=== PATIENT | female | born 1950 | race Caucasian/White ===

== ENCOUNTER 2020-06-12 14:39 | Outpatient (CLI) | payer MEDICARE, OTHER, SELFPAY ==
--- NOTE | ~2020-06-12 | MM_ITS ---
EXAMINATION: MM screening [facility] BI w vel HISTORY: Screening mammogram TECHNIQUE: Craniocaudal and mediolateral oblique 3-D tomosynthesis images were obtained and synthetic 2-D images were generated. CAD analysis was submitted and interpreted. COMPARISON: 04/20/2019, 04/15/2018, 04/08/2017 BREAST PARENCHYMAL COMPOSITION: There are scattered areas of fibroglandular density. FINDINGS: There is no evidence of suspicious mass, calcification, or architectural distortion to sugg est malignancy in either breast. There has been no suspicious interval change. IMPRESSION: 1. No mammographic evidence of malignancy. 2. Recommend routine screening mammography in one year. BI-RADS Category 1: Negative Reviewed, dictated and finalized at location A.
== END 2020-06-12 14:40 | disposition home or self-care (01) ==
LOC: ANHIMG 14:41
PROVIDERS: PCP Internal Medicine; Visit Provider Internal Medicine
DX: Z12.31 Encounter for screening mammogram for malignant neoplasm of breast (principal)
CPT/HCPCS: 77063; 77067

== ENCOUNTER 2020-08-20 16:44 | Outpatient (CLI) | payer MEDICARE, OTHER, SELFPAY ==
--- NOTE | ~2020-08-20 | XR_ITS ---
EXAMINATION: XR_RIBSBI_CR INDICATION: Chest pain after fall TECHNIQUE: 3 views of the bilateral ribs were obtained. COMPARISON: None. FINDINGS: No displaced rib fracture is identified. The lungs are free of acute opacities. There is no pleural effusion or pneumothorax. The cardiomediastinal silhouette is normal. Surgical clips in the right upper quadrant are likely from prior cholecystectomy. IMPRESSION: 1. No acute cardiopulmonary abnormality or evidence of displaced rib fracture. Reviewed, dictated and finalized at location A.
--- NOTE | ~2020-08-20 | XR_ITS ---
EXAMINATION:XR cervical spine 4-5V DATE: 08/20/2020 17:52 INDICATION: Neck pain TECHNIQUE: AP, lateral, lateral swimmers and odontoid views of the cervical spine are provided. COMPARISON: CT, 03/17/2017 FINDINGS: There are 2 mm of anterolisthesis of C4 on C5. Changes of anterior fusion procedure are pre sent at C5-6. There is moderate loss of intervertebral disc space height at C4-5 and C6-7. The odonto id is intact. No fracture is identified. The vertebral body heights are normal. Prevertebral soft tis sues are normal. There is moderate multilevel facet and uncovertebral joint osteoarthritis. IMPRESSION: 1. Moderate cervical spondylosis without acute findings or significant interval change. Reviewed, dictated and finalized at location A.
--- NOTE | ~2020-08-20 | XR_ITS ---
EXAMINATION: XR thoracic spine 2V DATE: 08/20/2020 17:52 INDICATION: Back pain, initial encounter TECHNIQUE: AP and lateral views of the thoracic spine are obtained. COMPARISON: None. FINDINGS: Bone alignment is normal. There is mild irregularity of the inferior endplates of the T12 a nd L1 vertebral bodies. Mild loss of vertebral disc space height is seen at several levels in the tho racic spine. IMPRESSION: 1. Age indeterminate fractures of T12 and L1. Reviewed, dictated and finalized at location A.
--- NOTE | ~2020-08-20 | XR_ITS ---
EXAMINATION: XR lumbar spine 2-3V DATE: 08/20/2020 17:52 INDICATION: Low back pain, initial encounter TECHNIQUE: Anteroposterior and lateral views of the lumbar spine, and cone-down lateral view of the l umbosacral junction were obtained. COMPARISON: None. FINDINGS: There is irregularity in the anterior/inferior endplate of the T12 and L1 vertebral bodies. Vertebral body alignment is normal. There is mild loss of intervertebral disc space height at L2-3 a nd L3-4. Small degenerative osteophytes project from the anterior endplates of multiple vertebral bod ies. Surgical clips in the right upper quadrant are likely from prior cholecystectomy. IMPRESSION: 1. Mild irregularity of the inferior endplates of T12 and L1, consistent with age indeterminate fract ures. Reviewed, dictated and finalized at location A. IMPRESSION: 1. Mild irregularity of the inferior endplates of T12 and L1, consistent with a ge indeterminate fractures.
== END 2020-08-20 16:45 | disposition home or self-care (01) ==
PROVIDERS: PCP Internal Medicine; Visit Provider Internal Medicine
DX: R07.9 Chest pain, unspecified (principal); M47.892 Other spondylosis, cervical region
CPT/HCPCS: 71110; 72050; 72070; 72100

== ENCOUNTER 2020-08-26 16:35 | Outpatient (CLI) | payer MEDICARE, OTHER, SELFPAY ==
--- NOTE | ~2020-08-26 | CT_ITS ---
EXAMINATION: CT brain wo con DATE: 08/26/2020 17:50 INDICATION: Fall with head injury TECHNIQUE: Computed tomography (CT) of the head was performed without intravenous contrast. Sagittal and coronal reconstructions were performed. The mA was adjusted according to patient size. Iterative reconstruction technique was employed. The dose-length product was 605.33 mGy-cm. COMPARISON: head CT dated 03/17/17 FINDINGS: No fracture. No acute intracranial hemorrhage, acute infarction or abnormal extra axial fluid collect ion. There is mild scattered white matter hypoattenuation consistent with chronic small vessel ischem ic disease. Ventricles are normal and symmetric. No mass/mass effect. Mucosal thickening in the paran mony sinuses with postoperative change of prior uncinectomies and ethmoidectomies. Chronic bilateral mastoid effusions with change of prior right mastoidectomy. The orbits are normal. Intracranial calc ified cerebral atherosclerosis is noted. IMPRESSION: 1. No fracture or acute intracranial process. 2. Mild scattered white matter hypoattenuation consistent with chronic small vessel ischemic disease. Reviewed, dictated and finalized at location A. IMPRESSION: 1. No fracture or acute intracranial process. 2. Mild scattered white matter hypoattenuation consistent with chronic small ve ssel ischemic disease.
== END 2020-08-26 16:36 | disposition home or self-care (01) ==
PROVIDERS: PCP Internal Medicine; Visit Provider Internal Medicine
DX: R51 Headache (principal); R93.0 Abnormal findings on diagnostic imaging of skull and head, not elsewhere classified
CPT/HCPCS: 70450

== ENCOUNTER 2021-03-20 13:40 | Outpatient (CLI) | payer MEDICARE, OTHER, SELFPAY ==
--- NOTE | ~2021-03-20 | MR_ITS ---
EXAMINATION: MR lumbar spine wo con DATE: 03/20/2021 14:45 INDICATION: Low back pain. TECHNIQUE: Magnetic resonance imaging (MRI) of the lumbar spine was performed without intravenous con trast. Sequences included sagittal T2-weighted FSE, sagittal T2-weighted FS FSE, sagittal T1-weighted FSE, and axial T2-weighted FSE. COMPARISON: Lumbar spine radiographs 08/20/2020 FINDINGS: There is 4 degrees dextrocurvature of lumbar spine. There are chronic compression fractures of the inferior endplates of T12 and L1 with 1/5 loss of height. There is a low signal fracture line in the T12 inferior endplate with bone marrow edema-like signal intensity in T12 vertebral body. The re is mildly decreased disc height from T12-L1 through L3-L4. The distal spinal cord signal intensity is normal. The conus medullaris is at L1-L2. The following disc levels are specifically discussed: T12-L1: The disc is bulging. There is no facet joint osteoarthritis. There is no neural foraminal denisse nosis. There is mild central canal stenosis. L1-L2: The disc is bulging. There is mild bilateral facet joint osteoarthritis. There is moderate rig ht and mild left neural foraminal stenosis. There is mild central canal stenosis. L2-L3: The disc is bulging and has an annular fissure. There is moderate bilateral facet joint osteoa rthritis. There is mild bilateral neural foraminal stenosis. There is mild central canal stenosis. L3-L4: The disc is bulging. There is moderate bilateral facet joint osteoarthritis. There is mild buffy ateral neural foraminal stenosis. There is mild central canal stenosis. L4-L5: The disc is bulging and has an annular fissure. There is moderate bilateral facet joint osteoa rthritis. There is mild bilateral neural foraminal stenosis. There is no central canal stenosis. L5-S1: The disc is bulging and has an annular fissure. There is severe bilateral facet joint osteoart hritis. There is mild bilateral neural foraminal stenosis. There is mild central canal stenosis. IMPRESSION: 1. Subacute T12 compression fracture. 2. Mild lumbar spondylosis. Reviewed, dictated and finalized at location B.
== END 2021-03-20 13:41 | disposition home or self-care (01) ==
LOC: ANHIMG 13:52
PROVIDERS: PCP Internal Medicine; Visit Provider Internal Medicine
DX: M47.896 Other spondylosis, lumbar region (principal)
CPT/HCPCS: 72148

== ENCOUNTER 2021-08-07 14:37 | Outpatient (CLI) | payer MEDICARE, OTHER, SELFPAY ==
--- NOTE | ~2021-08-07 | MM_ITS ---
EXAMINATION: MM screening [facility] BI w vel HISTORY: Screening mammogram TECHNIQUE: Craniocaudal and mediolateral oblique 3-D tomosynthesis images were obtained and synthetic 2-D images were generated. CAD analysis was submitted and interpreted. COMPARISON: 06/12/2020, 04/20/2019, 04/15/2018 bilateral digital screening mammogram examinations BREAST PARENCHYMAL COMPOSITION: There are scattered areas of fibroglandular density. FINDINGS: There is no evidence of suspicious mass, calcification, or architectural distortion to sugg est malignancy in either breast. There has been no suspicious interval change. IMPRESSION: 1. No mammographic evidence of malignancy. 2. Recommend routine screening mammography in one year. BI-RADS Category 1: Negative Reviewed, dictated and finalized at location A.
== END 2021-08-07 14:38 | disposition home or self-care (01) ==
LOC: ANHIMG 14:41
PROVIDERS: PCP Internal Medicine; Visit Provider Obstetrics & Gynecology
DX: Z12.31 Encounter for screening mammogram for malignant neoplasm of breast (principal)
CPT/HCPCS: 77063; 77067

== ENCOUNTER 2022-08-19 12:24 | Outpatient (CLI) | payer MEDICARE, OTHER, SELFPAY ==
--- NOTE | ~2022-08-19 | MM_ITS ---
EXAMINATION: MM screening [facility] BI w vel HISTORY: Screening mammogram TECHNIQUE: Craniocaudal and mediolateral oblique 3-D tomosynthesis images were obtained and synthetic 2-D images were generated. CAD analysis was submitted and interpreted. COMPARISON: 07/07/2021, 06/12/2020, 04/20/2019 BREAST PARENCHYMAL COMPOSITION: There are scattered areas of fibroglandular density. FINDINGS: There is no suspicious mass, calcification, or architectural distortion to suggest malignan cy in either breast. There has been no suspicious interval change. IMPRESSION: 1. No mammographic evidence of malignancy. 2. Recommend routine screening mammography in one year. BI-RADS Category 1: Negative Reviewed, dictated and finalized at location A.
== END 2022-08-19 12:25 | disposition home or self-care (01) ==
PROVIDERS: PCP Internal Medicine; Visit Provider Internal Medicine
DX: Z12.31 Encounter for screening mammogram for malignant neoplasm of breast (principal)
CPT/HCPCS: 77063; 77067

== ENCOUNTER 2023-07-09 13:39 | Emergency (ER) | payer MEDICARE, OTHER, SELFPAY ==
--- NOTE | 2023-07-09 13:45 | ED.URI ---
HPI - URI/Sore Throat General Chief Complaint: Upper Respiratory Infection Stated Complaint: Cough,Congestion,Runny Nose Time Seen by Provider: 07/09/23 13:46 Source: patient, RN notes reviewed and old records reviewed Mode of arrival: ambulatory Limitations: no limitations History of Present Illness HPI Narrative: 73-year-old female presents to [facility] with complaints of cough, chest congestion and a runny nose. Reports has been tested positive this morning for COVID-19. Her symptoms started on Wednesday, 4 days ago Patient currently on Coreg, Plavix, rosuvastatin Has a history of congestive heart failure, arthritis high blood pressure Onset (ago): day(s) (4) Related Data Home Medications Medication Instructions Recorded Confirmed allopurinol 100 mg tablet 100 mg PO DAILY 12/07/19 07/09/23 amitriptyline 50 mg tablet 50 mg PO HS 12/07/19 07/09/23 aspirin 81 mg tablet,delayed 81 mg PO DAILY 12/07/19 07/09/23 release (Enteric Coated Aspirin) carboxymethylcellulose sodium 1 % 1 drp ophthalmic (eye) HS 12/07/19 07/09/23 eye gel in a dropperette (Refresh Celluvisc) carvedilol 6.25 mg tablet 6.25 mg PO BID 12/07/19 07/09/23 cetirizine 10 mg capsule 10 mg PO DAILY 12/07/19 07/09/23 clopidogrel 75 mg tablet (Plavix) 75 mg PO DAILY 12/07/19 07/09/23 duloxetine 60 mg capsule,delayed 60 mg PO DAILY 12/07/19 07/09/23 release (Cymbalta) fluticasone 250 mcg-salmeterol 50 1 inh inhalation Q12H 12/07/19 07/09/23 mcg/dose blistr powdr for inhalation (Advair Diskus) furosemide 20 mg tablet 20 mg PO DAILY 12/07/19 07/09/23 levothyroxine 50 mcg tablet 50 mcg PO DAILY 12/07/19 07/09/23 (Synthroid) lidocaine 5 % topical patch 1 patch topical DAILY 12/07/19 07/09/23 (Lidoderm) linaclotide 145 mcg capsule 145 mcg PO DAILY 12/07/19 07/09/23 omega-3 acid ethyl esters 1 gram 1 cap PO BID 12/07/19 07/09/23 capsule (Lovaza) pantoprazole 40 mg tablet,delayed 40 mg PO BID 12/07/19 07/09/23 release peg 400-propylene glycol 0.4 %-0.3 1 drp ophthalmic (eye) Q6H 12/07/19 07/09/23 % eye drops (Systane (propylene glycol)) pregabalin 100 mg capsule (Lyrica) 100 mg PO BID 12/07/19 07/09/23 rosuvastatin 10 mg tablet 10 mg PO DAILY 12/07/19 07/09/23 topiramate 100 mg tablet (Topamax) 100 mg PO DAILY 12/07/19 07/09/23 Allergies Allergy/AdvReac Type Severity Reaction Status Date / Time Sulfa (Sulfonamide AdvReac Mild Hives Verified 07/09/23 13:41 Antibiotics) Review of Systems Review of Systems: All systems reviewed & are unremarkable except as noted in HPI and below Constitutional: Constitutional: Reports as per HPI and Reports body ache(s) Eyes: Eyes: Reports no additional eye complaints ENT: Reports as per HPI and Reports nasal congestion Cardiovascular: Cardiovascular: Reports no additional cardiovascular complaints, Denies chest pain and Denies dyspnea Respiratory: Respiratory: Reports as per HPI, Denies chest congestion, Reports cough and Denies dyspnea Gastrointestinal: Gastrointestinal: Reports no additional gastrointestinal complaints, Denies abdominal pain, Denies nausea and Denies vomiting Musculoskeletal: Musculoskeletal: Reports no additional musculoskeletal complaints Integumentary/Breasts: Skin/Breast: Reports system reviewed and no additional complaints, except as docu Neurologic: Reports system reviewed and no additional complaints, except as documented Psychiatric: Psychiatric: Reports no additional psychiatric complaints Allergic/Immunologic: Allergic/Immunologic: Reports no additional allergic/immunologic complaints [facility] Past Medical History Medical History (Updated 07/09/23 @ 19:19 by Melonie Purvis APRN) High cholesterol History of high blood pressure History of stroke Surgical History Surgical History (Updated 07/09/23 @ 19:19 by Melonie Purvis APRN) History of heart artery stent Comments At the time of my signature, I reviewed and agree with the nursing past medica
[2023-07-09 13:56] VITALS: BP 113/54; PULSE 72; RESP 18; TEMP 36.2; O2SAT 100
== END 2023-07-09 13:58 | disposition home or self-care (01) ==
PROVIDERS: Emergency Provider Nurse Practitioner; PCP Internal Medicine
DX: U07.1 COVID-19 (principal); E78.00 Pure hypercholesterolemia, unspecified; I10 Essential (primary) hypertension; Z86.73 Personal history of transient ischemic attack (TIA), and cerebral infarction without residual deficits; I25.10 Atherosclerotic heart disease of native coronary artery without angina pectoris; Z95.5 Presence of coronary angioplasty implant and graft
CPT/HCPCS: 87426; 99213; C9803; G0463

== ENCOUNTER 2023-12-09 15:20 | Outpatient (CLI) | payer MEDICARE, OTHER, SELFPAY ==
--- NOTE | ~2023-12-09 | MM_ITS ---
EXAMINATION: MM screening [facility] BI w vel HISTORY: Screening mammogram TECHNIQUE: Craniocaudal and mediolateral oblique 3-D tomosynthesis images were obtained and synthetic 2-D images were generated. CAD analysis was submitted and interpreted. COMPARISON: 08/19/2022, 08/07/2021, 06/12/2020 BREAST PARENCHYMAL COMPOSITION: There are scattered areas of fibroglandular density. FINDINGS: No suspicious mass, calcification, or architectural distortion are identified in either daniel ast to suggest malignancy. There has been no suspicious interval change. IMPRESSION: 1. No mammographic evidence of malignancy. 2. Recommend routine screening mammography in one year. BI-RADS Category 1: Negative Reviewed, dictated and finalized at location A. [employer]
== END 2023-12-09 15:21 | disposition home or self-care (01) ==
PROVIDERS: PCP Internal Medicine; Visit Provider Internal Medicine
DX: Z12.31 Encounter for screening mammogram for malignant neoplasm of breast (principal)
CPT/HCPCS: 77063; 77067

== ENCOUNTER 2025-06-14 15:38 | Outpatient (CLI) | payer MEDICARE, OTHER, SELFPAY ==
--- NOTE | ~2025-06-14 | MM_ITS ---
EXAMINATION: MM screening gloria BI w vel HISTORY: Screening TECHNIQUE: Craniocaudal and mediolateral oblique 3-D tomosynthesis images were obtained and synthetic 2-D images were generated. CAD analysis was submitted and interpreted. COMPARISON: Comparison to multiple prior studies sequentially, with oldest reviewed study dated 04/15. BREAST PARENCHYMAL COMPOSITION: Not dense: There are scattered areas of fibroglandular density. FINDINGS: There is no evidence of suspicious mass, calcification, or architectural distortion to sugg est malignancy in either breast. There has been no suspicious interval change. IMPRESSION: 1. No mammographic evidence of malignancy. 2. Recommend routine screening mammography in one year. BI-RADS Category 1: Negative Reviewed, dictated and finalized at location B.
--- OUTSIDE RECORDS SUMMARY | 2025-06-14 15:41 | XMS_ITS | Referral Summary ---
Author Organization [facility] Address [address] [place] [address] Care Team Providers Care Patent Examiner Name Role Phone Neil Higgins MD Primary Care Provider Edilberto Nance MD Unavailable [phone] Rick Coates MD Unavailable Encounters Date Type Department Care Team Description 06/12/2025 1:40 PM CDT Procedure visit [facility] General Neurology [address] [place] [address] Francine Ruiz MD PhD Intractable chronic migraine without aura and without status migrainosus (Primary Dx) 05/30/2025 Telephone [facility] Otolaryngology [address] [place] [phone] Irma Chavez LPN Sinus symptoms and results of CT sinus 05/29/2025 Imaging Exam [facility] Otolaryngology [address] [place] [phone] Rick Coates MD Chronic pansinusitis (Primary Dx) 05/21/2025 1:30 PM CDT Office Visit [facility] Pulmonology [address] [place] [address] Shoshana Seo MD Chronic bronchitis, simple (HCC) (Primary Dx); Chronic rhinitis 04/03/2025 2:15 PM CDT Office Visit [facility] Otolaryngology [address] [place] [address] Rick Coates MD Chronic cough (Primary Dx); Chronic pansinusitis 03/27/[address] [facility] General Neurology [address] [place] [id number] [place] Intractable chronic migraine without aura and without status migrainosus (Primary Dx) 03/20/2025 1:40 PM CDT Procedure visit [facility] General Neurology [address] [place] [address] Francine Ruiz MD PhD Intractable chronic migraine without aura and without status migrainosus (Primary Dx) from Last 3 Months Allergies Active Allergy Reactions Criticality Noted Date Comments Sulfa (Sulfonamide Antibiotics) Hives,Unknown Medium 12/02/2004 HIVES Tramadol Mental status changes,Hallucinations Medium 04/11/2019 confusion Medications allopurinol (ZYLOPRIM) 100 mg tablet Take 1 tablet (100 mg total) by mouth daily Active aspirin 81 mg tablet Take 1 tablet (81 mg total) by mouth daily Active clopidogrel (PLAVIX) 75 mg tablet Take 1 tablet (75 mg total) by mouth nightly Held for procedure; last dose 10/[address] (CYMBALTA) 60 mg capsule Take 1 capsule (60 mg total) by mouth nightly Active pantoprazole DR (PROTONIX) 40 mg EC tablet Take 1 tablet (40 mg total) by mouth daily Active levothyroxine (SYNTHROID) 50 mcg tablet Take 1 tablet (50 mcg total) by mouth daily Active thiamine (VITAMIN B-1) 50 mg tablet Take 1 tablet (50 mg total) by mouth daily Active cetirizine (ZyrTEC) 10 mg tablet Take 1 tablet (10 mg total) by mouth nightly Active lidocaine (LIDODERM) 5 % Place 1 patch on the skin nightly Both feet at night Active cycloSPORINE (RESTASIS) 0.05 % ophthalmic emulsion Administer 1 drop into both eyes as needed Active onabotulinumtox in A (BOTOX) 100 unit recon soln Every 3- 4 months Active omega-3 fatty acids (LOVAZA) 1 gram capsule Take 1 capsule (1 g total) by mouth daily 06/16/20 20 Active Trulance 3 mg tablet Take 1 tablet (3 mg total) by mouth as needed 08/07/20 21 Active furosemide (LASIX) 20 mg tablet Take 1 tablet (20 mg total) by mouth as needed Active levalbuterol (XOPENEX HFA) 45 mcg/actuation inhalerIndicati ons:Chronic bronchitis, simple (HCC) Inhale 1-2 puffs every 4 (four) hours as needed for wheezing or shortness of breath (cough) 1 each 3 11/02/20 23 Active rosuvastatin (CRESTOR) 20 mg tablet Take 1 tablet (20 mg total) by mouth daily 01/06/20 24 Active carvediloL (COREG) 3.125 mg tablet Take 1 tablet (3.125 mg total) by mouth 2 (two) times a day with meals 180 tablet 3 06/23/20 24 025 Active carvediloL (COREG) 6.25 mg tablet Take 1 tablet (6.25 mg total) by mouth 2 (two) times a day with meals 180 tablet 3 06/23/20 24 025 Active topiramate (TOPAMAX) 50 mg tablet Take 2 tabs twice daily 360 tablet 3 08/04/20 24 Active ubrogepant (Ubrelvy) 100 mg tablet TAKE 1 TABLET BY MOUTH NEEDED FOR HEADACHE, MAY REPEAT DOSE IN 2 HOURS IF NO RELIEF, DO NOT EXCEED 2 DOSES IN 24 HOURS 10 tablet 11 10/12/20 24 Active guaiFENesin ER (MUCINEX) 600 mg 12 hr tablet Take 2 tablets (1,200 mg total) by mouth 2 (two) times a day 10/11/20 24 Active amitriptyline (ELAVIL) 25 mg tablet Take 2 tablets (50 mg total) by mouth nightly 180 tablet 3 02/16/20 25 Active fremanezumab-vf rm (Ajovy Autoinjector) 225 mg/1.5 mL auto-injector subcutaneous auto-injector Inject 1.5 mL (225 mg total) under the skin every 30 (thirty) days 1.5 mL 6 02/21/20 25 Active ipratropium (ATROVENT) 42 mcg (0.06 %) nasal sprayIndication s:Chronic bronchitis, simple (HCC) Administer 2 sprays into each nostril 4 (four) times a day 15 mL 1 05/21/20 25 Active azelastine (ASTELIN) 137 mcg (0.1 %) nasal sprayIndication s:Chronic rhinitis Administer 1 spray into each nostril 2 (two) times a day Use in each nostril as directed 30 mL 2 08/22/20 24 025 Discontinued(A lternate therapy) methylPREDNISol one (Medrol, Thomas,) 4 mg DosepackIndicat ions:Chronic bronchitis, simple (HCC) follow package directions 1 packet 05/21/20 25 025 Discontinued(R eorder) clindamycin (CLEOCIN) 300 mg capsuleIndicati ons:Chronic pansinusitis Take 1 capsule (300 mg total) by mouth 3 (three) times a day for 14 days 42 capsule 05/30/20 25 025 methylPREDNISol one (Medrol, Thomas,) 4 mg DosepackIndicat ions:Chronic pansinusitis follow package directions 1 packet 05/30/20 25 025 Discontinued Hospital, Clinic, or Other Facility Administered Medication Ordered Dose Route Frequency Start Date End Date Status onabotulinumtoxin A (BOTOX) 200 unit injection 200 UnitsIndications:Int ractable chronic migraine without aura and without status migrainosus 200 Units OTHER Once for Clinic-Administer ed Medication 01/18/2024 Active onabotulinumtoxin A (BOTOX) 200 unit injection 200 UnitsIndications:Int ractable chronic migraine without aura and without status migrainosus 200 Units OTHER Once for Clinic-Administer ed Medication 12/26/2024 Active onabotulinumtoxin A (BOTOX) 200 unit injection 200 UnitsIndications:Int ractable chronic migraine without aura and without status migrainosus 200 Units OTHER Once for Clinic-Administer ed Medication 09/04/2025 Active onabotulinumtoxin A (BOTOX) 200 unit injection 200 UnitsIndications:Int ractable chronic migraine without aura and without status migrainosus 200 Units OTHER Once for Clinic-Administer ed Medication 06/12/2025 06/12/2025 Ended Active Problems Problem Noted Date Diagnosed Date Acquired absence of genital organ 12/18/2024 Acute renal failure syndrome 12/18/2024 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 I recommended that she try using hydrocortisone cream twice a day to this area which may reduce the inflammation and resolve this. Follow up if things worsen. Chronic cough 08/15/2024 Assessment & Plan (04/09/2025 5:02 PM CDT): She indicates that she has had this cough for many years. Right now it is pretty tolerable. Does not really want to pursue any further intervention. Assessment & Plan (03/06/2025 6:03 PM CDT): There does not seem to be a pulmonary source for this and she has a significant sinusitis. Will treat the sinusitis and have her follow up in about 4 weeks. Assessment & Plan (08/15/2024 2:21 PM CDT): I think her cough is likely due to her reflux disease in light of the way she describes choking and throwing up on the phlegm. I do not find any evidence of infection. She already takes Protonix once a day. I recommended that she talk with her primary care physician about further management of this. Mucocele of ethmoid sinus 04/25/2024 Tension headache 04/14/2024 Assessment & Plan (05/19/2024 11:26 AM CDT): Continue current management. Assessment & Plan (04/14/2024 10:14 AM CDT): She is working with a neurologist with Botox injections. I recommended continuing. Otalgia of both ears 04/14/2024 Assessment & Plan (04/14/2024 10:14 AM CDT): I do not find any evidence of an ear infection or inflammation. I talked with the patient about possible reasons for ear pain that could be coming from another source. There is some potential for TMJ disorder to cause this. Also some potential for ear pain due to cervical strain or shoulder problems. I think this probably is part of her tension headache. Her ears both look pretty healthy. I am not recommending any intervention on my part. Chronic bronchitis, simple 11/10/2023 Dyspnea and respiratory abnormalities 11/10/2023 Paraosmia 11/10/2022 Assessment & Plan (11/10/2022 9:19 PM DYE BOX OPERATOR): This has improved and gotten back to normal. I suspect she probably did have an infection but right now everything seems to be under control. Recommended no intervention. Follow-up as needed. Chronic pansinusitis 08/11/2022 Assessment & Plan (04/09/2025 5:04 PM CDT): Seems improved after taking clindamycin for what appeared to be a methicillin sensitive staph aureus. I recommended no intervention. Follow up with me as needed. Endoscopically I do not find any evidence of infection either. Assessment & Plan (03/06/2025 6:03 PM CDT): She has a pretty significant sinus infection on both sides with exudate and discharge bilaterally. I cultured the left side. Going to prescribe a steroid pack and a 2 week course of Ceftin. I will call her if the culture grows something that warrants a change in her antibiotics. Otherwise I would like to see her in about 4 weeks. We will do imaging at that time. She is okay with this. I am going to check her lab work also. Consider possibility of immunoglobulin deficiency. Assessment & Plan (08/15/2024 2:18 PM CDT): Endoscopically the ethmoid and frontal sinuses on the left side have healed quite well. She has a very good opening into the frontal sinus. I do not find any problems. At this point I do not think there is any need for further intervention. She can follow up with me as needed. Assessment & Plan (05/19/2024 11:26 AM CDT): Seems to be doing well. This ear in the left side looks pretty good. I did remove some remaining packing and there appears to be a pretty good opening. I am recommending rinsing with saline as needed. Follow up with me in about 6-8 weeks. Assessment & Plan (04/14/2024 10:13 AM CDT): She has an ethmoid mucocele on the left side. It actually looks little bit larger endoscopically than it does on the CT scan. I am recommending removal of this as it may continue to enlarge and it is already nearly obstructing the frontal sinus. I discussed the risk of sinus surgery including the risk of recurrent or persistent disease that may require further revision surgery. There is a risk of orbital injury and DEAL ARCHITECT injury which could result in blindness or double vision or brain damage. These risks are quite low. Some risk of permanent anosmia. I explained that this may not be the reason for the headache and she understands that. She has no questions. Assessment & Plan (11/10/2022 9:19 PM DYE BOX OPERATOR): Seems improved. Endoscopically I do not find any evidence of problems. Will treat expectantly for now. Assessment & Plan (08/11/2022 10:48 AM CDT): She is doing pretty well and things appear to have healed up quite well. I recommend that she finish up the Cipro. I told her that there were several bacteria that cultured out. One of them is not being treated but I think it is probably insignificant. We will see how things go. The plan is for a follow-up in 3 months. Chronic maxillary sinusitis 05/20/2022 Overview (05/20/2022): Added automatically from request for surgery [id number] Chronic ethmoidal sinusitis 05/20/2022 Overview (05/20/2022): Added automatically from request for surgery [id number] Acute post-traumatic headache, not intractable 1 Chest pain 09/27/2019 Overview (09/27/2019): Added automatically from request for surgery [id number] Coronary artery disease of n ative artery of [place] heart with stable angina pectoris 09/27/2019 Overview (09/27/2019): Added automatically from request for surgery [id number] Parkinsonism 01/26/2018 Obesity with body mass index 30 or greater 04/09 Temporary cerebral vascular dysfunction 04/09/20 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 Renal osteodystrophy 04/14/2016 Benign hypertension 04/08/2016 Gastroesophageal reflux disease 04/08/2016 Hearing loss 04/08/2016 Hypothyroidism 04/08/2016 Kidney disease 04/08/2016 Peptic ulcer 04/08/2016 Periodic limb movement disorder 10/08/2015 Left ventricular dysfunction 07/25/2015 Asymptomatic stenosis of left carotid artery Carotid atherosclerosis 12/16/2014 Anemia 08/15/2014 Parasomnia, organic 04/24/2014 Cerebrovascular accident (CVA) 04/21/2014 Hyperlipidemia 04/21/2014 Carotid bruit 04/20/2014 Peripheral nerve disease 07/12/2013 Intractable chronic migraine without aura 2012 Immunizations Immunization Administration Dates Next Due Influenza, Trivalent, Preservative Free, Intramu scular 09/11/2012 Moderna SARS-CoV-2 Monovalent Vaccination (12+ Y RS) 01/27/2021,12/30/2020 Pfizer SARS-CoV-2 Monovalent Vaccination (12+ Yrs) PURPLE 12/19/2021 Social History Tobacco Use Types Packs/Day Years Used Date Smoking Tobacco: Never Passive Smoke Exposure: Past Smokeless Tobacco: Never Alcohol Use Standard Drinks/Week Comments Not Currently 0 (1 standard drink = 0.6 oz pur e alcohol) AUDIT-C Answer Date Recorded Q1: How often do you have a drink containing alcohol? Never 05/05/2024 Q2: How many drinks containi ng alcohol do you have on a typical day when you are drinking? Patient does not drink Q3: How often do you have si x or more drinks on one occasion? Never 05/05/2024 Personal Safety Answer Date Recorded Have you ever been in or are you currently in a harmful physical or emotional relationship or is someone making you feel afraid or unsafe? Denies 05/05/2024 Comments No Sex and Gender Information Value Date Recorded Sex Assigned at Not on file Legal Sex Female 7:36 AM DYE BOX OPERATOR Gender Identity Female 08/25/2021 8:49 PM CDT Sexual Orientation Straight 08/25/2021 8: 49 PM CDT Last Filed Vital Signs Vital Sign Reading Time Taken Comments Blood Pressure 115/67 06/12/2025 1:16 PM CDT Pulse 67 06/12/2025 1:16 PM CDT Temperature 36.5 C (97.7 F) 06/12/2025 1:16 PM CDT Respiratory Rate 18 05/21/2025 1:34 PM CDT Oxygen Saturation 97% 06/12/2025 1:16 PM CDT Inhaled Oxygen Concentration - - Weight 67.6 kg (149 lb) 06/12/2025 1:16 PM CDT Height 157.5 cm (5' 2) 06/12/2025 1:16 PM CDT Body Mass Index 27.25 06/12/2025 1:16 PM CDT Plan of Treatment Not on file Goals Goal Patient Goal Type Associated Problems Recent Progress Patient-Stated? Author CCM Chronic Pain Care Plan Chronic Care Management No change(09/04 1:48 PM CDT) No Dia Hunter RN Note: Problem: Chronic Pain Goals: 1. Minimize further functional decline 2. Maximize quality of life 3. Control pain Strategies: - Activity/exercise program recommendation - Conservative stepwise pain medicine strategy with multi-disciplinary approach - Recommend healthy lifestyle strategies and compensatory methods as needed Medical Devices Implanted Type Area Buckshot Swage Operator Device Identifier Shelf Expiration Date Model / Serial / Lot Total Joint Replacement Bilateral : Knee Insurance MEDICARE [facility] MEDICARE [facility] Con[employer] [facility] MEDICARE FOR LIFE MEDICARE FOR LIFE ZA NAP Advance Directives For more information, please contact: [phone] * Full Code (Latest Code Status on File) Date Activated Date Inactivated Comments 12/20/2020 7:11 AM 12/21/2020 4:39 AM Healthcare Agents on File Name Relationship Healthcare Agent [facility] Communication Marcus Marty Spouse Health Care Agent Care Teams Patent Examiner Relationship Specialty Start Date End Date Neil Higgins MD [address] [place] [address] PCP - General 01/18/18 Edilberto Nance MD [address] [place] [address] Consulting Physician Cardiology 05/20/22 Rick [place] [address] Consulting Physician Otolaryngology 07/31/22
--- OUTSIDE RECORDS SUMMARY | 2025-06-14 15:41 | XMS_ITS | Encounter Summary ---
Author Organization [facility] Healthcare Address [address] [place] [address] Care Team Providers Care Deck Worker Name Role Phone Neil Higgins MD Primary Care Provider [phone] Edilberto Nance MD Unavailable [phone] Rick Coates MD Unavailable [phone] Reason for Visit * Reason Onset Date Comments PAIN CONFERENCE 03/25/2021 Encounter Details Date Type Department Care Team (Late st Contact Info) Description 03/25/2021 Telephone [facility] [address] [place] [facility] [address] [place], [place] [id number] Teresa Orellana MD PhD [address] [place], [place] [id number] PAIN CONFERENCE Social History Tobacco Use Types Packs/Day Years Used Date Smoking Tobacco: Never Smokeless Tobacco: Never Alcohol Use Standard Drinks/Week Comments Not Currently 0 (1 standard drink = 0.6 oz pur e alcohol) Comments No Sex and Gender Information Value Date Recorded Sex Assigned at Not on file Legal Sex Female 7:36 AM 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 Author CCM Chronic Pain Care Plan Chronic Care Management No change(09/04 1:48 PM CDT) No Elsa , Dia F., RN Note: Problem: Chronic Pain Goals: 1. Minimize further functional decline 2. Maximize quality of life 3. Control pain Strategies: - Activity/exercise program recommendation - Conservative stepwise pain medicine strategy with multi-disciplinary approach - Recommend healthy lifestyle strategies and compensatory methods as needed documented as of this encounter Visit Diagnoses Not on filedocumented in this encounter Care Teams Deck Worker Relationship Specialty Start Date End Date Neil Higgins MD [address] [place] [address] PCP - General 01/18/18 Edilberto Nance MD [address] [place] [address] Consulting Physician Cardiology 05/20/22 Rick Coates MD [address] [place] [address] Consulting Physician Otolaryngology 07/31/22 documented as of this encounter
--- OUTSIDE RECORDS SUMMARY | 2025-06-14 15:41 | XMS_ITS | Clinical Summary ---
Author Organization [facility] Address [address] [place] [address] Care Team Providers Care Chief Customer Officer Name Role Phone Neil Higgins MD Primary Care Provider [phone] Allergies Active Allergy Reactions Criticality Noted Date Comments Sulfa Antibiotics Rash Medium 06/27/2020 Tramadol Hallucinations Medium 02/13/2021 Medications RESTASIS 0.05 % ophthalmic emulsion Place 1 drop into both eyes 2 (two) times daily. 0 Active carvedilol 6.25 MG tablet Take 1 tablet (6.25 mg total) by mouth 2 (two) times daily. 9 Active cetirizine 10 MG tablet Take 1 tablet (10 mg total) by mouth daily. Active clopidogrel 75 MG tablet Take 1 tablet (75 mg total) by mouth nightly at bedtime. Active allopurinol 100 MG tablet Take 2 tablets (200 mg total) by mouth daily. Active ASPIRIN EC 81 MG tablet Take 1 tablet (81 mg total) by mouth nightly. 9 Active LIDODERM 5 % Place 1 patch onto the skin nightly. Apply 1/2 patch to each foot every night at bedtime. Remove in the morning. 0 Active levothyroxine 50 MCG tablet Take 1 tablet (50 mcg total) by mouth every morning. Active furosemide 20 MG tablet Take 1 tablet (20 mg total) by mouth daily as needed (swelling). Active rosuvastatin 10 MG tablet Take 1 tablet (10 mg total) by mouth daily. Active vitamin B-1 50 MG tablet Take 1 tablet (50 mg total) by mouth daily. Active DULoxetine 60 MG capsule Take 1 capsule (60 mg total) by mouth nightly. 0 Active nitroglycerin 0.[address] 1 tablet (0.4 mg total) under the tongue every 5 (five) minutes as needed for Chest Pain. Active omega-3 acid 1 GM capsule Take 2 capsules (2 g total) by mouth 2 (two) times daily. 1 Active ferrous sulfate EC 324 (65 Fe) MG tablet Take 1 tablet (324 mg total) by mouth daily with breakfast. 30 tablet 2 Active Pyridoxine HCl (VITAMIN B-6) 25 MG Tab Take 50 mg by mouth daily. Active vitamin D3, cholecalciferol, 5000 UNITS capsule Take 1 capsule (125 mcg total) by mouth daily. Active OXYGEN 2 L/min by Nasal route daily as needed. Generator prn- hasnt needed to use in 3 years Active THIOCTIC ACID 100 MG Cap Take by mouth daily. Active amitriptyline (ELAVIL) 25 MG tablet Take 2 tablets (50 mg total) by mouth daily. 2 Active botulinum toxin type A (BOTOX) 200 units injection 200 Units by Other route. Every 3 months foe TRAN 2 Active polyethylene glycol (GLYCOLAX) 17 GM/SCOOP powder 17 g. Acti ve pregabalin (LYRICA) 100 MG capsule Take 1 capsule (100 mg total) by mouth daily. 2 Active topiramate (TOPAMAX) 50 MG Tab 2 tablets (100 mg total) 2 (two) times daily. 1 Active ubrogepant (UBRELVY) 100 MG tablet Ubrelvy 100 mg tablet TAKE 1 TABLET BY MOUTH NEEDED FOR HEADACHE. MAY REPEAT DOSE IN 2 HOURS IF NO RELIEF. DO NOT EXCEED 2 DOSES IN 24 HOURS. 2 Active guaiFENesin ER (MUCINEX) 600 MG 12 hr tablet Take 2 tablets (1,200 mg total) by mouth 2 (two) times daily. 28 tablet 4 Active Plecanatide (TRULANCE) 3 MG TabIndications:C hronic constipation Take 3 mg by mouth daily. 90 tablet 3 4 Active azithromycin (ZITHROMAX Z-CHENTE) 250 MG tablet 2 tabs x 1 day with 1 tab daily x 4 days 6 tablet 5 Active pantoprazole EC (PROTONIX) 40 MG tabletIndication s:Chronic GERD Take 1 tablet (40 mg total) by mouth daily. Must attend 11/13 appt for further refills 90 tablet 1 5 Active pantoprazole EC (PROTONIX) 40 MG tabletIndication s:Chronic GERD Take 1 tablet (40 mg total) by mouth daily. 30 tablet 2 5 025 Discontinu ed(Reorder ) amoxicillin (AMOXIL) 500 MG tablet Take 2 tablets (1,000 mg total) by mouth 3 (three) times daily for 5 days. 30 tablet 5 025 Active Problems Problem Noted Date Diagnosed Date Family hx of colon cancer 10/05/2023 Overview (10/05/2023): Added automatically from request for surgery [id number] Incomplete bladder emptying 11/02/2022 OAB (overactive bladder) 11/02/2022 UTI (urinary tract infection) 11/28/2021 Hyponatremia 11/28/2021 Coronary artery disease of n ative artery of [place] heart with stable angina pectoris 09/27/2019 Overview (06/27/2020): Overview: Added automatically from request for surgery [id number] Chest pain 09/27/2019 Overview (06/27/2020): Overview: Added automatically from request for surgery [id number] Parkinsonism ([facility]) 01/26/2018 Temporary cerebral vascular dysfunction 04/09/20 17 Obesity with body mass index 30 or greater 04/09 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 Renal osteodystrophy 04/14/2016 Benign hypertension 04/08/2016 Gastroesophageal reflux disease 04/08/2016 Hearing loss 04/08/2016 Hypothyroidism 04/08/2016 Kidney disorder 04/08/2016 Peptic ulcer 04/08/2016 Cardiomegaly 04/08/2016 Hyperlipidemia 04/08/2016 Nephrolithiasis 04/08/2016 Neuropathy 04/08/2016 Periodic limb movement disorder 10/08/2015 Left ventricular dysfunction 07/25/2015 Anemia 08/15/2014 Parasomnia, organic 04/24/2014 Hyperlipidemia 04/21/2014 Carotid bruit 04/20/2014 Intractable chronic migraine without aura 2012 Peripheral nerve disease 07/12/2013 Encounters Date Type Department Care Team Description 06/06/2025 Orders Only [facility] - [address], [address] [place] [address] Kamila Cooper RN 06/06/2025 Telephone [facility] - [address] [place] [address] Ghazal Lassiter, MINH Medication 05/14/2025 10:31 AM CDT - 05/14/2025 11:56 AM CDT Hospital Encounter [facility] [address] [place] [address] Eric Waters PA URI Discharge Disposition: Home or Self Care (Routine Discharge) 05/14/2025 Travel 03/21/2025 Orders Only [facility] - [address] [place] [address] April Hernandez MA 03/21/2025 Telephone [facility] - [address] [place] [address] Ghazal Lassiter, MINH Medication from Last 3 Months Immunizations Immunization Administration Dates Next Due Fluad influenza vaccine, Nikolay drivalent (aIIV4), Inactivated, adjuvanted, preservative free, 0.5 mL,IM use 10/06/2019 Influenza Adult (Generic) 11/07/2015 MODERNA COVID-19 (12+) MRNA, LNP-S, PF, 100 MCG/ 0.5 ML DOSE 01/27/2021,12/30/2020 PFIZER COVID-19 (ORIGINAL FO RMULATION, PURPLE CAP) mRNA, LNP-S, PF, 30 MCG/0.3 ML DOSE 12/19/2021 Pneumococcal (Prevnar 13) 11/07/2015 Family History Medical History Relation Comments Heart Disease Brother 1 Heart Disease Brother 2 OK Brother 2 Colon Cancer Brother 3 Heart Disease Brother 3 Heart Disease Father Heart Disease Mother Stroke Mother Heart Disease Sister 1 CVA Sister 2 Heart Disease Sister 2 ckd Sister 2 Heart Disease Sister 3 OK Sister 3 Acute myelogenous leukemia Sister 4 Heart Disease Sister 4 Diabetes Sister 5 Heart Disease Sister 5 Heart Disease Sister 6 Relation Status Comments Brother 1 Brother 2 Brother 3 Alive Father Mother Sister 1 Alive Sister 2 Alive Sister 3 Alive Sister 4 Sister 5 Sister 6 Social History Tobacco Use Types Packs/Day Years Used Date Smoking Tobacco: Never Smokeless Tobacco: Never Tobacco Cessation:Counseling Given: No Alcohol Use Standard Drinks/Week Comments Not Currently 0 (1 standard drink = 0.6 oz pur e alcohol) AUDIT-C Answer Date Recorded Q1: How often do you have a drink containing alc ohol? Never 07/04/2020 Average Number of Drinks Not on file 020 Frequency of Binge Drinking Not on file 04/2020 PHQ-2 Answer Date Recorded Patient Health Questionnaire-2 Score 0 11/20/2024 Comments No Sex and Gender Information Value Date Recorded Sex Assigned at Not on file Legal Sex Female 8:23 PM CDT Gender Identity Not on file Sexual Orientation Not on file Last Filed Vital Signs Vital Sign Reading Time Taken Comments Blood Pressure 106/68 05/14/2025 10:36 AM CDT Pulse 80 05/14/2025 10:36 AM CDT Temperature 36.9 C (98.4 F) 05/14/2025 10:36 AM CDT Respiratory Rate 22 05/14/2025 10:36 AM CDT Oxygen Saturation 97% 05/14/2025 10:36 AM CDT Inhaled Oxygen Concentration - - Weight 64.9 kg (143 lb) 11/20/2024 3:53 PM MEDICAL HEALTH RESEARCHER Height 154.9 cm (5' 1) 05/14/2025 10:36 AM CDT Body Mass Index 27.02 11/20/2024 3:53 PM MEDICAL HEALTH RESEARCHER Plan of Treatment Upcoming Encounters Date Type Department Care Team (Late st Contact Info) Description 11/13/2025 2:00 PM MEDICAL HEALTH RESEARCHER Office Visit [facility] - [facility] [address] [place] [id number] Ghazal Lassiter NP [address] [facility] [address] [place] [address] Health Maintenance Due Date Last Done Comments ASCVD LDL 1951 ASCVD Statin 1951 Hepatitis C 1969 Mammogram Screening 1991 RSV Immunization or 60+ Years (1 - Risk 60-74 years 1-dose series) 2011 Annual Medicare Wellness Visit 2016 Dexa Scan (General) 2016 COVID-19 Vaccine ( season) 2024 12/19/2021, 01/27/2021, 12/30/2020 PHQ-2 (Physician [place]) 11/29/2024 11/20/2024 DTaP, Tdap and Td Vaccines (4 - Td or Tdap) 09/23/2030 09/23/2020, 12/28/2014, 04/20/2013, Additional history exists Colorectal Cancer Screening Colonoscopy (10 Years) 11/04/2033 11/04/2023, 11/04/2023 Pneumococcal Vaccine: 50+ Years Completed 11/11/2018, 11/07/2015, 12/07/2014, Additional history exists Zoster Vaccines Completed 12/14/2024, 090 11/2020, 12/10/2009 Meningococcal B Vaccine Aged Out No l onger eligible based on patient's age to complete this topic Meningococcal Vaccine Aged Out No ronny elvin eligible based on patient's age to complete this topic RSV Immunizations Under 20 Months Aged Out No longer eligible based on patient's age to complete this topic Medical Devices Implanted Type [employer] Device Identifier Shelf Expiration Date Model / Serial / Lot Knee Components Knee Components Stent Ureteral Suffern Sci Contour 6fr X 28cm - [id number] Implanted:Qty : 1 on 01/13/2022 by Frantz Batista MD at [facility] Stent Left: Ureter [employer] REYNA [id number] 09/08/2024 [id number] / / [id number] Procedures Procedure Name Priority Date/Time Associated Diagnosis Comments XR CHEST PA+LAT STAT 05/14/2025 10:53 AM CDT STREP A RAPID STAT 05/14/2025 10:43 AM CDT COLONOSCOPY Routine 11/04/2023 9:58 AM MEDICAL HEALTH RESEARCHER from Last 3 Months or Most Recently Relevant to Health Maintenance Results * XR CHEST PA+LAT (05/14/2025 10:53 AM CDT) Anatomical Region Laterality Modality Chest Radiographic Almita ging 05/14/2025 10:5 7 AM CDT Impressions 05/14/2025 11:01 AM CDT IMPRESSION: No acute pulmonary infiltrate or consolidation. Ordered By: ERIC WATERS Interpreted By: Gianfranco Wright, 05/14/2025 10:57 AM Narrative 05/14/2025 11:01 AM CDT [address] [address] IMAGING STUDIES: XR CHEST PA+LAT DATE: 05/14/2025 10:46 AM HISTORY: cough/ SOB with exertion x4-5 days. 74-year-old female. Cough, congestion, sore throat, ear pain, and shortness of breath with exertion with onset 4-5 days ago. COMPARISON: Chest 2 view 10/11/2024 and 11/07/2016. DISCUSSION: Upright PA and lateral views. Heart size within normal limits. No acute pulmonary vascular congestion. No acute pulmonary infiltrate, pulmonary consolidation, pleural effusion, or pneumothorax. 4 mm left lower lobe calcified granuloma. Lower cervical spine fixation plate and screws. Spinal degenerative changes. Bilateral shoulder degenerative changes. Cholecystectomy clips. Procedure Note Gianfranco Wright MD - 05/14/[address] [facility] [place] [address] IMAGING STUDIES: XR CHEST PA+LATDATE: 05/14/2025 10:46 AM HISTORY: cough/ SOB with exertion x4-5 days. 74-year-old female.Cough, congestion, sore throat, ear pain, and shortness of breath withexertion with onset 4-5 days ago. COMPARISON: Chest 2 view 10/11/2024 and 11/07/2016. DISCUSSION: Upright PA and lateral views. Heart size within normal limits. No acute pulmonary vascular congestion. No acute pulmonary infiltrate, pulmonary consolidation, pleural effusion,or pneumothorax. 4 mm left lower lobe calcified granuloma. Lower cervical spine fixation plate and screws. Spinal degenerativechanges. Bilateral shoulder degenerative changes. Cholecystectomy clips. IMPRESSION: No acute pulmonary infiltrate or consolidation. Ordered By: ERIC WATERS Interpreted By: Gianfranco Wright, 05/14/2025 10:57 AM us Eric [facility]RIG[facility] GENERAL IMAGING Final Resu lt * STREP A RAPID (05/14/2025 10:43 AM CDT) SPECIMEN TYPE THROAT 05/14/2025 10:43 AM CDT [facility] RAPID STREP TEST NEGATIVE NEGATIVE 05/14/2025 10:57 AM CDT [facility] STRUCTURE OF ANTERIOR PORTION OF NECK / Unknown 05/14/2025 10:43 AM CDT us Eric RODRIGUEZ MICROBIOLOGY - GENERAL ORD ERABLES Final Result [facility] [address] [place] [id number], [place] from Last 3 Months Insurance MEDICARE [employer] AET[employer] Advance Directives * Full Code (Latest Code Status on File) Date Activated Date Inactivated Comments 01/13/2022 1:00 PM 01/13/2022 5:16 PM * Full Code Date Activated Date Inactivated Comments 11/29/2021 2:30 PM 11/30/2021 6:41 PM Care Teams Chief Customer Officer Relationship Specialty Start Date End Date Neil Higgins MD [address] [place] [address] PCP - General 11/07/16
--- OUTSIDE RECORDS SUMMARY | 2025-06-14 15:41 | XMS_ITS | Encounter Summary ---
Author Organization [facility] Address [address] [place] [address] Phone Care Team Providers Care Log Sorter Name Role Phone Neil Higgins MD Primary Care Provider [phone] Edilberto Nance MD Unavailable [phone] Rick Coates MD Unavailable [phone] Encounter Details Date Type Department Care Team (Latest Contact Info) Description 02/20/2022 Orders Only [facility] Scanning, Provider Social History Tobacco Use Types Packs/Day Years Used Date Smoking Tobacco: Never Smokeless Tobacco: Never Alcohol Use Standard Drinks/Week Comments Not Currently 0 (1 standard drink = 0.6 oz pur e alcohol) AUDIT-C Answer Date Recorded Q1: How often do you have a drink containing alc ohol? Never 10/31/2021 Average Number of Drinks Not on file 021 Frequency of Binge Drinking Not on file 01/2021 Comments No Sex and Gender Information Value Date Recorded Sex Assigned at Not on file Legal Sex Female 7:36 AM FUR TRAPPER Gender Identity Female 08/25/2021 8:49 PM CDT Sexual Orientation Straight 08/25/2021 8: 49 PM CDT documented as of this encounter Plan of Treatment Not on file documented as of this encounter Goals Goal Patient Goal Type Associated Problems Recent Progress Patient-Stated? Author CCM Chronic Pain Care Plan Chronic Care Management No change(09/04 1:48 PM CDT) No Dia Hunter, RN Note: Problem: Chronic Pain Goals: 1. Minimize further functional decline 2. Maximize quality of life 3. Control pain Strategies: - Activity/exercise program recommendation - Conservative stepwise pain medicine strategy with multi-disciplinary approach - Recommend healthy lifestyle strategies and compensatory methods as needed documented as of this encounter Procedures Procedure Name Priority Date/Time Associated Diagnosis Comments SCAN - LABS 02/20/2022 documented in this encounter Results * SCAN - LABS (02/20/2022) us Provider Scanning Final Result documented in this encounter Visit Diagnoses Not on filedocumented in this encounter Care Teams Log Sorter Relationship Specialty Start Date End Date Neil Higgins MD [address] [place] [address] PCP - General 01/18/18 Edilberto Nance MD [address] [place] [address] Consulting Physician Cardiology 05/20/22 Rick Coates MD [address] [place] [address] Consulting Physician Otolaryngology 07/31/22 documented as of this encounter
--- OUTSIDE RECORDS SUMMARY | 2025-06-14 15:41 | XMS_ITS | Clinical Summary ---
Author Organization [facility] Address [address] [place] [address] Care Team Providers Care Medicaid Specialist Name Role Phone Neil Higgins MD Primary Care Provider [phone] Edilberto Nance MD Unavailable [phone] Rick Coates MD Unavailable [phone] Allergies Active Allergy Reactions Criticality Noted Date [...] 11/10/2022 Assessment & Plan (11/10/2022 9:19 PM IUSS MASTER ANALYST): This has improved and gotten back to [...] is a risk of orbital injury and QUALITY CONTROL TESTER injury which could result in blindness or double vision or brain damage. These risks are quite low. Some risk of permanent anosmia. I explained that this may not be the reason for the headache and she understands that. She has no questions. Assessment & Plan (11/10/2022 9:19 PM IUSS MASTER ANALYST): Seems improved. 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 09/27/2019 Overview (09/27/2019): Added automatically from request for surgery [id number] Parkinsonism 01/26/2018 Obesity with body mass index 30 or greater 04/09 Temporary cerebral vascular dysfunction 04/09/20 17 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 Renal osteodystrophy 04/14/2016 Benign [...] 07/12/2013 Intractable chronic migraine without aura 2012 Encounters Date Type Department Care Team Description 06/12/2025 1:40 PM CDT Procedure visit [facility] General Neurology [address] 6[address] [place] [address] Francine Ruiz MD PhD Intractable chronic migraine without aura and without status migrainosus (Primary Dx) 05/30/2025 Telephone [facility] Otolaryngology [address] [place] [phone] Irma Chavez LPN Sinus symptoms and results of CT sinus 05/29/2025 Imaging Exam [facility] Otolaryngology [address] [place] [phone] Rick Coates MD Chronic pansinusitis (Primary Dx) 05/21/2025 1:30 PM CDT Office Visit [facility] Pulmonology [address] [place] [address] Shoshana Seo MD Chronic bronchitis, simple (HCC) (Primary Dx); Chronic rhinitis 04/03/2025 2:15 PM CDT Office Visit [facility] Otolaryngology [address] [place] [phone] Rick Coates MD Chronic cough (Primary Dx); Chronic pansinusitis 03/27/2025 Orders Only [facility] General Neurology [address] [place] [phone] Clara Montaño Intractable chronic migraine without aura and without status migrainosus (Primary Dx) 03/20/2025 1:40 PM CDT Procedure visit [facility] General Neurology [address] [place] [address] Francine Ruiz MD PhD Intractable chronic migraine without aura and without status migrainosus (Primary Dx) from Last 3 Months Immunizations Immunization Administration Dates Next Due Influenza, Trivalent, Preservative Free, Intramu scular 09/11/2012 Moderna SARS-CoV-2 Monovalent Vaccination (12+ Y RS) 01/27/2021,12/30/2020 Pfizer SARS-CoV-2 Monovalent Vaccination (12+ Yrs) PURPLE 12/19/2021 Surgical History Surgery Date Site/Laterality Comments SINUS SURGERY 11/29/2021 - 11/28/2022 Sinus Surgery - (Added by TW Conv)ENDOSCOPIC RIGHT MAXILLARY ANTROSTOMY WITH TISSUE REMOVAL AND LEFT ANTERIOR ETHMOIDECTOMY BLADDER SURGERY Bladder Surgery - (Added by TW Conv) SHOULDER SURGERY Shoulder Surgery - (Added by TW Conv) MASTOID SURGERY Mastoidectomy - (Added by TW Conv) [place] TRANSTYMPANIC EUSTACH TUBE CATH Eustachian Tube Catheterization, Transtympanic - (Added by TW Conv) [place] TOTAL ABDOMINAL HYSTERECT W/WO RMVL TUBE OVARY Hysterectomy - (Added by TW Conv) NECK SURGERY Neck Surgery - cervical fusion 2009 (Added by TW Conv) KNEE SURGERY 11/29/2018 - 11/28/2019 Left TKR TYMPANOPLASTY left ear CHOLECYSTECTOMY LASIK KIDNEY STONE SURGERY CATARACT EXTRACTION W/ INTRA OCULAR LENS IMPLANT 07/21/2022 Left REPLACEMENT TOTAL KNEE 12/30/2022 - 01/26/2023 Right CARDIAC CATHETERIZATION 2018 and 12/20/2020 see epic for results CYSTOSCOPY INSERTION / REMOV AL STENT / STONE 01/13/2022 Left CYSTOSCOPY LEFT RETROGRADE PYELOGRAM, LEFT URETEROSCOPY HOLMIUM ANA LILIA LASER LITHOTRIPSY, LEFT URETERAL STENT PLACEMENT ESOPHAGOGASTRODUODENOSCOPY 06/12/2022 with dilatation COLONOSCOPY 11/04/2023 SINUS SURGERY 05/05/2024 Left image guided left endoscopic total ethmoidectomy done 05/05/24 Medical History Medical History Date Comments Endometriosis Endometriosis - (Added by TW Conv) Coronary artery disease Hyperlipidemia Hypertension Stroke (HCC) 2000 Chronic kidney disease STAGE 3 Thyroid disease Headache Arthritis Chronic pain disorder Low back pain GERD (gastroesophageal reflux disease) A-fib (HCC) Allergic rhinitis Heart disease Sinusitis HL (hearing loss) Tinnitus Hyperthyroidism Neuropathy FEET Covid-19 05/2022 Delayed emergence from general anesthesia Cough Family History Medical History Relation Name Comments Heart disease Brother 1 Family history of cardiovascular disease - (Added by TW Conv) Heart disease Brother 2 Lung cancer Brother 2 Family history of lung cancer - (Added by TW Conv) Ulcers Father Coronary artery disease Mother Jacy nary Artery Disease - (Added by TW Conv) Heart attack Mother Family history of myocardial infarction - (Added by TW Conv) Hypertension Mother Family history of hypertension - (Added by TW Conv) Migraines Mother Migraine Headac he - (Added by TW Conv) Stroke Mother Stroke Syndrome - (Added by TW Conv)/Family history of cerebrovascular accident (CVA) - (Added by TW Conv) Heart disease Sister 1 CABG Liver disease Sister 1 Family history of liver disease - (Added by TW Conv) Heart disease Sister 2 Family history of cardiovascular disease - (Added by TW Conv) Autoimmune disease Sister 3 Family hi story of autoimmune disorder - (Added by TW Conv) Leukemia Sister 4 Family history of leukemia - (Added by TW Conv) Hypertension Sister 5 Family history of hypertension - (Added by TW Conv) Relation Name Status Comments Brother 1 Brother 2 Father Mother Sister 1 Sister 2 Sister 3 Sister 4 Sister 5 Social History Tobacco Use Types Packs/Day Years [...] on file Legal Sex Female 7:36 AM IUSS MASTER ANALYST Gender Identity Female 08/25/2021 8:49 PM CDT Sexual Orientation Straight 08/25/2021 8: 49 PM CDT Obstetrics History Last Filed Vital Signs Vital Sign Reading [...] 06/12/2025 1:16 PM CDT Plan of Treatment Health Maintenance Due Date Last Done Comments Breast Cancer Screening-Mammogram 1951 Colon Cancer Screening-Colonoscopy 1950 Depression Screening 1950 Hepatitis C Screening 1950 Well Visit 65+ 2016 Osteoporosis Screening-Bone Density Scan 08/27/2022 08/27/2020, 04/23/2020, 10/16/2019, Additional history exists Covid-19 Vaccine (2023- 5 season) 2024 12/19/2021, 01/27/2021, 12/30/2020 Fall Risk Assessment 05/05/2025 05/05/2024 Influenza Vaccine (#1) 2025 , 09/23/2020, 10/06/2019, Additional history exists DTaP/Tdap/Td Vaccine (6 - Td or Tdap) 12/06/2030 12/06/2020, 09/23/2020, 01/24/2020, Additional history exists Hepatitis B Screening Completed 11/01/2002 , 07/18/2001, 03/26/1994 Pneumococcal vaccine 65+ Completed 020, 10/16/2019, 07/11/2019, Additional history exists Zoster Vaccine Completed 12/14/2024, 04/2021, 07/30/2021, Additional history exists Goals Goal Patient Goal Type Associated Problems [...] as needed Medical Devices Implanted Type Area Mechanical Piping Designer Device Identifier Shelf Expiration Date Model / Serial / Lot Total Joint Replacement Bilateral : Knee Insurance MEDICARE [employer] [facility] MEDICARE FOR LIFE MEDICARE FOR LIFE [facility] Advance Directives For more information, please contact: [phone] * Full Code (Latest Code Status on File) Date Activated Date Inactivated Comments 12/20/2020 7:11 AM 12/21/2020 4:39 AM Healthcare Agents on File Name Relationship Healthcare Agent [facility] terence Communication Marcus Severiano Spouse Health Care Agent Care Teams Medicaid Specialist Relationship Specialty Start Date End Date Neil Higgins MD [address] [facility] [facility] [facility] [address] [place] [address] PCP - General 01/18/18 Edilberto Nance MD [address] [facility] [facility] [place] [address] Consulting Physician Cardiology 05/20/22 Rick Coates MD [address] [place] [address] Consulting Physician Otolaryngology 07/31/22
--- OUTSIDE RECORDS SUMMARY | 2025-06-14 15:41 | XMS_ITS | Encounter Summary ---
Author Organization [facility] Care Team Providers Care Header Boss Name Role Phone Neil Higgins MD Primary Care Provider [phone] Neil Higgins MD Primary Care Provider [phone] Edilberto Nance MD Unavailable [phone] Rick Coates MD Unavailable [phone] Encounter Details Date Type Department Care Team (Latest Contact Info) Description 06/24/2017 Orders Only [facility] ProviderSolo MD [address] [place] [id number] Social History Tobacco Use Types Packs/Day Years Used Date Smoking Tobacco: Never Assessed Comments Unknown Sex and Gender Information Value Date Recorded Sex Assigned at Not on file 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 Historical Provider Final Res ult documented in this encounter Visit Diagnoses Not on filedocumented in this encounter Care Teams Header Boss Relationship Specialty Start Date End Date Neil Higgins MD [address] [place] [phone] PCP - General 02/16/17 01/17/18 Neil Higgins MD [address] [facility] [address] [place] [address] PCP - General 01/18/18 Edilberto Nance MD [address] [facility] [place] [address] Consulting Physician Cardiology 05/20/22 Rick Coates MD [address] [place] [address] Consulting Physician Otolaryngology 07/31/22 documented as of this encounter
--- OUTSIDE RECORDS SUMMARY | 2025-06-14 15:41 | XMS_ITS | Encounter Summary ---
Author Organization [facility] Healthcare Address [address] [place] [address] Care Team Providers Care Magazine Feeder Name Role Phone Neil Higgins MD Primary Care Provider [phone] Edilberto Nance MD Unavailable [phone] Rick Coates MD Unavailable [phone] Encounter Details Date Type Department Care Team (Late st Contact Info) Description 04/03/2021 Telephone [facility] [address] 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
--- OUTSIDE RECORDS SUMMARY | 2025-06-14 15:41 | XMS_ITS | Encounter Summary ---
Author Organization [facility] Address [address] [place] [address] Phone Care Team Providers Care Produce Weigher Name Role Phone Neil Higgins MD Primary Care Provider [phone] Edilberto Nance MD Unavailable [phone] Rick Coates MD Unavailable [phone] Encounter Details Date Type Department Care Team (Late st Contact Info) Description 01/31/2018 Orders Only [facility] ProviderSolo MD [address] [id number] Social History Tobacco Use Types Packs/Day Years Used Date Smoking Tobacco: Never Assessed Comments Unknown Sex and Gender Information Value Date Recorded Sex Assigned at Not on file 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 Gender Identity Female 08/25/2021 8:49 PM CDT Sexual Orientation Straight 08/25/2021 8: 49 PM CDT documented as of this encounter Plan of Treatment Not on file documented as of this encounter Procedures Procedure Name Priority Date/Time Associated Diagnosis Comments VLWU CAROTID DUPLEX SCAN COMPLETE BILATERAL 01/31/2018 12:00 AM MILK HAULER documented in this encounter Results * VLWU CAROTID DUPLEX SCAN COMPLETE BILATERAL (01/31/2018 12:00 AM MILK HAULER) Anatomical Region Laterality Modality Vascular Bilateral Ultrasound Narrative 01/31/2018 12:00 AM MILK HAULER Ordered by an unspecified provider. Historical Provider CV VASCULAR PROCEDURES Fi nal Result documented in this encounter Visit Diagnoses Not on filedocumented in this encounter Care Teams Produce Weigher Relationship Specialty Start Date End Date Neil Higgins MD [address] [place] [address] PCP - General 01/18/18 Edilberto Nance MD [address] [place] [address] Consulting Physician Cardiology 05/20/22 Rick Coates MD [address] [place] [address] Consulting Physician Otolaryngology 07/31/22 documented as of this encounter
--- OUTSIDE RECORDS SUMMARY | 2025-06-14 15:42 | XMS_ITS | Data Portability ---
Author Organization 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 Studies ordered as below. Discussed plan with patient/caregiver , who expressed understanding. Follow up as noted below. Recommends healthy nutrition, including a diet rich in fruits and vegetables, minimizing simple carbohydrates, salt, and saturated fats. Encouraged regular cardiovascular exercise such as walking at least 30 minutes daily, 5 times per week. Patient presented to office today for their Medicare Annual Wellness Visit. Recommends healthy nutrition, including a diet rich in fruits and vegetables, minimizing simple carbohydrates, salt, and saturated fats. Encouraged regular cardiovascular exercise such as walking at least 30 minutes daily, 5 times per week. Emphasized preventive health measures and educated pt on fall prevention and community-based lifestyle interventions to help reduce health risks and promote healthy living. Not available 04/25/2024 17:11:31 10/24/2024 10/24/2024 Recommends healthy nutrition, including a diet rich in fruits and vegetables, minimizing simple carbohydrates, salt, and saturated fats. Encouraged regular cardiovascular exercise such as walking at least 30 minutes daily, 5 times per week. Not available 10/24/2024 15:37:03 04/24/2025 04/24/2025 Patient presente d to office today for their Medicare Annual Wellness Visit. Recommends healthy nutrition, including a diet rich in fruits and vegetables, minimizing simple carbohydrates, salt, and saturated fats. Encouraged regular cardiovascular exercise such as walking at least 30 minutes daily, 5 times per week. Emphasized preventive health measures and educated pt on fall prevention and community-based lifestyle interventions to help reduce health risks and promote healthy living. Not available 04/24/2025 13:38:04 Plan of Treatment Reminders Order Date Submit Date Provider Last Modified By Organization Details Last Modified Time Details Appointments ESTABLISH ED PATIENT 15 2024 01:30P Shirley Higgins MD Not available Not available Not available Lab iron panel, serum or plasma 2024 025 INTERFACE [facility], [address], [address], 06/14/2025 08:09:20 phosphoru s, serum or plasma 2024 025 [facility], [address] [facility] [address], [address], 06/14/2025 08:09:16 PTH (parathyr oid hormone), intact, serum or plasma 2024 025 [facility], [address] [facility] [place] [address], [address], 06/14/2025 08:09:20 uric acid, serum or plasma 2024 025 [facility], [address] [place] [address], [address], 06/14/2025 08:09:17 vitamin D, 25-hydrox y, total, serum 2024 025 [facility], [address] [address], [place], [address], 06/14/2025 08:09:20 CBC w/ auto diff 2024 025 [facility], [address] [address], [place], [address], 06/14/2025 08:09:19 lipid panel, serum 2024 025 [facility], [address], [address], 06/14/2025 08:09:14 CMP, serum or plasma 2024 025 [facility], [address], [address], 06/14/2025 08:09:18 microalbu min/creat inine, mass ratio, urine 2024 025 [facility], [address], [address], 06/14/2025 08:09:15 iron panel, serum or plasma 2023 024 INTERFACE [facility], [address], [address], 11/09/2024 06:53:13 phosphoru s, serum or plasma 2023 024 [facility], [address], [address], 11/09/2024 06:53:08 PTH (parathyr oid hormone), intact, serum or plasma 2023 024 [facility], [address], [address], 11/09/2024 06:53:12 uric acid, serum or plasma 2023 024 [facility], [address], [address], 11/09/2024 06:53:09 vitamin D, 25-hydrox y, total, serum 2023 [facility], [address] [address], [place], [address], 11/09/2024 06:53:13 CBC w/ auto diff 2023 [facility], [address] [address], [place], [address], 11/09/2024 06:53:12 microalbu min/creat inine, mass ratio, urine 2023 [facility], [address] [address], [place], [address], 11/09/2024 06:53:07 lipid panel, serum 2023 [facility], [address] [address], [place], [address], 11/09/2024 06:53:06 CMP, serum or plasma 2023 [facility], [address] [address], [place], [address], 11/09/2024 06:53:11 iron panel, serum or plasma 2023 024 [facility], [address] [address], [place], [address], 05/09/2024 11:07:59 phosphoru s, serum or plasma 2023 [facility], [address], [address], 05/09/2024 11:07:51 PTH (parathyr oid hormone), intact, serum or plasma 2023 024 [facility], [address], [place], [address], 05/09/2024 11:07:57 uric acid, serum or plasma 2023 024 [facility], [address], [place], [address], 05/09/2024 11:07:52 vitamin D, 25-hydrox y, total, serum 2023 024 [facility], [address], [place], [address], 05/09/2024 11:07:59 CBC w/ auto diff 2023 024 [facility], [address] [facility] [address], [place], [address], 05/09/2024 11:07:56 lipid panel, serum 2023 024 [facility], [address], [place], [address], 05/09/2024 11:07:48 CMP, serum or plasma 2023 024 [facility], [address] [facility] [address], [place], [address], 05/09/2024 11:07:55 microalbu min/creat inine, mass ratio, urine 2023 024 [facility], [address] [facility] [address], [place], [address], 05/09/2024 11:07:49 Referral gynecolog ist referral 2024 025 [facility], [address] [place], [address], 05/22/2025 08:03:44 physical therapist referral 2024 025 [facility]illermo [facility], [address], [place], [address], 05/22/2025 08:03:43 physical therapist referral 2023 024 [facility]ill[facility], [address], [place], [address], 11/21/2024 08:09:09 physical therapist referral 2023 024 wilton [facility], [address], [place], [address], 05/23/2024 17:09:52 otolaryng ologist referral 2023 024 guillermo Coates MD, [address], [place], [address], 04/25/2024 11:22:42 Procedures None recorded. Surgeries None recorded. Imaging MAMMO, screening , digital, bilateral [id number] [facility], [address] [place] [address], [address], 05/01/2025 08:09:26 CT, sinuses, w/o contrast 2023 024 guillermo [facility] Patient Access Centralized Scheduling, Centralized Scheduling, [address] [facility] [place], [address], 01/31/2024 08:37:24 Medication Orders Lidoderm 5 % topical patch 2024 025 [place], [address] [place] [address], [address], 04/24/2025 13:37:47 Lidoderm 5 % topical patch 2023 024 [facility], [address] [place] [address], [address], 10/31/2024 15:40:18 Lidoderm 5 % topical patch 2023 024 [email or web address] Not available 04/25/2024 17:12:24 Mucinex 1,200 mg tablet, extended release 2023 024 [facility], [address] [place] [address], [address], 01/17/2025 22:54:38 Medrol (Thomas) 4 mg tablets in a dose pack 2023 024 [facility], [address] [place] [address], [address], 05/15/2024 09:15:40 Patient TargetsNo targets recorded. Patient Instructions Encounter Date Encounter Id Patient Instructions Last Modified By Organization Details Last Modified Time 04/25/2024 [id number] medicare preventive services guide Not available 04/25/2024 17:11:27 advance care planning: care instructions Not available 04/25/2024 17:11:27 advised to lose weight Not available 04/25/2024 17:11:27 Discussed and explained advance directives such as standard forms to the . Face to face discussion lasted for a duration of ___ minutes. Not available 04/25/2024 17:00:01 10/24/2024 [id number] advised to lose weight Not available 10/24/2024 15:37:11 04/24/2025 [id number] medicare preventive services guide Not available 04/24/2025 13:37:42 advance care planning: care instructions Not available 04/24/2025 13:37:42 advised to lose weight Not available 04/24/2025 13:37:42 Reason for Referral Montessori Teacher Referral fo r Otalgia of right ear Referring Physician: Neil Higgins, Internal Medicine, Encounter Date: 01/24/2024 Physical Therapist Referral for Proximal muscle weakness Referring Physician: Neil Higgins, Internal Medicine, Encounter Date: 04/25/2024 Physical Therapist Referral for Proximal muscle weakness Referring Physician: Neil Higgins, Internal Medicine, Encounter Date: 10/24/2024 Physical Therapist Referral for Proximal muscle weakness Referring Physician: Neil Higgins, Internal Medicine, Encounter Date: 04/24/2025 Dairy Nutritionist Referral for Gy necologic examination Referring Physician: Neil Higgins, Internal Medicine, Encounter Date: 04/24/2025 Results Created Date Observation Date Name Description Value Unit Range Abnormal Flag Note LastModifiedBy Organization Detail LastModifiedTime 12/27/19 24 12/28/2023 LIPID PANEL , STAND SAMIA cholesterol, total 129 mg/dL <200 normal Not Available [address], [address], 12/28/2023 11:28:37 12/27/19 24 12/28/2023 LIPID PANEL , STAND SAMIA HDL cholesterol 34 mg/dL > or = 50 low Not Available [address], [address], 12/28/2023 11:28:37 12/27/19 24 12/28/2023 LIPID PANEL , STAND SAMIA triglyceride s 144 mg/dL <150 normal Not Available [address], [address], 12/28/2023 11:28:37 12/27/19 24 12/28/2023 LIPID PANEL , STAND SAMIA LDL-choleste rol 72 mg/dL _(kasia c) normal Refer ence range : <100 Morgan able range <100 mg/dL for prima ry preve ntion ; <70 mg/dL for patie nts with CHD or diabe tic patie nts with > or = 2 CHD risk facto rs. LDL-C is now calcu lated using the Myriam n-Hop kins calcu jerome n, which is a valid ated novel hildao d bibi baldwin r accur acy than the Fried lacie equat ion in the estim ation of LDL-C . Myriam bustos SS et al. CHARI. 2013; 310(1 9): 2061- 2068 (http ://ed ucati on.Jared rolandTextingly. com/f aq/FA Q164) Not Available [address], [address], 12/28/2023 11:28:37 12/27/19 24 12/28/2023 LIPID PANEL , STAND SAMIA chol/HDLC ratio 3.8 (calc ) <5.0 normal Not Available [address], [place], [address], 12/28/2023 11:28:37 12/27/19 24 12/28/2023 LIPID PANEL , STAND SAMIA non HDL cholesterol 95 mg/dL _(kasia c) <130 normal For patie nts with diabe arnel plus 1 major ASCVD risk facto r, treat ing to a non-H DL-C goal of <100 mg/dL (LDL- C of <70 mg/dL ) is consi dered a thera pecelena c optio n. Not Available [address] [address] [place], [address], 12/28/2023 11:28:37 12/27/19 24 12/28/2023 ALBUM IN, RANDO M URINE W/CRE ATINI NE creatinine, random urine 34 mg/dL 20-275 normal Not Available [address] [address] [place], [address], 12/28/2023 11:28:38 12/27/19 24 12/28/2023 ALBUM IN, RANDO M URINE W/CRE ATINI NE albumin, urine 0.2 mg/dL see note: normal Refer ence Range : Refer ence Range Not estab lishe d Not Available [address] [address] [place], [address], 12/28/2023 11:28:38 12/27/19 24 12/28/2023 ALBUM IN, RANDO M URINE W/CRE ATINI NE albumin/crea tinine ratio, random urine 6 mcg/m g_cre at <30 normal The ADA defin es abnor malit ies in album in excre tion as follo ws: Album inuri a Categ ory Resul t (mcg/ mg creat inine ) Jackie l to Mildl y incre ased <30 Moder ately incre ased 30-29 9 Sever mark incre ased > OR = 300 The ADA recom mends that at least two of three speci mens colle cted withi n a 3-6 month perio d be abnor mal befor e consi arias g a patie nt to be withi n a diagn ostic categ ory. Not Available [address], [address], 12/28/2023 11:28:38 12/27/19 24 12/28/2023 PHOSP HATE ( PHOSP HORUS ) phosphate ( phosphorus) 3.9 mg/dL 2.1-4. 3 normal Not Available [address], [address], 12/28/2023 11:28:40 12/27/19 24 12/28/2023 URIC ACID uric acid 3.6 mg/dL 2.5-7. 0 normal Thera peuti c targe t for gout patie nts: <6.0 mg/dL Not Available [address], [address], 12/28/2023 11:28:41 12/27/19 24 12/28/2023 IRON AND TOTAL IRON NINA NG CAPAC ITY iron, total 68 mcg/d L 45-160 normal Not Available [address], [address], 12/28/2023 11:28:42 12/27/19 24 12/28/2023 IRON AND TOTAL IRON NINA NG CAPAC ITY iron binding capacity 267 mcg/d L_(ca lc) 250-45 0 normal Not Available [address] [place], [address], 12/28/2023 11:28:42 12/27/19 24 12/28/2023 IRON AND TOTAL IRON NINA NG CAPAC ITY % saturation 25 %_(ca lc) 16-45 normal Not Available [address], [address], 12/28/2023 11:28:42 12/27/19 24 12/28/2023 COMPR EHENS CARLOS METAB OLIC PANEL glucose 113 mg/dL 65-99 high Fasti ng refer ence inter ninoska For someo ne witho ut known diabe arnel, a gluco se value betwe en 100 and 125 mg/dL is consi stent with predi abete s and shoul d be confi rmed with a follo w-up test. Not Available [address], [address], 12/28/2023 11:28:43 12/27/19 24 12/28/2023 COMPR EHENS CARLOS METAB OLIC PANEL urea nitrogen (BUN) 11 mg/dL 7-25 normal Not Available [address], [address], 12/28/2023 11:28:43 12/27/19 24 12/28/2023 COMPR EHENS CARLOS METAB OLIC PANEL creatinine 1.11 mg/dL 0.60-1 .00 high Not Available [address], [address], 12/28/2023 11:28:43 12/27/19 24 12/28/2023 COMPR EHENS CARLOS METAB OLIC PANEL eGFR 53 mL/mi n/1.7 3m2 > or = 60 low Not Available [address], [address], 12/28/2023 11:28:43 12/27/19 24 12/28/2023 COMPR EHENS CARLOS METAB OLIC PANEL BUN/creatini ne ratio 10 (calc ) 6-22 normal Not Available [address], [address], 12/28/2023 11:28:43 12/27/19 24 12/28/2023 COMPR EHENS CARLOS METAB OLIC PANEL sodium 131 mmol/ L 135-14 6 low Not Available [address], [address], 12/28/2023 11:28:43 12/27/19 24 12/28/2023 COMPR EHENS CARLOS METAB OLIC PANEL potassium 4.9 mmol/ L 3.5-5. 3 normal Not Available [address], [address], 12/28/2023 11:28:43 12/27/19 24 12/28/2023 COMPR EHENS CARLOS METAB OLIC PANEL chloride 98 mmol/ L 98-110 normal Not Available [address], [address], 12/28/2023 11:28:43 12/27/19 24 12/28/2023 COMPR EHENS CARLOS METAB OLIC PANEL carbon dioxide 29 mmol/ L 20-32 normal Not Available [address], [address], 12/28/2023 11:28:43 12/27/19 24 12/28/2023 COMPR EHENS CARLOS METAB OLIC PANEL calcium 9.7 mg/dL 8.6-10 .4 normal Not Available [address], [address], 12/28/2023 11:28:43 12/27/19 24 12/28/2023 COMPR EHENS CARLOS METAB OLIC PANEL protein, total 6.6 g/dL 6.1-8. 1 normal Not Available [address], [address], 12/28/2023 11:28:43 12/27/19 24 12/28/2023 COMPR EHENS CARLOS METAB OLIC PANEL albumin 4.5 g/dL 3.6-5. 1 normal Not Available [address], [address], 12/28/2023 11:28:43 12/27/19 24 12/28/2023 COMPR EHENS CARLOS METAB OLIC PANEL globulin 2.1 g/dL_ (calc ) 1.9-3. 7 normal Not Available [address], [address], 12/28/2023 11:28:43 12/27/19 24 12/28/2023 COMPR EHENS CARLOS METAB OLIC PANEL albumin/glob ulin ratio 2.1 (calc ) 1.0-2. 5 normal Not Available [address], [address], 12/28/2023 11:28:43 12/27/19 24 12/28/2023 COMPR EHENS CARLOS METAB OLIC PANEL bilirubin, total 0.4 mg/dL 0.2-1. 2 normal Not Available [address], [address], 12/28/2023 11:28:43 12/27/19 24 12/28/2023 COMPR EHENS CARLOS METAB OLIC PANEL alkaline phosphatase 99 U/L 37-153 normal Not Available [address], [address], 12/28/2023 11:28:43 12/27/19 24 12/28/2023 COMPR EHENS CARLOS METAB OLIC PANEL AST 11 U/L 10-35 normal Not Available [address], [address], 12/28/2023 11:28:43 12/27/19 24 12/28/2023 COMPR EHENS CARLOS METAB OLIC PANEL ALT 10 U/L 6-[address] [facility] [address] [place], [address], 12/28/2023 11:28:43 12/27/19 24 12/28/2023 PTH, INTAC T WITHO UT CALCI UM parathyroid hormone, intact 19 pg/mL 16-77 normal Inter preti ve Guide Intac t PTH Calci um ----- ----- ----- --- ----- ----- ----- -- Jackie l Parat hyroi d Jackie l Jackie l Hypop nuzhat yroid ism Low or Low Jackie l Low Hyper parat hyroi dism Prima ry Jackie l or High High Secon ping High Jackie l or Low Terti katy High High Non-P nuzhat yroid Hyper calce eugenia Low or Low Jackie l High Not Available [facility] [address] [place], [address], 12/28/2023 11:28:44 12/27/19 24 12/28/2023 VITAM IN D,25- OH,TO SHAY,I A vitamin D,25-oh,tota l,ia 54 NG/mL 30-100 normal Vitam in D Statu s 25-OH Vitam in D: Defic iency : <20 ng/mL Insuf ficie ncy: 20 - 29 ng/mL Optim al: > or = 30 ng/mL For 25-OH Vitam in D testi ng on patie nts on D2-crooks pplem entat ion and patie nts for whom quant itati on of D2 and D3 fract ions is requi red, the [facility] eD(TM ) 25-OH VIT D, (D2,D 3), LC/MS /MS is recom claudia d: order code 12391 (sohan ents >2yrs ). See Note 1 Note 1 For addit ional infor caty haney refer to http: //giles bustos.Leon Reddyia gnost ics.c om/fa q/FAQ 199 (This link is being provi ded for infor mindi de la cruz/ educa alyx l purpo ses only. ) Not Available [facility] [address] [address] [place], [address], 12/28/2023 11:28:46 05/08/20 24 05/09/2024 LIPID PANEL , STAND SAMIA cholesterol, total 117 mg/dL <200 normal Not Available [facility] [address] [address] [place], [address], 05/09/2024 11:07:48 05/08/20 24 05/09/2024 LIPID PANEL , STAND SAMIA HDL cholesterol 30 mg/dL > or = 50 low Not Available [facility] [address] [address] [place], [address], 05/09/2024 11:07:48 05/08/20 24 05/09/2024 LIPID PANEL , STAND SAMIA triglyceride s 192 mg/dL <150 high Not Available [facility] [address], [address], 05/09/2024 11:07:48 05/08/20 24 05/09/2024 LIPID PANEL , STAND SAMIA LDL-choleste rol 61 mg/dL _(kasia c) normal Refer ence range : <100 Morgan able range <100 mg/dL for prima ry preve ntion ; <70 mg/dL for patie nts with CHD or diabe tic patie nts with > or = 2 CHD risk facto rs. LDL-C is now calcu lated using the Myriam n-Hop kins eliu jerome n, which is a valid ated novel metho d melanyi tanja baldwin r accur acy than the Fried lacie equat ion in the estim ation of LDL-C . Myriam bustos SS et al. CHARI. 2013; 310(1 9): 2061- 2068 (http ://ed ucati on.Qu Thom krishnan tics. com/f aq/FA Q164) Not Available [facility] [address] [address] [place], [address], 05/09/2024 11:07:48 05/08/20 24 05/09/2024 LIPID PANEL , STAND SAMIA chol/HDLC ratio 3.9 (calc ) <5.0 normal Not Available [address], [address], 05/09/2024 11:07:48 05/08/20 24 05/09/2024 LIPID PANEL , STAND SAMIA non HDL cholesterol 87 mg/dL _(kasia c) <130 normal For patie nts with diabe arnel plus 1 major ASCVD risk facto r, treat ing to a non-H DL-C goal of <100 mg/dL (LDL- C of <70 mg/dL ) is consi dered a thera pecelena c optio n. Not Available [address], [address], 05/09/2024 11:07:48 05/08/20 24 05/09/2024 ALBUM IN, RANDO M URINE W/CRE ATINI NE creatinine, random urine 36 mg/dL 20-275 normal Not Available [address] [address] [place], [address], 05/09/2024 11:07:49 05/08/20 24 05/09/2024 ALBUM IN, RANDO M URINE W/CRE ATINI NE albumin, urine <0.2 mg/dL see note: normal Refer ence Range : Refer ence Range Not estab lishe d Not Available [address], [address], 05/09/2024 11:07:49 05/08/20 24 05/09/2024 ALBUM IN, RANDO M URINE W/CRE ATINI NE albumin/crea tinine ratio, random urine NOTE mg/g_ creat <30 normal NOTE: The urine album in value is less than 0.2 mg/dL there fore we are unabl e to calcu late excre tion and/o r creat inine ratio . The ADA defin es abnor malit ies in album in excre tion as follo ws: Album inuri a Categ ory Resul t (mg/g creat inine ) Jackie l to Mildl y incre ased <30 Moder ately incre ased 30-29 9 Sever mark incre ased > OR = 300 The ADA recom mends that at least two of three speci mens colle cted withi n a 3-6 month perio d be abnor mal befor e consi arias g a patie nt to be withi n a diagn ostic categ ory. Not Available [address], [address], 05/09/2024 11:07:49 05/08/20 24 05/09/2024 PHOSP HATE ( PHOSP HORUS ) phosphate ( phosphorus) 4.1 mg/dL 2.1-4. 3 normal Not Available [address], [address], 05/09/2024 11:07:51 05/08/20 24 05/09/2024 URIC ACID uric acid 3.3 mg/dL 2.5-7. 0 normal Thera peuti c targe t for gout patie nts: <6.0 mg/dL Not Available [address], [address], 05/09/2024 11:07:52 05/08/20 24 05/09/2024 IRON AND TOTAL IRON NINA NG CAPAC ITY iron, total 73 mcg/d L 45-160 normal Not Available [address], [address], 05/09/2024 11:07:53 05/08/20 24 05/09/2024 IRON AND TOTAL IRON NINA NG CAPAC ITY iron binding capacity 262 mcg/d L_(ca lc) 250-45 0 normal Not Available [address], [address], 05/09/2024 11:07:53 05/08/20 24 05/09/2024 IRON AND TOTAL IRON NINA NG CAPAC ITY % saturation 28 %_(ca lc) 16-45 normal Not Available [address], [address], 05/09/2024 11:07:53 05/08/20 24 05/09/2024 COMPR EHENS CARLOS METAB OLIC PANEL glucose 109 mg/dL 65-99 high Fasti ng refer ence inter ninsoka For someo ne witho ut known diabe arnel, a gluco se value betwe en 100 and 125 mg/dL is consi stent with predi abete s and shoul d be confi rmed with a follo w-up test. Not Available [address], [address], 05/09/2024 11:07:55 05/08/20 24 05/09/2024 COMPR EHENS CARLOS METAB OLIC PANEL urea nitrogen (BUN) 13 mg/dL 7-25 normal Not Available [address], [address], 05/09/2024 11:07:55 05/08/20 24 05/09/2024 COMPR EHENS CARLOS METAB OLIC PANEL creatinine 1.21 mg/dL 0.60-1 .00 high Not Available [address], [address], 05/09/2024 11:07:55 05/08/20 24 05/09/2024 COMPR EHENS CARLOS METAB OLIC PANEL eGFR 48 mL/mi n/1.7 3m2 > or = 60 low Not Available [address], [address], 05/09/2024 11:07:55 05/08/20 24 05/09/2024 COMPR EHENS CARLOS METAB OLIC PANEL BUN/creatini ne ratio 11 (calc ) 6-22 normal Not Available [address], [address], 05/09/2024 11:07:55 05/08/20 24 05/09/2024 COMPR EHENS CARLOS METAB OLIC PANEL sodium 131 mmol/ L 135-14 6 low Not Available [address], [address], 05/09/2024 11:07:55 05/08/20 24 05/09/2024 COMPR EHENS CARLOS METAB OLIC PANEL potassium 5.3 mmol/ L 3.5-5. 3 normal Not Available [address], [address], 05/09/2024 11:07:55 05/08/20 24 05/09/2024 COMPR EHENS CARLOS METAB OLIC PANEL chloride 96 mmol/ L 98-110 low Not Available [address], [address], 05/09/2024 11:07:55 05/08/20 24 05/09/2024 COMPR EHENS CARLOS METAB OLIC PANEL carbon dioxide 28 mmol/ L 20-32 normal Not Available [address], [address], 05/09/2024 11:07:55 05/08/20 24 05/09/2024 COMPR EHENS CARLOS METAB OLIC PANEL calcium 10.3 mg/dL 8.6-10 .4 normal Not Available [address], [address], 05/09/2024 11:07:55 05/08/20 24 05/09/2024 COMPR EHENS CARLOS METAB OLIC PANEL protein, total 6.7 g/dL 6.1-8. 1 normal Not Available [address], [address], 05/09/2024 11:07:55 05/08/20 24 05/09/2024 COMPR EHENS CARLOS METAB OLIC PANEL albumin 4.4 g/dL 3.6-5. 1 normal Not Available [address], [place], [address], 05/09/2024 11:07:55 05/08/20 24 05/09/2024 COMPR EHENS CARLOS METAB OLIC PANEL globulin 2.3 g/dL_ (calc ) 1.9-3. 7 normal Not Available [address], [address], 05/09/2024 11:07:55 05/08/20 24 05/09/2024 COMPR EHENS CARLOS METAB OLIC PANEL albumin/glob ulin ratio 1.9 (calc ) 1.0-2. 5 normal Not Available [address], [address], 05/09/2024 11:07:55 05/08/20 24 05/09/2024 COMPR EHENS CARLOS METAB OLIC PANEL bilirubin, total 0.5 mg/dL 0.2-1. 2 normal Not Available [address], [address], 05/09/2024 11:07:55 05/08/20 24 05/09/2024 COMPR EHENS CARLOS METAB OLIC PANEL alkaline phosphatase 119 U/L 37-153 normal Not Available [address] [address] [place], [address], 05/09/2024 11:07:55 05/08/20 24 05/09/2024 COMPR EHENS CARLOS METAB OLIC PANEL AST 72 U/L 10-35 high Not Available [address] [place], [address], 05/09/2024 11:07:55 05/08/20 24 05/09/2024 COMPR EHENS CARLOS METAB OLIC PANEL ALT 96 U/L 6-29 high Not Available [address] [address] [place], [address], 05/09/2024 11:07:55 05/08/20 24 05/09/2024 CBC (INCL UDES DIFF/ PLT) white blood cell count 8.2 thous and/u L 3.8-10 .8 normal Not Available [address], [address], 05/09/2024 11:07:56 05/08/20 24 05/09/2024 CBC (INCL UDES DIFF/ PLT) red blood cell count 3.96 safia on/uL 3.80-5 .10 normal Not Available [address], [address], 05/09/2024 11:07:56 05/08/20 24 05/09/2024 CBC (INCL UDES DIFF/ PLT) hemoglobin 12.7 g/dL 11.7-1 5.5 normal Not Available [address], [address], 05/09/2024 11:07:56 05/08/20 24 05/09/2024 CBC (INCL UDES DIFF/ PLT) hematocrit 37.7 % 35.0-4 5.0 normal Not Available [address], [address], 05/09/2024 11:07:56 05/08/20 24 05/09/2024 CBC (INCL UDES DIFF/ PLT) MCV 95.2 fL 80.0-1 00.0 normal Not Available [address], [address], 05/09/2024 11:07:56 05/08/20 24 05/09/2024 CBC (INCL UDES DIFF/ PLT) MCH 32.1 pg 27.0-3 3.0 normal Not Available [address], [address], 05/09/2024 11:07:56 05/08/20 24 05/09/2024 CBC (INCL UDES DIFF/ PLT) MCHC 33.7 g/dL 32.0-3 6.0 normal Not Available [address], [address], 05/09/2024 11:07:56 05/08/20 24 05/09/2024 CBC (INCL UDES DIFF/ PLT) RDW 12.3 % 11.0-1 5.0 normal Not Available [address], [address], 05/09/2024 11:07:56 05/08/20 24 05/09/2024 CBC (INCL UDES DIFF/ PLT) platelet count 379 thous and/u L 140-40 0 normal Not Available [address], [address], 05/09/2024 11:07:56 05/08/20 24 05/09/2024 CBC (INCL UDES DIFF/ PLT) MPV 9.3 fL 7.5-12 .5 normal Not Available [address], [address], 05/09/2024 11:07:56 05/08/20 24 05/09/2024 CBC (INCL UDES DIFF/ PLT) absolute neutrophils 3288 cells /uL 1500-7 800 normal Not Available [address], [address], 05/09/2024 11:07:56 05/08/20 24 05/09/2024 CBC (INCL UDES DIFF/ PLT) absolute lymphocytes 3797 cells /uL 850-39 00 normal Not Available [address], [address], 05/09/2024 11:07:56 05/08/20 24 05/09/2024 CBC (INCL UDES DIFF/ PLT) absolute monocytes 681 cells /uL 200-95 0 normal Not Available [address], [address], 05/09/2024 11:07:56 05/08/20 24 05/09/2024 CBC (INCL UDES DIFF/ PLT) absolute eosinophils 394 cells /uL 15-500 normal Not Available [facility] [address], [address], 05/09/2024 11:07:56 05/08/20 24 05/09/2024 CBC (INCL UDES DIFF/ PLT) absolute basophils 41 cells /uL 0-200 normal Not Available [facility] [address], [address], 05/09/2024 11:07:56 05/08/20 24 05/09/2024 CBC (INCL UDES DIFF/ PLT) neutrophils 40.1 % normal Not Available [facility] [address], [address], 05/09/2024 11:07:56 05/08/20 24 05/09/2024 CBC (INCL UDES DIFF/ PLT) lymphocytes 46.3 % normal Not Available [facility] [address], [address], 05/09/2024 11:07:56 05/08/20 24 05/09/2024 CBC (INCL UDES DIFF/ PLT) monocytes 8.3 % normal Not Available [facility] [address], [address], 05/09/2024 11:07:56 05/08/20 24 05/09/2024 CBC (INCL UDES DIFF/ PLT) eosinophils 4.8 % normal Not Available [facility] [address], [address], 05/09/2024 11:07:56 05/08/20 24 05/09/2024 CBC (INCL UDES DIFF/ PLT) basophils 0.5 % normal Not Available [facility] [address], [address], 05/09/2024 11:07:56 05/08/20 24 05/09/2024 PTH, INTAC T WITHO UT CALCI UM parathyroid hormone, intact 19 pg/mL 16-77 normal Inter preti ve Guide Intac t PTH Calci um ----- ----- ----- --- ----- ----- ----- -- Jackie l Parat hyroi d Jackie l Jackie l Hypop nuzhat yroid ism Low or Low Jackie l Low Hyper parat hyroi dism Prima ry Jackie l or High High Secon pign High Jackie l or Low Terti katy High High Non-P nuzhat yroid Hyper calce eugenia Low or Low Jackie l High Not Available [employer] [facility] [address] [place], [address], 05/09/2024 11:07:57 05/08/20 24 05/09/2024 VITAM IN D,25- OH,TO SHAY,I A vitamin D,25-oh,tota l,ia 69 NG/mL 30-100 normal Vitam in D Statu s 25-OH Vitam in D: Defic iency : <20 ng/mL Insuf ficie ncy: 20 - 29 ng/mL Optim al: > or = 30 ng/mL For 25-OH Vitam in D testi ng on patie nts on D2-crooks pplem entat ion and patie nts for whom quant itati on of D2 and D3 fract ions is requi red, the [facility] e[facility](TM ) 25-OH VIT D, (D2,D 3), LC/MS /MS is recom claudia d: order code 69069 (sohan ents >2yrs ). See Note 1 Note 1 For addit ional infor caty haney refer to http: //giles Banegas gnost ics.c om/fa q/FAQ 199 (This link is being provi ded for infor mindi de al cruz/ educmaribeth campos purpo ses only. ) Not Available [employer] [facility] [address] [place], [address], 05/09/2024 11:07:58 06/22/20 24 06/22/2024 Strep tococ cus pyoge rajinder Ag [Pres ence] in Vja t specimen source identified THROAT SPECI MEN TYPE THROA T 06/22 4:04 PM [facility] Not Available Not Available 04/09/2025 20:32:00 06/22/20 24 06/22/2024 Strep tococ cus pyoge rajinder Ag [Pres ence] in Vja t streptococcu s pyogenes Ag [presence] in throat NEGATI VE text: negati ve RAPID STREP TEST NEGAT CARLOS NEGAT CARLOS 06/22 4:09 PM CDT [facility] Not Available Not Available 04/09/2025 20:32:00 10/11/20 24 10/11/2024 Influ jerson virus A+B Ag [Pres ence] in Speci men specimen source identified NASOPH ARYNGE AL SWAB SPECI MEN TYPE NASOP HARYN GEAL SWAB 10/11 12:44 PM [employer]ATFORM SOFTWARE [employer]INE[employer] [facility] Not Available Not Available 04/09/2025 20:51:03 10/11/20 24 10/11/2024 Influ jerson virus A+B Ag [Pres ence] in Speci men influenza virus A Ag [presence] in specimen NEGATI VE text: negati ve INFLU JERSON A NEGAT CARLOS NEGAT CARLOS 10/11 12:52 PM [employer] Not Available Not Available 04/09/2025 20:51:03 10/11/20 24 10/11/2024 Influ jerson virus A+B Ag [Pres ence] in Speci men haemophilus influenzae B Ag [presence] in specimen NEGATI VE text: negati ve INFLU JERSON B NEGAT CARLOS NEGAT CARLOS 10/11 12:52 PM [employer] Not Available Not Available 04/09/2025 20:51:03 11/08/20 24 11/09/2024 LIPID PANEL , STAND SAMIA cholesterol, total 116 mg/dL <200 normal Not Available [address] [address] [place], [address], 11/09/2024 06:53:06 11/08/20 24 11/09/2024 LIPID PANEL , STAND SAMIA HDL cholesterol 30 mg/dL > or = 50 low Not Available [facility] [address] [place], [address], 11/09/2024 06:53:06 11/08/20 24 11/09/2024 LIPID PANEL , STAND SAMIA triglyceride s 113 mg/dL <150 normal Not Available [facility] [address] [address] [place], [address], 11/09/2024 06:53:06 11/08/20 24 11/09/2024 LIPID PANEL , STAND SAMIA LDL-choleste rol 66 mg/dL _(kasia c) normal Refer ence range : <100 Morgan able range <100 mg/dL for prima ry preve ntion ; <70 mg/dL for patie nts with CHD or diabe tic patie nts with > or = 2 CHD risk facto rs. LDL-C is now calcu lated using the Myriam n-Hop kins eliu jerome n, which is a valid ated novel metho d provi tanja cordonte r accur acy than the [employer] equat ion in the estim ation of LDL-C . Myriam bustos SS et al. CHARI. 2013; 310(1 9): 2061- 2068 (http ://ed ucati on.Qu Thom Eloquas. com/f aq/FA Q164) Not Available [facility] [address] [place], [address], 11/09/2024 06:53:06 11/08/20 24 11/09/2024 LIPID PANEL , STAND SAMIA chol/HDLC ratio 3.9 (calc ) <5.0 normal Not Available [facility] [address] [place], [address], 11/09/2024 06:53:06 11/08/20 24 11/09/2024 LIPID PANEL , STAND SAMIA non HDL cholesterol 86 mg/dL _(kasia c) <130 normal For patie nts with diabe arnel plus 1 major ASCVD risk facto r, treat ing to a non-H DL-C goal of <100 mg/dL (LDL- C of <70 mg/dL ) is consi cherrie a thera pecelena barnett optio n. Not Available [address] [address] [place], [address], 11/09/2024 06:53:06 11/08/20 24 11/09/2024 ALBUM IN, RANDO M URINE W/CRE ATINI NE creatinine, random urine 58 mg/dL 20-275 normal Not Available [address] [address] [place], [address], 11/09/2024 06:53:07 11/08/20 24 11/09/2024 ALBUM IN, RANDO M URINE W/CRE ATINI NE albumin, urine 0.2 mg/dL see note: normal Refer ence Range : Refer ence Range Not estab lishe d Not Available [address] [address] [facility] [place], [address], 11/09/2024 06:53:07 11/08/20 24 11/09/2024 ALBUM IN, RANDO M URINE W/CRE ATINI NE albumin/crea tinine ratio, random urine 3 mg/g_ creat <30 normal The ADA defin es abnor malit ies in album in excre tion as follo ws: Album inuri a Categ ory Resul t (mg/g creat inine ) Jackie l to Mildl y incre ased <30 Moder ately incre ased 30-29 9 Sever mark incre ased > OR = 300 The ADA recom mends that at least two of three speci mens colle cted withi n a 3-6 month perio d be abnor mal befor e consi arias g a patie nt to be withi n a diagn ostic categ ory. Not Available [address], [address], 11/09/2024 06:53:07 11/08/20 24 11/09/2024 PHOSP HATE ( PHOSP HORUS ) phosphate ( phosphorus) 3.3 mg/dL 2.1-4. 3 normal Not Available [address], [address], 11/09/2024 06:53:08 11/08/20 24 11/09/2024 URIC ACID uric acid 3.4 mg/dL 2.5-7. 0 normal Thera peuti c targe t for gout patie nts: <6.0 mg/dL Not Available [address], [address], 11/09/2024 06:53:09 11/08/20 24 11/09/2024 IRON AND TOTAL IRON NINA NG CAPAC ITY iron, total 61 mcg/d L 45-160 normal Not Available [address], [address], 11/09/2024 06:53:10 11/08/20 24 11/09/2024 IRON AND TOTAL IRON NINA NG CAPAC ITY iron binding capacity 286 mcg/d L_(ca lc) 250-45 0 normal Not Available [address], [address], 11/09/2024 06:53:10 11/08/20 24 11/09/2024 IRON AND TOTAL IRON NINA NG CAPAC ITY % saturation 21 %_(ca lc) 16-45 normal Not Available [address], [address], 11/09/2024 06:53:10 11/08/20 24 11/09/2024 COMPR EHENS CARLOS METAB OLIC PANEL glucose 95 mg/dL 65-99 normal Fasti ng refer ence inter ninoska Not Available [address] [place], [address], 11/09/2024 06:53:11 11/08/20 24 11/09/2024 COMPR EHENS CARLOS METAB OLIC PANEL urea nitrogen (BUN) 14 mg/dL 7-25 normal Not Available [address] [address] [place], [address], 11/09/2024 06:53:11 11/08/20 24 11/09/2024 COMPR EHENS CARLOS METAB OLIC PANEL creatinine 1.61 mg/dL 0.60-1 .00 high Not Available [address], [address], 11/09/2024 06:53:11 11/08/20 24 11/09/2024 COMPR EHENS CARLOS METAB OLIC PANEL eGFR 34 mL/mi n/1.7 3m2 > or = 60 low Not Available [address] [address] [place], [address], 11/09/2024 06:53:11 11/08/20 24 11/09/2024 COMPR EHENS CARLOS METAB OLIC PANEL BUN/creatini ne ratio 9 (calc ) 6-22 normal Not Available [address], [address], 11/09/2024 06:53:11 11/08/20 24 11/09/2024 COMPR EHENS CARLOS METAB OLIC PANEL sodium 137 mmol/ L 135-14 6 normal Not Available [address] [address] [place], [address], 11/09/2024 06:53:11 11/08/20 24 11/09/2024 COMPR EHENS CARLOS METAB OLIC PANEL potassium 4.4 mmol/ L 3.5-5. 3 normal Not Available [address] [address] [place], [address], 11/09/2024 06:53:11 11/08/20 24 11/09/2024 COMPR EHENS CARLOS METAB OLIC PANEL chloride 104 mmol/ L 98-110 normal Not Available [address], [address], 11/09/2024 06:53:11 11/08/20 24 11/09/2024 COMPR EHENS CARLOS METAB OLIC PANEL carbon dioxide 27 mmol/ L 20-32 normal Not Available [address], [address], 11/09/2024 06:53:11 11/08/20 24 11/09/2024 COMPR EHENS CARLOS METAB OLIC PANEL calcium 9.3 mg/dL 8.6-10 .4 normal Not Available [address], [address], 11/09/2024 06:53:11 11/08/20 24 11/09/2024 COMPR EHENS CARLOS METAB OLIC PANEL protein, total 6.6 g/dL 6.1-8. 1 normal Not Available [address], [address], 11/09/2024 06:53:11 11/08/20 24 11/09/2024 COMPR EHENS CARLOS METAB OLIC PANEL albumin 4.2 g/dL 3.6-5. 1 normal Not Available [address], [address], 11/09/2024 06:53:11 11/08/20 24 11/09/2024 COMPR EHENS CARLOS METAB OLIC PANEL globulin 2.4 g/dL_ (calc ) 1.9-3. 7 normal Not Available [address], [address], 11/09/2024 06:53:11 11/08/20 24 11/09/2024 COMPR EHENS CARLOS METAB OLIC PANEL albumin/glob ulin ratio 1.8 (calc ) 1.0-2. 5 normal Not Available [address], [address], 11/09/2024 06:53:11 11/08/20 24 11/09/2024 COMPR EHENS CARLOS METAB OLIC PANEL bilirubin, total 0.4 mg/dL 0.2-1. 2 normal Not Available [address], [address], 11/09/2024 06:53:11 11/08/20 24 11/09/2024 COMPR EHENS CARLOS METAB OLIC PANEL alkaline phosphatase 98 U/L 37-153 normal Not Available [facility] [address], [address], 11/09/2024 06:53:11 11/08/20 24 11/09/2024 COMPR EHENS CARLOS METAB OLIC PANEL AST 12 U/L 10-35 normal Not Available [address], [address], 11/09/2024 06:53:11 11/08/20 24 11/09/2024 COMPR EHENS CARLOS METAB OLIC PANEL ALT 24 U/L 6-29 normal Not Available [address], [address], 11/09/2024 06:53:11 11/08/20 24 11/09/2024 CBC (INCL UDES DIFF/ PLT) white blood cell count 6.4 thous and/u L 3.8-10 .8 normal Not Available [facility] [address], [address], 11/09/2024 06:53:11 11/08/20 24 11/09/2024 CBC (INCL UDES DIFF/ PLT) red blood cell count 3.55 safia on/uL 3.80-5 .10 low Not Available [facility] [address], [address], 11/09/2024 06:53:11 12/11/20 24 11/09/2024 CBC (INCL UDES DIFF/ PLT) hemoglobin 11.5 g/dL 11.7-1 5.5 low Not Available [address], [address], 11/09/2024 06:53:11 11/08/20 24 11/09/2024 CBC (INCL UDES DIFF/ PLT) hematocrit 34.3 % 35.0-4 5.0 low Not Available [address], [address], 11/09/2024 06:53:11 11/08/20 24 11/09/2024 CBC (INCL UDES DIFF/ PLT) MCV 96.6 fL 80.0-1 00.0 normal Not Available [address], [address], 11/09/2024 06:53:11 11/08/20 24 11/09/2024 CBC (INCL UDES DIFF/ PLT) MCH 32.4 pg 27.0-3 3.0 normal Not Available [address], [address], 11/09/2024 06:53:11 11/08/20 24 11/09/2024 CBC (INCL UDES DIFF/ PLT) MCHC 33.5 g/dL 32.0-3 6.0 normal For adult s, a sligh t decre ase in the calcu lated MCHC value (in the range of 30 to 32 g/dL) is most likel y not clini mindy signi fican t; beverly er, it shoul d be inter prete d with cauti on in corre latio n with other red cell doris eters and the patie nt's clini kasia condi tion. Not Available [facility] [address], [address], 11/09/2024 06:53:11 11/08/20 24 11/09/2024 CBC (INCL UDES DIFF/ PLT) RDW 12.5 % 11.0-1 5.0 normal Not Available [address], [address], 11/09/2024 06:53:11 11/08/20 24 11/09/2024 CBC (INCL UDES DIFF/ PLT) platelet count 335 thous and/u L 140-40 0 normal Not Available [address], [address], 11/09/2024 06:53:11 11/08/20 24 11/09/2024 CBC (INCL UDES DIFF/ PLT) MPV 9.3 fL 7.5-12 .5 normal Not Available [address], [address], 11/09/2024 06:53:11 11/08/20 24 11/09/2024 CBC (INCL UDES DIFF/ PLT) absolute neutrophils 2886 cells /uL 1500-7 800 normal Not Available [address], [address], 11/09/2024 06:53:11 11/08/20 24 11/09/2024 CBC (INCL UDES DIFF/ PLT) absolute lymphocytes 2701 cells /uL 850-39 00 normal Not Available [address], [address], 11/09/2024 06:53:11 11/08/20 24 11/09/2024 CBC (INCL UDES DIFF/ PLT) absolute monocytes 461 cells /uL 200-95 0 normal Not Available [address], [address], 11/09/2024 06:53:11 11/08/20 24 11/09/2024 CBC (INCL UDES DIFF/ PLT) absolute eosinophils 250 cells /uL 15-500 normal Not Available [address], [address], 11/09/2024 06:53:11 11/08/20 24 11/09/2024 CBC (INCL UDES DIFF/ PLT) absolute basophils 102 cells /uL 0-200 normal Not Available [address], [address], 11/09/2024 06:53:11 11/08/20 24 11/09/2024 CBC (INCL UDES DIFF/ PLT) neutrophils 45.1 % normal Not Available [facility] [address], [address], 11/09/2024 06:53:11 11/08/20 24 11/09/2024 CBC (INCL UDES DIFF/ PLT) lymphocytes 42.2 % normal Not Available [address], [address], 11/09/2024 06:53:11 11/08/20 24 11/09/2024 CBC (INCL UDES DIFF/ PLT) monocytes 7.2 % normal Not Available [facility] [address], [address], 11/09/2024 06:53:11 11/08/20 24 11/09/2024 CBC (INCL UDES DIFF/ PLT) eosinophils 3.9 % normal Not Available [address], [address], 11/09/2024 06:53:11 11/08/20 24 11/09/2024 CBC (INCL UDES DIFF/ PLT) basophils 1.6 % normal Not Available [address], [address], 11/09/2024 06:53:11 11/08/20 24 11/09/2024 PTH, INTAC T WITHO UT CALCI UM parathyroid hormone, intact 58 pg/mL 16-77 normal Inter preti ve Guide Intac t PTH Calci um ----- ----- ----- --- ----- ----- ----- -- Jackie l Parat hyroi d Jackie l Jackie l Hypop nuzhat yroid ism Low or Low Jackie l Low Hyper parat hyroi dism Prima ry Jackie l or High High Secon ping High Jackie l or Low Terti katy High High Non-P nuzhat yroid Hyper calce eugenia Low or Low Jackie l High Not Available [facility] [address] [place], [address], 11/09/2024 06:53:12 11/08/20 24 11/09/2024 VITAM IN D,25- OH,TO SHAY,I A vitamin D,25-oh,tota l,ia 70 NG/mL 30-100 normal Vitam in D Statu s 25-OH Vitam in D: Defic iency : <20 ng/mL Insuf ficie ncy: 20 - 29 ng/mL Optim al: > or = 30 ng/mL For 25-OH Vitam in D testi ng on patie nts on D2-crooks pplem entat ion and patie nts for whom quant itati on of D2 and D3 fract ions is requi red, the [facility](TM ) 25-OH VIT D, (D2,D 3), LC/MS /MS is recom claudia d: order code 49624 (sohan ents >2yrs ). See Note 1 Note 1 For addit ional infor caty haney e refer to http: //[facility] juliane bustos.Leon stDia gnost ics.c om/fa q/FAQ 199 (This link is being provi ded for infor mindi de la cruz/ educmaribeth campos purpo ses only. ) Not Available [employer] [employer] [facility] [address] [place], [address], 11/09/2024 06:53:13 12/06/19 25 12/07/2024 BASIC METAB OLIC PANEL glucose 116 mg/dL 65-99 high Fasti ng refer ence inter ninoska For someo ne witho ut known diabe arnel, a gluco se value betwe en 100 and 125 mg/dL is consi stent with predi abete s and shoul d be confi rmed with a follo w-up test. Not Available [address], [address], 12/07/2024 06:17:16 12/06/1912/07/2024 BASIC METAB OLIC PANEL urea nitrogen (BUN) 16 mg/dL 7-25 normal Not Available [address], [address], 12/07/2024 06:17:16 12/06/1912/07/2024 BASIC METAB OLIC PANEL creatinine 1.25 mg/dL 0.60-1 .00 high Not Available [address], [address], 12/07/2024 06:17:16 12/06/1912/07/2024 BASIC METAB OLIC PANEL eGFR 46 mL/mi n/1.7 3m2 > or = 60 low Not Available [address], [address], 12/07/2024 06:17:16 12/06/1912/07/2024 BASIC METAB OLIC PANEL BUN/creatini ne ratio 13 (calc ) 6-22 normal Not Available [address], [address], 12/07/2024 06:17:16 12/06/1912/07/2024 BASIC METAB OLIC PANEL sodium 136 mmol/ L 135-14 6 normal Not Available [address], [address], 12/07/2024 06:17:16 12/06/1912/07/2024 BASIC METAB OLIC PANEL potassium 4.5 mmol/ L 3.5-5. 3 normal Not Available [address], [address], 12/07/2024 06:17:16 12/06/1912/07/2024 BASIC METAB OLIC PANEL chloride 102 mmol/ L 98-110 normal Not Available [address], [address], 12/07/2024 06:17:16 12/06/1912/07/2024 BASIC METAB OLIC PANEL carbon dioxide 27 mmol/ L 20-32 normal Not Available [address], [address], 12/07/2024 06:17:16 12/06/1912/07/2024 BASIC METAB OLIC PANEL calcium 9.6 mg/dL 8.6-10 .4 normal Not Available [address], [address], 12/07/2024 06:17:16 12/06/1912/07/2024 TSH+F REE T4 TSH 1.59 mIU/L 0.40-4 .50 normal Not Available [address], [address], 12/07/2024 08:55:04 12/06/1912/07/2024 TSH+F REE T4 T4, free 1.1 NG/dL 0.8-1. 8 normal Not Available [address], [address], 12/07/2024 08:55:04 12/06/1912/07/2024 RETIC ULOCY TE COUNT reticulocyte count, automated 1.6 % normal Not Available [address], [address], 12/07/2024 08:55:06 12/06/1912/07/2024 RETIC ULOCY TE COUNT reticulocyte , absolute 71023 cells /uL [address]- [address] normal Not Available [address], [address], 12/07/2024 08:55:06 12/06/19 25 12/07/2024 VITAM IN B12/F OLATE , SERUM PANEL vitamin B12 1103 pg/mL 200-11 00 high Not Available [address], [address], 12/07/2024 08:55:07 12/06/19 25 12/07/2024 VITAM IN B12/F OLATE , SERUM PANEL folate, serum 10.9 NG/mL normal Refer ence Range Low: <3.4 Borde rline : 3.4-5 .4 Jackie l: >5.4 Not Available [address], [address], 12/07/2024 08:55:07 12/06/1912/07/2024 T3, FREE T3, free 3.0 pg/mL 2.3-4. 2 normal Not Available [address], [address], 12/07/2024 08:55:07 12/06/1912/08/2024 FECAL GLOBI N BY IMMUN OCHEM ISTRY fecal globin by immunochemis try SEE NOTE FECAL GLOBI N BY IMMUN OCHEM ISTRY Micro Numbe r: [id number] Test Statu s: Final Speci men Sourc e: Insur e (tm) fobt test card Speci men Quali ty: Adequ ate Fecal Globi n: Not Detec karly Not Available [address], [address], 12/08/2024 09:52:53 05/14/2005/14/2025 Strep tococ cus pyoge rajinder Ag [Pres ence] in Throa t specimen source identified THROAT Not Available Not Available 0 05/14/2025 12:57:13 05/14/20 25 05/14/2025 Strep tococ cus pyoge rajinder Ag [Pres ence] in Throa t streptococcu s pyogenes Ag [presence] in throat NEGATI VE text: negati ve Not Available Not Available 05/14/2025 12:57:13 12/14/19 24 12/09/2023 MAMMO , scree darrick, digit al, bilat eral No observ ation record ed. [facility] [address], [place], [address], 12/15/2023 15:12:58 02/07/20 24 02/07/2024 CT, sinus es, w/o contr ast No observ ation record ed. [facility] (Pet Scan_ [address] [place], [address], 02/16/2024 17:07:05 10/11/20 xr chest Pa+la t [facility] [address] [place] [address] Orderi ng Provid er: [facility] [address] [place] [address] IMAGIN G STUDIE S: XR CHEST PA+LAT DATE: 2023 12:33 PM HISTOR Y: cough 74-yea r-old female . Produc tive cough with green mucus, conges tion, runny nose, sore throat , and genera lized fatigu e that has been ongoin g for a few weeks but sympto ms have worsen ed over the last few days. COMPAR SURESH: Chest [address] abdome n pelvis withou t contra st 2020. DISCUS DURAN: Uprigh t PA and latera l views. Heart size within normal limits . No acute pulmon katy vascul ar conges tion. Granul omatou s calcif icatio ns includ ing calcif ied nodule in the left lower lobe. No acute pulmon katy infilt rate, pulmon katy consol idatio n, pleura l effusi on, or pneumo thorax . Degene rative change s spine and should ers. Lower cervic al spinal anteri or fixati on plate and screws . Verteb ral body endpla te Schmor l's nodes near the thorac olumba r juncti on as also demons trated on 2020 CT. Cholec ystect edinson clips. IMPRES DURAN: No acute pulmon katy infilt rate or consol idatio n. Ordere d By: AMANUEL GREEN TON Electr onical ly Signed By: Papito Wright on 2023 12:54 PM Interp reted By: Papito Wright , 2023 12:[address] [facility] [address] [facility], [place], [address], 10/13/2024 12:28:37 05/14/20 25 xr chest Pa+la t [facility] [place] [address] Orderi ng Provid er: ANI ALONSO ON [facility] [address] [place] [address] MATT LEYVA S: XR CHEST PA+LAT DATE: 10:46 AM HISTOR Y: cough/ SOB with exerti on x4-5 days. 74-yea r-old female . Cough, conges tion, sore throat , ear pain, and shortn ess of breath with exerti on with onset 4-5 days ago. COMPAR SURESH: Chest 2 view 2023 and 2015. DISCUS DURAN: Uprigh t PA and latera l views. Heart size within normal limits . No acute pulmon katy vascul ar conges tion. No acute pulmon katy infilt rate, pulmon katy consol idatio n, pleura l effusi on, or pneumo thorax . 4 mm left lower lobe calcif ied granul kimmy. Lower cervic al spine fixati on plate and screws . Spinal degene rative change s. Bilate ral should er degene rative change s. Cholec ystect edinson clips. IMPRES DURAN: No acute pulmon katy infilt rate or consol idatio n. Ordere d By: ANI ALONSO ON Electr onical ly Signed By: Papito Wright on 025 11:01 AM Interp reted By: Papito Wright , 025 10:[address] [facility] [address] [facility], [place], [address], 05/14/2025 12:25:58 Result Notes None recorded. Problems Name Problem SNOMED Code Status Onset Date Resolution Date Notes Provider Name and Address Organization Details Recorded Time Cardiomegal y 4193047 Active 2015 Kathleen Larsen null, [facility] 14:48:22 Kidney disease 47000206 Active 2015 [facility], [facility] 14:48:47 Benign hypertensio n 75400949 Active 2015 [facility], [facility] 14:48:56 Gastroesoph ageal reflux disease 944731560 Active 2015 Kathleen Walker null, [facility] 14:49:03 Hyperlipide eugenia 88568811 Active 2015 [facility], [facility] 14:49:13 Hypothyroid ism 03868182 Active 2015 [facility], [facility] 14:49:23 Hearing loss 74219832 Active 2015 [facility], [facility] 14:49:34 Peptic ulcer 87732005 Active 2015 [facility], [facility] 14:50:08 Neuropathy 703378876 Active 2015 [facility], [facility] 14:50:47 Essential hypertensio n 91031832 Active 2021 Neil Higgins MD [address], [place], [address], [facility] 2 14:26:24 Osteoarthri tis of knee 958894632 Active 2022 Neil Higgins MD [address], [place], [address], [facility] 3 15:26:29 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 544886287 Active 2022 Neil Higgins MD [address], [place], [address], [facility] 3 15:48:44 Muscle spasm of cervical muscle of neck 304729271286 Active 2022 Neil Higgins MD [address], [place], [address], [facility] 3 11:42:41 Idiopathic peripheral neuropathy 41909521 Active 2022 Neil Higgins MD [address], [place], [address], [facility] 3 21:00:47 Pain in both feet 8462427649165 9102 Active 2022 Neil Higgins MD [address], [place], [address], [facility] 3 14:51:14 Edema of lower extremity 903054137 Active 2022 Neil Higgins MD [address], [place], [address], [facility] 3 17:43:33 Upper respiratory infection 33844774 Active 2022 Neil Higgins MD [address], [place], [address], [facility] 3 17:13:54 Chronic kidney disease stage 3 216560409 Active 2022 Neil Higgins MD [address], [place], [address], [facility] 3 17:15:44 Fatigue 11519473 Active 2022 Neil Higgins MD [address], [place], [address], [facility] 3 17:24:52 Acute urinary tract infection 668042091 Active 2022 Neil Higgins MD [address], [place], [address], [facility] 3 20:14:29 Headache 38219141 Active 2022 Neil Higgins MD [address], [place], [address], [facility] 3 07:54:24 Proximal muscle weakness 394569907 Active 2022 Neil Higgins MD [address], [place], [address], [facility] 3 17:09:38 Problem Notes Documentation Provider Name and Address Organization Details Recorded Time Manager Risk Management Consult Note : Patient Name: RUBINA FERGUSON Date of : 1950 Med Rec #: [id number] Date of Service: 07/25/2024 Disch Date: GASTROENTEROLOGY CONSULT 07/25/2024 2:39 PM Reason for Visit: Follow Up History of Present Illness: Rubina Ferguson is a 74-year-old female who presents today for f/u of chronic constipation. Reports chronic constipation currently managed Trulance 3 mg daily which typically promotes regular formed BM daily. Will use Miralax as needed if she does not have a daily BM to prevent further constipation as she has gone almost a week without a BM in the past. Denies hematochezia, diarrhea, abdominal pain, or N/V. Underwent a colonoscopy in 10/2023 which showed internal hemorrhoids, otherwise was unremarkable. Recommended to repeat screening in five yrs due to FH of colon CA in her brother who was dx at age 83. Denies any recent rectal bleeding. Appetite appropriate. No unexplained weight loss Chronic GERD managed with with pantoprazole 40 mg daily. Reports a hoarse voice over the past several weeks. Has been dealing with frequent sinus drainage from seasonal allergies and is taking Zyrtec daily. Unsure if hoarse voice due to sinus drainage or reflux. Denies any breakthrough heartburn. Reports dysphagia with certain breads and meats which is not a new symptom. She had an EGD was in 05/2022 which was negative for esophagitis or esophageal stricturing. Was dilated empirically due to dysphagia complaints. Patient's daughter has recently been dx with celiac disease and she would like to be screened as well. No hx of hepatitis infection NSAID/Anticoagulant use: ASA 81 MG, Plavix 75 mg per CAD management with h/o CVA Follows cardiology Past Medical History: Diagnosis Date Arthritis CAD (coronary artery disease) Chronic idiopathic constipation CKD (chronic kidney disease) stage 3, GFR 30-59 ml/min ([facility]) CVA (cerebral vascular accident) ([facility]) GERD (gastroesophageal reflux disease) Gout, unspecified Hearing loss HLD (hyperlipidemia) HTN (hypertension) Hypothyroid Kidney stone Kidney stones Migraines Mild intermittent asthma, uncomplicated ([facility]) Neuropathy Obesity KRISSY (obstructive sleep apnea) Peptic ulcer PONV (postoperative nausea and vomiting) Stroke ([facility]) 2000 left side weaker TIA (transient ischemic attack) Past Surgical History: Procedure Laterality Date ABDOMINAL HYSTERECTOMY W/ PARTIAL VAGINACTOMY APPENDECTOMY CARDIAC CATHETERIZATION COLONOSCOPY N/A 11/04/2023 COLONOSCOPY performed by Alix Florez DO at [facility] GI COLONOSCOPY FLX DX W/COLLJ SPEC WHEN PFRMD COLONOSCOPY STOMA DX INCLUDING COLLJ SPEC SPX CYSTOSCOPY INSERTION / REMOVAL STENT / STONE EGD EYE SURGERY lens implant HYSTERECTOMY LAPAROSCOPIC CHOLECYSTECTOMY LITHOTRIPSY MASTOIDECTOMY Right TOTAL KNEE ARTHROPLASTY Left TYMPANOPLASTY Left Family History Problem Relation Name Age of Onset Heart Disease Mother Stroke Mother Heart Disease Father Heart Disease Sister Nalini Heart Disease Sister Billy Other (CVA) Sister Billy Other (ckd) Sister Billy Heart Disease Sister Guille-Shaka [place] Sister Guille-Shaka Heart Disease Sister Linda Acute myelogenous leukemia Sister Linda Heart Disease Sister Freedom-Margaux Diabetes Sister Laura-Margaux Heart Disease Sister Orly Heart Disease Brother Don Heart Disease Brother Wondrow [place] Brother Wondrow Heart Disease Brother Ruslan Colon Cancer Brother Ruslan 83 Social History Tobacco Use Smoking status: Never Smokeless tobacco: Never Vaping Use Vaping status: Never Used Substance Use Topics Alcohol use: Not Currently Drug use: Never Outpatient Medications Marked as Taking for the 07/25/24 encounter (Office Visit) with Ghazal Winter NP Medication Sig Dispense Refill allopurinol 100 MG tablet Take 2 tablets (200 mg total) by mouth daily. amitriptyline (ELAVIL) 25 MG tablet Take 2 tablets (50 mg total) by mouth daily. ASPIRIN EC 81 MG tablet Take 1 tablet (81 mg total) by mouth nightly. botulinum toxin type A (BOTOX) 200 units injection 200 Units by Other route. Every 3 months jaz TRAN carvedilol 6.25 MG tablet Take 1 tablet (6.25 mg total) by mouth 2 (two) times daily. cetirizine 10 MG tablet Take 1 tablet (10 mg total) by mouth daily. clopidogrel 75 MG tablet Take 1 tablet (75 mg total) by mouth nightly at bedtime. DULoxetine 60 MG capsule Take 1 capsule (60 mg total) by mouth nightly. ferrous sulfate EC 324 (65 Fe) MG tablet Take 1 tablet (324 mg total) by mouth daily with breakfast. 30 tablet 0 furosemide 20 MG tablet Take 1 tablet (20 mg total) by mouth daily as needed (swelling). levothyroxine 50 MCG tablet Take 1 tablet (50 mcg total) by mouth every morning. LIDODERM 5 % Place 1 patch onto the skin nightly. Apply 1/2 patch to each foot every night at bedtime. Remove in the morning. nitroglycerin 0.[address] 1 tablet (0.4 mg total) under the tongue every 5 (five) minutes as needed for Chest Pain. omega-3 acid 1 GM capsule Take 2 capsules (2 g total) by mouth 2 (two) times daily. OXYGEN 2 L/min by Nasal route daily as needed. Generator prn- hasnt needed to use in 3 years pantoprazole EC (PROTONIX) 40 MG tablet Take 1 tablet (40 mg total) by mouth 2 (two) times a day. 60 tablet 0 Plecanatide (TRULANCE) 3 MG Tab Take 3 mg by mouth daily. 90 tablet 3 polyethylene glycol (GLYCOLAX) 17 GM/SCOOP powder 17 g. pregabalin (LYRICA) 100 MG capsule Take 1 capsule (100 mg total) by mouth daily. Pyridoxine HCl (VITAMIN B-6) 25 MG Tab Take 50 mg by mouth daily. RESTASIS 0.05 % ophthalmic emulsion Place 1 drop into both eyes 2 (two) times daily. rosuvastatin 10 MG tablet Take 1 tablet (10 mg total) by mouth daily. THIOCTIC ACID 100 MG Cap Take by mouth daily. topiramate (TOPAMAX) 50 MG Tab 2 tablets (100 mg total) 2 (two) times daily. ubrogepant (UBRELVY) 100 MG tablet Ubrelvy 100 mg tablet TAKE 1 TABLET BY MOUTH NEEDED FOR HEADACHE. MAY REPEAT DOSE IN 2 HOURS IF NO RELIEF. DO NOT EXCEED 2 DOSES IN 24 HOURS. vitamin B-1 50 MG tablet Take 1 tablet (50 mg total) by mouth daily. vitamin D3, cholecalciferol, 5000 UNITS capsule Take 1 capsule (125 mcg total) by mouth daily. Review of patient's allergies indicates: Allergen Reactions Sulfa Antibiotics Rash Tramadol Hallucinations REVIEW OF SYSTEMS: Review of Systems Constitutional: Negative for fatigue and fever. Respiratory: Negative for shortness of breath. Cardiovascular: Negative for leg swelling. Gastrointestinal: Per HPI Musculoskeletal: Negative for joint swelling. Skin: Negative for rash. Neurological: Negative for dizziness and headaches. Psychiatric/Behavioral: The patient is not nervous/anxious. PHYSICAL EXAM: Filed Vitals: 07/25/24 1401 BP: 109/62 Pulse: 65 Resp: 16 Temp: 98.1 degreeF (36.7 degreeC) SpO2: 100% Weight: 65.3 kg (144 lb) Height: 1.549 m (5' 1) Wt Readings from Last 1 Encounters: 07/25/24 65.3 kg (144 lb) Physical Exam Vitals reviewed. Constitutional: Appearance: Normal appearance. Cardiovascular: Rate and Rhythm: Normal rate and regular rhythm. Pulmonary: Breath sounds: Normal breath sounds. No wheezing. Abdominal: General: Bowel sounds are normal. There is no distension. Palpations: Abdomen is soft. There is no mass. Tenderness: There is no abdominal tenderness. There is no guarding or rebound. Hernia: No hernia is present. Musculoskeletal: Right lower leg: No edema. Left lower leg: No edema. Skin: General: Skin is warm and dry. Findings: No rash. Neurological: Mental Status: She is alert and oriented to person, place, and time. Psychiatric: Mood and Affect: Mood normal. Behavior: Behavior normal. Labs: Lab Results Component Value Date WBC 8.4 01/05/2022 RBC 4.02 (L) 01/05/2022 HGB 12.6 01/05/2022 HCT 39.1 01/05/2022 RDW 13.4 01/05/2022 PLT 455 (H) 01/05/2022 NA 133 (L) 01/05/2022 K 5.0 01/05/2022 CL 102 01/05/2022 AGAP 2.9 (L) 01/05/2022 GLU 128 (H) 01/05/2022 BUN 9 01/05/2022 CR 1.22 (H) 01/05/2022 GFRNON 45 (L) 01/05/2022 GFR 52 (L) 01/05/2022 CA 9.8 01/05/2022 MAGNESIUM 2.2 11/29/2021 ALB 3.7 01/05/2022 ALT 25 01/05/2022 AST 15 01/05/2022 ALKP 103 01/05/2022 Imagin11/03/22 XR ABD KUB 1. Nonobstructed bowel gas pattern. 2. No calcification superimposing either renal silhouette or along the path of either ureter. 11/28/21 CT ABD+PEL WO CON 1. Developing very mild left hydronephrosis and mild asymmetric prominence of the proximal left ureter. Transition point adjacent to surgical clips in the left hemipelvis. No convincing obstructing calculus identified. 2. Minimal areas of bladder wall thickening may be secondary to incomplete distention. Clinical correlation for UTI recommended. If there is absence of infection, repeat evaluation with appropriate sequences and full bladder recommended to exclude neoplasm. 3. Interval endplate compression deformities at the inferior T12 and L1 vertebral bodies since 06/22/2020 exam. These are located centrally in the endplates and suggestive of Schmorl's nodes. Spinal canal patent at both levels. No significant height loss or malalignment appreciated. Endoscopies: 11/04/[address] Simons Internal hemorrhoids otherwise neg exam. Recheck colonoscopy 5 years 06/12/22 EGD with dilation by Dr. Florez Unremarkable EGD. Biopsies taken of antral stomach (chronic gastritis, neg for H. Pylori) and esophagus (chronic esophagitis, neg for EOE). Dilated empirically with a 54 Fr Schmidt Assessment 1. Oropharyngeal dysphagia 2. Chronic constipation - Plecanatide (TRULANCE) 3 MG Tab; Take 3 mg by mouth daily. Dispense: 90 tablet; Refill: 3 - CELIAC DISEASE COMP PANEL; Future 3. Chronic GERD - pantoprazole EC (PROTONIX) 40 MG tablet; Take 1 tablet (40 mg total) by mouth 2 (two) times a day. Dispense: 60 tablet; Refill: 0 Recommendations/Plan: Increase pantoprazole 40 mg to BID x 30 days for possible GERD exacerbation with goal to resume daily dose Consider EGD if dysphagia progresses or patient's hoarse voice does not resolve to r/u esophagitis Anti-reflux measures discussed R/O celiac disease. No signs of malabsorption seen during EGD in 05/2022 Continue Trulance 3 mg daily. Refill provided. May use Miralax 1-2 caps daily as needed for additional constipation. It is recommended to consume 20-35 grams of fiber per day and at least 64 ounces/2 liters of water per day. All questions answered Next screening colonoscopy recommended for 10/2028 Risks/Benefits/Options: Risks, benefits and alternatives of the procedure(s) were discussed which can include but are not limited to: discomfort, missing lesions, allergic or adverse reaction to the sedation, perforation of the bowel or upper GI tract which may require hospitalization and surgery, bleeding, infection, aspiration. All questions were answered, patient is in agreement to proceed as planned. Orders placed this encounter: Orders Placed This Encounter CELIAC DISEASE COMP PANEL pantoprazole EC (PROTONIX) 40 MG tablet Plecanatide (TRULANCE) 3 MG Tab Ghazal Winter NP Gastroenterology Signed by: GHAZAL WINTER 07/25/2024 2:40 PM Neil Higgins MD [address] [place] [address], [id number], [facility] 07/28/2024 22:54:18 Manager Risk Management Consult Note : Patient Name: RUBINA FERGUSON Date of : 1950 [facility] Rec #: [id number] Date of Service: 11/20/2024 Disch Date: GASTROENTEROLOGY CONSULT 11/20/2024 4:14 PM Reason for Visit: Follow Up (F/u diarrhea ) History of Present Illness: Rubina Ferguson is a 74-year-old female who presents today for f/u of chronic GERD and chronic constipation. Chronic constipation currently managed Trulance 3 mg daily which typically promotes regular formed BM daily. Will use Miralax as needed if she does not have a daily BM to prevent further constipation as she has gone almost a week without a BM in the past. Denies hematochezia, diarrhea, abdominal pain, or N/V. Underwent a colonoscopy in 10/2023 which showed internal hemorrhoids, otherwise was unremarkable. Recommended to repeat screening in five yrs due to FH of colon CA in her brother who was dx at age 83. Denies any recent rectal bleeding. Appetite appropriate. No unexplained weight loss Chronic GERD managed with with pantoprazole 40 mg daily. Dose was increased to BID x 30 days last Jun for suspected exacerbation. Is doing better but still reports intermittent breakthrough heartburn depending on her diet. Heartburn seems to occur more commonly at night time. Infrequent dysphagia only occurs with some breads, mostly cornbread. She had an EGD was in 05/2022 which was negative for esophagitis or esophageal stricturing. Was dilated empirically due to dysphagia complaints. No hx of hepatitis infection NSAID/Anticoagulant use: ASA 81 MG, Plavix 75 mg per CAD management with h/o CVA Follows cardiology Past Medical History: Diagnosis Date Arthritis CAD (coronary artery disease) Chronic idiopathic constipation CKD (chronic kidney disease) stage 3, GFR 30-59 ml/min ([facility]) CVA (cerebral vascular accident) ([facility]HCC) GERD (gastroesophageal reflux disease) Gout, unspecified Hearing loss HLD (hyperlipidemia) HTN (hypertension) Hypothyroid Kidney stone Kidney stones Migraines Mild intermittent asthma, uncomplicated ([facility]/HCC) Neuropathy Obesity KRISSY (obstructive sleep apnea) Peptic ulcer PONV (postoperative nausea and vomiting) Stroke ([facility] HHS/HCC) 2000 left side weaker TIA (transient ischemic attack) Past Surgical History: Procedure Laterality Date ABDOMINAL HYSTERECTOMY W/ PARTIAL VAGINACTOMY APPENDECTOMY CARDIAC CATHETERIZATION COLONOSCOPY N/A 11/04/2023 COLONOSCOPY performed by Alix Florez DO at [facility] GI COLONOSCOPY FLX DX W/COLLJ SPEC WHEN PFRMD COLONOSCOPY FLX DX W/COLLJ SPEC WHEN PFRMD CYSTOSCOPY INSERTION / REMOVAL STENT / STONE EGD EYE SURGERY lens implant HYSTERECTOMY LAPAROSCOPIC CHOLECYSTECTOMY LITHOTRIPSY MASTOIDECTOMY Right TOTAL KNEE ARTHROPLASTY Left TYMPANOPLASTY Left Family History Problem Relation Name Age of Onset Heart Disease Mother Stroke Mother Heart Disease Father Heart Disease Sister Nalini Heart Disease Sister Billy Other (CVA) Sister Billy Other (ckd) Sister Billy Heart Disease Sister GuilleFransico [place] Sister Abena Heart Disease Sister Linda Acute myelogenous leukemia Sister Linda Heart Disease Sister [place]-Margaux Diabetes Sister Laura-Margaux Heart Disease Sister Orly Heart Disease Brother Don Heart Disease Brother Demardryazmin [place] Brother Demardryazmin Heart Disease Brother Ruslan Colon Cancer Brother Ruslan 83 Social History Tobacco Use Smoking status: Never Smokeless tobacco: Never Vaping Use Vaping status: Never Used Substance Use Topics Alcohol use: Not Currently Drug use: Never Outpatient Medications Marked as Taking for the 11/20/24 encounter (Office Visit) with Ghazal Winter NP Medication Sig Dispense Refill allopurinol 100 MG tablet Take 2 tablets (200 mg total) by mouth daily. amitriptyline (ELAVIL) 25 MG tablet Take 2 tablets (50 mg total) by mouth daily. ASPIRIN EC 81 MG tablet Take 1 tablet (81 mg total) by mouth nightly. azithromycin (ZITHROMAX) 250 MG tablet Take 2 tablets by mouth on day one then 1 daily for four days. 6 tablet 0 botulinum toxin type A (BOTOX) 200 units injection 200 Units by Other route. Every 3 months focristi TRAN carvedilol 6.25 MG tablet Take 1 tablet (6.25 mg total) by mouth 2 (two) times daily. cetirizine 10 MG tablet Take 1 tablet (10 mg total) by mouth daily. clopidogrel 75 MG tablet Take 1 tablet (75 mg total) by mouth nightly at bedtime. DULoxetine 60 MG capsule Take 1 capsule (60 mg total) by mouth nightly. ferrous sulfate EC 324 (65 Fe) MG tablet Take 1 tablet (324 mg total) by mouth daily with breakfast. 30 tablet 0 furosemide 20 MG tablet Take 1 tablet (20 mg total) by mouth daily as needed (swelling). guaiFENesin ER (MUCINEX) 600 MG 12 hr tablet Take 2 tablets (1,200 mg total) by mouth 2 (two) times daily. 28 tablet 0 levothyroxine 50 MCG tablet Take 1 tablet (50 mcg total) by mouth every morning. LIDODERM 5 % Place 1 patch onto the skin nightly. Apply 1/2 patch to each foot every night at bedtime. Remove in the morning. nitroglycerin 0.[address] 1 tablet (0.4 mg total) under the tongue every 5 (five) minutes as needed for Chest Pain. omega-3 acid 1 GM capsule Take 2 capsules (2 g total) by mouth 2 (two) times daily. OXYGEN 2 L/min by Nasal route daily as needed. Generator prn- hasnt needed to use in 3 years pantoprazole EC (PROTONIX) 40 MG tablet Take 1 tablet (40 mg total) by mouth daily. 30 tablet 2 Plecanatide (TRULANCE) 3 MG Tab Take 3 mg by mouth daily. 90 tablet 3 polyethylene glycol (GLYCOLAX) 17 GM/SCOOP powder 17 g. (Patient taking differently: 17 g. PRN) pregabalin (LYRICA) 100 MG capsule Take 1 capsule (100 mg total) by mouth daily. Pyridoxine HCl (VITAMIN B-6) 25 MG Tab Take 50 mg by mouth daily. RESTASIS 0.05 % ophthalmic emulsion Place 1 drop into both eyes 2 (two) times daily. rosuvastatin 10 MG tablet Take 1 tablet (10 mg total) by mouth daily. THIOCTIC ACID 100 MG Cap Take by mouth daily. topiramate (TOPAMAX) 50 MG Tab 2 tablets (100 mg total) 2 (two) times daily. ubrogepant (UBRELVY) 100 MG tablet Ubrelvy 100 mg tablet TAKE 1 TABLET BY MOUTH NEEDED FOR HEADACHE. MAY REPEAT DOSE IN 2 HOURS IF NO RELIEF. DO NOT EXCEED 2 DOSES IN 24 HOURS. vitamin B-1 50 MG tablet Take 1 tablet (50 mg total) by mouth daily. vitamin D3, cholecalciferol, 5000 UNITS capsule Take 1 capsule (125 mcg total) by mouth daily. Review of patient's allergies indicates: Allergen Reactions Sulfa Antibiotics Rash Tramadol Hallucinations REVIEW OF SYSTEMS: Review of Systems Constitutional: Negative for fatigue and fever. Respiratory: Negative for shortness of breath. Cardiovascular: Negative for leg swelling. Gastrointestinal: Per HPI Musculoskeletal: Negative for joint swelling. Skin: Negative for rash. Neurological: Negative for dizziness and headaches. Psychiatric/Behavioral: The patient is not nervous/anxious. PHYSICAL EXAM: Filed Vitals: 11/20/24 1553 BP: 117/63 Pulse: 68 Resp: 18 Temp: 97.8 degreeF (36.6 degreeC) TempSrc: Temporal SpO2: 97% Weight: 64.9 kg (143 lb) Height: 1.549 m (5' 1) Wt Readings from Last 1 Encounters: 11/20/24 64.9 kg (143 lb) Physical Exam Vitals reviewed. Constitutional: Appearance: Normal appearance. Cardiovascular: Rate and Rhythm: Normal rate and regular rhythm. Pulmonary: Breath sounds: Normal breath sounds. No wheezing. Abdominal: General: Bowel sounds are normal. There is no distension. Palpations: Abdomen is soft. There is no mass. Tenderness: There is no abdominal tenderness. There is no guarding or rebound. Hernia: No hernia is present. Musculoskeletal: Right lower leg: No edema. Left lower leg: No edema. Skin: General: Skin is warm and dry. Findings: No rash. Neurological: Mental Status: She is alert and oriented to person, place, and time. Psychiatric: Mood and Affect: Mood normal. Behavior: Behavior normal. Labs: Lab Results Component Value Date WBC 8.4 01/05/2022 RBC 4.02 (L) 01/05/2022 HGB 12.6 01/05/2022 HCT 39.1 01/05/2022 RDW 13.4 01/05/2022 PLT 455 (H) 01/05/2022 NA 133 (L) 01/05/2022 K 5.0 01/05/2022 CL 102 01/05/2022 AGAP 2.9 (L) 01/05/2022 GLU 128 (H) 01/05/2022 BUN 9 01/05/2022 CR 1.22 (H) 01/05/2022 GFRNON 45 (L) 01/05/2022 GFR 52 (L) 01/05/2022 CA 9.8 01/05/2022 MAGNESIUM 2.2 11/29/2021 ALB 3.7 01/05/2022 ALT 25 01/05/2022 AST 15 01/05/2022 ALKP 103 01/05/2022 Imagin11/03/22 XR ABD KUB 1. Nonobstructed bowel gas pattern. 2. No calcification superimposing either renal silhouette or along the path of either ureter. 11/28/21 CT ABD+PEL WO CON 1. Developing very mild left hydronephrosis and mild asymmetric prominence of the proximal left ureter. Transition point adjacent to surgical clips in the left hemipelvis. No convincing obstructing calculus identified. 2. Minimal areas of bladder wall thickening may be secondary to incomplete distention. Clinical correlation for UTI recommended. If there is absence of infection, repeat evaluation with appropriate sequences and full bladder recommended to exclude neoplasm. 3. Interval endplate compression deformities at the inferior T12 and L1 vertebral bodies since 06/22/2020 exam. These are located centrally in the endplates and suggestive of Schmorl's nodes. Spinal canal patent at both levels. No significant height loss or malalignment appreciated. Endoscopies: 11/04/[address] Simons Internal hemorrhoids otherwise neg exam. Recheck colonoscopy 5 years 06/12/22 EGD with dilation by Dr. Florez Unremarkable EGD. Biopsies taken of antral stomach (chronic gastritis, neg for H. Pylori) and esophagus (chronic esophagitis, neg for EOE). Dilated empirically with a 54 Fr Schmidt Assessment 1. Chronic constipation - Plecanatide (TRULANCE) 3 MG Tab; Take 3 mg by mouth daily. Dispense: 90 tablet; Refill: 3 Recommendations/Plan: Continue pantoprazole 40 mg daily. Recommend OTC famotidine 20 mg before bed. May take am dose as needed Anti-reflux measures discussed Continue Trulance 3 mg daily. Refill provided. May use Miralax 1-2 caps daily as needed for additional constipation. It is recommended to consume 20-35 grams of fiber per day and at least 64 ounces/2 liters of water per day. All questions answered Next screening colonoscopy recommended for 10/2028 F/U annually Risks/Benefits/Options: Risks, benefits and alternatives of the procedure(s) were discussed which can include but are not limited to: discomfort, missing lesions, allergic or adverse reaction to the sedation, perforation of the bowel or upper GI tract which may require hospitalization and surgery, bleeding, infection, aspiration. All questions were answered, patient is in agreement to proceed as planned. Orders placed this encounter: Orders Placed This Encounter Plecanatide (TRULANCE) 3 MG Tab Ghazal Winter NP Gastroenterology Signed by: GHAZAL WINTER 11/20/2024 4:51 PM Neil Higgins MD [address] [facility] [address], [place], [address], [facility] 04/24/2025 13:28:34 Procedures Surgical History Date Name Laterality Status Provider Name and Address Organization Details Recorded Time 024 Date of Last Mammogram completed Amara Rod [facility] 10/24/2024 15:08:14 023 total replacement of right knee joint completed Shonnagiovana Petit [facility] 03/23/2023 14:32:44 022 Cystourethroscopy completed Vicki [facility] 03/24/2022 15:06:42 019 [facility] 18:06:45 019 Date of Last Pap Smear completed [facility] 07/11/2019 16:18:56 014 Date of Last Colonoscopy completed Neil Higgins MD [address], [place], [address], [facility] 07/14/2021 11:44:13 014 Colonoscopy completed Neil Higigns MD [address], [place], [address], [facility] 07/14/2021 11:43:57 Orthopedic Surgery completed Neil Higgins MD [address], [place], [address], [facility] 04/10/2019 15:16:35 Partial Hysterectomy completed Dale Larsen [facility] 04/08/2016 14:51:45 Mastoidectomy completed Neil Higgins MD [address], [place], [address], [facility] 01/24/2024 16:36:56 Laparoscopic cholecystectomy completed Kathleen Larsen [facility] 04/08/2016 14:52:35 Cataract Surgery completed Neil hammonds MD [address], [place], [address], [facility] 06/18/2021 16:20:41 nasal sinus procedure completed Neil Higgins MD [address], [place], [address], [facility] 01/24/2024 16:39:11 Imaging Results None recorded. Procedure Notes None recorded. Medical Equipment None Reported. Allergies Allergen ID Allergen Name Allergen Category Reaction Reaction Severity Criticality Documentation Date Start Date Code Code System Note Provider Name and Address Organization Details Recorded Time 1164 Substance with sulfonami de structure and antibacte rial mechanism of action (substanc e) medicatio n rash Not available Not available 04/08/2016 96808 8003 SNOMED Kathleen Larsen [facility], [facility] 6 14:48:07 8079 allopurin ol medicatio n Not available Not available Not available 04/10/2019 519 RxNorm -- persi stent neck rash Neil Higgins MD [address], [place], [address], [place] [facility] 9 15:18:01 9267 tramadol medicatio n hallucina tions moderate Not available 08/27/2020 85341 RxNorm [place] [facility], [facility] 0 09:03:50 Medications Name Sig Start Date Stop Date Status Note LastModified by Organization Details LastModified Time amitripty line hcl 25 mg tabs 07/11 completed Not Available Not Available Not Available prednison e 10 mg tabs 10/16 completed Not Available Not Available Not Available methylpre dnisolone dose pack 4 mg tbpk 08/28 completed Not Available Not Available Not Available memantine hydrochlo ride er 7 mg cp24 08/28 completed -- duplicat e Not Available Not Available Not Available aimovig 70 mg/ml soaj 07/11 completed -- duplicat e Not Available Not Available Not Available cyclobenz aprine hydrochlo ride 10 mg tabs 07/11 completed Not Available Not Available Not Available levalbute rol tartrate hfa 45 mcg/act aero 08/28 completed Not Available Not Available Not Available amoxicill in/clavul anate potassium 875-125 mg tabs 04/23 completed Not Available Not Available Not Available lyrica 100 mg caps 08/28 completed Not Available Not Available Not Available lidoderm 5 % ptch 10/16 completed Not Available Not Available Not Available cephalexi n 500 mg caps 07/11 completed Not Available Not Available Not Available xarelto 10 mg tabs 07/11 completed -- only for the surgery Not Available Not Available Not Available promethaz ine hydrochlo ride 25 mg tabs 07/11 completed Not Available Not Available Not Available carbidopa /levodopa 25-100 mg tabs 07/11 completed -- duplicat e Not Available Not Available Not Available hydrocodo ne/acetam inophen 5-325 mgtabs 07/11 completed Not Available Not Available Not Available restasis 0.05 % emul 08/28 completed Not Available Not Available Not Available cyclobenz aprine 10 mg tablet TK 1 T PO TID PRN 08/28 completed Not Available Not Available Not Available amoxicill in 500 mg capsule 04/08 completed Not Available Not Available Not Available methocarb srini 500 mg tablet 1 tab once, up to 3 times a day as needed; can cause drowsine ss 08/30 completed -- pt prefers Metaxalo ne Not Available Not Available Not Available carvedilo l 6.25 mg tablet Take 1 tablet every 12 hours by oral route for 90 days. active Not Available Not Available No t Available prednison e 10 mg tablet TK 3 TS PO D 08/28 completed Not Available Not Available Not Available doxycycli ne hyclate 100 mg capsule TAKE 1 CAPSULE BY MOUTH TWICE DAILY 03/07 completed Not Available Not Available Not Available cefuroxim e axetil 250 mg tablet active Not Available Not Available Not Available clindamyc in HCl 300 mg capsule active Not Available Not Available Not Available trazodone 50 mg tablet 1 to 2 tabs at bedtime as needed; must plan for at least 8 hr of sleep when taking this med. 05/17 completed -- Patient reported on portal that she no longer takes it Not Available Not Available Not Available cetirizin e 10 mg tablet Take 1 tablet every day by oral route. active Not Available Not Available No t Available azithromy geeta 250 mg tablet TAKE 2 TABLETS BY MOUTH FOR 1 DAY THEN TAKE 1 TABLET BY MOUTH DAILY FOR 4 DAYS 11/12 completed Not Available Not Available Not Available Vitamin B-1 50 mg tablet Take 1 tablet every day by oral route in the morning. 07/20 completed Not Available Not Available Not Available fluconazo le 150 mg tablet 04/08 completed Not Available Not Available Not Available benzonata te 200 mg capsule 1 pill once, up to 3 times day as needed; can cause drowsine ss 01/17 completed Not Available Not Available Not Available hydrocodo ne 5 mg-acetam inophen 325 mg tablet TAKE 1 TABLET BY MOUTH EVERY 4 HOURS FOR UP TO 12 DOSES NEEDED FOR PAIN 11/12 completed Not Available Not Available Not Available sucralfat e 1 gram tablet 12/02 completed Not Available Not Available Not Available prednison e 20 mg tablet 03/07 completed Not Available Not Available Not Available isosorbid e mononitra te ER 30 mg tablet,ex tended release 24 hr 12/02 completed Not Available Not Available Not Available prednison e 5 mg tablet 04/28 completed Not Available Not Available Not Available thiamine HCl (vitamin B1) 100 mg tablet 03/08 completed -- duplicat e Not Available Not Available Not Available promethaz ine 6.25 mg-codein e 10 mg/5 mL syrup 5 ml once, up to 3 times a day as needed only; can cause drowsine ss. 04/14 completed Not Available Not Available Not Available diphenoxy late-atro pine 2.5 mg-0.025 mg tablet Take 2 tablets every 12 hours by oral route. 08/28 completed Not Available Not Available Not Available penicilli n V potassium 500 mg tablet 07/13 completed Not Available Not Available Not Available amlodipin e 2.5 mg tablet Take 1 tablet every day by oral route in the evening. active Not Available Not Available No t Available acetamino phen 300 mg-codein e 30 mg tablet TAKE 1 TABLET BY MOUTH EVERY 6 TO 8 HOURS WITH FOOD NEEDED 01/17 completed Not Available Not Available Not Available clopidogr el 75 mg tablet Take 1 tablet every day by oral route. 2024 active Not Available Not Available Not Avai lable thiamine HCl (vitamin B1) 250 mg tablet Take 1 tablet every day by oral route in the morning. 09/08 completed Not Available Not Available Not Available allopurin ol 100 mg tablet Take 2 tablets every day by oral route for 90 days. active Not Available Not Available No t Available ciproflox acin 500 mg tablet 09/10 completed Not Available Not Available Not Available peg-elect rolyte solution 420 gram oral solution 12/28 completed Not Available Not Available Not Available tramadol 50 mg tablet 1 tab taken (togethe r w/ 1 tab of Tylenol 500 mg) once up to twice a day as needed 08/28 completed -- hallucin ations. Not Available Not Available Not Available flurbipro fen (bulk) powder 09/08 completed Not Available Not Available Not Available carvedilo l 3.125 mg tablet Take 1 tablet every 12 hours by oral route. active Not Available Not Available No t Available lidocaine -prilocai ne 2.5 %-2.5 % topical cream 04/28 completed Not Available Not Available Not Available nystatin- triamcino lone 100,000 unit/gram -0.1 % topical ointment 04/08 completed Not Available Not Available Not Available cefadroxi l 500 mg capsule TAKE 1 CAPSULE BY MOUTH TWICE DAILY 11/02 completed Not Available Not Available Not Available ziprasido ne 20 mg capsule TAKE 1 CAPSULE BY MOUTH AT BEDTIME FOR 5 NIGHTS 11/12 completed Not Available Not Available Not Available amitripty line 25 mg tablet Take 1 tablet every day by oral route. active Not Available Not Available No t Available Lidoderm 5 % topical patch 1 patch on each feet once a day -- must be removed after 12 hours to prevent toxicity (ie 12 hr on & 12 hr off). 2024 active Not Available Not Available Not Avai lable Requip 0.5 mg tablet Take 1 tablet every day by oral route at bedtime. 05/17 completed -- Patient reported on portal that she no longer takes it Not Available Not Available Not Available benzonata te 100 mg capsule 1 capsule once up to 3 times a day as needed; can cause drowsine ss 11/12 completed Not Available Not Available Not Available cephalexi n 500 mg capsule 1 tab tid 01/26 completed Not Available Not Available Not Available pantopraz ole 40 mg tablet,de layed release active Not Available Not Available Not Available clotrimaz ole-betam ethasone 1 %-0.05 % topical cream 07/13 completed Not Available Not Available Not Available prednison e 50 mg tablet 03/08 completed Not Available Not Available Not Available polymyxin B sulfate 10,000 unit-trim ethoprim 1 mg/mL eye drops 11/02 completed Not Available Not Available Not Available Advair Diskus 250 mcg-50 mcg/dose powder for inhalatio n Inhale 1 puff twice a day by inhalati on route. 05/01 completed Not Available Not Available Not Available nitroglyc pastor 0.4 mg sublingua l tablet 06/23 completed Not Available Not Available Not Available Synthroid 50 mcg tablet Take 1 tablet every day by oral route in the morning. active Not Available Not Available No t Available monteluka st 10 mg tablet 10/24 completed Not Available Not Available Not Available zolpidem 5 mg tablet 10/13 completed Not Available Not Available Not Available furosemid e 20 mg tablet Take 1 tablet every day by oral route. 2024 active Not Available Not Available Not Avai lable Levaquin 500 mg tablet 07/13 completed Not Available Not Available Not Available metoprolo l succinate ER 25 mg tablet,ex tended release 24 hr 01/06 completed Not Available Not Available Not Available ergocalci ferol (vitamin D2) 1,250 mcg (50,000 unit) capsule Take 1 capsule every week by oral route for 91 days. 03/08 completed Not Available Not Available Not Available azelastin e 137 mcg (0.1 %) nasal spray USE 1 SPRAY IN EACH NOSTRIL TWICE DAILY DIRECTED active Not Available Not Available No t Available polyethyl dionna glycol 3350 17 gram/dose oral powder Take 17 g every day by oral route as needed for 90 days. 01/03 completed Not Available Not Available Not Available methylpre dnisolone 4 mg tablets in a dose pack FOLLOW PACKAGE DIRECTIO NS active Not Available Not Available No t Available ipratropi um bromide 42 mcg (0.06 %) nasal spray USE 2 SPRAYS IN EACH NOSTRIL TWICE DAILY active Not Available Not Available No t Available carbidopa 25 mg-levodo pa 100 mg tablet 12/23 completed Not Available Not Available Not Available cefdinir 300 mg capsule 04/30 completed Not Available Not Available Not Available fluticaso ne propionat e 50 mcg/actua tion nasal spray,[employer] SHAKE LIQUID AND USE 1 SPRAY IN EACH NOSTRIL DAILY 12/02 completed Not Available Not Available Not Available amoxicill in 875 mg-potass ium clavulana te 125 mg tablet Take 1 tablet every 12 hours by oral route. 03/07 completed Not Available Not Available Not Available oxycodone 5 mg tablet 03/23 completed Not Available Not Available Not Available Adult Low Dose Aspirin 81 mg tablet,de layed release Take 1 tablet every day by oral route. 2024 active Not Available Not Available Not Avai lable Mucinex 600 mg tablet, extended release TAKE 2 TABLETS BY MOUTH TWICE DAILY 01/17 completed Not Available Not Available Not Available metaxalon e 800 mg tablet 1 tab once to twice a day as needed; can cause drowsine ss 03/16 completed Not Available Not Available Not Available cyclobenz aprine 5 mg tablet 09/08 completed Not Available Not Available Not Available cyclospor ine 0.05 % eye drops in a dropperet te INSTILL 1 DROP IN BOTH EYES TWICE DAILY 10/10 completed Not Available Not Available Not Available rosuvasta tin 10 mg tablet 1 PO QD 01/03 completed Because of h/o cerebral artery occlusio n, the LDL needs to be 69 or less. Inform pt to inrcreas e Rosuvast atin from 10 mg --> 20 mg daily Not Available Not Available Not Available rosuvasta tin 20 mg tablet Take 1 tablet every day by oral route. 2024 active Not Available Not Available Not Avai labmanuel topiramat e 50 mg tablet Take 2 tablets twice a day by oral route. active Not Available Not Available No t Available duloxetin e 60 mg capsule,d elayed release Take 1 capsule every day by oral route for 90 days. 2024 active Not Available Not Available Not Avai lable Tricor 48 mg tablet Take 1 tablet every day by oral route. 09/08 completed Not Available Not Available Not Available omega-3 acid ethyl esters 1 gram capsule Take 2 capsules twice a day by oral route. active Not Available Not Available No t Available Flovent HFA 44 mcg/actua tion aerosol inhaler 07/11 completed Not Available Not Available Not Available levalbute rol HFA 45 mcg/actua tion aerosol inhaler INHALE 1 TO 2 PUFFS BY MOUTH EVERY 4 HOURS NEEDED FOR WHEEZING OR SHORTNES S OF BREATH OR COUGH active Not Available Not Available No t Available Boostrix Tdap 2.5 Lf unit-8 mcg-5 Lf/0.5 mL intramusc ular syringe ADM 0.5ML IM UTD 02/16 completed Not Available Not Available Not Available pregabali n 75 mg capsule 08/28 completed -- duplicat e Not Available Not Available Not Available pregabali n 100 mg capsule TAKE 1 CAPSULE PO BID 11/12 completed Not Available Not Available Not Available chlorhexi dine gluconate 0.12 % mouthwash SWISH AND SPIT 15 ML BY MOUTH TWICE DAILY FOR 30 SECONDS. DO NOT SWALLOW 10/10 completed Not Available Not Available Not Available Coreg CR 10 mg capsule, extended release TAKE ONE CAPSULE BY MOUTH DAILY 07/20 completed Not Available Not Available Not Available Symbicort 160 mcg-4.5 mcg/actua tion HFA aerosol inhaler 07/19 completed PT is on Advair Not Available Not Available Not Available Elestrin 0.87 gram/actu ation (0.06%) transderm al gel pump 04/14 completed -- dc b/c of h/o Stroke and TIAs Not Available Not Available Not Available ferrous sulfate 324 mg (65 mg iron) tablet,de layed release 11/02 completed Not Available Not Available Not Available Mucinex 1,200 mg tablet, extended release Take 1 tablet every 12 hours by oral route. 01/17 completed Not Available Not Available Not Available Acid [employer] Representative (ranitidi ne) 150 mg tablet Take 1 tablet twice a day by oral route. 07/20 completed Not Available Not Available Not Available gabapenti n (bulk) 100 % powder 04/08 completed Not Available Not Available Not Available fenofibri c acid (choline) 45 mg capsule,d elayed release Take 1 capsule by oral route for 90 days. 07/19 completed chagned to fenofibr ate 48 Not Available Not Available Not Available Uloric 40 mg tablet 04/30 completed Not Available Not Available Not Available Nucynta 50 mg tablet 04/08 completed Not Available Not Available Not Available Horizant ER 600 mg tablet,ex tended release 04/08 completed Not Available Not Available Not Available Xarelto 10 mg tablet 03/23 completed -- disconti nued after 2 weekss post Rt TKR Not Available Not Available Not Available Linzess 145 mcg capsule 08/28 completed Not Available Not Available Not Available Linzess 290 mcg capsule Take 1 capsule every day by oral route. 04/14 completed -- currentl y on 145 mg qd Not Available Not Available Not Available Ilevro 0.3 % eye drops,[employer] 11/02 completed Not Available Not Available Not Available Lotemax 0.5 % eye gel drops 02/16 completed Not Available Not Available Not Available memantine 7 mg capsule sprinkle, extended release 24hr TK 1 C PO QD FOR 1 WEEK. INCREASE TO 2 C IF TOLERATI NG WELL 02/16 completed Not Available Not Available Not Available paroxetin e mesylate (menopaus al symptoms suppressa nt) 7.5 mg capsule 04/14 completed Not Available Not Available Not Available Linzess 72 mcg capsule TAKE 1 CAPSULE BY MOUTH EVERY DAY 12/02 completed Not Available Not Available Not Available Trulance 3 mg tablet TAKE 1 TABLET BY MOUTH DAILY active Not Available Not Available No t Available Aimovig Autoinjec tor 70 mg/mL subcutane ous auto-inje ctor 07/11 completed -- pt reports it is not efficaci ous Not Available Not Available Not Available Lotemax SM 0.38 % eye gel drops 11/02 completed Not Available Not Available Not Available Fluad 65yr up(PF)45 mcg(15 mcgx3)/0. 5 mL intramusc ular syringe ADM 0.5ML IM UTD 08/28 completed Not Available Not Available Not Available Ubrelvy 100 mg tablet TAKE ONE TABLET BY MOUTH NEEDED FOR HEADACHE . MAY REPEAT DOSE IN 2 HOURS IF NO RELIEF. DO NOT EXCEED 2 DOSES / 24 HOURS. active Not Available Not Available No t Available Ubrelvy 50 mg tablet 07/19 completed --on 100 mg now Not Available Not Available Not Available Ajovy 225 mg/1.5 mL subcutane ous auto-inje ctor active Not Available Not Available Not Available Fluzone High-Dose Quad (PF) 240 mcg/0.7 mL IM syringe ADM 0.7ML IM UTD 02/16 completed Not Available Not Available Not Available Paxlovid 300 mg (150 mg x 2)-100 mg tablets in a dose pack FOLLOW PACKAGE DIRECTIO NS 01/03 completed Not Available Not Available Not Available Paxlovid 150 mg-100 mg tablets in a dose pack (Moderate Renal Dose) FOLLOW PACKAGE DIRECTIO NS 07/19 completed --duplic ate Not Available Not Available Not Available Vitals Date Recorded Body height Heart rate Respiratory rate Body temperature Body mass index (BMI) Body weight Systolic And Diastolic Provider Name and Address Organization Details Last Updated DateTime 4 157.48 cm 79 /min 16 /min 97.1 [degF] 27.1 kg/m2 68655.6 7 g 122/71 mm[Hg] [facility] 4 15:27:18 Date Recorded Body height Heart rate Respiratory rate Body temperature Body mass index (BMI) Body weight Systolic And Diastolic Provider Name and Address Organization Details Last Updated DateTime 4 157.48 cm 71 /min 16 /min 97.2 [degF] 26.7 kg/m2 23975.4 9 g 120/75 mm[Hg] [facility] 4 15:27:29 Date Recorded Body height Body mass index (BMI) Body weight Body temperature Respiratory rate Heart rate Systolic And Diastolic Provider Name and Address Organization Details Last Updated DateTime 5 157.48 cm 26.3 kg/m2 08913.3 g 97.5 [degF] 16 /min 67 /min 107/70 mm[Hg] [facility] 5 12:56:44 Date Recorded Body height Heart rate Respiratory rate Body temperature Body mass index (BMI) Body weight Systolic And Diastolic Provider Name and Address Organization Details Last Updated DateTime 4 157.48 cm 67 /min 16 /min 97.2 [degF] 25.6 kg/m2 75235.9 3 g 110/66 mm[Hg] [facility] 4 16:44:29 Date Recorded Body height Heart rate Respiratory rate Body temperature Body mass index (BMI) Body weight Systolic And Diastolic Provider Name and Address Organization Details Last Updated DateTime 4 157.48 cm 66 /min 16 /min 97.2 [degF] 26 kg/m2 45212.1 2 g 114/68 mm[Hg] Amara Rod [facility] 4 15:07:23 Social History Question Answer Notes LastModified by Organizat ion Details LastModified Time Tobacco Smoking Status Never Smoker Kathleen Larsen [facility] 04/08/2016 14:51:13 Do You Have An Advance Directive? Yes Information not available 07/20/2018 What Is Your Level Of Caffeine Consumption? Moderate 1 Cup Coffee Daily Information not available 07/01/2023 How Much Tobacco Do You Chew? None Information not available 06/06/2020 What Is Your Code Status? Full Code Information not available 07/20/2018 In The 14 Days Before Symptom Onset, Have You Had Close Contact With A Laboratory-confir med COVID-19 While That Case Was Ill? No Information not available 06/06/2020 In The 14 Days Before Symptom Onset, Have You Had Close Contact With A Person Who Is Under Investigation For COVID-19 While That Person Was Ill? No Information not available 06/06/2020 Have You Been To An Area Known To Be High Risk For COVID-19? No Information not available 06/06/2020 Live Alone Or With Others? With Others Information not available 07/20/2018 Marital Status Informatio n not available 07/20/2018 What Was The Date Of Your Most Recent Tobacco Screening? 04/24/2025 Information not available 04/24/2025 How Much Tobacco Do You Smoke? No Information not available 06/06/2020 How Many Years Have You Smoked Tobacco? 0 Information not available 08/28/2020 Sex: Unknown Functional Status Question Answer Note LastModified by Organizat ion Details LastModified Time Do you use any illicit or recreational drugs? No [email or web address] Information not available 12/02/2021 Do you or have you ever used any other forms of tobacco or nicotine? No [email or web address] Information not available 12/02/2021 What is your level of alcohol consumption? None [email or web address] Information not available 04/08/2016 Do you or have you ever used smokeless tobacco? Never used smokeless tobacco Information not available 06/06/2020 Do you or have you ever used e-cigarettes or vape? Never used electronic cigarettes Information not available 06/06/2020 Mental Status None recorded. Family History Relationship Description Onset Age of this Age Resolved Age Notes LastModified by Organization Details LastModified Time Father No current problems or disability [email or web address] Not available 07/13 14:19:29 Mother No current problems or disability [email or web address] Not available 07/13 14:19:29 Sister Chronic myeloid leukemia 77 77 -- dx'd at 77 y/o & at 78 y/o Not available 01/05/2018 16:32:08 Medical History Condition Response Coronary Artery Disease N Other N Gout N Kidney Stones N Blood Diseases N Hyperthyroidism N Breast Cancer N Blood Transfusion N Hypothyroidism N Depression N COPD N Lung Disease N Defects or Inherited Disease N Developmental or Behavioral Disorders N Breast Problem N Difficulty Swallowing N Anesthesia Complications N Meniere's disease N Anxiety Disorder N Muscle, Joint, or Bone Problems N Obesity N Vision or Eye Problems N Arthritis N Polyps N Infertility N Mental Disorder N Cancer N Varicosities N Stroke N Endometriosis N Bladder or Kidney Problems N High Cholesterol N Liver Disease N Headaches N Fibromyalgia N Kidney Disease N Allergies/Hayfever N Heart Problems N Ear or Hearing Problems N Hospitalizations N Thyroid Problems N GI Problems N ADD/ADHD N Skin Problems N Eating Disorder N Anemia N MRSA exposure N Constipation N Mental Illness N Ovarian Cancer N Diabetes N Bedwetting N Seizures/Epilepsy N Tuberculosis N AIDS/HIV N Congestive Heart Failure (CHF) N Eczema N Diverticulitis N Abuse/Domestic Violence N Asthma N Reflux/GERD N Hepatitis N Heart Disease N Pulmonary Embolism N Chronic Ear Infections N Pre-Eclampsia N Hypertension N Chicken Pox N Autism Spectrum Disorder (ASD) N Osteoporosis N Thrombophilias N Gynecological History Statement/Question Response Date of Last Pap Smear 05/10/2019 Date of Last Mammogram 12/09/2023 Date of Last Colonoscopy 06/19/2014 Obstetrics History GPAL:G 0 P 0 0 0 0 Immunizations Vaccine Type Date Status Note Provider Nam e and Address Organization Details Recorded Time Influenza, high-dose, trivalent, PF 9 completed Rosalina Gonzales null, [facility] 10/16/2019 18:07:16 Tdap 0 completed Neil Higgins MD [address], [place], [address], [facility] 12/25/2020 13:54:14 Influenza, high-dose, quadrivalent, PF 0 completed Neil Higgins MD [address], [place], [address], [facility] 12/25/2020 13:54:21 COVID-19, mRNA, LNP-S, PF, 100 mcg/0.5mL dose or 50 mcg/0.25mL dose 1 completed Ana guevara, [facility] 03/19/2021 16:42:51 COVID-19, mRNA, LNP-S, PF, 100 mcg/0.5mL dose or 50 mcg/0.25mL dose 1 completed Ana Mcdonald null, [facility] 03/19/2021 16:43:10 COVID-19, mRNA, LNP-S, PF, 30 mcg/0.3 mL dose 2 [facility] 12/23/[facility]21 15:38:02 Tdap 3 completed Neil Higgins MD [address], [place], [address], [facility] 10/13/2016 13:02:11 Pneumococcal conjugate PCV 13 5 completed Neil Higgins MD [address], [place], [address], [facility] 10/13/2016 13:02:32 pneumococcal polysaccharide PPV23 5 completed Neil Higgins MD [address], [place], [address], [facility] 10/13/2016 13:03:14 Influenza, split virus, trivalent, preservative 6 completed Not Available [facility] 12/16/2019 02:27:22 Influenza, high-dose, trivalent, PF 7 [place] - [facility] 01/05/2018 15:26:49 Past Encounters Encounter ID Performer Location Encounter Start Date Encounter Closed Date Diagnosis/Indication Diagnosis SNOMED-CT Code Diagnosis ICD10 Code Diagnosis Note [id number] Neil Higgins MD [facility], [facility] [address] [facility] [address] [place] [address] 04/08/2016 14:08:40 04/08/2016 15:59:03 Benign essential hypertension 1167123 I10 Hypothyroidism 10972985 E03.9 Hyperlipidemia 34639451 E78.5 Obesity 180286676 E66.9 -- pt lost 5 # since her last visit. Deficiency of vitamin D2 779891334 E55.9 Localized edema 73821655 4 R60.0 -- controlled w/ Furosemide Insomnia 356852628 G47.0 0 Asthma 257151469 J45.90 9 -- without flares Chronic re nal impairment 777273214 N18.9 Gastroesop hageal reflux disease without esophagitis 340825095 K21.9 -- advised to go off Protonix b/c of risk of kidney failure and dementia. Allergic rhinitis 964958 04 J30.9 -- stabel Idiopathic peripheral neuropathy 40286103 G60.9 (legs/feet ) -- stable CVA - cere brovascular accident due to cerebral artery occlusion 481500610 I63.50 (left facial droop, left sided paresis, speech problems) -- now w/ minimal residual left sided weakness. Headache 58734259 R51 -- controlled w/ Topamax [id number] Neil Higgins MD [facility] [address] [facility] [address] [place] [address] 07/13/2016 14:05:24 07/13/2016 14:49:31 Benign essential hypertension 6505714 I10 -- blood pressure controlled ; no med change needed.-- recheck labs within 5 days from 07/13/16 Hyperlipidemia 90861361 E78.5 (LDL of 60 on 04/03/16) -- recheck FLP within 5 days from 07/13/16 Hypothyroidism 23355112 E03.9 -- recheck labs within 5 days from 07/13/16 Chronic re nal impairment 114157075 N18.9 -- followup w/ Dr Camacho as directed by Dr Camacho. -- recheck labs within 5 days from 07/13/16 CVA - cere brovascular accident due to cerebral artery occlusion 721716768 I63.50 (left facial droop, left sided paresis, speech problems) -- now w/ minimal residual left sided weakness. Asthma 812045252 J45.90 9 -- without flares Gastroesop hageal reflux disease without esophagitis 214366701 K21.9 -- advised to go off Protonix b/c of risk of kidney failure and dementia;- - sx not controlled with Ranitidine 150 mg bid and pt has discuss issue w/ her Nephrologi st, and pt wants to stay on Protonix.- - refill of Protonix will be from Nephrologi st as such. Obesity 968847551 E66.9 -- pt gained 3 # since her last visit; pt advised to lose weight. Deficiency of vitamin D2 629511749 E55.9 -- recheck lab within 5 days from 07/13/16 Localized edema 50913541 4 R60.0 -- controlled w/ Furosemide (no ankle edema today) Insomnia 813774310 G47.0 0 Allergic rhinitis 479363 04 J30.9 -- stabel Idiopathic peripheral neuropathy 76041345 G60.9 (legs/feet ) -- stable Headache 36654391 R51 -- controlled w/ Topamax [id number] Neil Higgins MD [facility] [address] [place] [address] 10/13/2016 11:28:29 10/13/2016 13:24:44 Hypothyroidism 97013561 E03.9 Hyperlipidemia 17855941 E78.5 (LDL of 60 on 04/03/16) -- recheck FLP within 5 days from 07/13/16 Benign ess ential hypertension 6686253 I10 Chronic ki dney disease stage 3 993032574 N18.3 -- followup w/ Dr Camacho as directed by Dr Camacho. -- recheck labs within 5 days from 07/13/16 -- d/c Allopurino l b/c of persistent right neck rash Advance di rective discussed with patient 292504046 Z71.89 Viral screening 42209080 4 Z11.59 Active immunization 3387 9002 Z23 Screening for osteoporosis 467771130 Z13.820 Depression screening 171 069082 Z13.89 -- negative Obesity 581616329 E66.9 -- pt gained 1.5 # since her last visit; pt advised to lose weight.-- pt's BMI today is 33.7 Screening for cancer 158 92218 Z12.9 -- had colonoscop y on [facility] Florez on 06/11/10 Idiopathic peripheral neuropathy 02742717 G60.9 (legs/feet ) -- stable Asthma 877361443 J45.90 9 CVA - cere brovascular accident due to cerebral artery occlusion 772175603 I63.50 Allergic rhinitis 346511 04 J30.9 Deficiency of vitamin D2 848725295 E55.9 -- recheck lab within 5 days from 07/13/16 Gastroesop hageal reflux disease without esophagitis 664771317 K21.9 -- advised to go off Protonix b/c of risk of kidney failure and dementia;- - sx not controlled with Ranitidine 150 mg bid and pt has discuss issue w/ her Nephrologi st, and pt wants to stay on Protonix.- - refill of Protonix will be from Nephrologi st as such. Insomnia 941452865 G47.0 0 Restless legs 07851701 G 25.81 [id number] EVAN Loo- [employer] [employer] [address] [place] [address] 11/25/2016 16:29:40 11/25/2016 17:09:34 Cough 34166982 R05 Chest x Ray at [facility] emergency department 11/07/16 normal Will repeat if cough persist Acute bronchitis 5708469 2 J20.9 Upper resp iratory infection 13632265 J06.9 [id number] Neil Higgins MD [employer] [employer] [address] [place] [address] 01/13/2017 13:57:20 01/13/2017 15:10:12 Upper respiratory infection 89566251 J06.9 and acute bronchitis -- resolved Benign ess ential hypertension 6978143 I10 Chronic ki dney disease stage 3 694487412 N18.3 -- followup w/ Dr Camacho as directed by Dr Camacho. -- recheck labs within 5 days from 07/13/16 -- d/c Allopurino l b/c of persistent right neck rash CVA - cere brovascular accident due to cerebral artery occlusion 489557813 I63.50 Hyperlipidemia 10488245 E78.5 (LDL of 60 on 04/03/16) -- recheck FLP within 5 days from 07/13/16 Hypothyroidism 48716052 E03.9 Idiopathic peripheral neuropathy 74919559 G60.9 (legs/feet ) -- stable Screening for osteoporosis 686878942 Z13.820 -- Last DEXA was done 10/13/16 Depression screening 171 767455 Z13.89 -- negative Obesity 919997477 E66.9 -- pt gained 1.5 # since her last visit; pt advised to lose weight.-- pt's BMI today is 33.7 Asthma 834926909 J45.90 9 Allergic rhinitis 383552 04 J30.9 Deficiency of vitamin D2 689037811 E55.9 -- recheck lab within 5 days from 07/13/16 Gastroesop hageal reflux disease without esophagitis 364004216 K21.9 -- advised to go off Protonix b/c of risk of kidney failure and dementia;- - sx not controlled with Ranitidine 150 mg bid and pt has discuss issue w/ her Nephrologi st, and pt wants to stay on Protonix.- - refill of Protonix will be from Nephrologi st as such. Restless legs 13097086 G 25.81 Insomnia 673987998 G47.0 0 Advance di rective discussed with patient 676293438 Z71.89 Screening for cancer 158 04132 Z12.9 -- had colonoscop y on [facility] Fl[facility]z on 06/11/10-- pt has colonoscop y with Dr Martel in May 2014 Viral screening 71910173 4 Z11.59 -- Hepatitis C antibody was nonreactiv e on 11/20/16 Localized edema 26293894 4 R60.0 Thiamine deficiency 3993 57069 E51.9 [id number] Neil Higgins MD [facility] [employer] [facility] [address] [place] [address] 03/08/2017 18:51:37 03/08/2017 20:55:10 Chronic kidney disease stage 3 299719611 N18.3 -- followup w/ Dr Jorge Luis Camacho as directed by Dr Jorge Luis Camacho. -- d/c Allopurino l b/c of persistent right neck rash-- recheck labs around 05/12/17 Benign ess ential hypertension 6253665 I10 -- recheck labs around 05/12/17 Hyperlipidemia 92146728 E78.5 (LDL of 60 on 04/03/16) -- recheck labs around 05/12/17 Hypothyroidism 88537647 E03.9 -- recheck labs around 05/12/17 Acute bronchitis 1965238 2 J20.9 Screening for cancer 158 68174 Z12.9 -- had colonoscop y on Eligio Florez on 06/11/10-- pt has colonoscop y with Dr Martel in May 2014 CVA - cere brovascular accident due to cerebral artery occlusion 421320530 I63.50 Idiopathic peripheral neuropathy 26204182 G60.9 (legs/feet ) -- stable Restless legs 03243993 G 25.81 Gastroesop hageal reflux disease without esophagitis 483125159 K21.9 -- advised to go off Protonix b/c of risk of kidney failure and dementia;- - sx not controlled with Ranitidine 150 mg bid and pt has discuss issue w/ her Nephrologi st, and pt wants to stay on Protonix.- - refill of Protonix will be from Nephrologi st as such. Asthma 753622250 J45.90 9 Allergic rhinitis 448240 04 J30.9 Deficiency of vitamin D2 416598726 E55.9 -- recheck labs around 05/12/17 Thiamine deficiency 3993 50546 E51.9 Localized edema 86341192 4 R60.0 Insomnia 948778631 G47.0 0 Advance di rective discussed with patient 217489746 Z71.89 Depression screening 171 243056 Z13.89 -- negative Screening for osteoporosis 535774816 Z13.820 -- Last DEXA was done 10/13/16 Viral screening 16237505 4 Z11.59 -- Hepatitis C antibody was nonreactiv e on 11/20/16 Body mass index 30+ - obesity 440262777 Z68.39 -- advised weight loss; .pt gained 1 # since her last visit; -- pt's BMI today is 32.2 (ideal is between 20-25). [id number] Neil Higgins MD [facility] [facility], [facility] [address] [place] [address] 04/14/2017 13:49:17 04/14/2017 16:09:51 Acute bronchitis 79826622 J20.9 -- resolved Chronic ki dney disease stage 3 583142677 N18.3 -- followup w/ Dr Jorge Luis Camacho as directed by Dr Jorge Luis Camacho. -- d/c Allopurino l b/c of persistent right neck rash-- recheck labs around 05/12/17 Benign ess ential hypertension 1079767 I10 -- recheck labs around 05/12/17 Hyperlipidemia 08387062 E78.5 (LDL of 60 on 04/03/16) -- recheck labs around 05/12/17 Hypothyroidism 59772268 E03.9 -- recheck labs around 05/12/17 Screening for cancer 158 00333 Z12.9 -- had colonoscop y on [facility] on 06/11/10-- pt has colonoscop y with Dr Martel in May 2014 CVA - cere brovascular accident due to cerebral artery occlusion 846203457 I63.50 (dx'd in 2000) -- pt hospitaliz ed x 4 days; and was using wheeled walker x 4 weeks-- Carotid Doppler shows less than 50% narrowing in bilateral carotid arteries on 03[facility]17/[facility] ([facility]) Idiopathic peripheral neuropathy 99192997 G60.9 (legs/feet ) -- stable Restless legs 43089461 G 25.81 Gastroesop hageal reflux disease without esophagitis 255810064 K21.9 -- advised to go off Protonix b/c of risk of kidney failure and dementia;- - sx not controlled with Ranitidine 150 mg bid and pt has discuss issue w/ her Nephrologi st, and pt wants to stay on Protonix.- - refill of Protonix will be from Nephrologi st as such. Body mass index 30+ - obesity 582311219 Z68.39 -- advised weight loss; .pt gained 1 # since her last visit; -- pt's BMI today is 32.2 (ideal is between 20-25). Asthma 176301554 J45.90 9 Allergic rhinitis 951393 04 J30.9 Deficiency of vitamin D2 118151754 E55.9 -- recheck labs around 05/12/17 Thiamine deficiency 3993 28092 E51.9 Localized edema 04851975 4 R60.0 Insomnia 428918669 G47.0 0 Advance di rective discussed with patient 041053628 Z71.89 Depression screening 171 523042 Z13.89 -- negative Screening for osteoporosis 543028532 Z13.820 -- Last DEXA was done 10/13/16 Viral screening 31961296 4 Z11.59 -- Hepatitis C antibody was nonreactiv e on 11/20/16 Transient cerebral ischemia 522178961 G45.9 (headaches and mild left sided drooping; admitted on 03/16/17 & discharged on 03/18/[address] [facility]) -- sx lasted 5 hours and resolved completely -- pt has appt w/ NeurologDr Dedra ordonez on 03/31/17. Headache 51638919 R51 -- controlled w/ Topamax; w/ infrequent use of [place] (60 tabs last 90 days) [id number] Neil Higgins MD [facility], [facility] [address] [place] [address] 06/08/2017 12:16:13 06/08/2017 14:01:49 Idiopathic peripheral neuropathy 69020114 G60.9 (legs/feet ) -- stable Transient cerebral ischemia 008766765 G45.9 (headaches and mild left sided drooping; admitted on 03/16/17 & discharged on 03/18/[address] [facility]) -- sx lasted 5 hours and resolved completely -- pt has appt w/ Dr Dedra Sandoval on 03/31/17. CVA - cere brovascular accident due to cerebral artery occlusion 364081529 I63.50 (dx'd in 2000) -- pt hospitaliz ed x 4 days; and was using wheeled walker x 4 weeks-- Carotid Doppler shows less than 50% narrowing in bilateral carotid arteries on 03/17/17 ([facility]) Chronic ki dney disease stage 3 899239491 N18.3 -- followup w/ Dr Jorge Luis Camacho as directed by Dr Jorge Luis Camacho. -- d/c Allopurino l b/c of persistent right neck rash-- recheck labs around 08/04/17 Benign ess ential hypertension 8951421 I10 -- recheck labs around 08/04/17 Hyperlipidemia 53581901 E78.5 (LDL of 60 on 04/03/16) -- recheck labs around 08/04/17 Hypothyroidism 55640184 E03.9 -- recheck labs around 05/12/17 Screening for cancer 158 70946 Z12.9 -- had colonoscop y on [facility] Florez on 06/11/10-- pt has colonoscop y with Dr Martel in May 2014 Restless legs 54409462 G 25.81 -- Patient no longer takes Requip Gastroesop hageal reflux disease without esophagitis 705199839 K21.9 -- advised to go off Protonix b/c of risk of kidney failure and dementia;- - sx not controlled with Ranitidine 150 mg bid and pt has discuss issue w/ her Nephrologi st, and pt wants to stay on Protonix.- - refill of Protonix will be from Nephrologi st as such. Body mass index 30+ - obesity 438777221 Z68.39 -- advised weight loss; .no weight change since her last visit; -- pt's BMI today is 32.2 (ideal is between 20-25). Asthma 268930804 J45.90 9 Allergic rhinitis 464126 04 J30.9 Deficiency of vitamin D2 049179187 E55.9 -- recheck labs around 08/04/17 Thiamine deficiency 3993 35560 E51.9 -- recheck labs around 08/04/17 Localized edema 61930826 4 R60.0 Insomnia 413349318 G47.0 0 -- doing well not taking Trazodone Advance di rective discussed with patient 859563947 Z71.89 Depression screening 171 289449 Z13.89 -- negative Screening for osteoporosis 674570694 Z13.820 -- Last DEXA was done 10/13/16 Viral screening 22875933 4 Z11.59 -- Hepatitis C antibody was nonreactiv e on 11/20/16 Headache 62526511 R51 -- controlled w/ Topamax; w/ infrequent use of [place] (60 tabs last 90 days) [id number] Neil Higgins MD [facility] [employer] [facility] [address] [place] [address] 09/08/2017 15:24:50 09/08/2017 16:53:52 Adult health examination 815839004 Z00.00 Idiopathic peripheral neuropathy 06467096 G60.9 (legs/feet ) -- stable CVA - cere brovascular accident due to cerebral artery occlusion 972410920 I63.50 (dx'd in 2000) -- pt hospitaliz ed x 4 days; and was using wheeled walker x 4 weeks-- Carotid Doppler shows less than 50% narrowing in bilateral carotid arteries on 03[facility]17/17 ([facility] - also had TIA (headaches and mild left sided drooping; admitted on 03/16/17 & discharged on 03/18/[address] [facility]) -- sx lasted 5 hours and resolved completely -- pt had appt w/ NeurologDr Dedra ordonez on 03/31/17. Chronic ki dney disease stage 3 520949314 N18.3 -- followup w/ Dr Jorge Luis Camacho as directed by Dr Jorge Luis Camacho. -- d/c Allopurino l b/c of persistent right neck rash-- renal us done on 06/14/17 -- recheck labs around 11/11/17 Benign ess ential hypertension 1107279 I10 -- recheck labs around 11/11/17 Hyperlipidemia 12634680 E78.5 (LDL of 60 on 04/03/16) -- recheck labs around 11/11/17 Hypothyroidism 10101121 E03.9 -- recheck labs around 11/11/17 Restless legs 67719287 G 25.81 -- Patient no longer takes Requip Gastroesop hageal reflux disease without esophagitis 067808795 K21.9 -- advised to go off Protonix b/c of risk of kidney failure and dementia;- - sx not controlled with Ranitidine 150 mg bid and pt has discuss issue w/ her Nephrologi st, and pt wants to stay on Protonix.- - refill of Protonix will be from Nephrologi st as such. Body mass index 30+ - obesity 346754590 Z68.39 -- advised weight loss; .pt gained 4 # since her last visit; -- pt's BMI today is 33.5 (ideal is between 20-25). Asthma 878650156 J45.90 9 -- last spirometry was done Allergic rhinitis 343789 04 J30.9 Deficiency of vitamin D2 664131715 E55.9 -- recheck labs around 11/11/17 Thiamine deficiency 3993 29669 E51.9 -- recheck labs around 11/11/17 Localized edema 48144785 4 R60.0 -- controlled w/ occ use of Furosemide Advance di rective discussed with patient 300184049 Z71.89 Depression screening 171 314812 Z13.89 -- negative Screening for osteoporosis 681169761 Z13.820 -- Last DEXA was done 10/13/16 Viral screening 25353220 4 Z11.59 -- Hepatitis C antibody was nonreactiv e on 11/20/16 Headache 36584678 R51 -- controlled w/ Topamax; w/ infrequent use of [place] (60 tabs last 90 days)-- see neurologis t Dr Stephanie Camacho Active or passive immunization 242564664 Z23 Screening for malignant neoplasm of colon 945895886 Z12.11 -- pt has colonoscop y with Dr Martel in 06/19/14 Screening for malignant neoplasm of breast 163049116 Z12.31 Screening for malignant neoplasm of cervix 354721614 Z12.4 Chronic constipation 236 158975 K59.09 [id number] Neil Higgins MD [facility] [address] [place] [address] 01/05/2018 14:41:05 01/05/2018 16:40:58 Acute sinusitis 00717773 J01.90 Cough 59066402 R05 (since Oct 2017) Idiopathic peripheral neuropathy 68761253 G60.9 (legs/feet ) -- stable CVA - cere brovascular accident due to cerebral artery occlusion 268121910 I63.50 (dx'd in 2000) -- pt hospitaliz ed x 4 days; and was using wheeled walker x 4 weeks-- Carotid Doppler shows less than 50% narrowing in bilateral carotid arteries on 03[facility]17/17 ([facility] - also had TIA (headaches and mild left sided drooping; admitted on 03/16/17 & discharged on 03/18/[address] [facility]) -- sx lasted 5 hours and resolved completely -- pt had appt w/ Neurologis tDr Colmenares on 03/31/17. Chronic ki dney disease stage 3 488899423 N18.3 -- followup w/ Dr Jorge Luis Camacho as directed by Dr Jorge Luis Camacho. -- d/c Allopurino l b/c of persistent right neck rash-- renal us done on 06/14/17 -- recheck labs around 11/11/17 Benign ess ential hypertension 9858436 I10 -- recheck labs around 11/11/17 Hyperlipidemia 24076295 E78.5 (LDL of 60 on 04/03/16) -- recheck labs around 11/11/17 Hypothyroidism 09672911 E03.9 -- recheck labs around 11/11/17 Restless legs 09599958 G 25.81 -- Patient no longer takes Requip Gastroesop hageal reflux disease without esophagitis 392570034 K21.9 -- advised to go off Protonix b/c of risk of kidney failure and dementia;- - sx not controlled with Ranitidine 150 mg bid and pt has discuss issue w/ her Nephrologi st, and pt wants to stay on Protonix.- - refill of Protonix will be from Nephrologi st as such. Body mass index 30+ - obesity 850501540 Z68.39 -- advised weight loss; .pt gained 4 # since her last visit; -- pt's BMI today is 33.5 (ideal is between 20-25). Chronic constipation 236 707401 K59.09 Asthma 680962854 J45.90 9 -- last spirometry was done Allergic rhinitis 917841 04 J30.9 Deficiency of vitamin D2 627480225 E55.9 -- recheck labs around 11/11/17 Thiamine deficiency 3993 00464 E51.9 -- recheck labs around 11/11/17 Headache 67432111 R51 -- controlled w/ Topamax; w/ infrequent use of [place] (60 tabs last 90 days)-- see neurologis t Dr Stephanie Camacho Localized edema 16089858 4 R60.0 -- controlled w/ occ use of Furosemide Advance di rective discussed with patient 481732838 Z71.89 Depression screening 171 845463 Z13.89 -- negative Screening for osteoporosis 348460914 Z13.820 -- Last DEXA was done 10/13/16 Viral screening 66089332 4 Z11.59 -- Hepatitis C antibody was nonreactiv e on 11/20/16 Active or passive immunization 212960241 Z23 Screening for malignant neoplasm of colon 884073379 Z12.11 -- Stool globin negative for occult blood on 12/01/17-- pt has colonoscop y with Dr Martel in 06/19/14 Screening for malignant neoplasm of breast 725678970 Z12.31 -- Mammogram was last done on 04/08/17 Screening for malignant neoplasm of cervix 249589857 Z12.4 [id number] Neil Higgins MD [facility] [address] [place] [address] 04/14/2018 14:42:06 04/14/2018 16:23:38 Acute sinusitis 60681020 J01.90 -- resolved Cough 03837557 R05 (since Oct 2017) -- improved but persistent . Idiopathic peripheral neuropathy 77653552 G60.9 (legs/feet ) -- stable CVA - cere brovascular accident due to cerebral artery occlusion 152504398 I63.50 (dx'd in 2000) -- pt hospitaliz ed x 4 days; and was using wheeled walker x 4 weeks-- pt had appt w/ Neurologis tDr Colmenares on 03/31/17. -- Carotid Doppler shows less than 50% narrowing in bilateral carotid arteries on 03/17/[facility] ([facility]) but Dr Adamaris Snowden also did carotid doppler showed 85- 90% in February 2018; Pt went back to see Dr Zhou Vascular surgeon at [facility] did not agree w/ the findings and wants to repeat carotid doppler in Jul 2018 and then f/u w/ him after that. Chronic ki dney disease stage 3 285416828 N18.3 -- followup w/ Dr Jorge Luis Camacho as directed by Dr Jorge Luis Camacho. -- d/c Allopurino l b/c of persistent right neck rash-- renal us done on 06/14/17 -- recheck labs around 11/11/17 Benign ess ential hypertension 5081240 I10 -- recheck labs around 11/11/17 Hyperlipidemia 07714923 E78.5 (LDL of 60 on 04/03/16) -- recheck labs around 11/11/17 Hypothyroidism 13807836 E03.9 -- recheck labs around 11/11/17 Restless legs 15695744 G 25.81 -- Patient no longer takes Requip Gastroesop hageal reflux disease without esophagitis 866040772 K21.9 -- advised to go off Protonix b/c of risk of kidney failure and dementia;- - sx not controlled with Ranitidine 150 mg bid and pt has discuss issue w/ her Nephrologi st, and pt wants to stay on Protonix.- - refill of Protonix will be from Nephrologi st as such. Body mass index 30+ - obesity 497210016 Z68.39 -- advised weight loss; .pt gained 4 # since her last visit; -- pt's BMI today is 33.5 (ideal is between 20-25). Chronic constipation 236 112301 K59.09 -- controlled w/ Linzess 145 mg from [facility] [employer] Asthma 562991394 J45.90 9 -- last spirometry was done Allergic rhinitis 346362 04 J30.9 Deficiency of vitamin D2 090259880 E55.9 -- recheck labs around 11/11/17 Thiamine deficiency 3993 00551 E51.9 -- recheck labs around 17 Headache 45112919 R51 -- controlled w/ Topamax; w/ infrequent use of [place] (60 tabs last 90 days)-- see neurologis t Dr Stephanie Camacho Localized edema 01316284 4 R60.0 -- controlled w/ occ use of Furosemide Advance di rective discussed with patient 094497363 Z71.89 Depression screening 171 398038 Z13.89 -- negative Screening for osteoporosis 015547768 Z13.820 -- Last DEXA was done 10/13/16 Viral screening 91499359 4 Z11.59 -- Hepatitis C antibody was nonreactiv e on 11/20/16 Active or passive immunization 646229700 Z23 Screening for malignant neoplasm of colon 192493311 Z12.11 -- Stool globin negative for occult blood on 12/01/17-- pt has colonoscop y with Dr Martel in 06/19/14 Screening for malignant neoplasm of breast 239105195 Z12.31 -- Mammogram was last done on 04/08/17 Screening for malignant neoplasm of cervix 112401974 Z12.4 [id number] Neil Higgins MD [facility] [address] [place] [address] 07/20/2018 15:53:36 07/20/2018 18:09:54 Cough 24656585 R05 (since Oct 2017; CXR on 01/05/18 was unrevealin g) -- resolved.( b/c of hoarseness ) -- Patient has appointmen t with ENT Dr. Coates tomorrow 07/21/18 Idiopathic peripheral neuropathy 07777204 G60.9 (legs/feet ) -- stable CVA - cere brovascular accident due to cerebral artery occlusion 834355515 I63.50 (dx'd in 2000) -- pt hospitaliz ed x 4 days; and was using wheeled walker x 4 weeks-- pt had appt w/ Neurologis tDr Colmenares on 03/31/17. -- Carotid Doppler shows less than 50% narrowing in bilateral carotid arteries on 03/17/17 ([facility]) but Dr Adamaris Snowden also did carotid doppler showed 85- 90% in February 2018; Dr Snowden referred pt to see Dr Zhou (Vascular surgeon) at [facility] did not agree w/ the findings and wants to repeat carotid doppler in Jul 2018 and then f/u w/ him after that.-- appt w/ Dr Barroso is coming up on 08/08/18 Chronic ki dney disease stage 3 758264596 N18.3 -- followup w/ Dr Jorge Luis Camacho as directed by Dr Jorge Luis Camacho. -- d/c Allopurino l b/c of persistent right neck rash-- renal us done on 06/14/17 -- recheck labs around 01/12/19 Benign ess ential hypertension 4653035 I10 -- recheck labs around 01/12/19 Hyperlipidemia 40685178 E78.5 (LDL of 60 on 04/03/16) -- recheck labs around 01/12/19 Hypothyroidism 38593704 E03.9 -- recheck labs around 01/12/19 Restless legs 44074033 G 25.81 -- Patient no longer takes Requip Gastroesop hageal reflux disease without esophagitis 908695058 K21.9 -- on Protonix bc of GERD & Hoarseness Body mass index 30+ - obesity 798360880 Z68.39 -- advised weight loss; .pt gained 4 # since her last visit; -- pt's BMI today is 33.3 (ideal is between 20-25). Chronic constipation 236 671044 K59.09 -- controlled w/ Linzess 72 mg from [facility] [employer] Asthma 933336759 J45.90 9 (quiescent ) -- last spirometry was done-- Last spirometry was done on 09/08/17 Allergic rhinitis 044928 04 J30.9 Localized edema 15725059 4 R60.0 -- controlled w/ occ use of Furosemide Advance di rective discussed with patient 510796491 Z71.89 Depression screening 171 976663 Z13.89 -- negative Screening for osteoporosis 483946621 Z13.820 -- Last DEXA was done 10/13/16 Viral screening 18083111 4 Z11.59 -- Hepatitis C antibody was nonreactiv e on 11/20/16 Active or passive immunization 948245641 Z23 Screening for malignant neoplasm of breast 274836159 Z12.31 -- Mammogram was last done on 04/15/18 Screening for malignant neoplasm of cervix 856483533 Z12.4 Screening for malignant neoplasm of colon 235674670 Z12.11 -- Last stool globin testing was 12/01/17 (negative) .-- gastroente rologist Dr Martel recommends repeating colonoscop y in June 2024. Chronic hoarseness 58305 48344 105 R49.0 -- Normal flexible laryngosco py in 05/16 (by ENT Dr Coates)-- deemed to be from GERD and pt is to continue on Protonix. Hyperuricemia 72509248 E 79.0 Migraine 12893386 G43.90 9 -- will be starting on Amovig by Neurologis t Prince Camacho-- currently on Amitriptyl ine, topiramate & Botox shot. Parkinson's disease 4904 9000 G20 -- on Carbidopa [id number] Neil Higgins MD [facility] [address] [place] [address] 01/11/2019 15:41:35 01/11/2019 18:08:27 Chronic kidney disease stage 3 967685788 N18.3 -- followup w/ Dr Jorge Luis Camacho as directed by Dr Jorge Luis Camacho. -- d/c Allopurino l b/c of persistent right neck rash-- renal us done on 06/14/17 -- recheck labs around 04/11/19 Benign ess ential hypertension 9948439 I10 -- recheck labs around 04/11/19 Hyperlipidemia 77849018 E78.5 (LDL of 60 on 04/03/16) -- recheck labs around 04/11/19 Hypothyroidism 99318096 E03.9 -- recheck labs around 04/11/19 CVA - cere brovascular accident due to cerebral artery occlusion 529191489 I63.50 (dx'd in 2000) -- pt hospitaliz ed x 4 days; and was using wheeled walker x 4 weeks-- pt had appt w/ NeurologDr Dedra ordonez on 03/31/17. -- Carotid Doppler shows less than 50% narrowing in bilateral carotid arteries on 03/17/17 ([facility]) but Dr Adamaris Snowden also did carotid doppler showed 85- 90% in February 2018; Dr Snowden referred pt to see Dr Zhou (Vascular surgeon) at [facility] did not agree w/ the findings and wants to repeat carotid doppler in Jul 2018 and then f/u w/ him after that.-- appt w/ Dr Barroso is coming up on 08/08/18 Parkinson's disease 4904 9000 G20 -- on Carbidopa Idiopathic peripheral neuropathy 31807340 G60.9 (legs/feet ) -- stable Restless legs 86101817 G 25.81 -- Patient no longer takes Requip Migraine 43633023 G43.90 9 -- will be starting on Amovig by Neurologlaureen Camacho-- currently on Amitriptyl ine, topiramate & Botox shot. Gastroesop hageal reflux disease without esophagitis 273078475 K21.9 -- on Protonix bc of GERD & Hoarseness Asthma 962491639 J45.90 9 (quiescent ) -- last spirometry was done-- Last spirometry was done on 09/08/17 Cough 55785204 R05 (since Oct 2017; CXR on 01/05/18 was unrevealin g) -- resolved.( b/c of hoarseness ) -- Patient has appointmen t with ENT Dr. Coates tomorrow 07/21/18 Chronic hoarseness 17574 93937 105 R49.0 -- Normal flexible laryngosco py in 05/16 (by ENT Dr Coates)-- deemed to be from GERD and pt is to continue on Protonix. Body mass index 30+ - obesity 631291395 Z68.34 -- advised weight loss; .pt gained 8 # since her last visit; -- pt's BMI today is 34.8 (ideal is between 20-25). Chronic constipation 236 223693 K59.09 -- controlled w/ Linzess 72 mg from [facility] [employer] Allergic rhinitis 532269 04 J30.9 Localized edema 71444091 4 R60.0 -- controlled w/ occ use of Furosemide Hyperuricemia 80363766 E 79.0 Advance di rective discussed with patient 568860641 Z71.89 Depression screening 171 188193 Z13.89 -- negative Screening for osteoporosis 958708011 Z13.820 -- Last DEXA was done 10/13/16 Viral screening 58999498 4 Z11.59 -- Hepatitis C antibody was nonreactiv e on 11/20/16 Active or passive immunization 530825487 Z23 Screening for malignant neoplasm of colon 093055614 Z12.11 -- Last stool globin testing was 12/01/17 (negative) .-- gastroente rologist Dr Martel recommends repeating colonoscop y in June 2024. Screening for malignant neoplasm of breast 271045965 Z12.31 -- Mammogram was last done on 04/15/18 Screening for malignant neoplasm of cervix 139435453 Z12.4 Abdominal pain 46486639 R10.9 (right sided; since end Oct 2018) -- check labs today 01/11/19 [id number] Neil Higgins MD [facility], [facility] [address] [place] [address] 04/10/2019 14:55:20 04/10/2019 15:42:11 Adult health examination 578457234 Z00.00 Abdominal pain 80011097 R10.9 (right sided; since end Oct 2018) -- spontaneou sly resolved. Chronic ki dney disease stage 3 690426468 N18.3 -- followup w/ Dr Jorge Luis Camacho as directed by Dr Jorge Luis Camacho. -- d/c Allopurino l b/c of persistent right neck rash-- renal us done on 06/14/17 -- recheck labs around 07/06/19 Benign ess ential hypertension 7988079 I10 -- last EKG done on 01/11/19-- recheck labs around 07/06/19 Hyperlipidemia 20975784 E78.5 (LDL of 60 on 04/03/16) -- recheck labs around 07/06/19 Hypothyroidism 58962747 E03.9 -- recheck labs around 07/06/19 CVA - cere brovascular accident due to cerebral artery occlusion 382402257 I63.50 (dx'd in 2000) -- pt hospitaliz ed x 4 days; and was using wheeled walker x 4 weeks-- pt had appt w/ Neurologlaureen victor, Dr Colmenares on 03/31/17. -- Carotid Doppler shows less than 50% narrowing in bilateral carotid arteries on 03/17/17 ([facility]) but Dr Adamaris Snowden also did carotid doppler showed 85- 90% in February 2018; Dr Snowden referred pt to see Dr Zhou (Vascular surgeon) at [facility] did not agree w/ the findings and wants to repeat carotid doppler in Jul 2018 and then f/u w/ him after that.-- appt w/ Dr Barroso is coming up in Jul 2019 Parkinson's disease 4904 9000 G20 -- on Carbidopa Idiopathic peripheral neuropathy 48442041 G60.9 (legs/feet ) -- stable Migraine 42760657 G43.90 9 -- will be starting on Amovig by Neurologlaureen Camacho-- currently on Amitriptyl ine, topiramate & Botox shot. Gastroesop hageal reflux disease without esophagitis 915685315 K21.9 -- on Protonix bc of GERD & Hoarseness Asthma 414981301 J45.90 9 (quiescent ) -- Last spirometry was done on 09/08/17 Chronic hoarseness 24723 91818 105 R49.0 -- Normal flexible laryngosco py in 05/16 (by ENT Dr Coates)-- deemed to be from GERD and pt is to continue on Protonix. Body mass index 30+ - obesity 463899995 Z68.32 -- advised weight loss; .pt gained 8 # since her last visit; -- pt's BMI today is 32.9 (ideal is between 20-25). Chronic constipation 236 472344 K59.09 -- controlled inspite of being off Linzess Allergic rhinitis 609834 04 J30.9 Localized edema 05909957 4 R60.0 -- controlled w/ occ use of Furosemide Hyperuricemia 04862420 E 79.0 Advance di rective discussed with patient 472038805 Z71.89 Depression screening 171 743199 Z13.89 -- negative Screening for osteoporosis 137469701 Z13.820 -- Last DEXA was done 10/13/16 Viral screening 10783648 4 Z11.59 -- Hepatitis C antibody was nonreactiv e on 11/20/16 Active or passive immunization 690147379 Z23 Screening for malignant neoplasm of colon 487847330 Z12.11 -- Last stool globin testing was 12/01/17 (negative) .-- gastroente rologist Dr Martel recommends repeating colonoscop y in June 2024. Screening for malignant neoplasm of breast 377679797 Z12.31 -- Mammogram was last done on 04/15/18 Screening for malignant neoplasm of cervix 543357308 Z12.4 Cervical lymphadenopathy 285987901 R59.0 (left anterior cervical LN) -- see photo for location. [id number] Neil Higgins MD [facility] [address] [place] [address] 07/11/2019 15:13:16 07/11/2019 17:12:39 Anemia 756466332 D64.9 -- recheck lab(s) on 01/04/20 Cervical lymphadenopathy 149164619 R59.0 (left anterior cervical LN) -- see photo for location. US of neck was done and pt was referred to ENT Dr Coates.Pt saw Dr Coates on 07/03/2019 & was told her eval is fine. Chronic ki dney disease stage 3 795508416 N18.3 -- followup w/ Dr Jorge Luis Camacho as directed by Dr Jorge Luis Camacho. -- d/c Allopurino l b/c of persistent right neck rash-- renal US was done on 06/14/2017 -- B/c of elevated Creatinine -- inform pt to avoid any otc pain meds: like Ibuprofen /motrin /advil /Aleve /Naproxen /etc. Inform patient to increase and maintain fluids to over 64 floz daily Benign ess ential hypertension 6985853 I10 -- last EKG done on 01/11/19 with normal GEETHA on 07/06/2019-- recheck lab(s) on 01/04/20 Hyperlipidemia 81444607 E78.5 (LDL of 83, HDL of 35 and trig 284)Elevat ed Triglyceri daryn -1. Elevated Triglyceri daryn -- advise pt to limit Carbohydra arnel to less than 50 gram per meal & also less than 150 grams a day. Examples of Carbohydra arnel are: ice-cream, sweet sugar treats, rice, potatoes, sweet potatoes (yams), bananas, corn products (popcorn, corn muffin, corn bread, cornflakes , corn ), oats, flour products (pasta, bread, bagel, muffins, donuts, biscuits, cookies, crackers, pancakes, waffle, cakes, pies &/or Alcohol. -- recheck lab(s) on 01/04/20 Hypothyroidism 03684210 E03.9 -- normal TFT 07/06/2019-- recheck lab(s) on 01/04/20 CVA - cere brovascular accident due to cerebral artery occlusion 389466055 I63.50 (dx'd in 2000) -- pt hospitaliz ed x 4 days; and was using wheeled walker x 4 weeks-- pt had appt w/ Neurologis t, Dr Colmenares on 03/31/17. -- Carotid Doppler shows less than 50% narrowing in bilateral carotid arteries on 03/17/17 ([facility]) but Dr Adamaris Snowden also did carotid doppler showed 85- 90% in February 2018; Dr Snowden referred pt to see Dr Zhou (Vascular surgeon) at [facility] did not agree w/ the findings and wants to repeat carotid doppler in Jul 2018 and then f/u w/ him after that.-- appt w/ Dr Barroso is coming up in Jul 2019-- dr Snowden would like pt to stay on ASA and Plavix Parkinson's disease 4906 9000 G20 -- on Carbidopa. Following neurologis t Dr Stephanie Camacho Idiopathic peripheral neuropathy 39325778 G60.9 (legs/feet ) -- stable Migraine 39863320 G43.90 9 -- is on Amovig by Neurologis t Dr Stephanie Camacho but pt reports it did not make any difference -- currently on Amitriptyl ine, topiramate & Botox shot. Gastroesop hageal reflux disease without esophagitis 850838815 K21.9 -- on Protonix bc of GERD & Hoarseness . Asthma 641810553 J45.90 9 (quiescent ) -- Last spirometry was done at pulmonolog ist Chronic hoarseness 51265 25692 105 R49.0 -- Normal flexible laryngosco py in 05/16 (by ENT Dr Coates)-- deemed to be from GERD and pt is to continue on Protonix. Body mass index 30+ - obesity 969003059 Z68.32 -- advised weight loss; .pt gained 3 # since her last visit; -- pt's BMI today is 33.5 (ideal is between 20-25). Chronic constipation 236 303598 K59.09 -- controlled on Miralax Allergic rhinitis 346321 04 J30.9 Localized edema 68651792 4 R60.0 -- controlled w/ occ use of Furosemide Hyperuricemia 62276052 E 79.0 Advance di rective discussed with patient 917455274 Z71.89 Depression screening 171 357676 Z13.89 -- negative Screening for osteoporosis 428474181 Z13.820 -- Last DEXA was done 10/13/16 and it was normal Viral screening 98640480 4 Z11.59 -- Hepatitis C antibody was nonreactiv e on 11/20/16 Active or passive immunization 264632313 Z23 Screening for malignant neoplasm of colon 228818891 Z12.11 -- Last stool globin testing was 12/01/17 (negative) .-- gastroente rologist Dr Martle recommends repeating colonoscop y in June 2024. Screening for malignant neoplasm of breast 177491428 Z12.31 -- Mammogram was last done on 04/20/19 Screening for malignant neoplasm of cervix 132882885 Z12.4 -- pt declined [id number] Neil Higgins MD [facility], [facility] [address] [place] [address] 10/16/2019 17:19:36 10/16/2019 18:48:22 Benign essential hypertension 3383492 I10 -- last EKG done on 01/11/19 with normal GEETHA on 07/06/2019-- recheck lab(s) on 01/04/20 Hyperlipidemia 98151356 E78.5 (LDL of 83, HDL of 35 and trig 284)Elevat ed Triglyceri daryn -1. Elevated Triglyceri daryn -- advise pt to limit Carbohydra arnel to less than 50 gram per meal & also less than 150 grams a day. Examples of Carbohydra arnel are: ice-cream, sweet sugar treats, rice, potatoes, sweet potatoes (yams), bananas, corn products (popcorn, corn muffin, corn bread, cornflakes , corn ), oats, flour products (pasta, bread, bagel, muffins, donuts, biscuits, cookies, crackers, pancakes, waffle, cakes, pies &/or Alcohol. -- recheck lab(s) on 01/04/20 Chronic ki dney disease stage 3 640444383 N18.3 -- followup w/ Dr Jorge Luis Camacho as directed by Dr Jorge Luis Camacho. -- d/c Allopurino l b/c of persistent right neck rash-- renal US was done on 06/14/2017 -- B/c of elevated Creatinine -- inform pt to avoid any otc pain meds: like Ibuprofen /motrin /advil /Aleve /Naproxen /etc. Inform patient to increase and maintain fluids to over 64 floz daily Hypothyroidism 38420423 E03.9 -- normal TFT 07/06/2019-- recheck lab(s) on 01/04/20 Anemia 140342023 D64.9 -- recheck lab(s) on 01/04/20 CVA - cere brovascular accident due to cerebral artery occlusion 628024719 I63.50 (dx'd in 2000) -- pt hospitaliz ed x 4 days; and was using wheeled walker x 4 weeks-- pt had appt w/ Neurologis tDr Camacho on 03/31/17. -- Carotid Doppler 08/25/19 shows less than 50% narrowing on Rt and 50-69% on Left, and pt/spouse was told by Dr Barroso's office to repeat carotid doppler in 1 year. Parkinson's disease 1591 9000 G20 -- on Carbidopa. Following neurologis t Dr Stephanie Camacho Idiopathic peripheral neuropathy 43155904 G60.9 (legs/feet ) -- stable Migraine 25367776 G43.90 9 -- is on Amovig by Neurologis t Dr Stephanie Camacho but pt reports it did not make any difference -- currently on Amitriptyl ine, topiramate & Botox shot. Gastroesop hageal reflux disease without esophagitis 577564927 K21.9 -- on Protonix bc of GERD & Hoarseness . Asthma 444188574 J45.90 9 (quiescent ) -- Last spirometry was done at pulmonolog ist Chronic hoarseness 96358 71542 105 R49.0 -- Normal flexible laryngosco py in 05/16 (by ENT Dr Coates)-- deemed to be from GERD and pt is to continue on Protonix. Body mass index 30+ - obesity 743328236 Z68.32 -- advised weight loss; .pt gained 5 # since her last visit; -- pt's BMI today is 34.4 (ideal is between 20-25). Chronic constipation 236 843583 K59.09 -- controlled on Miralax Allergic rhinitis 603487 04 J30.9 Localized edema 97333797 4 R60.0 -- controlled w/ occ use of Furosemide Hyperuricemia 24986047 E 79.0 Advance di rective discussed with patient 905846452 Z71.89 Depression screening 171 253453 Z13.89 -- negative Screening for osteoporosis 379308651 Z13.820 -- Last DEXA was done 10/13/16 and it was normal Viral screening 81015866 4 Z11.59 -- Hepatitis C antibody was nonreactiv e on 11/20/16 Active or passive immunization 550636756 Z23 Screening for malignant neoplasm of colon 457834925 Z12.11 -- Last stool globin testing was 12/01/17 (negative) .-- gastroente rologist Dr Martel recommends repeating colonoscop y in June 2024. Screening for malignant neoplasm of breast 843298728 Z12.31 -- Mammogram was last done on 04/20/19 Screening for malignant neoplasm of cervix 289920247 Z12.4 -- pt declined Coronary arteriosclerosis 68706195 I25.10 (mild on May 2014) -- repeat cardiac cath by Dr Snowden was 10/11/19 showed no progressiv e CAD Pain of ri ght shoulder joint 8559084672 7717731 M25.511 [id number] Neil Higgins MD [facility], [facility] [address] [place] [address] 01/24/2020 12:40:16 01/24/2020 14:46:15 Abrasion 648706901 T14.8XXA (left elbow) Active or passive immunization 181857172 Z23 [id number] Neil Higgins MD [facility], [facility] [address] [place] [address] 02/28/2020 11:04:04 02/28/2020 12:40:44 Influenza-like illness 08059820 B34.9 -- diagnoses Diarrhea 29263759 R19.7 Serum crea tinine above reference range 716184566 R79.89 (increased from 1.3 --> 1.5) -- pt counseled on increasing fluids [id number] Neil Higgins MD [facility], [facility] [address] [place] [address] 04/23/2020 14:49:04 04/23/2020 16:43:06 Influenza-like illness 63061585 B34.9 -- resolved. Diarrhea 68305875 R19.7 -- resolved Serum crea tinine above reference range 765136897 R79.89 (increased from 1.3 --> 1.5) -- pt counseled on increasing fluids Benign ess ential hypertension 4764695 I10 -- last EKG done on 01/11/19 with normal GEETHA on 07/06/2019-- recheck lab(s) on 01/04/20 Pain of ri ght shoulder joint 8785124732 0656196 M25.511 -- xrays ordered but not done Hyperlipidemia 34876404 E78.5 (LDL of 83, HDL of 35 and trig 284)Elevat ed Triglyceri daryn -1. Elevated Triglyceri daryn -- advise pt to limit Carbohydra arnel to less than 50 gram per meal & also less than 150 grams a day. Examples of Carbohydra arnel are: ice-cream, sweet sugar treats, rice, potatoes, sweet potatoes (yams), bananas, corn products (popcorn, corn muffin, corn bread, cornflakes , corn ), oats, flour products (pasta, bread, bagel, muffins, donuts, biscuits, cookies, crackers, pancakes, waffle, cakes, pies &/or Alcohol. -- recheck lab(s) on 01/04/20 Chronic ki dney disease stage 3 906853216 N18.3 -- followup w/ Dr Jorge Luis Camacho as directed by Dr Jorge Luis Camacho. -- d/c Allopurino l b/c of persistent right neck rash-- renal US was done on 06/14/2017 -- B/c of elevated Creatinine -- inform pt to avoid any otc pain meds: like Ibuprofen /motrin /advil /Aleve /Naproxen /etc. Inform patient to increase and maintain fluids to over 64 floz daily Hypothyroidism 62157471 E03.9 -- normal TFT 07/06/2019-- recheck lab(s) on 01/04/20 Anemia 479392072 D64.9 -- normalized on 02/22/20 CVA - cere brovascular accident due to cerebral artery occlusion 517175735 I63.50 (dx'd in 2000) -- pt hospitaliz ed x 4 days; and was using wheeled walker x 4 weeks-- pt had appt w/ Neurologlaureen victor, Dr Camacho on 03/31/17. -- Carotid Doppler 08/25/19 shows less than 50% narrowing on Rt and 50-69% on Left, and pt/spouse was told by Dr Barroso's office to repeat carotid doppler in 1 year. Parkinson's disease 7692 9000 G20 -- on Carbidopa. Following neurologis t Dr Stephanie Camacho Idiopathic peripheral neuropathy 42223276 G60.9 (legs/feet ) -- stable Migraine 78655725 G43.90 9 -- is on Amovig by Neurologlaureen t Dr Stephanie Camacho but pt reports it did not make any difference -- currently on Amitriptyl ine, topiramate & Botox shot. Coronary arteriosclerosis 04836724 I25.10 (mild on May 2014) -- repeat cardiac cath by Dr Snowden was 10/11/19 showed no progressiv e CAD Gastroesop hageal reflux disease without esophagitis 423472704 K21.9 -- on Protonix bc of GERD & Hoarseness . Asthma 679566489 J45.90 9 (quiescent ) -- Last spirometry was done at pulmonolog ist Chronic hoarseness 72145 58960 105 R49.0 -- Normal flexible laryngosco py in 05/16 (by ENT Dr Coates)-- deemed to be from GERD and pt is to continue on Protonix. Body mass index 30+ - obesity 811842086 Z68.33 -- advised weight loss; .pt lost 6 # since her last visit; -- pt's BMI today is 33.1 (ideal is between 20-25). Allergic rhinitis 383090 04 J30.9 Localized edema 43540220 4 R60.0 -- controlled w/ occ use of Furosemide Hyperuricemia 29118653 E 79.0 Advance di rective discussed with patient 530936295 Z71.89 Depression screening 171 894190 Z13.89 -- negative Screening for osteoporosis 724493603 Z13.820 -- Last DEXA was done 10/13/16 and it was normal Viral screening 21058077 4 Z11.59 -- Hepatitis C antibody was nonreactiv e on 11/20/16 Active or passive immunization 159370227 Z23 Screening for malignant neoplasm of colon 286629414 Z12.11 -- Last stool globin testing was 12/01/17 (negative) .-- gastroente rologist Dr Martel recommends repeating colonoscop y in June 2024. Screening for malignant neoplasm of breast 404860958 Z12.31 -- Mammogram was last done on 04/20/19 Screening for malignant neoplasm of cervix 348168789 Z12.4 -- pt declined [id number] Neil Higgins MD [facility] [address] [place] [address] 06/06/2020 16:55:08 06/06/2020 18:55:00 Adult health examination 553130781 Z00.00 Ramakrishna hematuria 67560393 5 R31.0 Body mass index 30+ - obesity 428606433 Z68.33 -- advised weight loss; .pt lost 6 # since her last visit; -- pt's BMI today is 33.1 (ideal is between 20-25). Screening for malignant neoplasm of colon 303828750 Z12.11 -- Last stool globin testing was 12/01/17 (negative) .-- gastroente rologist Dr Martel recommends repeating colonoscop y in June 2024. Screening for malignant neoplasm of breast 198349502 Z12.31 -- Mammogram was last done on 04/20/19 Screening for malignant neoplasm of cervix 545145220 Z12.4 -- pt declined [id number] Neil Higgins MD [facility], [facility] [address] [place] [address] 08/20/2020 15:28:15 08/20/2020 17:00:59 Falling injury 898275272 W19.XXXA (slipped on kitchen leigh and fell backwards -- landed on her back w/ also sustained occipital impact)-- except for headaches, neck, back pain and bilateral post rib pain, no other sx. [id number] Neil Higgins MD [facility] [address] [place] [address] 09/12/2020 15:39:23 09/18/2020 11:49:43 Essential hypertension 02691335 I10 -- last EKG done on 01/11/19 with normal GEETHA on 07/06/2019 -- recheck lab(s) on Hyperlipidemia 76965958 E78.5 (LDL of 83, HDL of 35 and trig 284)Elevat ed Triglyceri daryn -1. Elevated Triglyceri daryn -- advise pt to limit Carbohydra arnel to less than 50 gram per meal & also less than 150 grams a day. Examples of Carbohydra arnel are: ice-cream, sweet sugar treats, rice, potatoes, sweet potatoes (yams), bananas, corn products (popcorn, corn muffin, corn bread, cornflakes , corn ), oats, flour products (pasta, bread, bagel, muffins, donuts, biscuits, cookies, crackers, pancakes, waffle, cakes, pies &/or Alcohol. -- recheck lab(s) on 01/04/20 Hypothyroidism 70019077 E03.9 -- normal TFT 07/06/2019-- recheck lab(s) on 01/04/20 Chronic ki dney disease stage 3 805817922 N18.30 -- Management as per Dr. Jorge Luis Camacho [id number] Neil Higgins MD [facility] [address] [place] [address] 12/19/2020 16:07:59 12/19/2020 17:57:18 Essential hypertension 28084179 I10 -- add metoprolol 25 mg 1 tab daily Hyperlipidemia 08227266 E78.5 Elevated Triglyceri daryn -1. Elevated Triglyceri daryn -- advise pt to limit Carbohydra arnel to less than 50 gram per meal & also less than 150 grams a day. Examples of Carbohydra arnel are: ice-cream, sweet sugar treats, rice, potatoes, sweet potatoes (yams), bananas, corn products (popcorn, corn muffin, corn bread, cornflakes , corn ), oats, flour products (pasta, bread, bagel, muffins, donuts, biscuits, cookies, crackers, pancakes, waffle, cakes, pies &/or Alcohol. -- recheck lab(s) on 12/23/20 Hypothyroidism 26819118 E03.9 -- recheck lab(s) on 12/23/20 Chronic ki dney disease stage 3 729483859 N18.30 -- Management as per Dr. Jorge Luis Camacho Chest pain 06328099 R07. 9 -- w/ associated jaw and neck pain;-- pt saw Cardiologi st Dr Adamaris Snowden who ordered a new bottle of NTG which pt very well w/ resolution ; Dr Snowden also ordered EKG, and echodopple r -- both were unrevealin g.-- pt has cardiac cath scheduled tomorrow (12/20/20) w/ Dr Snowden . [id number] Neil Higgins MD [facility] [address] [place] [address] 02/24/2021 11:44:16 02/24/2021 13:06:26 Falling injury 446592117 W19.XXXA (in Jul 2020, pt slipped on kitchen leigh and fell backwards -- landed on her back w/ also sustained occipital impact) -- on 02/21/21, Pt fell in the kitchen again -- she fell face down on her knees and chest (L breast hit corner of chair and is now blue and purple). -- pt states she tripped over a piece of wood entering the kitchen. Unsteady when walking 22 486083 R26.89 [id number] Neil Higgins MD [facility], [employer] [address] [place] [address] 03/19/2021 15:53:04 03/19/2021 17:35:56 Low back pain 712153974 M54.5 Unsteady when walking 22 111833 R26.89 -- no more falling; pt declined PT Parkinson's disease 4904 9000 G20 -- on Carbidopa. Following neurologis valente Camacho CVA - cere brovascular accident due to cerebral artery occlusion 485138892 I63.50 (dx'd in 2000) -- pt hospitaliz ed x 4 days; and was using wheeled walker x 4 weeks -- pt had appt w/ Neurologis Dr Joseph victor on 03/31/17. -- Carotid Doppler 08/25/19 shows less than 50% narrowing on Rt and 50-69% on Left, and pt/spouse reported that Cardiologi st Dr Adamaris Snowden did carotid doppler on 08/16/20 Essential hypertension 26791673 I10 -- add metoprolol 25 mg 1 tab daily Hyperlipidemia 42506451 E78.5 Elevated Triglyceri daryn -1. Elevated Triglyceri daryn -- advise pt to limit Carbohydra arnel to less than 50 gram per meal & also less than 150 grams a day. Examples of Carbohydra arnel are: ice-cream, sweet sugar treats, rice, potatoes, sweet potatoes (yams), bananas, corn products (popcorn, corn muffin, corn bread, cornflakes , corn ), oats, flour products (pasta, bread, bagel, muffins, donuts, biscuits, cookies, crackers, pancakes, waffle, cakes, pies &/or Alcohol. -- recheck lab(s) on 12/23/20 Hypothyroidism 90263352 E03.9 -- recheck lab(s) on 12/23/20 Chronic ki dney disease stage 3 128593372 N18.30 -- Management as per Dr. Jorge Luis Camacho [id number] Neil Higgins MD [facility] [address] [place] [address] 06/18/2021 14:48:26 06/18/2021 16:27:57 Adult health examination 334804017 Z00.00 Low back pain 918293976 M54.5 -- had disc disease and arthritis of spine; and T12 compressio n Fx Parkinson's disease 4904 9000 G20 -- on Carbidopa. Following shana Camacho CVA - cere brovascular accident due to cerebral artery occlusion 848430607 I63.50 (dx'd in 2000) -- pt hospitaliz ed x 4 days; and was using wheeled walker x 4 weeks -- pt had appt w/ NeurologDr Joseph ordonez on 03/31/17. -- Carotid Doppler 08/25/19 shows less than 50% narrowing on Rt and 50-69% on Left, and pt/spouse reported that Cardiologi st Dr Adamaris Snowden did carotid doppler on 08/16/20 Unsteady when walking 22 037599 R26.89 -- no more falling; pt declined PT Essential hypertension 59152738 I10 -- EKG done 12/11/20-- add metoprolol 25 mg 1 tab daily Hyperlipidemia 72800690 E78.5 -- you will need to limit Carbohydra arnel intake to 40 gram per meal & also a maximum of 120 grams a day. -- Examples of Carbohydra arnel are: ice-cream, sweet sugar treats, rice, potatoes, sweet potatoes (yams), bananas, corn products (popcorn, corn muffin, corn bread, cornflakes , corn ), oats, flour products (pasta, bread, bagel, muffins, donuts, biscuits, cookies, crackers, pancakes, waffle, cakes, pies &/or Alcohol. -- recheck lab(s) on 09/03/21 Hypothyroidism 15092554 E03.9 -- recheck lab(s) on 09/03/21 Chronic ki dney disease stage 3 713520203 N18.30 -- Management as per Dr. Jorge Luis Camacho Body mass index 30+ - obesity 819287621 Z68.32 -- advised weight loss; no weight since her last visit;-- pt's BMI today is 32.6 (ideal is between 20-25). Advance di rective discussed with patient 824633169 Z71.89 Hepatitis C screening 41 3092602 Z11.59 -- tested negative for Hep C on 11/20/16 Active or passive immunization 770320486 Z23 Screening for malignant neoplasm of colon 083817365 Z12.11 -- Last stool globin testing was 12/01/17 (negative) .-- gastroente rologist Dr Martel recommends repeating colonoscop y in June 2024. Screening for malignant neoplasm of breast 544891106 Z12.31 -- Mammogram done 08/20/21 Screening for malignant neoplasm of cervix 944184995 Z12.4 -- pt declined [id number] Neil Higgins MD [facility] [address] [place] [address] 09/03/2021 16:10:00 09/03/2021 18:35:53 Low back pain 071695376 M54.50 -- had disc disease and arthritis of spine; and T12 compressio n Fx-- improved 75% since Epidural injection Parkinson's disease 4904 9000 G20 -- on Carbidopa. Following neurologlaureen t Dr Stephanie Camacho CVA - cere brovascular accident due to cerebral artery occlusion 265111627 I63.50 (dx'd in 2000) -- pt hospitaliz ed x 4 days; and was using wheeled walker x 4 weeks -- pt had appt w/ Neurologis tDr Camacho on 03/31/17. -- Carotid Doppler 08/25/19 shows less than 50% narrowing on Rt and 50-69% on Left, and pt/spouse reported that Cardiologi st Dr Adamaris Snowden did carotid doppler on 08/16/20 Essential hypertension 45737566 I10 -- EKG done 12/11/20-- add metoprolol 25 mg 1 tab daily-- recheck lab(s) on 12/04/21 Hyperlipidemia 46889810 E78.5 -- you will need to limit Carbohydra arnel intake to 40 gram per meal & also a maximum of 120 grams a day. -- Examples of Carbohydra arnel are: ice-cream, sweet sugar treats, rice, potatoes, sweet potatoes (yams), bananas, corn products (popcorn, corn muffin, corn bread, cornflakes , corn ), oats, flour products (pasta, bread, bagel, muffins, donuts, biscuits, cookies, crackers, pancakes, waffle, cakes, pies &/or Alcohol. -- recheck lab(s) on 12/04/21 Hypothyroidism 48794142 E03.9 -- recheck lab(s) on 12/04/21 Chronic ki dney disease stage 3 656565955 N18.30 -- Management as per Dr. Jorge Luis Camacho- - Cr stable at 1.31 (09/02/21)- - recheck lab(s) on 12/04/21 Body mass index 30+ - obesity 726111512 Z68.31 -- advised weight loss; pt lost 8 # since her last visit;-- pt's BMI today is 31.1 (ideal is between 20-25). Advance di rective discussed with patient 217497536 Z71.89 Hepatitis C screening 41 6550557 Z11.59 -- tested negative for Hep C on 11/20/16 Active or passive immunization 782027584 Z23 Screening for malignant neoplasm of colon 142157139 Z12.11 -- Last stool globin testing was 12/01/17 (negative) .-- gastroente rologist Dr Martel recommends repeating colonoscop y in June 2024. Screening for malignant neoplasm of breast 513176139 Z12.31 -- Mammogram done 08/20/21 Screening for malignant neoplasm of cervix 664341787 Z12.4 -- pt declined Neil Higgins MD [facility] [address] [place] [address] 12/02/2021 15:25:13 12/02/2021 17:18:56 Low back pain 322934237 M54.50 -- had disc disease and arthritis of spine; and T12 compressio n Fx-- improved 75% since Epidural injection CT A/P done at ER 11/25/2021 showed- Interval endplate compressio n deformitie s at the inferior T12 and L1 vertebral bodies since 06/22/2020 exam. These are located centrally in the endplates and suggestive of Schmorl's nodes.Spin al canal patent at both levels. No significan t height loss or malalignme nt appreciate dPatient has no radiculopa thy, no loss of bowel or bladder, nontender to palpation, no neurologic al signsConsi katelin MRI Recommend follow up with NSG as outpatient ; continue follow up with pain management at [place]-- check lab(s) om 12/30/[address] A/P done 10/2021Was developing very mild left hydronephr osis and mild asymmetric prominence of the proximal left ureter. Transition point adjacent to surgical clips in the left hemipelvis . No convincing obstructin g calculus identified . Retention of urine [address] A/P done 10/2021Min imal areas of bladder wall thickening may be secondary to incomplete distention . --> improved with UTI treatment Pt is following urologist Tita Welch and Dr Batista -- has appt on 12/07/21 Acute urin katy tract infection 068443712 N39.0 UA +LE, WBC, bloodImagi ng showed mild left hydronephr osisStarte d on rocephinfo llow urine cultures shows E Coli Anemia 925620451 D64.9 Hgb was 9.7 on 11/25/2021 -- check lab(s) om 12/30/21 Essential hypertension 22487095 I10 -- check lab(s) om 12/30/21 Chronic ki dney disease stage 3 451726560 N18.30 -- Management as per Nephrologi st Dr. Jorge Luis Camacho- - Cr stable at 1.31-- check lab(s) om 12/30/21 Unsteady when walking 22 967670 R26.89 -- no more falling; pt declined PT [id number] Neil Higgins MD [facility] [address] [place] [address] 12/23/2021 14:49:16 12/23/2021 16:50:03 Essential hypertension 64465758 I10 -- check lab(s) om 12/30/21 At low risk for fall 439 017623 Z91.81 Stenosis of ureter 37565 003 N13.5 -- cleared for cystoscopy left ureterosco py holmium laser lithotrips y/left urteral stent placement [id number] Neil Higgins MD [facility] [address] [place] [address] 03/24/2022 14:47:17 03/24/2022 16:24:37 Essential hypertension 04472629 I10 -- just saw Cardiologi st Dr Adamaris Snowden in February 2022 and she had a normal echo w/ EF of 60%-- EKG done on 12/24/21-- check lab(s) om 12/30/21 Stenosis of ureter 79141 003 N13.5 -- s/p cystoscopy left ureterosco py holmium laser lithotrips y/left urteral stent placement by Dr Frantz Batista 01/13/22 At low risk for fall 439 254897 Z91.81 -- no unsteady balance or gait problems-- have not fallen for over-- no fear of falling or falling tendency Body mass index 30+ - obesity 048515131 Z68.33 -- advised weight loss; pt gained 8 # since her last visit;-- pt's BMI today is 33.1 (ideal is between 20-25). Chronic ki dney disease stage 3 884494544 N18.30 -- Management as per Nephrologi st Dr. Jorge Luis Camacho- - Cr stable at 1.31-- check lab(s) om 12/30/21 Anemia 256549860 D64.9 Hgb was 9.7 on 11/25/2021 -- check lab(s) om 12/30/21 Otalgia of right ear 230 2358610 H92.01 Chronic hoarseness 08088 11513 105 R49.0 -- Normal flexible laryngosco py in 05/16 (by ENT Dr Coates)-- deemed to be from GERD and pt is to continue on Protonix. [id number] Neil Higgins MD [facility] [address] [place] [address] 07/08/2022 15:53:39 07/08/2022 17:59:45 Adult health examination 234885902 Z00.00 Otalgia of right ear 550 2685559 H92.01 -- saw ENT Dr Rick Coates who prescribed 2 weeks of ABx; her sinus CT showed extensive sinusitis &will be having sinus surgery on 07/31/22 Chronic hoarseness 11564 27261 105 R49.0 -- Normal flexible laryngosco py in 05/16 (by ENT Dr Coates)-- deemed to be from GERD and pt is to continue on Protonix. Essential hypertension 46167518 I10 -- just saw Cardiologi st Dr Adamaris Snowden in February 2022 and she had a normal echo w/ EF of 60%-- EKG done on 12/24/21-- check lab(s) within 7 days from 07/08/22 Stenosis of ureter 23528 003 N13.5 -- s/p cystoscopy left ureterosco py holmium laser lithotrips y/left urteral stent placement by Dr Frantz Batista 01/13/22 Chronic ki dney disease stage 3 338811642 N18.30 -- Management as per Nephrologi st Dr. Jorge Luis Camacho- - check lab(s) within 7 days from 07/08/22 Anemia 603016823 D64.9 -- check lab(s) within 7 days from 07/08/22 Body mass index 30+ - obesity 059696625 Z68.33 -- advised weight loss; pt lost 9 # since her last visit-- pt's BMI today is 31.5 (ideal is between 20-25). At low risk for fall 439 845891 Z91.81 -- no unsteady balance or gait problems-- have not fallen for over-- no fear of falling or falling tendency CVA - cere brovascular accident due to cerebral artery occlusion 090363044 I63.50 (dx'd in 2000) -- pt hospitaliz ed x 4 days; and was using wheeled walker x 4 weeks -- pt had appt w/ Neurologis Dr Joseph victor on 03/31/17. -- Carotid Doppler 08/25/19 shows less than 50% narrowing on Rt and 50-69% on Left, and pt/spouse reported that Cardiologi st Dr Adamaris Snowden did carotid doppler on 08/16/20 Hypothyroidism 51361328 E03.9 -- check lab(s) within 7 days from 07/08/22 Parkinson's disease 4904 9000 G20 -- on Carbidopa. Following neurologis t Dr Stephanie Camacho Advance di rective discussed with patient 589207630 Z71.89 Screening for malignant neoplasm of colon 214023920 Z12.11 -- Last stool globin testing was 12/01/17 (negative) .-- gastroente rologist Dr Martel recommends repeating colonoscop y in June 2024. Screening for malignant neoplasm of breast 903071486 Z12.31 -- Mammogram done 08/20/21 Screening for malignant neoplasm of cervix 657460700 Z12.4 -- pt declined [id number] Neil Higgins MD [facility] [address] [place] [address] 12/22/2022 10:09:17 12/22/2022 11:49:44 Muscle spasm of cervical muscle of neck 2289896297 04 M62.838 -- started on Wednesday12/18/22-- pt has Robaxin 500 mg at home (from spouse)-- will add Medrolpak [id number] Neil Higgins MD [facility] [address] [place] [address] 03/23/2023 12:40:41 03/23/2023 15:02:56 Osteoarthritis of knee 747215109 M17.9 -- s/p Rt TKR on 01/01/23 at [facility] ; by Dr Steve Ferraro Essential hypertension 64046957 I10 -- just saw Cardiologi st Dr Adamaris Snowden in February 2022 and she had a normal echo w/ EF of 60%-- EKG done on 12/14/22-- BP controlled -- check lab(s) within 3 days from 12/14/22 CVA - cere brovascular accident due to cerebral artery occlusion 119375129 I63.50 (dx'd in 2000) -- pt hospitaliz ed x 4 days; and was using wheeled walker x 4 weeks -- pt had appt w/ Neurologis tDr Camacho on 03/31/17. -- Carotid Doppler 08/25/19 shows less than 50% narrowing on Rt and 50-69% on Left, and pt/spouse reported that Cardiologi st Dr Adamaris Snowden did carotid doppler on 08/16/20-- stop Clopidogre l (aka Plavix) 10 days prior to knee surgery (TKR) Hyperlipidemia 20778728 E78.5 -- you will need to limit Carbohydra arnel intake to 40 gram per meal & also a maximum of 120 grams a day. -- Examples of Carbohydra arnel are: ice-cream, sweet sugar treats, rice, potatoes, sweet potatoes (yams), bananas, corn products (popcorn, corn muffin, corn bread, cornflakes , corn ), oats, flour products (pasta, bread, bagel, muffins, donuts, biscuits, cookies, crackers, pancakes, waffle, cakes, pies &/or Alcohol. -- LDL of 48 on 07/15/22 (controlle d) Body mass index 25-29 - overweight 113670286 Z68.29 -- pt lost 4 # since her Rt TKR-- pt's BMI today is 29.8 (ideal is between 20-25) Pain in both feet 140237 5502 3953589 M79.671 M79.672 [id number] Neil Higgins MD [facility] [address] [place] [address] 07/01/2023 15:39:34 07/01/2023 17:27:34 Osteoarthritis of knee 386103194 M17.9 -- s/p Rt TKR on 01/01/23 at [facility] ; by Dr Steve Ferraro Essential hypertension 80344923 I10 -- just saw Cardiologi st Dr Adamaris Snowden in February 2022 and she had a normal echo w/ EF of 60%-- EKG done on 12/14/22-- BP controlled -- check lab(s) within 3 days from 12/14/22 Hyperlipidemia 98978502 E78.5 -- you will need to limit Carbohydra arnel intake to 40 gram per meal & also a maximum of 120 grams a day. -- Examples of Carbohydra arnel are: ice-cream, sweet sugar treats, rice, potatoes, sweet potatoes (yams), bananas, corn products (popcorn, corn muffin, corn bread, cornflakes , corn ), oats, flour products (pasta, bread, bagel, muffins, donuts, biscuits, cookies, crackers, pancakes, waffle, cakes, pies &/or Alcohol. -- LDL of 48 on 07/15/22 (controlle d) CVA - cere brovascular accident due to cerebral artery occlusion 366236557 I63.50 (dx'd in 2000) -- pt hospitaliz ed x 4 days; and was using wheeled walker x 4 weeks -- pt had appt w/ Neurologis Dr Joseph victor on 03/31/17. -- Carotid Doppler 08/25/19 shows less than 50% narrowing on Rt and 50-69% on Left, and pt/spouse reported that Cardiologi st Dr Adamaris Snowden did carotid doppler on 08/16/20-- stop Clopidogre l (aka Plavix) 10 days prior to knee surgery (TKR) Pain in both feet 866169 4575 6613942 M79.671 M79.672 Body mass index 25-29 - overweight 852842581 Z68.29 -- pt lost 4 # since her Rt TKR-- pt's BMI today is 29.8 (ideal is between 20-25) Upper resp iratory infection 31098825 J06.9 Chronic ki dney disease stage 3 008579908 N18.30 -- Management as per Nephrologi st Dr. Jorge Luis Camacho- - check lab(s) within 7 days from 07/08/22 At moderat e risk for fall 9419785686 75495521 Z91.89 [id number] Neil Higgins MD [facility], [facility] [address] [place] [address] 09/08/2023 15:25:58 09/08/2023 17:18:22 Essential hypertension 08303376 I10 -- saw Cardiologi st Dr Adamaris Snowden & had a normal echo w/ EF of 60%-- EKG done on 12/14/22-- BP controlled -- check lab(s) within 3 days from 12/14/22 Hyperlipidemia 84220435 E78.5 -- you will need to limit Carbohydra arnel intake to 40 gram per meal & also a maximum of 120 grams a day. -- Examples of Carbohydra arnel are: ice-cream, sweet sugar treats, rice, potatoes, sweet potatoes (yams), bananas, corn products (popcorn, corn muffin, corn bread, cornflakes , corn ), oats, flour products (pasta, bread, bagel, muffins, donuts, biscuits, cookies, crackers, pancakes, waffle, cakes, pies &/or Alcohol. -- LDL of 48 on 07/15/22 (controlle d) CVA - cere brovascular accident due to cerebral artery occlusion 074787598 I63.50 (dx'd in 2000) -- pt hospitaliz ed x 4 days; and was using wheeled walker x 4 weeks -- pt had appt w/ Neurologis Dr Joseph victor on 03/31/17. -- Carotid Doppler 08/25/19 shows less than 50% narrowing on Rt and 50-69% on Left, and pt/spouse reported that Cardiologi st Dr Adamaris Snowden did carotid doppler on 08/16/20-- stop Clopidogre l (aka Plavix) 10 days prior to knee surgery (TKR) Chronic ki dney disease stage 3 958432596 N18.30 -- Management as per Nephrologi st Dr. Jorge Luis Camacho- - check lab(s) within 7 days from 07/08/22 Osteoarthr itis of knee 440858433 M17.9 -- s/p Rt TKR on 01/01/23 at [facility] [address]; by Dr Steve Ferraro Pain in both feet 306116 2459 9050195 M79.671 M79.672 Body mass index 25-29 - overweight 818948629 Z68.29 -- pt lost 4 # since her Rt TKR-- pt's BMI today is 29.8 (ideal is between 20-25) At moderat e risk for fall 4010724220 79926672 Z91.89 -- using cane-- will refer pt to PT for eval Proximal m uscle weakness 495368967 M62.81 (in Hips) [id number] Neil Higgins MD [facility] [address] [place] [address] 01/24/2024 14:33:31 01/24/2024 16:52:21 Otalgia of right ear 1156029146 H92.01 -- 1st in [place] around 2009 (frontal sinus)-- 2nd sinus surgery around 2020 (Dr Coatse) -- saw ENT Dr Rick Coates in the past but Dr Coates was out of town,-- pt was then seen at [facility] and was given Augmentin ABx around 12/10/23, sx did not improved; pt tried to make appt w/ Dr Coates again but Dr Ojeda was booked over 5 weeks out.-- pt then went to [facility] again and this time she was given Cefdinir and steroid and sx improved 30%. Upper resp iratory infection 13603391 J06.9 -- respirator y pathogen PCR on 01/03/24 showed Adair Johnson Virus-- sx resolved but still feeling tired all the time. [id number] Neil Higgins MD [facility], [facility] [address] [place] [address] 04/25/2024 15:02:30 04/25/2024 17:12:35 Proximal muscle weakness 100885346 M62.81 (in Hips) Essential hypertension 75607853 I10 -- saw Cardiologi st Dr Adamaris Snowden & had a normal echo w/ EF of 60%-- EKG done on 12/14/22-- BP controlled -- check lab(s) around 05/08/24 Hyperlipidemia 12384556 E78.5 -- you will need to limit Carbohydra arnel intake to 40 gram per meal & also a maximum of 120 grams a day. -- Examples of Carbohydra arnel are: ice-cream, sweet sugar treats, rice, potatoes, sweet potatoes (yams), bananas, corn products (popcorn, corn muffin, corn bread, cornflakes , corn ), oats, flour products (pasta, bread, bagel, muffins, donuts, biscuits, cookies, crackers, pancakes, waffle, cakes, pies &/or Alcohol. -- LDL of 48 on 07/15/22 (controlle d)-- check lab(s) around 05/08/24 CVA - cere brovascular accident due to cerebral artery occlusion [id number] I63.50 (dx'd in 2000) -- pt hospitaliz ed x 4 days; and was using wheeled walker x 4 weeks -- pt had appt w/ Neurologis Dr Joseph victor on 03/31/17. -- Carotid Doppler 08/25/19 shows less than 50% narrowing on Rt and 50-69% on Left, and pt/spouse reported that Cardiologi st Dr Adamaris Snowden did carotid doppler on 08/16/20-- stop Clopidogre l (aka Plavix) 10 days prior to knee surgery (TKR) Chronic ki dney disease stage 3 [id number] N18.30 -- Management as per Nephrologi Dr. Jorge Luis Camacho- - check lab(s) around 05/08/24 Osteoarthr itis of knee 102282716 M17.9 -- s/p Rt TKR on 01/01/23 at [facility] 314275[address]78 [address]; by Dr Steve Ferraro Pain in both feet 029156 8824 2147524 M79.671 M79.672 Body mass index 25-29 - overweight 758410454 Z68.29 -- pt lost 4 # since her Rt TKR-- pt's BMI today is 29.8 (ideal is between 20-25) At moderat e risk for fall [id number] 06323588 Z91.89 -- using cane-- will refer pt to PT for eval Adult heal th examination 789730640 Z00.00 [id number] Neil Higgins MD [facility] [address] [place] [address] 10/24/2024 14:28:09 10/24/2024 15:39:37 Proximal muscle weakness 875271326 M62.81 (in Hips) Essential hypertension 32495656 I10 -- saw Cardiologi st Dr Adamaris Snowden & had a normal echo w/ EF of 60%-- EKG done on 12/14/22-- BP controlled -- check lab(s) around 11/07/24 Hyperlipidemia 63212521 E78.5 -- you will need to limit Carbohydra arnel intake to 40 gram per meal & also a maximum of 120 grams a day. -- Examples of Carbohydra arnel are: ice-cream, sweet sugar treats, rice, potatoes, sweet potatoes (yams), bananas, corn products (popcorn, corn muffin, corn bread, cornflakes , corn ), oats, flour products (pasta, bread, bagel, muffins, donuts, biscuits, cookies, crackers, pancakes, waffle, cakes, pies &/or Alcohol. -- LDL of 48 on 07/15/22 (controlle d)-- check lab(s) around 11/07/24 CVA - cere brovascular accident due to cerebral artery occlusion [id number] I63.50 (dx'd in 2000) -- pt hospitaliz ed x 4 days; and was using wheeled walker x 4 weeks -- pt had appt w/ Neurologis Dr Joseph victor on 03/31/17. -- Carotid Doppler 08/25/19 shows less than 50% narrowing on Rt and 50-69% on Left, and pt/spouse reported that Cardiologi st Dr Adamaris Snowden did carotid doppler on 08/16/20-- stop Clopidogre l (aka Plavix) 10 days prior to knee surgery (TKR) Chronic ki dney disease stage 3 604880155 N18.30 -- Management as per Nephrologi st Dr. Jorge Luis Camacho- - check lab(s) around 11/07/24 Osteoarthr itis of knee 000920165 M17.9 -- s/p Rt TKR on 01/01/23 at [facility] 314275-78 00; by Dr Steve Ferraro Pain in both feet 647527 9625 1259182 M79.671 M79.672 Body mass index 25-29 - overweight 521317156 Z68.29 -- pt lost 4 # since her Rt TKR-- pt's BMI today is 29.8 (ideal is between 20-25) At moderat e risk for fall 5915952154 45490132 Z91.89 -- using cane-- will refer pt to PT for eval Active or passive immunization 848081703 Z23 [id number] Neil Higgins MD [facility] [address] [place] [address] 04/24/2025 11:57:34 04/24/2025 13:49:53 General examination of patient 598046690 Z00.00 Proximal m uscle weakness 145251885 M62.81 (in Hips) Essential hypertension 23522886 I10 -- saw Cardiologi st Dr Adamaris Snowden & had a normal echo w/ EF of 60%-- EKG done on 12/14/22-- BP controlled -- check lab(s) around 06/05/25 Hyperlipidemia 39222185 E78.5 -- you will need to limit Carbohydra arnel intake to 40 gram per meal & also a maximum of 120 grams a day. -- Examples of Carbohydra arnel are: ice-cream, sweet sugar treats, rice, potatoes, sweet potatoes (yams), bananas, corn products (popcorn, corn muffin, corn bread, cornflakes , corn ), oats, flour products (pasta, bread, bagel, muffins, donuts, biscuits, cookies, crackers, pancakes, waffle, cakes, pies &/or Alcohol. -- check lab(s) around 06/05/25 CVA - cere brovascular accident due to cerebral artery occlusion 067426653 I63.50 (dx'd in 2000) -- pt hospitaliz ed x 4 days; and was using wheeled walker x 4 weeks -- pt had appt w/ Neurologis Dr Joseph victor on 03/31/17. -- Carotid Doppler 08/25/19 shows less than 50% narrowing on Rt and 50-69% on Left, and pt/spouse reported that Cardiologi st Dr Adamaris Snowden did carotid doppler on 08/16/20-- stop Clopidogre l (aka Plavix) 10 days prior to knee surgery (TKR) Chronic ki dney disease stage 3 332052060 N18.30 -- Management as per Nephrologi Dr. Jorge Luis Camacho- - check lab(s) around 06/05/25 Pain in both feet 968035 5228 2287318 M79.671 M79.672 Osteoarthr itis of knee 156027845 M17.9 -- s/p Rt TKR on 01/01/23 at [facility] ; by Dr Steve Ferraro Body mass index 25-29 - overweight 356173787 Z68.29 -- pt lost 4 # since her Rt TKR-- pt's BMI today is 29.8 (ideal is between 20-25) At moderat e risk for fall 2230089227 64780679 Z91.89 -- using cane-- will refer pt to PT for eval Active or passive immunization 044076562 Z23 Screening for malignant neoplasm of colon 775520245 Z12.11 -- Last stool globin testing was 12/01/17 (negative) .-- gastroente rologist Dr Alix Florez recommends repeating colonoscop y 5 years from 11/04/23 Gynecologi c examination 28426843 Z01.419 Screening mammography 272209 Z12.31 -- Mammogram done 08/20/21 Health Concerns Section Related Observation LastModified by Organization Detai ls LastModified Time None Recorded Concern Status LastModified by Organization Details LastModified Time None Recorded Advance Directives Directive Y: Payers Insurance Date Sequence Insurance Name Policy Number Policy Santos Covered Member ID Santos Member ID Guarantor Name 05/29/2025 2 [employer] (INDEMNITY) [id number] Flako Ferguson [id number] Rubina Ferguson 04/21/2025 3 [employer] - FOR LIFE Rubina Ferguson [id number] Rubina Ferguson 08/20/2020 3 [employer] (PPO) [id number] Rubina Ferguson [id number] Rubina Ferguson 04/21/2025 1 MEDICARE-OK (MEDICARE) Rubina Ferguson [id number] Rubina Ferguson Notes Date Note Type Note Provider Name and Address Organization Details Recorded Time 01/24/2024 text/html Pt comes in for Rt ear ache w/ occasional dizziness and EBV (sx improved w/ residual dry cough and fatigue). Pt has sinus pressure. No f/c, n/v, falling, confusion or headaches. Pt feels well and has no c/o. Pt has no new sx and no increasing sx. Patient denies any jaw or neck discomfort, left arm pain/left arm discomfort, chest discomfort/pain, diaphoresis, breathing symptoms/chest tightness, indigestion sx, n/v, any angina equivalent symptoms, etc. Neil Higgins MD [address] [place] [address] [address], [place], [address], [facility] 01/24/2024 16:49:37 04/25/2024 text/html Medicare Annual Wellness VisitReported bypatient.Diet and Nutrition:healthy diet; discussed vitamin and supplement use; discussed maintaining calcium balance; discussed diet improvement Fracture Risk:no history of fractures; no recent explained fracture; no sudden unexplained fractures; no previous musculoskeletal injuries Physical Activity:discussed weightbearing activities; discussed exercise habits Depression Risk:never feels sad, empty, or tearful; no loss of interest in activities; no significant changes in weight; no sleep disturbances or insomnia; no agitation; no loss of energy; no feelings of worthlessness or guilt; no thoughts of suicide; no history of depression; no history of mood disorders Orientation:no disorientation to time; no disorientation to date; no disorientation to place Concentration and Memory:no decreased concentrating ability; no memory lapses or loss; does not forget words Speech/Motor difficulties:no speech difficulties; no difficulty expressing formulated concepts; no difficulty with fine manipulative tasks; no difficulty writing/copying; no slowed reaction time; does not knock things over when trying to pick them up Hearing:loss of hearing: in both ears; wears hearing aids ((bilaterally)) Vision:no vision problems Activities of Daily Living:able to bathe with limited or no assistance; able to dress with limited or no assistance; able to feed self with limited or no assistance; able to get out of chair or bed with limited or no assistance; able to groom with limited or no assistance; able to toilet with limited or no assistance;unable to contol urination and bowels Instrumental Activities of Daily Living:able to do house work with limited or no assistance; able to grocery shop with limited or no assistance; able to manage medications with limited or no assistance; able to manage money with limited or no assistance; able to prepare meals with limited or no assistance; able to use the phone with limited or no assistance Falls Risk Assessment:no frequent falls while walking; no fall in the past year; no fall since last visit;dizziness/verti go Home Safety:no unsafe rowena hazzards; no unsafe stairs; no unsafe gas appliances; working smoke/CO detectors; use of seatbelts; no vision or hearing loss while driving; has hand bars in the bathroom/shower; good lighting in the home;fire arms Pt comes in for CKD, Anemia, CKD, Aenmia, Hypothyroidism , and weight monitoring. Pt also due for her annual PE. Overall pt feels well and has c/o.Pt denies any headache/chest discomfort or pain/diaphoresis/bela thing problems/nausea/vomit ing/any angina equivalent symptoms/visual changes Neil Higgins MD [address] [facility] [address], [place], [address], [facility] 04/25/2024 17:11:56 10/24/2024 text/html Pt comes in for HTN, HLD, CVD, CKD, OA and ER visit for acute bronchitis. No more cough, f/c, weakness. Pt denies any SOB/GOODRICH, falling or confusion. Pt feels well and has no c/o. Pt has no new sx and no increasing sx. Patient denies any jaw or neck discomfort, left arm pain/left arm discomfort, chest discomfort/pain, diaphoresis, breathing symptoms/chest tightness, indigestion sx, n/v, any angina equivalent symptoms, etc. Neil Higgins MD [address] [facility] [address], [place], [address], [facility] 10/24/2024 15:42:01 04/24/2025 text/html Medicare Annual Wellness VisitReported bypatient.Diet and Nutrition:healthy diet; discussed vitamin and supplement use; discussed portion control; discussed maintaining calcium balance; discussed diet improvement Fracture Risk:no history of fractures; no recent explained fracture; no sudden unexplained fractures; no previous musculoskeletal injuries Physical Activity:discussed weightbearing activities; discussed exercise habits Depression Risk:never feels sad, empty, or tearful; no loss of interest in activities; no significant changes in weight; no sleep disturbances or insomnia; no agitation; no loss of energy; no feelings of worthlessness or guilt; no thoughts of suicide; no history of depression; no history of mood disorders Orientation:no disorientation to time; no disorientation to date; no disorientation to place Concentration and Memory:no decreased concentrating ability; no memory lapses or loss; does not forget words Speech/Motor difficulties:no speech difficulties; no difficulty expressing formulated concepts; no difficulty with fine manipulative tasks; no difficulty writing/copying; no slowed reaction time; does not knock things over when trying to pick them up Hearing:loss of hearing: in both ears; wears hearing aids ((bilaterally)) Vision:no vision problems Activities of Daily Living:able to bathe with limited or no assistance; able to dress with limited or no assistance; able to feed self with limited or no assistance; able to get out of chair or bed with limited or no assistance; able to groom with limited or no assistance; able to toilet with limited or no assistance;unable to contol urination and bowels(rare stool incontinence due to diarrhea in the last 2 days) Instrumental Activities of Daily Living:able to do house work with limited or no assistance; able to grocery shop with limited or no assistance; able to manage medications with limited or no assistance; able to manage money with limited or no assistance; able to prepare meals with limited or no assistance; able to use the phone with limited or no assistance Falls Risk Assessment:no frequent falls while walking; no fall in the past year; no fall since last visit;dizziness/verti go Home Safety:no unsafe rowena hazzards; no unsafe stairs; no unsafe gas appliances; working smoke/CO detectors; use of seatbelts; no vision or hearing loss while driving; has hand bars in the bathroom/shower; good lighting in the home;fire arms Pt comes in for CKD, Anemia, CKD, Aenmia, Hypothyroidism , and weight monitoring. Pt also due for her annual Wellness Visit. Overall pt feels well and has c/o. Pt feels well and has no c/o. Pt has no new sx and no increasing sx. Patient denies any jaw or neck discomfort, left arm pain/left arm discomfort, chest discomfort/pain, diaphoresis, breathing symptoms/chest tightness, indigestion sx, n/v, any angina equivalent symptoms, etc. Neil Higgins MD [address] [place] [address] [address], [place], [address], [facility] 04/24/2025 13:47:19 OBGyn Episode No OBEpisode recorded.
== END 2025-06-14 15:39 | disposition home or self-care (01) ==
LOC: ANHIMG 15:39
PROVIDERS: PCP Internal Medicine; Visit Provider Internal Medicine
DX: Z12.31 Encounter for screening mammogram for malignant neoplasm of breast (principal)
CPT/HCPCS: 77063; 77067

== ENCOUNTER 2025-06-24 19:02 | Emergency (ER) | payer MEDICARE, OTHER, SELFPAY ==
--- NOTE | ~2025-06-24 | CT_ITS ---
EXAMINATION: CT brain wo con DATE: 06/24/2025 19:54 INDICATION: FALL . TECHNIQUE: Computed tomography (CT) of the head was performed without intravenous contrast. The mA wa s adjusted according to patient size. Iterative reconstruction technique was employed. The dose-lengt h product was 605.33 mGy-cm. COMPARISON: 08/26/2020. FINDINGS: No acute intracranial hemorrhage or extra-axial fluid collection. No hydrocephalus, mass, or herniation. No acute ischemic infarct. Unremarkable dural venous sinus attenuation. No acute osseous abnormality. Right parietal scalp contusion near the vertex. Partial opacification of the under pneumatized left mastoid air cells, status post right mastoidectom y with fluid in the remaining right mastoid air cells, mucosal thickening involving all of the parana wiley sinuses, with the suggestion of surrounding sclerosis, and with postsurgical changes in the maxil sarah and ethmoid sinuses. Mild atrophy and chronic white matter change. Atherosclerotic intracranial calcification. Bilateral l ens replacements. IMPRESSION: No acute intracranial process. Reviewed, dictated and finalized at location K.
--- NOTE | ~2025-06-24 | CT_ITS ---
EXAMINATION: CT cervical spine wo con DATE: 06/24/2025 19:54 INDICATION: FALL-STRUCK HEAD TECHNIQUE: Computed tomography (CT) of the cervical spine was performed without intravenous contrast. Automated exposure control and iterative reconstruction technique were employed. The dose-length pro duct was 230.73 mGy-cm. COMPARISON: X-ray C-spine 08/20/2020. FINDINGS: Vertebral Body Alignment: Stable grade 1 anterolisthesis at C3-4 secondary to degenerative changes. Craniocervical and atlantoaxial alignment: Moderate degenerative change. Alignment intact. Osseous structures/fracture: No evidence of a lytic or blastic process in the visualized spine. No e vidence of acute fracture. Bilateral C2-3 facet fusion. Uncomplicated appearing ACDF hardware at C5-6 . Cervical soft tissues: The paraspinal soft tissues planes are maintained. Biapical pleural scarring. Degenerative changes: Multilevel degenerative disc disease and facet arthropathy. Severe right neural foraminal narrowing at C2-C3 and C3-4 secondary to degenerative changes. No severe central canal fredy rowing. IMPRESSION: No acute fracture or traumatic malalignment in the cervical spine. Reviewed, dictated and finalized at location K.
--- OUTSIDE RECORDS SUMMARY | 2025-06-24 19:04 | XMS_ITS | Encounter Summary ---
Author Organization 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
--- OUTSIDE RECORDS SUMMARY | 2025-06-24 19:04 | XMS_ITS | Encounter Summary ---
Author Organization [facility] Address [address] [place] [address] Care Team Providers Care Swing Type Lathe Operator Name Role Phone Neil Higgins MD Primary Care Provider Edilberto Nance MD Unavailable [phone] Rick Coates MD Unavailable [phone] Encounter Details Date Type Department Care Team (Late st Contact Info) Description 04/03/2021 Telephone [facility] [address] [facility] [address] [place], [place] [id number] Teresa Orellana MD PhD [address] [facility] [address] [place] [address] Social History Tobacco Use Types Packs/Day Years Used Date Smoking Tobacco: Never Smokeless Tobacco: Never Alcohol Use Standard Drinks/Week Comments Not Currently 0 (1 standard drink = 0.6 oz pur e alcohol) Comments No Sex and Gender Information Value Date Recorded Sex Assigned at Not on file 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
--- OUTSIDE RECORDS SUMMARY | 2025-06-24 19:04 | XMS_ITS | Referral Summary ---
Author Organization [facility] Address [address] [place] [address] Care Team Providers Care Fleet Service Manager Name Role Phone Neil Higgins MD Primary Care Provider Edilberto Nance MD Unavailable [phone] Rick Coates MD Unavailable [phone] Encounters Date Type Department Care Team Description 06/20/2025 Telephone [facility] Cardiology [address] [facility] 8th [place] [address] [place] [address] Francine Draper 06/12/2025 1:40 PM CDT Procedure visit [facility] General Neurology [address] [facility] 6th [address] [place] [address] Francine Ruiz MD PhD Intractable chronic migraine without aura and without status migrainosus (Primary Dx) 05/30/2025 Telephone [facility] Otolaryngology [address] [place] [address] Irma Chavez LPN Sinus symptoms and results of CT sinus 05/29/2025 Imaging Exam [facility] Otolaryngology [address] [place] [address] Rick Coates MD Chronic pansinusitis (Primary Dx) 05/21/2025 1:30 PM CDT Office Visit [facility] Pulmonology [address] [facility] [address] [place] [address] Shoshana Seo MD Chronic bronchitis, simple (HCC) (Primary Dx); Chronic rhinitis 04/03/2025 2:15 PM CDT Office Visit [facility] Physicians [facility] Otolaryngology [address] [place] [address] Rick Coates MD Chronic cough (Primary Dx); Chronic pansinusitis 03/27/2025 Orders Only [facility] General Neurology [address] [place] [address] 6[address] [place] [address] Sabra Clara Dolly Intractable chronic migraine without aura and [...] total) by mouth daily 01/06/20 24 Active topiramate (TOPAMAX) 50 mg tablet Take [...] day 15 mL 1 05/21/20 25 Active carvediloL (COREG) 6.25 mg tablet Take 1 tablet (6.25 mg total) by mouth 2 (two) times a day with meals 180 tablet 3 06/20/20 25 026 Active carvediloL (COREG) 3.125 mg tablet Take 1 tablet (3.125 mg total) by mouth 2 (two) times a day with meals 180 tablet 3 06/20/20 25 026 Active carvediloL (COREG) 3.125 mg tablet Take 1 tablet (3.125 mg total) by mouth 2 (two) times a day with meals 180 tablet 3 06/23/20 24 025 Discontinued(R eorder) carvediloL (COREG) 6.25 mg tablet Take 1 tablet (6.25 mg total) by mouth 2 (two) times a day with meals 180 tablet 3 06/23/20 24 025 Discontinued(R eorder) methylPREDNISol one (Medrol, Thomas,) 4 mg DosepackIndicat [...] 11/10/2022 Assessment & Plan (11/10/2022 9:19 PM POURER): This has improved and gotten back to [...] is a risk of orbital injury and OUTREACH TEAM MEMBER injury which could result in blindness or double vision or brain damage. These risks are quite low. Some risk of permanent anosmia. I explained that this may not be the reason for the headache and she understands that. She has no questions. Assessment & Plan (11/10/2022 9:19 PM POURER): Seems improved. Endoscopically I do not find [...] (05/20/2022): Added automatically from request for surgery [id number] Chronic ethmoidal sinusitis 05/20/2022 Overview (05/20/2022): Added automatically from request for surgery [id number] Acute post-traumatic headache, not intractable 1 Chest pain 09/27/2019 Overview (09/27/2019): Added automatically from request for surgery [id number] Coronary artery disease of n ative artery of [place] heart with stable angina pectoris 09/27/2019 Overview (09/27/2019): Added automatically from request for surgery [id number] Parkinsonism 01/26/2018 Obesity with body mass index [...] on file Legal Sex Female 7:36 AM POURER Gender Identity Female 08/25/2021 8:49 PM CDT [...] as needed Medical Devices Implanted Type Area Risk Specialist Device Identifier Shelf Expiration Date Model / Serial / Lot Total Joint Replacement Bilateral : Knee Insurance MEDICARE [facility] MEDICARE [facility] PPO [place] [facility] MEDICARE FOR LIFE MEDICARE FOR LIFE ZA KHLOE Advance Directives For more information, please contact: [phone] * Full Code (Latest Code Status on File) Date Activated Date Inactivated Comments 12/20/2020 7:11 AM 12/21/2020 4:39 AM Healthcare Agents on File Name Relationship [facility] Marcus Marty Spouse Health Care Agent Care Teams Fleet Service Manager Relationship Specialty Start Date End Date Neil Higgins MD [address] [place] [address] PCP - General 01/18/18 Edilberto Nance MD [address] [place] [address] Consulting Physician Cardiology 05/20/22 Rick [place] [address] Consulting Physician Otolaryngology 07/31/22
--- OUTSIDE RECORDS SUMMARY | 2025-06-24 19:04 | XMS_ITS | Clinical Summary ---
Author Organization [facility] Address [address] [place] [address] Care Team Providers Care Senior Report Developer Name Role Phone Neil Higgins MD Primary Care Provider [phone] Edilberto Nance MD Unavailable [phone] Rick Coates MD Unavailable [phone] Allergies Active Allergy Reactions Criticality Noted Date [...] 11/10/2022 Assessment & Plan (11/10/2022 9:19 PM ROLL EXAMINER): This has improved and gotten back to [...] is a risk of orbital injury and CAN RUNNER injury which could result in blindness or double vision or brain damage. These risks are quite low. Some risk of permanent anosmia. I explained that this may not be the reason for the headache and she understands that. She has no questions. Assessment & Plan (11/10/2022 9:19 PM ROLL EXAMINER): Seems improved. Endoscopically I do not find [...] (05/20/2022): Added automatically from request for surgery [id number] Chronic ethmoidal sinusitis 05/20/2022 Overview (05/20/2022): Added automatically from request for surgery [id number] Acute post-traumatic headache, not intractable 1 Chest pain 09/27/2019 Overview (09/27/2019): Added automatically from request for surgery [id number] Coronary artery disease of n ative artery of eek heart with stable angina pectoris 09/27/2019 Overview (09/27/2019): Added automatically from request for surgery [id number] Parkinsonism 01/26/2018 Obesity with body mass index [...] Type Department Care Team Description 06/20/2025 Telephone [facility] Cardiology [address] [facility] [address] 8th [place] [address] [place] [address] Francine Draper 06/12/2025 1:40 PM CDT Procedure visit [facility] General Neurology [address] 6th [address] [place] [address] Francine Ruiz MD PhD Intractable chronic migraine without aura and without status migrainosus (Primary Dx) 05/30/2025 Telephone [facility] Otolaryngology [address] [place] [address] Irma Chavez LPN Sinus symptoms and results of CT sinus 05/29/2025 Imaging Exam [facility] Otolaryngology [address] [place] [phone] Rick Coates MD Chronic pansinusitis (Primary Dx) 05/21/2025 1:30 PM CDT Office Visit [facility] Pulmonology [address] [place] [address] Shoshana Seo MD Chronic bronchitis, simple (HCC) (Primary Dx); Chronic rhinitis 04/03/2025 2:15 PM CDT Office Visit [facility] Otolaryngology [address] [place] [address] Rick Coates MD Chronic cough (Primary Dx); Chronic pansinusitis 03/27/2025 Orders Only [facility] General Neurology [address] [facility] [address] [facility] 6th [address] [place] [address] Clara Montaño Intractable chronic migraine without aura [...] SURGERY Mastoidectomy - (Added by TW Conv) FL TRANSTYMPANIC EUSTACH TUBE CATH Eustachian Tube Catheterization, Transtympanic - (Added by TW Conv) FL TOTAL ABDOMINAL HYSTERECT W/WO RMVL TUBE OVARY Hysterectomy - (Added by TW Conv) NECK SURGERY Neck Surgery - cervical fusion 2009 (Added by TW Conv) KNEE SURGERY 11/29/2018 - 11/28/2019 Left TKR TYMPANOPLASTY left ear CHOLECYSTECTOMY LASIK KIDNEY STONE SURGERY CATARACT EXTRACTION W/ INTRA OCULAR LENS IMPLANT 07/21/2022 Left REPLACEMENT TOTAL KNEE 12/30/2022 - 01/26/2023 Right CARDIAC CATHETERIZATION 2018 and 12/20/2020 see [facility] for results CYSTOSCOPY INSERTION / REMOV AL [...] on file Legal Sex Female 7:36 AM ROLL EXAMINER Gender Identity Female 08/25/2021 8:49 PM CDT [...] 04/23/2020, 10/16/2019, Additional history exists Covid-19 Vaccine (2023-12 5 season) 2024 12/19/2021, 01/27/2021, 12/30/2020 Fall [...] as needed Medical Devices Implanted Type Area Hide Spreader Device Identifier Shelf Expiration Date Model / Serial / Lot Total Joint Replacement Bilateral : Knee Insurance MEDICARE [employer] [facility] MEDICARE FOR LIFE MEDICARE FOR LIFE [facility] Advance Directives For more information, please contact: [phone] * Full Code (Latest Code Status on File) Date Activated Date Inactivated Comments 12/20/2020 7:11 AM 12/21/2020 4:39 AM Healthcare Agents on File Name Relationship Healthcare Agent [facility] p Communication Marcus Severiano Spouse Health Care Agent Care Teams Senior Report Developer Relationship Specialty Start Date End Date Neil Higgins MD [address] [facility] [address] [place] [address] PCP - General 01/18/18 Edilberto Nance MD [address] [facility] [address] [place] [address] Consulting Physician Cardiology 05/20/22 Rick Coates MD [address] [place] [address] Consulting Physician Otolaryngology 07/31/22
--- OUTSIDE RECORDS SUMMARY | 2025-06-24 19:04 | XMS_ITS | Encounter Summary ---
Author Organization [facility] Address [address] [place] [address] Care Team Providers Care Material Handler Name Role Phone Neil Higgins MD Primary Care Provider [phone] Edilberto Nance MD Unavailable [phone] Rick Coates MD Unavailable [phone] Reason for Visit * Reason Onset Date Comments PAIN CONFERENCE 03/25/2021 Encounter Details Date Type Department Care Team (Late st Contact Info) Description 03/25/2021 Telephone [facility] [address] 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
--- OUTSIDE RECORDS SUMMARY | 2025-06-24 19:04 | XMS_ITS | Clinical Summary ---
Author Organization [facility] Address [address] [place] [address] Care Team Providers Care Transcription Specialist Name Role Phone Neil Higgins MD Primary Care Provider [phone] Allergies Active Allergy Reactions Criticality Noted Date [...] by mouth daily. 30 tablet 2 5 06/06/20 25 Discontin ued(Reord er) Active Problems Problem Noted Date Diagnosed Date Family hx of colon cancer 10/05/2023 Overview (10/05/2023): Added automatically from request for surgery [id number] Incomplete bladder emptying 11/02/2022 OAB (overactive bladder) 11/02/2022 UTI (urinary tract infection) 11/28/2021 Hyponatremia 11/28/2021 Coronary artery disease of n ative artery of [place] heart with stable angina pectoris 09/27/2019 Overview (06/27/2020): Overview: Added automatically from request for surgery [id number] Chest pain 09/27/2019 Overview (06/27/2020): Overview: Added automatically from request for surgery [id number] Parkinsonism ([facility]) 01/26/2018 Temporary cerebral vascular dysfunction 04/09/20 17 [...] Encounters Date Type Department Care Team Description 06/22/2025 Telephone [facility] Multispecialty Care - [facility] [address] [place] [phone] Ghazal Lassiter NP Reschedule 06/06/2025 Orders Only [facility] Emergency Department - [facility] [address] [place] [phone] Kamila Cooper RN 06/06/2025 Telephone [facility] Emergency Department - [facility] [address] [place] [phone] Ghazal Lassiter, MINH Medication 05/14/2025 10:31 AM CDT - 05/14/2025 11:56 AM CDT Hospital Encounter [facility] [address] [place] [address] Eric Waters PA URI Discharge Disposition: Home or Self Care (Routine Discharge) 05/14/2025 Travel from Last 3 Months Immunizations Immunization Administration [...] Disease Brother 1 Heart Disease Brother 2 MS Brother 2 Colon Cancer Brother 3 Heart Disease Brother 3 Heart Disease Father Heart Disease Mother Stroke Mother Heart Disease Sister 1 CVA Sister 2 Heart Disease Sister 2 ckd Sister 2 Heart Disease Sister 3 MS Sister 3 Acute myelogenous leukemia Sister 4 [...] 64.9 kg (143 lb) 11/20/2024 3:53 PM SURVEY RESEARCH PROFESSOR Height 154.9 cm (5' 1) 05/14/2025 10:36 AM CDT Body Mass Index 27.02 11/20/2024 3:53 PM SURVEY RESEARCH PROFESSOR Plan of Treatment Upcoming Encounters Date Type Department Care Team (Latest Contact Info) Description 07/05/2025 9:23 AM CDT Hospital Encounter [facility] [place] [address] Robert Ha DPM [address] [place] [address] [place] [address] 07/05/2025 9:23 AM CDT - 07/05/2025 10:33 AM CDT Surgery [facility] [address] [place] [address] Robert Ha DPM [address] [place] [address] [place] [address] HAMMERTOE REPAIR RIGHT SECOND AND FIFTH TOES 11/13/2025 11:00 AM SURVEY RESEARCH PROFESSOR Office Visit [facility] Multispecialty Care - [facility] [address] [place] [address] Ghazal Lassiter NP [address] [facility] [address] [place] [address] Scheduled Procedures Name Priority Associated Diagnoses Date/Ti me ARTHROPLASTY HAMMER TOE HAMMERTOES RIGHT FOOT M20.41 07/05/2025 9:23 AM CDT Health Maintenance Due Date Last Done Comments ASCVD LDL 1951 ASCVD Statin 1951 Hepatitis C 1969 Mammogram Screening 1991 RSV Immunization or 60+ Years (1 - Risk 60-74 years 1-dose series) 2011 Annual Medicare Wellness Visit 2016 Dexa Scan (General) 2016 COVID-19 Vaccine ( season) 2024 12/19/2021, 01/27/2021, 12/30/2020 PHQ-2 (Physician [place]) 11/29/2024 11/20/2024 DTaP, Tdap and Td Vaccines [...] this topic Medical Devices Implanted Type Area Counselor Dormitory Device Identifier Shelf Expiration Date Model / Serial / Lot Knee Components Knee Components Stent Ureteral Naches Sci Contour 6fr X 28cm - [id number] Implanted:Qty : 1 on 01/13/2022 by Frantz Batista MD at [facility] Stent Left: Ureter [employer] REYNA [id number] 09/08/2024 [id number] / / [id number] Procedures Procedure Name Priority Date/Time Associated Diagnosis Comments XR CHEST PA+LAT STAT 05/14/2025 10:53 AM CDT STREP A RAPID STAT 05/14/2025 10:43 AM CDT COLONOSCOPY Routine 11/04/2023 9:58 AM SURVEY RESEARCH PROFESSOR from Last 3 Months or Most Recently Relevant to Health Maintenance Results * XR CHEST PA+LAT (05/14/2025 10:53 AM CDT) Anatomical Region Laterality Modality Chest Radiographic Almita ging 05/14/2025 10:5 7 AM CDT Impressions 05/14/2025 11:01 AM CDT IMPRESSION: No acute pulmonary infiltrate or consolidation. Ordered By: ERIC WATERS Interpreted By: Gianfranco Wright, 05/14/2025 10:57 AM Narrative 05/14/2025 11:01 AM CDT [address] [address] IMAGING STUDIES: XR CHEST PA+LAT DATE: 05/14/2025 [...] Procedure Note Gianfranco Wright MD - 05/14/2025 [place] [address] IMAGING STUDIES: XR CHEST PA+LATDATE: 05/14/2025 10:46 [...] SPECIMEN TYPE THROAT 05/14/2025 10:43 AM CDT [facility] RAPID STREP TEST NEGATIVE NEGATIVE 05/14/2025 10:57 AM CDT [facility] STRUCTURE OF ANTERIOR PORTION OF NECK / Unknown 05/14/2025 10:43 AM CDT us Eric RODRIGUEZ MICROBIOLOGY - GENERAL ORD ERABLES Final Result [address] [address], from Last 3 Months Insurance MEDICARE [facility] [employer] [facility] Advance Directives * Full Code (Latest Code Status on File) Date Activated Date Inactivated Comments 01/13/2022 1:00 PM 01/13/2022 5:16 PM * Full Code Date Activated Date Inactivated Comments 11/29/2021 2:30 PM 11/30/2021 6:41 PM Care Teams Transcription Specialist Relationship Specialty Start Date End Date Neil Higgins MD [address] [facility] [address] [place] [address] PCP - General 11/07/16
--- OUTSIDE RECORDS SUMMARY | 2025-06-24 19:04 | XMS_ITS | Encounter Summary ---
Author Organization [facility] Care Team Providers Care In Flight Refueling Operator Name Role Phone Neil Higgins MD Primary Care Provider [phone] Neil Higgins MD Primary Care Provider [phone] Edilberto Nance MD Unavailable [phone] Rick Coates MD Unavailable Encounter Details Date Type Department Care Team (Latest Contact Info) Description 06/24/2017 Orders Only [facility] ProviderSolo MD [address] [place] [address] Social History Tobacco Use Types Packs/Day Years Used Date Smoking Tobacco: Never Assessed Comments Unknown Sex and Gender Information Value Date Recorded Sex Assigned at Not on file 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 Gender Identity Female 08/25/2021 8:49 PM CDT [...] on filedocumented in this encounter Care Teams In Flight Refueling Operator Relationship Specialty Start Date End Date Neil Higgins MD [address] [place] [address] PCP - General 02/16/17 01/17/18 Neil Higgins MD [address] [facility] [address] [place] [address] PCP - General 01/18/18 Edilberto Nance MD [address] [facility] [address] [place] [address] Consulting Physician Cardiology 05/20/22 Rick Coates MD [address] [place] [address] Consulting Physician Otolaryngology 07/31/22 documented as of this encounter
--- OUTSIDE RECORDS SUMMARY | 2025-06-24 19:04 | XMS_ITS | Encounter Summary ---
Author Organization [facility] Address [address] [place] [address] Phone Care Team Providers Care Sales Representative Health Insurance Name Role Phone Neil Higgins MD Primary Care Provider [phone] Edilberto Nance MD Unavailable [phone] Rick Coates MD Unavailable Encounter Details Date Type Department Care Team (Late st Contact Info) Description 01/31/2018 Orders Only [facility] ProviderSolo MD [address] [place] [id number] Social History Tobacco Use Types Packs/Day Years Used Date Smoking Tobacco: Never Assessed Comments Unknown Sex and Gender Information Value Date Recorded Sex Assigned at Not on file 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 Gender Identity Female 08/25/2021 8:49 PM CDT Sexual Orientation Straight 08/25/2021 8: 49 PM CDT documented as of this encounter Plan of Treatment Not on file documented as of this encounter Procedures Procedure Name Priority Date/Time Associated Diagnosis Comments VLWU CAROTID DUPLEX SCAN COMPLETE BILATERAL 01/31/2018 12:00 AM LEATHER DRESSER documented in this encounter Results * VLWU CAROTID DUPLEX SCAN COMPLETE BILATERAL (01/31/2018 12:00 AM LEATHER DRESSER) Anatomical Region Laterality Modality Vascular Bilateral Ultrasound Narrative 01/31/2018 12:00 AM LEATHER DRESSER Ordered by an unspecified provider. Historical Provider CV VASCULAR PROCEDURES Fi nal Result documented in this encounter Visit Diagnoses Not on filedocumented in this encounter Care Teams Sales Representative Health Insurance Relationship Specialty Start Date End Date Neil Higgins MD [address] [place] [address] PCP - General 01/18/18 Edilberto Nance MD [address] [place] [address] Consulting Physician Cardiology 05/20/22 Rick Coates MD [address] [place] [address] Consulting Physician Otolaryngology 07/31/22 documented as of this encounter
[2025-06-24 19:05] VITALS: BP 139/55; PULSE 70; RESP 16; TEMP 36.4; O2SAT 100
--- OUTSIDE RECORDS SUMMARY | 2025-06-24 19:05 | XMS_ITS | Data Portability ---
Author Organization [facility], [employer] Address [address] [facility] [address] [place] [address] Care Team Providers Care Well Driller Helper Name Role Phone ADAMARIS SNOWDEN Software Reverse Engineer STEPHANIE CAMACHO Neurologist JORGE LUIS CAMACHO Pill Machine Operator BARBER JOSEPH Stores Despatch Hand ALIX FLOREZ Logistics Program Manager Assessment Encounter Date Assessment Date Assessment LastModified [...] Details Appointments ESTABLISH ED PATIENT 15 2024 11:30A M Neil Higgins MD Not available Not available Not available ESTABLISH ED PATIENT 15 2024 01:30P Shirley Higgins MD Not available Not available Not available Lab iron panel, serum or plasma 2024 025 INTERFACE Slide [facility], [address], [address], 06/14/2025 08:09:20 phosphoru s, serum or plasma 2024 025 qunb [facility], [address], [address], 06/14/2025 08:09:16 PTH (parathyr oid hormone), intact, serum or plasma 2024 025 VENKATALecere [facility], [address], [address], 06/14/2025 08:09:20 uric acid, serum or plasma 2024 025 qunb [facility], [address], [address], 06/14/2025 08:09:17 vitamin D, 25-hydrox y, total, serum 2024 025 VENKATALecere [facility], [address], [address], 06/14/2025 08:09:20 CBC w/ auto diff 2024 025 [employer]ENKATAP[place] [employer] [facility], [address] [address], [place], [address], 06/14/2025 08:09:19 lipid panel, serum 2024 025 [facility] [employer], [address] [address], [place], [address], 06/14/2025 08:09:14 CMP, serum or plasma 2024 025 [employer] [facility], [address] [address], [place], [address], 06/14/2025 08:09:18 microalbu min/creat inine, mass ratio, urine 2024 025 [employer] [facility], [address] [address], [place], [address], 06/14/2025 08:09:15 iron panel, serum or plasma 2023 024 [facility], [address] [address], [place], [address], 11/09/2024 06:53:13 phosphoru s, serum or plasma 2023 024 [employer] [employer] [facility], [address] [address], [place], [address], 11/09/2024 06:53:08 PTH (parathyr oid hormone), intact, serum or plasma 2023 024 [employer] [employer] [facility], [address] [address], [place], [address], 11/09/2024 06:53:12 uric acid, serum or plasma 2023 024 [facility] [employer] [facility], [address], [place], [address], 11/09/2024 06:53:09 vitamin D, 25-hydrox y, total, serum 2023 [facility], [address], [place], [address], 11/09/2024 06:53:13 CBC w/ auto diff 2023 [facility], [address], [place], [address], 11/09/2024 06:53:12 microalbu min/creat inine, mass ratio, urine 2023 [facility] [facility], [address], [place], [address], 11/09/2024 06:53:07 lipid panel, serum 2023 024 [facility], [address], [place], [address], 11/09/2024 06:53:06 CMP, serum or plasma 2023 024 [facility], [address], [place], [address], 11/09/2024 06:53:11 iron panel, serum or plasma 2023 024 INTERFACE [facility], [address], [place], [address], 05/09/2024 11:07:59 phosphoru s, serum or plasma 2023 024 [facility] [facility], [address], [place], [address], 05/09/2024 11:07:51 PTH (parathyr oid hormone), intact, serum or plasma 2023 024 VENKATALecere [facility], [address], [address], 05/09/2024 11:07:57 uric acid, serum or plasma 2023 024 VENKATALecere [facility], [address], [address], 05/09/2024 11:07:52 vitamin D, 25-hydrox y, total, serum 2023 024 VENKATALecere [facility], [address], [address], 05/09/2024 11:07:59 CBC w/ auto diff 2023 024 qunb [facility], [address], [address], 05/09/2024 11:07:56 lipid panel, serum 2023 024 qunb [facility], [address], [address], 05/09/2024 11:07:48 CMP, serum or plasma 2023 024 qunb [facility], [address], [address], 05/09/2024 11:07:55 microalbu min/creat inine, mass ratio, urine 2023 024 qunb [facility], [address], [address], 05/09/2024 11:07:49 Referral gynecolog ist referral 2024 025 [email or web address] [facility], [address] [place], [address], 05/22/2025 08:03:44 physical therapist referral 2024 025 guillermo [facility], [address], [place], [address], 05/22/2025 08:03:43 physical therapist referral 2023 024 guillermo [facility], [address], [place], [address], 11/21/2024 08:09:09 physical therapist referral 2023 024 wilton [facility], [address], [place], [address], 05/23/2024 17:09:52 otolaryng ologist referral 2023 024 guillermo Coates MD, [address], [place], [address], 04/25/2024 11:22:42 Procedures None recorded. Surgeries None recorded. Imaging MAMMO, screening , digital, bilateral [email or web address] [place] [address], [address] [place] [address], [address], 05/01/2025 08:09:26 CT, sinuses, w/o contrast 2023 024 guillermo [facility] Patient Access Centralized Scheduling, Centralized Scheduling, [address] [facility] [place], [address], 01/31/2024 08:37:24 Medication Orders Lidoderm 5 % topical patch 2024 025 VENKATA [facility], [address] [place] [address], [address], 04/24/2025 13:37:47 Lidoderm 5 % topical patch 2023 024 VENKATA [facility], [address] [place] [address], [place], [address], 10/31/2024 15:40:18 Lidoderm 5 % topical patch 2023 024 [email or web address] Not available 04/25/2024 17:12:24 Mucinex 1,200 mg tablet, extended release [address], [address] [place] [address], [address], 01/17/2025 22:54:38 Medrol (Thomas) 4 mg tablets in a dose pack [address], [address] [place] [address], [place], [address], 06/15/2025 07:42:56 Patient TargetsNo targets recorded. Patient Instructions Encounter Date Encounter Id Patient Instructions Last Modified By Organization Details Last Modified Time 04/25/2024 [id number] medicare preventive services guide Not available 04/25/2024 17:11:27 advance care planning: care instructions Not available 04/25/2024 17:11:27 advised to lose weight Not available 04/25/2024 17:11:27 Discussed and explained advance directives such as standard forms to the . Face to face discussion lasted for a duration of ___ minutes. 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 fo r Otalgia of right ear Referring Physician: Neil Higgins, Internal Medicine, Encounter Date: 01/24/2024 Physical Therapist Referral for Proximal muscle weakness Referring Physician: Neil Higgins Internal Medicine, Encounter Date: 04/25/2024 Physical Therapist Referral for Proximal muscle weakness Referring Physician: Neil Higgins Internal Medicine, Encounter Date: 10/24/2024 Physical Therapist Referral for Proximal muscle weakness Referring Physician: Neil Higgins Internal Medicine, Encounter Date: 04/24/2025 Finish Molder Referral for Gy necologic examination Referring Physician: Neil Higgins Internal Medicine, Encounter Date: 04/24/2025 Results Created Date Observation Date Name Description Value Unit Range Abnormal Flag Note LastModifiedBy Organization Detail LastModifiedTime 12/27/1912/28/2023 LIPID PANEL , STAND SAMIA cholesterol, total 129 mg/dL <200 normal Not Available [address], [address], 12/28/2023 11:28:37 12/27/1912/28/2023 LIPID PANEL , STAND SAMIA HDL cholesterol 34 mg/dL > or = 50 low Not Available [facility] [address] [place], [address], 12/28/2023 11:28:37 12/27/1912/28/2023 LIPID PANEL , STAND SAMIA triglyceride s 144 mg/dL <150 normal Not Available [facility] [address] [place], [address], 12/28/2023 11:28:37 12/27/1912/28/2023 LIPID PANEL , STAND SAMIA LDL-choleste rol 72 mg/dL _(kasia c) normal Refer ence range : <100 Morgan able range <100 mg/dL for prima ry preve ntion ; <70 mg/dL for patie nts with CHD or diabe tic patie nts with > or = 2 CHD risk facto rs. LDL-C is now calcu lated using the Myriam n-Hop kins june cano n, which is a valid ated novel [place] link the Fried lacie equat ion in the estim ation of LDL-C . Myriam n SS et al. CHARI. 2013; 310(1 9): 2061- 2068 (http ://ed casimiroati on.Jared Tomas asuncioneliz HomeTouch. com/f aq/FA Q164) Not Available [address], [address], 12/28/2023 11:28:37 12/27/19 24 12/28/2023 LIPID PANEL , STAND SAMIA chol/HDLC ratio 3.8 (calc ) <5.0 normal Not Available [address] [address] [place], [address], 12/28/2023 11:28:37 12/27/19 24 12/28/2023 LIPID PANEL , STAND SAMIA non HDL cholesterol 95 mg/dL _(kasia c) <130 normal For patie nts with diabe arnel plus 1 major ASCVD risk facto r, treat ing to a non-H DL-C goal of <100 mg/dL (LDL- C of <70 mg/dL ) is consi cherrie woodso n. Not Available [address] [address] [place], [address], 12/28/2023 11:28:37 12/27/19 24 12/28/2023 ALBUM IN, RANDO M URINE W/CRE ATINI NE creatinine, random urine 34 mg/dL 20-275 normal Not Available [address] [address] [place], [address], 12/28/2023 11:28:38 12/27/19 24 12/28/2023 ALBUM IN, RANDO M URINE W/CRE ATINI NE albumin, urine 0.2 mg/dL see note: normal Refer ence Range : Refer ence Range Not estab lishe d Not Available [address] [address] [place], [address], 12/28/2023 11:28:38 12/27/19 24 12/28/2023 ALBUM IN, [...] a diagn ostic categ ory. Not Available [facility] [address], [address], 12/28/2023 11:28:38 12/27/19 24 12/28/2023 PHOSP HATE ( PHOSP HORUS ) phosphate ( phosphorus) 3.9 mg/dL 2.1-4. 3 normal Not Available [facility] [address], [address], 12/28/2023 11:28:40 12/27/19 24 12/28/2023 URIC ACID uric acid 3.6 mg/dL 2.5-7. 0 normal Thera peuti c targe t for gout patie nts: <6.0 mg/dL Not Available [facility] [address] [place], [address], 12/28/2023 11:28:41 12/27/19 24 12/28/2023 IRON AND TOTAL IRON NINA NG CAPAC ITY iron, total 68 mcg/d L 45-160 normal Not Available [facility] [address], [address], 12/28/2023 11:28:42 12/27/19 24 12/28/2023 IRON AND TOTAL IRON NINA NG CAPAC ITY iron binding capacity 267 mcg/d L_(ca lc) 250-45 0 normal Not Available [address], [address], 12/28/2023 11:28:42 12/27/19 24 12/28/2023 IRON AND TOTAL IRON NINA NG CAPAC ITY % saturation 25 %_(ca lc) 16-45 normal Not Available [address], [address], 12/28/2023 11:28:42 12/27/19 24 12/28/2023 COMPR EHENS CARLOS METAB OLIC PANEL glucose 113 mg/dL 65-99 high Fasti ng refer ence inter ninoska For someo ne witho ut known diabe arnel, a gluco se value betwe en 100 and 125 mg/dL is consi stent with predi abete s and shoul d be confi rmed with a follo w-up test. Not Available [address], [address], 12/28/2023 11:28:43 12/27/19 24 12/28/2023 COMPR EHENS CARLOS METAB OLIC PANEL urea nitrogen (BUN) 11 mg/dL 7-25 normal Not Available [address], [address], 12/28/2023 11:28:43 12/27/19 24 12/28/2023 COMPR EHENS CARLOS METAB OLIC PANEL creatinine 1.11 mg/dL 0.60-1 .00 high Not Available [address], [address], 12/28/2023 11:28:43 12/27/19 24 12/28/2023 COMPR EHENS CARLOS METAB OLIC PANEL eGFR 53 mL/mi n/1.7 3m2 > or = 60 low Not Available [address], [address], 12/28/2023 11:28:43 12/27/19 24 12/28/2023 COMPR EHENS CARLOS METAB OLIC PANEL BUN/creatini ne ratio 10 (calc ) 6-22 normal Not Available [address], [address], 12/28/2023 11:28:43 12/27/19 24 12/28/2023 COMPR EHENS CARLOS METAB OLIC PANEL sodium 131 mmol/ L 135-14 6 low Not Available [address], [address], 12/28/2023 11:28:43 12/27/19 24 12/28/2023 COMPR EHENS CARLOS METAB OLIC PANEL potassium 4.9 mmol/ L 3.5-5. 3 normal Not Available [address], [address], 12/28/2023 11:28:43 12/27/19 24 12/28/2023 COMPR EHENS CARLOS METAB OLIC PANEL chloride 98 mmol/ L 98-110 normal Not Available [address], [address], 12/28/2023 11:28:43 12/27/19 24 12/28/2023 COMPR EHENS CARLOS METAB OLIC PANEL carbon dioxide 29 mmol/ L 20-32 normal Not Available [address], [address], 12/28/2023 11:28:43 12/27/19 24 12/28/2023 COMPR EHENS CARLOS METAB OLIC PANEL calcium 9.7 mg/dL 8.6-10 .4 normal Not Available [address], [address], 12/28/2023 11:28:43 12/27/19 24 12/28/2023 COMPR EHENS CARLOS METAB OLIC PANEL protein, total 6.6 g/dL 6.1-8. 1 normal Not Available [address], [place], [address], 12/28/2023 11:28:43 12/27/19 24 12/28/2023 COMPR EHENS CARLOS METAB OLIC PANEL albumin 4.5 g/dL 3.6-5. 1 normal Not Available [address], [address], 12/28/2023 11:28:43 12/27/19 24 12/28/2023 COMPR EHENS CARLOS METAB OLIC PANEL globulin 2.1 g/dL_ (calc ) 1.9-3. 7 normal Not Available [address], [address], 12/28/2023 11:28:43 12/27/19 24 12/28/2023 COMPR EHENS CARLOS METAB OLIC PANEL albumin/glob ulin ratio 2.1 (calc ) 1.0-2. 5 normal Not Available [address] [address] [place], [address], 12/28/2023 11:28:43 12/27/19 24 12/28/2023 COMPR EHENS CARLOS METAB OLIC PANEL bilirubin, total 0.4 mg/dL 0.2-1. 2 normal Not Available [address], [address], 12/28/2023 11:28:43 12/27/19 24 12/28/2023 COMPR EHENS CARLOS METAB OLIC PANEL alkaline phosphatase 99 U/L 37-153 normal Not Available [facility] [employer] [address] [address] [place], [address], 12/28/2023 11:28:43 12/27/19 24 12/28/2023 COMPR EHENS CARLOS METAB OLIC PANEL AST 11 U/L 10-35 normal Not Available [address], [address], 12/28/2023 11:28:43 12/27/19 24 12/28/2023 COMPR EHENS CARLOS METAB OLIC PANEL ALT 10 U/L 6-29 normal Not Available [facility] [address] [place], [address], 12/28/2023 11:28:43 12/27/19 24 12/28/2023 PTH, INTAC [...] or Low Jackie l High Not Available [address] [address] [place], [address], 12/28/2023 11:28:44 12/27/19 24 12/28/2023 VITAM IN [...] /MS is recom claudia d: order code 89470 (sohan ents >2yrs ). See Note 1 Note 1 For addit ional infor caty haney e refer to http: //giles bustos.Leon Reddyia gnost ics.c om/fa q/FAQ 199 (This link is being provi ded for infor mindi nal/ educa alyx l purpo ses only. ) Not Available [address], [address], 12/28/2023 11:28:46 05/08/20 24 05/09/2024 LIPID PANEL , STAND SAMIA cholesterol, total 117 mg/dL <200 normal Not Available [address], [address], 05/09/2024 11:07:48 05/08/20 24 05/09/2024 LIPID PANEL , STAND SAMIA HDL cholesterol 30 mg/dL > or = 50 low Not Available [address], [address], 05/09/2024 11:07:48 05/08/20 24 05/09/2024 LIPID PANEL , STAND SAMIA triglyceride s 192 mg/dL <150 high Not Available [address], [address], 05/09/2024 11:07:48 05/08/20 24 05/09/2024 LIPID PANEL [...] n, which is a valid ated novel [place] mai than the Clarissa carlsonat ion in the estim ation of LDL-C . Myriam bustos SS et al. CHARI. 2013; 310(1 9): 2061- 2068 (http ://ed ucati on.Qu estDi ividences. com/f aq/FA Q164) Not Available [address], [address], 05/09/2024 11:07:48 05/08/20 24 05/09/2024 LIPID PANEL , STAND SAMIA chol/HDLC ratio 3.9 (calc ) <5.0 normal Not Available [address], [address], 05/09/2024 11:07:48 05/08/20 24 05/09/2024 LIPID PANEL , STAND SAMIA non HDL cholesterol 87 mg/dL _(kasia c) <130 normal For patie nts with diabe arnel plus 1 major ASCVD risk facto r, treat ing to a non-H DL-C goal of <100 mg/dL (LDL- C of <70 mg/dL ) is ahsan barnett optio n. Not Available [address] [address] [place], [address], 05/09/2024 11:07:48 05/08/20 24 05/09/2024 ALBUM IN, RANDO M URINE W/CRE ATINI NE creatinine, random urine 36 mg/dL 20-275 normal Not Available [address] [address] [place], [address], 05/09/2024 11:07:49 05/08/20 24 05/09/2024 ALBUM IN, RANDO M URINE W/CRE ATINI NE albumin, urine <0.2 mg/dL see note: normal Refer ence Range : Refer ence Range Not estab lishe d Not Available [address] [address] [place], [address], 05/09/2024 11:07:49 05/08/20 24 05/09/2024 ALBUM IN, [...] a diagn ostic categ ory. Not Available [facility] [address] [address] [place], [address], 05/09/2024 11:07:49 05/08/20 24 05/09/2024 PHOSP HATE ( PHOSP HORUS ) phosphate ( phosphorus) 4.1 mg/dL 2.1-4. 3 normal Not Available [address] [place], [address], 05/09/2024 11:07:51 05/08/20 24 05/09/2024 URIC ACID uric acid 3.3 mg/dL 2.5-7. 0 normal Thera peuti c targe t for gout patie nts: <6.0 mg/dL Not Available [address] [address] [place], [address], 05/09/2024 11:07:52 05/08/20 24 05/09/2024 IRON AND TOTAL IRON NINA NG CAPAC ITY iron, total 73 mcg/d L 45-160 normal Not Available [facility] [address] [address] [place], [address], 05/09/2024 11:07:53 05/08/20 24 05/09/2024 IRON AND TOTAL IRON NINA NG CAPAC ITY iron binding capacity 262 mcg/d L_(ca lc) 250-45 0 normal Not Available [facility] [address] [address] [place], [address], 05/09/2024 11:07:53 05/08/20 24 05/09/2024 IRON AND TOTAL IRON NINA NG CAPAC ITY % saturation 28 %_(ca lc) 16-45 normal Not Available [address], [address], 05/09/2024 11:07:53 05/08/20 24 05/09/2024 COMPR EHENS CARLOS METAB OLIC PANEL glucose 109 mg/dL 65-99 high Fasti ng refer ence inter ninoska For someo ne witho ut known diabe arnel, a gluco se value betwe en 100 and 125 mg/dL is consi stent with predi abete s and shoul d be confi rmed with a follo w-up test. Not Available [address], [address], 05/09/2024 11:07:55 05/08/20 24 05/09/2024 COMPR EHENS CARLOS METAB OLIC PANEL urea nitrogen (BUN) 13 mg/dL 7-25 normal Not Available [address], [address], 05/09/2024 11:07:55 05/08/20 24 05/09/2024 COMPR EHENS CARLOS METAB OLIC PANEL creatinine 1.21 mg/dL 0.60-1 .00 high Not Available [address], [address], 05/09/2024 11:07:55 05/08/20 24 05/09/2024 COMPR EHENS CARLOS METAB OLIC PANEL eGFR 48 mL/mi n/1.7 3m2 > or = 60 low Not Available [address], [address], 05/09/2024 11:07:55 05/08/20 24 05/09/2024 COMPR EHENS CARLOS METAB OLIC PANEL BUN/creatini ne ratio 11 (calc ) 6-22 normal Not Available [address] [place], [address], 05/09/2024 11:07:55 05/08/20 24 05/09/2024 COMPR EHENS CARLOS METAB OLIC PANEL sodium 131 mmol/ L 135-14 6 low Not Available [address], [address], 05/09/2024 11:07:55 05/08/20 24 05/09/2024 COMPR EHENS CARLOS METAB OLIC PANEL potassium 5.3 mmol/ L 3.5-5. 3 normal Not Available [address], [address], 05/09/2024 11:07:55 05/08/20 24 05/09/2024 COMPR EHENS CARLOS METAB OLIC PANEL chloride 96 mmol/ L 98-110 low Not Available [address], [address], 05/09/2024 11:07:55 05/08/20 24 05/09/2024 COMPR EHENS CARLOS METAB OLIC PANEL carbon dioxide 28 mmol/ L 20-32 normal Not Available [address], [address], 05/09/2024 11:07:55 05/08/20 24 05/09/2024 COMPR EHENS CARLOS METAB OLIC PANEL calcium 10.3 mg/dL 8.6-10 .4 normal Not Available [address], [address], 05/09/2024 11:07:55 05/08/20 24 05/09/2024 COMPR EHENS CARLOS METAB OLIC PANEL protein, total 6.7 g/dL 6.1-8. 1 normal Not Available [address], [address], 05/09/2024 11:07:55 05/08/20 24 05/09/2024 COMPR EHENS CARLOS METAB OLIC PANEL albumin 4.4 g/dL 3.6-5. 1 normal Not Available [address], [address], 05/09/2024 11:07:55 05/08/20 24 05/09/2024 COMPR EHENS CARLOS METAB OLIC PANEL globulin 2.3 g/dL_ (calc ) 1.9-3. 7 normal Not Available [address], [address], 05/09/2024 11:07:55 05/08/20 24 05/09/2024 COMPR EHENS CARLOS METAB OLIC PANEL albumin/glob ulin ratio 1.9 (calc ) 1.0-2. 5 normal Not Available [address], [address], 05/09/2024 11:07:55 05/08/20 24 05/09/2024 COMPR EHENS CARLOS METAB OLIC PANEL bilirubin, total 0.5 mg/dL 0.2-1. 2 normal Not Available [address], [address], 05/09/2024 11:07:55 05/08/20 24 05/09/2024 COMPR EHENS CARLOS METAB OLIC PANEL alkaline phosphatase 119 U/L 37-153 normal Not Available [address], [address], 05/09/2024 11:07:55 05/08/20 24 05/09/2024 COMPR EHENS CARLOS METAB OLIC PANEL AST 72 U/L 10-35 high Not Available [address], [address], 05/09/2024 11:07:55 05/08/20 24 05/09/2024 COMPR EHENS CARLOS METAB OLIC PANEL ALT 96 U/L 6-29 high Not Available [address], [address], 05/09/2024 11:07:55 05/08/20 24 05/09/2024 CBC (INCL UDES DIFF/ PLT) white blood cell count 8.2 thous and/u L 3.8-10 .8 normal Not Available [address], [address], 05/09/2024 11:07:56 05/08/20 24 05/09/2024 CBC (INCL UDES DIFF/ PLT) red blood cell count 3.96 safia on/uL 3.80-5 .10 normal Not Available [address], [address], 05/09/2024 11:07:56 05/08/20 24 05/09/2024 CBC (INCL UDES DIFF/ PLT) hemoglobin 12.7 g/dL 11.7-1 5.5 normal Not Available [address], [address], 05/09/2024 11:07:56 05/08/20 24 05/09/2024 CBC (INCL UDES DIFF/ PLT) hematocrit 37.7 % 35.0-4 5.0 normal Not Available [address], [address], 05/09/2024 11:07:56 05/08/20 24 05/09/2024 CBC (INCL UDES DIFF/ PLT) MCV 95.2 fL 80.0-1 00.0 normal Not Available [address], [address], 05/09/2024 11:07:56 05/08/20 24 05/09/2024 CBC (INCL UDES DIFF/ PLT) MCH 32.1 pg 27.0-3 3.0 normal Not Available [address], [address], 05/09/2024 11:07:56 05/08/20 24 05/09/2024 CBC (INCL UDES DIFF/ PLT) MCHC 33.7 g/dL 32.0-3 6.0 normal Not Available [address], [address], 05/09/2024 11:07:56 05/08/20 24 05/09/2024 CBC (INCL UDES DIFF/ PLT) RDW 12.3 % 11.0-1 5.0 normal Not Available [address], [address], 05/09/2024 11:07:56 05/08/20 24 05/09/2024 CBC (INCL UDES DIFF/ PLT) platelet count 379 thous and/u L 140-40 0 normal Not Available [address], [address], 05/09/2024 11:07:56 05/08/20 24 05/09/2024 CBC (INCL UDES DIFF/ PLT) MPV 9.3 fL 7.5-12 .5 normal Not Available [address], [address], 05/09/2024 11:07:56 05/08/20 24 05/09/2024 CBC (INCL UDES DIFF/ PLT) absolute neutrophils 3288 cells /uL 1500-7 800 normal Not Available [address], [address], 05/09/2024 11:07:56 05/08/20 24 05/09/2024 CBC (INCL UDES DIFF/ PLT) absolute lymphocytes 3797 cells /uL 850-39 00 normal Not Available [address], [address], 05/09/2024 11:07:56 05/08/20 24 05/09/2024 CBC (INCL UDES DIFF/ PLT) absolute monocytes 681 cells /uL 200-95 0 normal Not Available [facility] [address], [address], 05/09/2024 11:07:56 05/08/20 24 05/09/2024 CBC (INCL UDES DIFF/ PLT) absolute eosinophils 394 cells /uL 15-500 normal Not Available [facility] [address], [address], 05/09/2024 11:07:56 05/08/20 24 05/09/2024 CBC (INCL UDES DIFF/ PLT) absolute basophils 41 cells /uL 0-200 normal Not Available [facility] [address], [address], 05/09/2024 11:07:56 05/08/20 24 05/09/2024 CBC (INCL UDES DIFF/ PLT) neutrophils 40.1 % normal Not Available [facility] [address], [address], 05/09/2024 11:07:56 05/08/20 24 05/09/2024 CBC (INCL UDES DIFF/ PLT) lymphocytes 46.3 % normal Not Available [facility] [address], [address], 05/09/2024 11:07:56 05/08/20 24 05/09/2024 CBC (INCL UDES DIFF/ PLT) monocytes 8.3 % normal Not Available [facility] [address], [address], 05/09/2024 11:07:56 05/08/20 24 05/09/2024 CBC (INCL UDES DIFF/ PLT) eosinophils 4.8 % normal Not Available [address], [address], 05/09/2024 11:07:56 05/08/20 24 05/09/2024 CBC (INCL UDES DIFF/ PLT) basophils 0.5 % normal Not Available [facility] [address], [address], 05/09/2024 11:07:56 05/08/20 24 05/09/2024 PTH, INTAC [...] or Low Jackie l High Not Available [facility] [address] [address] [place], [address], 05/09/2024 11:07:57 05/08/20 24 05/09/2024 VITAM IN [...] /MS is recom claudia d: order code 56522 (sohan ents >2yrs ). See Note 1 Note 1 For addit ional infor caty haney refer to http: //giles Banegas gnost ics.c om/fa q/FAQ 199 (This link is being provi ded for infor mindi de la cruz/ terri campos purpo ses only. ) Not Available [facility] [id number] [place] [address], [address], 05/09/2024 11:07:58 06/22/20 24 06/22/2024 Strep tococ cus pyoge rajinder Ag [Pres ence] in Throa t specimen source identified THROAT SPECI MEN TYPE THROA T 06/22 4:04 PM CDT [facility] Not Available Not Available 04/09/2025 20:32:00 06/22/20 24 06/22/2024 Strep tococ cus pyoge rajinder Ag [Pres ence] in Throa t streptococcu s pyogenes Ag [presence] in throat NEGATI VE text: negati ve RAPID STREP TEST NEGAT CARLOS NEGAT CARLOS 06/22 4:09 PM CDT [facility] Not Available Not Available 04/09/2025 20:32:00 10/11/20 24 10/11/2024 Influ jerson virus A+B Ag [Pres ence] in Speci men specimen source identified NASOPH ARYNGE AL SWAB SPECI MEN TYPE NASOP HARYN GEAL SWAB 10/11 12:44 PM [facility] Not Available Not Available 04/09/2025 20:51:03 10/11/20 24 10/11/2024 Influ jerson virus A+B Ag [Pres ence] in Speci men influenza virus A Ag [presence] in specimen NEGATI VE text: negati ve INFLU JERSON A NEGAT CARLOS NEGAT CARLOS 10/11 12:52 PM CORE P[facility]ER [facility] Not Available Not Available 04/09/2025 20:51:03 10/11/20 24 10/11/2024 Influ jerson virus A+B Ag [Pres ence] in Speci men haemophilus influenzae B Ag [presence] in specimen NEGATI VE text: negati ve INFLU JERSON B NEGAT CARLOS NEGAT CARLOS 10/11 12:52 PM 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 [facility] Not Available Not Available 04/09/2025 20:51:03 11/08/20 24 11/09/2024 LIPID PANEL , STAND SAMIA cholesterol, total 116 mg/dL <200 normal Not Available [address], [address], 11/09/2024 06:53:06 11/08/20 24 11/09/2024 LIPID PANEL , STAND SAMIA HDL cholesterol 30 mg/dL > or = 50 low Not Available [address], [address], 11/09/2024 06:53:06 11/08/20 24 11/09/2024 LIPID PANEL , STAND SAMIA triglyceride s 113 mg/dL <150 normal Not Available [address], [address], 11/09/2024 06:53:06 11/08/20 24 11/09/2024 LIPID PANEL [...] which is a valid ated novel hildao shawn baldwin r accur acy than the [employer] equat ion in the estim ation of LDL-C . Myriam bustos SS et al. CHARI. 2013; 310(1 9): 2061- 2068 (http ://ed ucati on.Qu Thom UBIKOD. com/f aq/FA Q164) Not Available [address], [address], 11/09/2024 06:53:06 11/08/20 24 11/09/2024 LIPID PANEL , STAND SAMIA chol/HDLC ratio 3.9 (calc ) <5.0 normal Not Available [address] [place], [address], 11/09/2024 06:53:06 11/08/20 24 11/09/2024 LIPID PANEL , STAND SAMIA non HDL cholesterol 86 mg/dL _(kasia c) <130 normal For patie nts with diabe arnel plus 1 major ASCVD risk facto r, treat ing to a non-H DL-C goal of <100 mg/dL (LDL- C of <70 mg/dL ) is consi dered a thera peuti c optio n. Not Available [address] [address] [place], [address], 11/09/2024 06:53:06 11/08/20 24 11/09/2024 ALBUM IN, RANDO M URINE W/CRE ATINI NE creatinine, random urine 58 mg/dL 20-275 normal Not Available [facility] [address] [address] [place], [address], 11/09/2024 06:53:07 11/08/20 24 11/09/2024 ALBUM IN, RANDO M URINE W/CRE ATINI NE albumin, urine 0.2 mg/dL see note: normal Refer ence Range : Refer ence Range Not estab lishe d Not Available [address] [address] [address], [place], [address], 11/09/2024 06:53:07 11/08/20 24 11/09/2024 ALBUM IN, [...] a diagn ostic categ ory. Not Available [address], [address], 11/09/2024 06:53:07 11/08/20 24 11/09/2024 PHOSP HATE ( PHOSP HORUS ) phosphate ( phosphorus) 3.3 mg/dL 2.1-4. 3 normal Not Available [address], [address], 11/09/2024 06:53:08 11/08/20 24 11/09/2024 URIC ACID uric acid 3.4 mg/dL 2.5-7. 0 normal Thera peuti c targe t for gout patie nts: <6.0 mg/dL Not Available [address], [address], 11/09/2024 06:53:09 11/08/20 24 11/09/2024 IRON AND TOTAL IRON NINA NG CAPAC ITY iron, total 61 mcg/d L 45-160 normal Not Available [address], [address], 11/09/2024 06:53:10 11/08/20 24 11/09/2024 IRON AND TOTAL IRON NINA NG CAPAC ITY iron binding capacity 286 mcg/d L_(ca lc) 250-45 0 normal Not Available [address], [address], 11/09/2024 06:53:10 11/08/20 24 11/09/2024 IRON AND TOTAL IRON NINA NG CAPAC ITY % saturation 21 %_(ca lc) 16-45 normal Not Available [address], [address], 11/09/2024 06:53:10 11/08/20 24 11/09/2024 COMPR EHENS CARLOS METAB OLIC PANEL glucose 95 mg/dL 65-99 normal Fasti ng refer ence inter ninoska Not Available [address], [address], 11/09/2024 06:53:11 11/08/20 24 11/09/2024 COMPR EHENS CARLOS METAB OLIC PANEL urea nitrogen (BUN) 14 mg/dL 7-25 normal Not Available [address], [address], 11/09/2024 06:53:11 11/08/20 24 11/09/2024 COMPR EHENS CARLOS METAB OLIC PANEL creatinine 1.61 mg/dL 0.60-1 .00 high Not Available [address], [address], 11/09/2024 06:53:11 11/08/20 24 11/09/2024 COMPR EHENS CARLOS METAB OLIC PANEL eGFR 34 mL/mi n/1.7 3m2 > or = 60 low Not Available [address], [address], 11/09/2024 06:53:11 11/08/20 24 11/09/2024 COMPR EHENS CARLOS METAB OLIC PANEL BUN/creatini ne ratio 9 (calc ) 6-22 normal Not Available [address], [address], 11/09/2024 06:53:11 11/08/20 24 11/09/2024 COMPR EHENS CARLOS METAB OLIC PANEL sodium 137 mmol/ L 135-14 6 normal Not Available [address], [address], 11/09/2024 06:53:11 11/08/20 24 11/09/2024 COMPR EHENS CARLOS METAB OLIC PANEL potassium 4.4 mmol/ L 3.5-5. 3 normal Not Available [address], [address], 11/09/2024 06:53:11 11/08/20 24 11/09/2024 COMPR EHENS CARLOS METAB OLIC PANEL chloride 104 mmol/ L 98-110 normal Not Available [address], [address], 11/09/2024 06:53:11 11/08/20 24 11/09/2024 COMPR EHENS CARLOS METAB OLIC PANEL carbon dioxide 27 mmol/ L 20-32 normal Not Available [address], [address], 11/09/2024 06:53:11 11/08/20 24 11/09/2024 COMPR EHENS CARLOS METAB OLIC PANEL calcium 9.3 mg/dL 8.6-10 .4 normal Not Available [address], [address], 11/09/2024 06:53:11 11/08/20 24 11/09/2024 COMPR EHENS CARLOS METAB OLIC PANEL protein, total 6.6 g/dL 6.1-8. 1 normal Not Available [address], [address], 11/09/2024 06:53:11 11/08/20 24 11/09/2024 COMPR EHENS CARLOS METAB OLIC PANEL albumin 4.2 g/dL 3.6-5. 1 normal Not Available [address], [address], 11/09/2024 06:53:11 11/08/20 24 11/09/2024 COMPR EHENS CARLOS METAB OLIC PANEL globulin 2.4 g/dL_ (calc ) 1.9-3. 7 normal Not Available [address], [address], 11/09/2024 06:53:11 11/08/20 24 11/09/2024 COMPR EHENS CARLOS METAB OLIC PANEL albumin/glob ulin ratio 1.8 (calc ) 1.0-2. 5 normal Not Available [address], [address], 11/09/2024 06:53:11 11/08/20 24 11/09/2024 COMPR EHENS CARLOS METAB OLIC PANEL bilirubin, total 0.4 mg/dL 0.2-1. 2 normal Not Available [address], [address], 11/09/2024 06:53:11 11/08/20 24 11/09/2024 COMPR EHENS CARLOS METAB OLIC PANEL alkaline phosphatase 98 U/L 37-153 normal Not Available [facility] [employer] [address], [address], 11/09/2024 06:53:11 11/08/20 24 11/09/2024 COMPR EHENS CARLOS METAB OLIC PANEL AST 12 U/L 10-35 normal Not Available [address], [address], 11/09/2024 06:53:11 11/08/20 24 11/09/2024 COMPR EHENS CARLOS METAB OLIC PANEL ALT 24 U/L 6-29 normal Not Available [address], [address], 11/09/2024 06:53:11 11/08/20 24 11/09/2024 CBC (INCL UDES DIFF/ PLT) white blood cell count 6.4 thous and/u L 3.8-10 .8 normal Not Available [address], [address], 11/09/2024 06:53:11 11/08/20 24 11/09/2024 CBC (INCL UDES DIFF/ PLT) red blood cell count 3.55 safia on/uL 3.80-5 .10 low Not Available [address] [place], [address], 11/09/2024 06:53:11 11/08/20 24 11/09/2024 CBC (INCL UDES DIFF/ PLT) hemoglobin 11.5 g/dL 11.7-1 5.5 low Not Available [address], [address], 11/09/2024 06:53:11 11/08/20 24 11/09/2024 CBC (INCL UDES DIFF/ PLT) hematocrit 34.3 % 35.0-4 5.0 low Not Available [facility] [address], [address], 11/09/2024 06:53:11 11/08/20 24 11/09/2024 CBC (INCL UDES DIFF/ PLT) MCV 96.6 fL 80.0-1 00.0 normal Not Available [address], [address], 11/09/2024 06:53:11 11/08/20 24 11/09/2024 CBC (INCL UDES DIFF/ PLT) MCH 32.4 pg 27.0-3 3.0 normal Not Available [address], [address], 11/09/2024 06:53:11 11/08/20 24 11/09/2024 CBC (INCL UDES DIFF/ PLT) MCHC 33.5 g/dL 32.0-3 6.0 normal For adult s, a sligh t decre ase in the calcu lated MCHC value (in the range of 30 to 32 g/dL) is most likel y not clini mindy bradley t; beverly er, it shoul d be inter prete d with cauti on in [facility] n with other red cell doris eters and the patie nt's clini kasia condi tion. Not Available [facility] [address], [address], 11/09/2024 06:53:11 11/08/20 24 11/09/2024 CBC (INCL UDES DIFF/ PLT) RDW 12.5 % 11.0-1 5.0 normal Not Available [address], [address], 11/09/2024 06:53:11 11/08/20 24 11/09/2024 CBC (INCL UDES DIFF/ PLT) platelet count 335 thous and/u L 140-40 0 normal Not Available [address], [address], 11/09/2024 06:53:11 11/08/20 24 11/09/2024 CBC (INCL UDES DIFF/ PLT) MPV 9.3 fL 7.5-12 .5 normal Not Available [address], [address], 11/09/2024 06:53:11 11/08/20 24 11/09/2024 CBC (INCL UDES DIFF/ PLT) absolute neutrophils 2886 cells /uL 1500-7 800 normal Not Available [address], [address], 11/09/2024 06:53:11 11/08/20 24 11/09/2024 CBC (INCL UDES DIFF/ PLT) absolute lymphocytes 2701 cells /uL 850-39 00 normal Not Available [address], [address], 11/09/2024 06:53:11 11/08/20 24 11/09/2024 CBC (INCL UDES DIFF/ PLT) absolute monocytes 461 cells /uL 200-95 0 normal Not Available [address], [address], 11/09/2024 06:53:11 11/08/20 24 11/09/2024 CBC (INCL UDES DIFF/ PLT) absolute eosinophils 250 cells /uL 15-500 normal Not Available [address], [address], 11/09/2024 06:53:11 11/08/20 24 11/09/2024 CBC (INCL UDES DIFF/ PLT) absolute basophils 102 cells /uL 0-200 normal Not Available [address], [address], 11/09/2024 06:53:11 11/08/20 24 11/09/2024 CBC (INCL UDES DIFF/ PLT) neutrophils 45.1 % normal Not Available [address], [address], 11/09/2024 06:53:11 11/08/20 24 11/09/2024 CBC (INCL UDES DIFF/ PLT) lymphocytes 42.2 % normal Not Available [address], [address], 11/09/2024 06:53:11 11/08/20 24 11/09/2024 CBC (INCL UDES DIFF/ PLT) monocytes 7.2 % normal Not Available [address], [address], 11/09/2024 06:53:11 11/08/20 24 11/09/2024 CBC (INCL UDES DIFF/ PLT) eosinophils 3.9 % normal Not Available [address], [address], 11/09/2024 06:53:11 11/08/20 24 11/09/2024 CBC (INCL UDES DIFF/ PLT) basophils 1.6 % normal Not Available [address], [address], 11/09/2024 06:53:11 11/08/20 24 11/09/2024 PTH, INTAC [...] ry Jackie l or High High Secon pnig High Jackie l or Low Terti katy High High Non-P nuzhat yroid Hyper calce eugenia Low or Low Jackie l High Not Available [facility] [place] [address] [address] [place], [address], 11/09/2024 06:53:12 11/08/20 24 11/09/2024 VITAM IN [...] D, (D2,D 3), LC/MS /MS is recom claduia d: order code 55252 (sohan ents >2yrs ). See Note 1 Note 1 For addit ional infor caty haney refer to http: //giles bustos.Leon stDia gnost ics.c om/fa q/FAQ 199 (This link is being provi ded for infor mindi de la cruz/ terri campos purpo ses only. ) Not Available [facility] [address] [place], [address], 11/09/2024 06:53:13 12/06/19 25 12/07/2024 BASIC METAB OLIC PANEL glucose 116 mg/dL 65-99 high Fasti ng refer ence inter ninoska For someo ne witho ut known diabe arnel, a gluco se value betwe en 100 and 125 mg/dL is consi stent with predi abete s and shoul d be confi rmed with a follo w-up test. Not Available [address], [address], 12/07/2024 06:17:16 12/06/1912/07/2024 BASIC METAB OLIC PANEL urea nitrogen (BUN) 16 mg/dL 7-25 normal Not Available [address], [address], 12/07/2024 06:17:16 12/06/1912/07/2024 BASIC METAB OLIC PANEL creatinine 1.25 mg/dL 0.60-1 .00 high Not Available [address], [address], 12/07/2024 06:17:16 12/06/1912/07/2024 BASIC METAB OLIC PANEL eGFR 46 mL/mi n/1.7 3m2 > or = 60 low Not Available [address], [address], 12/07/2024 06:17:16 12/06/1912/07/2024 BASIC METAB OLIC PANEL BUN/creatini ne ratio 13 (calc ) 6-22 normal Not Available [address], [address], 12/07/2024 06:17:16 12/06/1912/07/2024 BASIC METAB OLIC PANEL sodium 136 mmol/ L 135-14 6 normal Not Available [address], [address], 12/07/2024 06:17:16 12/06/1912/07/2024 BASIC METAB OLIC PANEL potassium 4.5 mmol/ L 3.5-5. 3 normal Not Available [address], [address], 12/07/2024 06:17:16 12/06/1912/07/2024 BASIC METAB OLIC PANEL chloride 102 mmol/ L 98-110 normal Not Available [address], [address], 12/07/2024 06:17:16 12/06/1912/07/2024 BASIC METAB OLIC PANEL carbon dioxide 27 mmol/ L 20-32 normal Not Available [address], [address], 12/07/2024 06:17:16 12/06/1912/07/2024 BASIC METAB OLIC PANEL calcium 9.6 mg/dL 8.6-10 .4 normal Not Available [address], [address], 12/07/2024 06:17:16 12/06/1912/07/2024 TSH+F REE T4 TSH 1.59 mIU/L 0.40-4 .50 normal Not Available [address], [address], 12/07/2024 08:55:04 12/06/1912/07/2024 TSH+F REE T4 T4, free 1.1 NG/dL 0.8-1. 8 normal Not Available [address], [address], 12/07/2024 08:55:04 12/06/1912/07/2024 RETIC ULOCY TE COUNT reticulocyte count, automated 1.6 % normal Not Available [address], [address], 12/07/2024 08:55:06 12/06/1912/07/2024 RETIC ULOCY TE COUNT reticulocyte , absolute 40915 cells /uL [address] normal Not Available [address] [place], [address], 12/07/2024 08:55:06 12/06/1912/07/2024 VITAM IN B12/F OLATE , SERUM PANEL vitamin B12 1103 pg/mL 200-11 00 high Not Available [address], [address], 12/07/2024 08:55:07 12/06/19 25 12/07/2024 VITAM IN B12/F OLATE , SERUM PANEL folate, serum 10.9 NG/mL normal Refer ence Range Low: <3.4 Borde rline : 3.4-5 .4 Jackie l: >5.4 Not Available [address], [address], 12/07/2024 08:55:07 12/06/19 25 12/07/2024 T3, FREE T3, free 3.0 pg/mL 2.3-4. 2 normal Not Available [address], [address], 12/07/2024 08:55:07 12/06/1912/08/2024 FECAL GLOBI N BY IMMUN OCHEM ISTRY fecal globin by immunochemis try SEE NOTE FECAL GLOBI N BY IMMUN OCHEM ISTRY Micro Numbe r: [id number] Test Statu s: Final Speci men Sourc e: Insur e (tm) fobt test card Speci men Quali ty: Adequ ate Fecal Globi n: Not Detec karly Not Available [address], [address], 12/08/2024 09:52:53 05/14/20 25 05/14/2025 Strep tococ cus pyoge rajinder Ag [Pres ence] in Throa t specimen source identified THROAT Not Available Not Available 0 05/14/2025 12:57:13 05/14/20 25 05/14/2025 Strep tococ cus pyoge rajinder Ag [Pres ence] in Throa t streptococcu s pyogenes Ag [presence] in throat NEGATI VE text: negati ve Not Available Not Available 05/14/2025 12:57:13 06/13/2006/14/2025 COMPR EHENS CARLOS METAB OLIC PANEL glucose 109 mg/dL 65-99 high Fasti ng refer ence inter ninoska For someo ne witho ut known diabe arnel, a gluco se value betwe en 100 and 125 mg/dL is consi stent with predi abete s and shoul d be confi rmed with a follo w-up test. Not Available [address], [address], 06/14/2025 08:09:18 06/13/2006/14/2025 COMPR EHENS CARLOS METAB OLIC PANEL urea nitrogen (BUN) 15 mg/dL 7-25 normal Not Available [address], [address], 06/14/2025 08:09:18 06/13/2006/14/2025 COMPR EHENS CARLOS METAB OLIC PANEL creatinine 1.21 mg/dL 0.60-1 .00 high Not Available [address], [address], 06/14/2025 08:09:18 06/13/20 25 06/14/2025 COMPR EHENS CARLOS METAB OLIC PANEL eGFR 47 mL/mi n/1.7 3m2 > or = 60 low Not Available [address], [address], 06/14/2025 08:09:18 06/13/2006/14/2025 COMPR EHENS CARLOS METAB OLIC PANEL BUN/creatini ne ratio 12 (calc ) 6-22 normal Not Available [address], [address], 06/14/2025 08:09:18 06/13/20 25 06/14/2025 COMPR EHENS CARLOS METAB OLIC PANEL sodium 128 mmol/ L 135-14 6 low Not Available [address], [address], 06/14/2025 08:09:18 06/13/2006/14/2025 COMPR EHENS CARLOS METAB OLIC PANEL potassium 4.7 mmol/ L 3.5-5. 3 normal Not Available [address], [address], 06/14/2025 08:09:18 06/13/2006/14/2025 COMPR EHENS CARLOS METAB OLIC PANEL chloride 94 mmol/ L 98-110 low Not Available [address], [address], 06/14/2025 08:09:18 06/13/2006/14/2025 COMPR EHENS CARLOS METAB OLIC PANEL carbon dioxide 26 mmol/ L 20-32 normal Not Available [address], [address], 06/14/2025 08:09:18 06/13/2006/14/2025 COMPR EHENS CARLOS METAB OLIC PANEL calcium 9.4 mg/dL 8.6-10 .4 normal Not Available [address], [address], 06/14/2025 08:09:18 06/13/2006/14/2025 COMPR EHENS CARLOS METAB OLIC PANEL protein, total 6.8 g/dL 6.1-8. 1 normal Not Available [address], [address], 06/14/2025 08:09:18 06/13/2006/14/2025 COMPR EHENS CARLOS METAB OLIC PANEL albumin 4.0 g/dL 3.6-5. 1 normal Not Available [address], [address], 06/14/2025 08:09:18 06/13/20 25 06/14/2025 COMPR EHENS CARLOS METAB OLIC PANEL globulin 2.8 g/dL_ (calc ) 1.9-3. 7 normal Not Available [address], [address], 06/14/2025 08:09:18 06/13/20 25 06/14/2025 COMPR EHENS CARLOS METAB OLIC PANEL albumin/glob ulin ratio 1.4 (calc ) 1.0-2. 5 normal Not Available [address], [address], 06/14/2025 08:09:18 06/13/20 25 06/14/2025 COMPR EHENS CARLOS METAB OLIC PANEL bilirubin, total 0.3 mg/dL 0.2-1. 2 normal Not Available [address], [address], 06/14/2025 08:09:18 06/13/20 25 06/14/2025 COMPR EHENS CARLOS METAB OLIC PANEL alkaline phosphatase 128 U/L 37-153 normal Not Available [address], [address], 06/14/2025 08:09:18 06/13/20 25 06/14/2025 COMPR EHENS CARLOS METAB OLIC PANEL AST 9 U/L 10-35 low Not Available [address], [address], 06/14/2025 08:09:18 06/13/20 25 06/14/2025 COMPR EHENS CARLOS METAB OLIC PANEL ALT 9 U/L 6-29 normal Not Available [address], [address], 06/14/2025 08:09:18 06/13/20 25 06/14/2025 CBC (INCL UDES DIFF/ PLT) white blood cell count 6.7 thous and/u L 3.8-10 .8 normal Not Available [address], [address], 06/14/2025 08:09:19 06/13/2006/14/2025 CBC (INCL UDES DIFF/ PLT) red blood cell count 3.65 safia on/uL 3.80-5 .10 low Not Available [address], [address], 06/14/2025 08:09:19 06/13/2006/14/2025 CBC (INCL UDES DIFF/ PLT) hemoglobin 11.9 g/dL 11.7-1 5.5 normal Not Available [address], [address], 06/14/2025 08:09:19 06/13/2006/14/2025 CBC (INCL UDES DIFF/ PLT) hematocrit 35.9 % 35.0-4 5.0 normal Not Available [address], [address], 06/14/2025 08:09:19 06/13/2006/14/2025 CBC (INCL UDES DIFF/ PLT) MCV 98.4 fL 80.0-1 00.0 normal Not Available [address], [address], 06/14/2025 08:09:19 06/13/2006/14/2025 CBC (INCL UDES DIFF/ PLT) MCH 32.6 pg 27.0-3 3.0 normal Not Available [address], [address], 06/14/2025 08:09:19 06/13/2006/14/2025 CBC (INCL UDES DIFF/ PLT) MCHC 33.1 g/dL 32.0-3 6.0 normal For adult s, a sligh t decre ase in the calcu lated MCHC value (in the range of 30 to 32 g/dL) is most likel y not clini mindy signi kirk t; beverly er, it shoul d be inter prete d with cauti on in corre lat n with other red cell doris eters and the patie nt's clini kasia condi tion. Not Available [address], [address], 06/14/2025 08:09:19 06/13/2006/14/2025 CBC (INCL UDES DIFF/ PLT) RDW 13.3 % 11.0-1 5.0 normal Not Available [facility] [address], [address], 06/14/2025 08:09:19 06/13/2006/14/2025 CBC (INCL UDES DIFF/ PLT) platelet count 394 thous and/u L 140-40 0 normal Not Available [address], [address], 06/14/2025 08:09:19 06/13/2006/14/2025 CBC (INCL UDES DIFF/ PLT) MPV 8.7 fL 7.5-12 .5 normal Not Available [address], [address], 06/14/2025 08:09:19 06/13/2006/14/2025 CBC (INCL UDES DIFF/ PLT) absolute neutrophils 3176 cells /uL 1500-7 800 normal Not Available [facility] [address], [address], 06/14/2025 08:09:19 06/13/2006/14/2025 CBC (INCL UDES DIFF/ PLT) absolute lymphocytes 2546 cells /uL 850-39 00 normal Not Available [facility] [address], [address], 06/14/2025 08:09:19 06/13/2006/14/2025 CBC (INCL UDES DIFF/ PLT) absolute monocytes 509 cells /uL 200-95 0 normal Not Available [address], [address], 06/14/2025 08:09:19 06/13/2006/14/2025 CBC (INCL UDES DIFF/ PLT) absolute eosinophils 389 cells /uL 15-500 normal Not Available [address], [address], 06/14/2025 08:09:19 06/13/2006/14/2025 CBC (INCL UDES DIFF/ PLT) absolute basophils 80 cells /uL 0-200 normal Not Available [address], [address], 06/14/2025 08:09:19 06/13/2006/14/2025 CBC (INCL UDES DIFF/ PLT) neutrophils 47.4 % normal Not Available [facility] [address], [address], 06/14/2025 08:09:19 06/13/2006/14/2025 CBC (INCL UDES DIFF/ PLT) lymphocytes 38.0 % normal Not Available [facility] [address], [address], 06/14/2025 08:09:19 06/13/2006/14/2025 CBC (INCL UDES DIFF/ PLT) monocytes 7.6 % normal Not Available [facility] [address], [address], 06/14/2025 08:09:19 06/13/2006/14/2025 CBC (INCL UDES DIFF/ PLT) eosinophils 5.8 % normal Not Available [facility] [address], [address], 06/14/2025 08:09:19 06/13/2006/14/2025 CBC (INCL UDES DIFF/ PLT) basophils 1.2 % normal Not Available [facility] [address] [address] [address], [place], [address], 06/14/2025 08:09:19 12/14/19 24 12/09/2023 MAMMO , scree darrick, digit al, bilat eral No observ ation record ed. [facility] [address], [place], [address], 12/15/2023 15:12:58 02/07/20 24 02/07/2024 CT, sinus es, w/o contr ast No observ ation record ed. [facility] (Pet Scan_ [address] [place], [address], 02/16/2024 17:07:05 10/11/20 24 xr chest Pa+la t [facility] [address] [place] [address] Orderi ng Provid er: AMANUEL FREEMAN [facility] [address] [facility] [place] [address] IMAGIN G STUDIE S: XR CHEST PA+LAT [...] By: Papito Wright , 2023 12:48 PM [facility] [address], [place], [address], 10/13/2024 12:28:37 05/14/20 25 xr chest Pa+la t [facility] [place] [address] Orderi ng Provid er: ANI ALONSO ON [facility] [address] [facility] [place] [address] MATT LEYVA S: XR CHEST PA+LAT DATE: 025 10:46 AM HISTOR Y: cough/ SOB with [...] By: Papito Wright , 025 10:57 AM [facility] [address], [place], [address], 05/14/2025 12:25:58 06/14/20 25 06/14/2025 MAMMO , scree darrick, digit al, bilat eral No observ ation record ed. [facility] [address], [place], [address], 06/14/2025 23:10:26 Result Notes None recorded. Problems Name Problem SNOMED Code Status Onset Date Resolution Date Notes Provider Name and Address Organization Details Recorded Time Cardiomegal y 2899207 Active 2015 Kathleen guevara [facility] 14:48:22 Kidney disease 84664857 Active 2015 Kathleen guevara [facility] 14:48:47 Benign hypertensio n 54966510 Active 2015 Kathleen guevara [facility] 14:48:56 Gastroesoph ageal reflux disease 139319669 Active 2015 Kathleen Larsen [facility] 6 14:49:03 Hyperlipide eugenia 55553779 Active 2015 Kathleen guevara [facility] 14:49:13 Hypothyroid ism 07493669 Active 2015 Kathleen guevara [facility] 14:49:23 Hearing loss 42315069 Active 2015 Kathleen guevara [facility] 6 14:49:34 Peptic ulcer 38913597 Active 2015 Kathleen Larsen null, [facility] 6 14:50:08 Neuropathy 860338561 Active 2015 Kathleen Larsen null, [facility] 6 14:50:47 Essential hypertensio n 33248165 Active 2021 Neil Higgins MD [address], [place], [address], [facility] 2 14:26:24 Osteoarthri tis of knee 961316853 Active 2022 Neil Higgins MD [address], [place], [place], [address], [facility] 3 15:26:29 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 333768007 Active 2022 Neil Higgins MD [address], [place], [address], [facility] 3 15:48:44 Muscle spasm of cervical muscle of neck 619421985636 Active 2022 Neil Higgins MD [address], [place], [address], [facility] 3 11:42:41 Idiopathic peripheral neuropathy 46132485 Active 2022 Neil Higgins MD [address], [place], [address], [facility] 3 21:00:47 Pain in both feet 7324326006436 9102 Active 2022 Neil Higgins MD [address], [place], [address], [facility] 3 14:51:14 Edema of lower extremity 113577858 Active 2022 Neil Higgins MD [address], [place], [address], [facility] 3 17:43:33 Upper respiratory infection 61669646 Active 2022 Neil Higgins MD [address], [place], [address], [facility] 3 17:13:54 Chronic kidney disease stage 3 691048344 Active 2022 Neil Higgins MD [address], [place], [address], [facility] 3 17:15:44 Fatigue 39490658 Active 2022 Neil Higgins MD [address], [place], [address], [facility] 3 17:24:52 Acute urinary tract infection 306432949 Active 2022 Neil Higgins MD [address], [place], [address], [facility] 3 20:14:29 Headache 42893860 Active 2022 Neil Higgins MD [address], [place], [address], [facility] 3 07:54:24 Proximal muscle weakness 484620590 Active 2022 Neil Higgins MD [address], [place], [address], [facility] 3 17:09:38 Problem Notes Documentation Provider Name and Address Organization Details Recorded Time 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 : Patient Name: RUBINA FERGUSON Date of : 1950 Med Rec #: [id number] Date of Service: 07/25/2024 Disch Date: GASTROENTEROLOGY [...] kidney disease) stage 3, GFR 30-59 ml/min ([facility] HHS/HCC) CVA (cerebral vascular accident) ([facility] HHS/HCC) GERD (gastroesophageal reflux disease) Gout, unspecified Hearing loss HLD (hyperlipidemia) HTN (hypertension) Hypothyroid Kidney stone Kidney stones Migraines Mild intermittent asthma, uncomplicated (HHS/HCC) Neuropathy Obesity KRISSY (obstructive sleep apnea) Peptic ulcer PONV (postoperative nausea and vomiting) Stroke ([facility] HHS/HCC) 2000 left side weaker TIA (transient ischemic attack) Past Surgical History: Procedure Laterality Date ABDOMINAL HYSTERECTOMY W/ PARTIAL VAGINACTOMY APPENDECTOMY CARDIAC CATHETERIZATION COLONOSCOPY N/A 11/04/2023 COLONOSCOPY performed by Alix Florez DO at [facility] GI COLONOSCOPY FLX DX W/COLLJ SPEC [...] (ckd) Sister Billy Heart Disease Sister GuilleFransico DC Sister GuilleFrasnico Heart Disease Sister Linda Acute myelogenous leukemia Sister Linda Heart Disease Sister Rakesh Diabetes Sister Laura-Margaux Heart Disease Sister Orly Heart Disease Brother Don Heart Disease Brother Demardryazmin DC Brother Demardryazmin Heart Disease Brother Ruslan Colon [...] Units by Other route. Every 3 months dicke TRAN carvedilol 6.25 MG tablet Take 1 [...] otherwise neg exam. Recheck colonoscopy 5 years 7/15/22 EGD with dilation by Dr. Florez Unremarkable [...] WINTER 07/25/2024 2:40 PM Neil Higgins MD [address] [place] [address], [place], [address], [facility] 07/28/2024 22:54:18 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 : Patient Name: RUBINA FERGUSON Date of : 1950 Med Rec #: [id number] Date of Service: 11/20/2024 Disch Date: GASTROENTEROLOGY [...] kidney disease) stage 3, GFR 30-59 ml/min ([facility] HHS/HCC) CVA (cerebral vascular accident) ([facility] HHS/HCC) GERD (gastroesophageal reflux disease) Gout, unspecified Hearing loss HLD (hyperlipidemia) HTN (hypertension) Hypothyroid Kidney stone Kidney stones Migraines Mild intermittent asthma, uncomplicated (HHS/HCC) Neuropathy Obesity KRISSY (obstructive sleep apnea) Peptic ulcer PONV (postoperative nausea and vomiting) Stroke ([facility] HHS/HCC) 2000 left side weaker TIA (transient ischemic attack) Past Surgical History: Procedure Laterality Date ABDOMINAL HYSTERECTOMY W/ PARTIAL VAGINACTOMY APPENDECTOMY CARDIAC CATHETERIZATION COLONOSCOPY N/A 11/04/2023 COLONOSCOPY performed by Alix Florez DO at [facility] GI COLONOSCOPY FLX DX W/COLLJ SPEC [...] (ckd) Sister Billy Heart Disease Sister Guille-Shaka DC Sister Guille-Shaka Heart Disease Sister Linda Acute myelogenous leukemia Sister Linda Heart Disease Sister York-Margaux Diabetes Sister Laura-Margaux Heart Disease Sister Orly Heart Disease Brother Don Heart Disease Brother Wondrow DC Brother Wondrow Heart Disease Brother Ruslan Colon [...] 11/20/2024 4:51 PM Neil Higgins MD [address], [place], [address], [facility] 04/24/2025 13:28:34 Procedures Surgical History Date Name Laterality Status Provider Name and Address Organization Details Recorded Time 024 Date of Last Mammogram completed Amara Rod [facility] 10/24/2024 15:08:14 023 total replacement of right knee joint completed Shonna Petit [facility] 03/23/2023 14:32:44 022 Cystourethroscopy completed Vicki Abebachandra [facility] 03/24/2022 15:06:42 019 cardiac catheterization completed [facility] 10/16/2019 18:06:45 019 Date of Last [facility] 16:18:56 014 Date of Last Colonoscopy completed Neil Higgins MD [address], [place], [address], [facility] 07/14/2021 11:44:13 014 Colonoscopy completed Neil Higgins MD [address], [place], [address], [facility] 07/14/2021 11:43:57 Orthopedic Surgery completed Neil Higgins MD [address], [place], [address], [facility] 04/10/2019 15:16:35 Partial Hysterectomy completed Dale Larsen [facility] 04/08/2016 14:51:45 Mastoidectomy completed Neil Higgins MD [address], [place], [address], [facility] 01/24/2024 16:36:56 Laparoscopic cholecystectomy completed Kathleen Larsen [facility] 04/08/2016 14:52:35 Cataract Surgery completed Neil hammonds MD [address], [place], [address], [facility] 06/18/2021 16:20:41 nasal sinus procedure completed Neil Higgins MD [address], [place], [address], [facility] 01/24/2024 16:39:11 Imaging Results None recorded. [...] n rash Not available Not available 04/08/2016 24098 8003 SNOMED Kathleen Chava [facility], [facility] 6 14:48:07 8079 allopurin ol medicatio n Not available Not available Not available 04/10/2019 519 RxNorm -- persi stent neck rash Neil Higgins MD [address], [place], [address], [facility] 9 15:18:01 9267 tramadol medicatio n hallucina tions moderate Not available 08/27/2020 10180 RxNorm Chanel Mendoza [facility], [facility] 0 09:03:50 Medications Name Sig Start [...] Not Available Not Available Not Available methocarb sirni 500 mg tablet 1 tab once, up [...] Available cefuroxim e axetil 250 mg tablet 06/15 completed Not Available Not Available Not Available clindamyc in HCl 300 mg capsule 06/15 completed Not Available Not Available Not Available trazodone [...] t Available azithromy geeta 250 mg tablet FOLLOW PACKAGE DIRECTIO NS 06/24 completed Not Available Not Available Not Available [...] 1 tablet every day by oral route. 06/15 completed Not Available Not Available Not Available Lidoderm 5 % topical patch 1 [...] a dose pack FOLLOW PACKAGE [employer]IO NS 06/15 completed Not Available Not Available Not Available ipratropi um bromide 42 mcg (0.06 %) nasal spray USE 2 SPRAYS IN EACH NOSTRIL FOUR TIMES DAILY active Not Available Not Available No [...] Not Available Not Available Not Avai lable topiramat e 50 mg tablet Take 2 [...] Not Available Not Available Not Available Acid Clinical Statistics Manager (ranitidi ne) 150 mg tablet Take 1 [...] /min 16 /min 97.1 [degF] 27.1 kg/m2 76777.6 7 g 122/71 mm[Hg] [facility] 4 15:27:18 Date Recorded Body height Heart rate Respiratory rate Body temperature Body mass index (BMI) Body weight Systolic And Diastolic Provider Name and Address Organization Details Last Updated DateTime 4 157.48 cm 71 /min 16 /min 97.2 [degF] 26.7 kg/m2 13238.4 9 g 120/75 mm[Hg] [facility] 4 15:27:29 Date Recorded Body height Body mass index (BMI) Body weight Body temperature Respiratory rate Heart rate Systolic And Diastolic Provider Name and Address Organization Details Last Updated DateTime 5 157.48 cm 26.3 kg/m2 08254.3 g 97.5 [degF] 16 /min 67 /min 107/70 mm[Hg] [facility] 5 12:56:44 Date Recorded Body height Heart rate Respiratory rate Body temperature Body mass index (BMI) Body weight Systolic And Diastolic Provider Name and Address Organization Details Last Updated DateTime 4 157.48 cm 67 /min 16 /min 97.2 [degF] 25.6 kg/m2 94378.9 3 g 110/66 mm[Hg] [facility] 4 16:44:29 Date Recorded Body height Heart rate Respiratory rate Body temperature Body mass index (BMI) Body weight Systolic And Diastolic Provider Name and Address Organization Details Last Updated DateTime 4 157.48 cm 66 /min 16 /min 97.2 [degF] 26 kg/m2 63156.1 2 g 114/68 mm[Hg] [facility] 4 15:07:23 Social History Question Answer Notes LastModified by Organizat ion Details LastModified Time Tobacco Smoking Status Never [facility]oker [facility] 04/08/2016 14:51:13 Do You Have An Advance Directive? Yes Information not available 07/20/2018 What Is Your Level Of Caffeine Consumption? Moderate 1 Cup Coffee Daily [email or web address] Information not available 07/01/2023 How Much Tobacco [...] Of Your Most Recent Tobacco Screening? 04/24/2025 [email or web address] Information not available 04/24/2025 How Much Tobacco Do You Smoke? No Information not available 06/06/2020 How Many Years Have You Smoked Tobacco? 0 Information not available 08/28/2020 Sex: Unknown Functional Status Question Answer Note LastModified by Organizat ion Details LastModified Time Do you use any illicit or recreational drugs? No [email or web address] Information not available 12/02/2021 Do you or have you ever used any other forms of tobacco or nicotine? No [email or web address] Information not available 12/02/2021 What is your level of alcohol consumption? None [email or web address] Information not available 04/08/2016 Do you or [...] History Condition Response Coronary Artery Disease N Gout N Other N Blood Diseases N Kidney Stones N Hyperthyroidism N Blood Transfusion N Breast Cancer N Depression N COPD N Lung Disease N Hypothyroidism N Developmental or Behavioral Disorders N Defects or Inherited Disease N Breast Problem N Difficulty Swallowing N [...] high-dose, trivalent, PF 9 completed Rosalina Gonzales [facility] 10/16/2019 18:07:16 Tdap 0 completed Neil Higgins MD [address], [place], [address], [facility] 12/25/2020 13:54:14 Influenza, high-dose, quadrivalent, PF 0 completed Neil Higgins MD [address], [place], [address], [facility] 12/25/2020 13:54:21 COVID-19, mRNA, LNP-S, PF, 100 mcg/0.5mL dose or 50 mcg/0.25mL dose 1 completed Ana Mcdonald [facility] 03/19/2021 16:42:51 COVID-19, mRNA, LNP-S, PF, 100 mcg/0.5mL dose or 50 mcg/0.25mL dose 1 completed Ana Mcdonald [facility] 03/19/2021 16:43:10 COVID-19, mRNA, LNP-S, PF, 30 mcg/0.3 mL dose 2 completed Lourdes Lim [facility] 12/23/2021 15:38:02 Tdap 3 completed Neil Higgins MD [address], [place], [address], [facility] 10/13/2016 13:02:11 Pneumococcal conjugate PCV 13 5 completed Neil Higgins MD [address], [place], [address], [facility] 10/13/2016 13:02:32 pneumococcal polysaccharide PPV23 5 completed Neil Higgins MD [address], [place], [address], [facility] 10/13/2016 13:03:14 Influenza, split virus, trivalent, preservative 6 completed Not Available [facility] 12/16/2019 02:27:22 Influenza, high-dose, trivalent, PF 7 completed Rosalina Gonzales [facility] 01/05/2018 15:26:49 Past Encounters Encounter ID Performer Location Encounter Start Date Encounter Closed Date Diagnosis/Indication Diagnosis SNOMED-CT Code Diagnosis ICD10 Code Diagnosis Note [id number] Neil Higgins MD [place] [employer] [facility], [facility] [address] [place] [address] 04/08/2016 14:08:40 04/08/2016 15:59:03 Benign essential hypertension 2800386 I10 Hypothyroidism 44917251 E03.9 Hyperlipidemia 82065197 E78.5 Obesity 300767234 E66.9 -- pt lost 5 # since her last visit. Deficiency of vitamin D2 176626634 E55.9 Localized edema 18060785 4 R60.0 -- controlled w/ Furosemide Insomnia 999524407 G47.0 0 Asthma 335641490 J45.90 9 -- without flares Chronic re nal impairment 328636526 N18.9 Gastroesop hageal reflux disease without esophagitis 133432839 K21.9 -- advised to go off Protonix b/c of risk of kidney failure and dementia. Allergic rhinitis 438154 04 J30.9 -- stabel Idiopathic peripheral neuropathy 69672002 G60.9 (legs/feet ) -- stable CVA - cere brovascular accident due to cerebral artery occlusion 936578475 I63.50 (left facial droop, left sided paresis, speech problems) -- now w/ minimal residual left sided weakness. Headache 52786032 R51 -- controlled w/ Topamax [id number] Neil Higgins MD [place] [facility] [facility] [address] [place] [address] 07/13/2016 14:05:24 07/13/2016 14:49:31 Benign essential hypertension 1159151 I10 -- blood pressure controlled ; no med change needed.-- recheck labs within 5 days from 07/13/16 Hyperlipidemia 88442796 E78.5 (LDL of 60 on 04/03/16) -- recheck FLP within 5 days from 07/13/16 Hypothyroidism 87488983 E03.9 -- recheck labs within 5 days from 07/13/16 Chronic re nal impairment 874174535 N18.9 -- followup w/ Dr Camacho as directed by Dr Camacho. -- recheck labs within 5 days from 07/13/16 CVA - cere brovascular accident due to cerebral artery occlusion 637630669 I63.50 (left facial droop, left sided paresis, speech problems) -- now w/ minimal residual left sided weakness. Asthma 478419897 J45.90 9 -- without flares Gastroesop hageal reflux disease without esophagitis 730459757 K21.9 -- advised to go off Protonix b/c of risk of kidney failure and dementia;- - sx not controlled with Ranitidine 150 mg bid and pt has discuss issue w/ her Nephrologi st, and pt wants to stay on Protonix.- - refill of Protonix will be from Nephrologi st as such. Obesity 288763821 E66.9 -- pt gained 3 # since her last visit; pt advised to lose weight. Deficiency of vitamin D2 277747001 E55.9 -- recheck lab within 5 days from 07/13/16 Localized edema 03068955 4 R60.0 -- controlled w/ Furosemide (no ankle edema today) Insomnia 904112730 G47.0 0 Allergic rhinitis 856924 04 J30.9 -- stabel Idiopathic peripheral neuropathy 83582095 G60.9 (legs/feet ) -- stable Headache 69219290 R51 -- controlled w/ Topamax [id number] Neil Higgins MD [place] [employer] [address] [place] [address] 10/13/2016 11:28:29 10/13/2016 13:24:44 Hypothyroidism 21549131 E03.9 Hyperlipidemia 70054874 E78.5 (LDL of 60 on 04/03/16) -- recheck FLP within 5 days from 07/13/16 Benign ess ential hypertension 1380395 I10 Chronic ki dney disease stage 3 698682653 N18.3 -- followup w/ Dr Camacho as directed by Dr Camacho. -- recheck labs within 5 days from 07/13/16 -- d/c Allopurino l b/c of persistent right neck rash Advance di rective discussed with patient 779359292 Z71.89 Viral screening 71644795 4 Z11.59 Active immunization 3387 9002 Z23 Screening for osteoporosis 341896196 Z13.820 Depression screening 171 052126 Z13.89 -- negative Obesity 950180186 E66.9 -- pt gained 1.5 # since her last visit; pt advised to lose weight.-- pt's BMI today is 33.7 Screening for cancer 158 58708 Z12.9 -- had colonoscop y on Eligio Florez on 06/11/10 Idiopathic peripheral neuropathy 26382816 G60.9 (legs/feet ) -- stable Asthma 178833408 J45.90 9 CVA - cere brovascular accident due to cerebral artery occlusion 482372289 I63.50 Allergic rhinitis 245430 04 J30.9 Deficiency of vitamin D2 148679909 E55.9 -- recheck lab within 5 days from 07/13/16 Gastroesop hageal reflux disease without esophagitis 903002947 K21.9 -- advised to go off Protonix b/c of risk of kidney failure and dementia;- - sx not controlled with Ranitidine 150 mg bid and pt has discuss issue w/ her Nephrologi st, and pt wants to stay on Protonix.- - refill of Protonix will be from Nephrologi st as such. Insomnia 412984430 G47.0 0 Restless legs 10016156 G 25.81 [id number] Mikayla Connell, ANP- [employer] [address] [place] [address] 11/25/2016 16:29:40 11/25/2016 17:09:34 Cough 58065876 R05 Chest x Ray at [facility] 11/07/16 normal Will repeat if cough persist Acute bronchitis 0639286 2 J20.9 Upper resp iratory infection 61297294 J06.9 [id number] Neil Higgins MD [facility] [address] [place] [address] 01/13/2017 13:57:20 01/13/2017 15:10:12 Upper respiratory infection 18743722 J06.9 and acute bronchitis -- resolved Benign ess ential hypertension 0666557 I10 Chronic ki dney disease stage 3 079327394 N18.3 -- followup w/ Dr Camacho as directed by Dr Camacho. -- recheck labs within 5 days from 07/13/16 -- d/c Allopurino l b/c of persistent right neck rash CVA - cere brovascular accident due to cerebral artery occlusion 512671791 I63.50 Hyperlipidemia 41034988 E78.5 (LDL of 60 on 04/03/16) -- recheck FLP within 5 days from 07/13/16 Hypothyroidism 62426528 E03.9 Idiopathic peripheral neuropathy 48621995 G60.9 (legs/feet ) -- stable Screening for osteoporosis 751501619 Z13.820 -- Last DEXA was done 10/13/16 Depression screening 171 551389 Z13.89 -- negative Obesity 425107498 E66.9 -- pt gained 1.5 # since her last visit; pt advised to lose weight.-- pt's BMI today is 33.7 Asthma 090348869 J45.90 9 Allergic rhinitis 281427 04 J30.9 Deficiency of vitamin D2 088959377 E55.9 -- recheck lab within 5 days from 07/13/16 Gastroesop hageal reflux disease without esophagitis 208222965 K21.9 -- advised to go off Protonix b/c of risk of kidney failure and dementia;- - sx not controlled with Ranitidine 150 mg bid and pt has discuss issue w/ her Nephrologi st, and pt wants to stay on Protonix.- - refill of Protonix will be from Nephrologi st as such. Restless legs 91738350 G 25.81 Insomnia 631747530 G47.0 0 Advance di rective discussed with patient 542147130 Z71.89 Screening for cancer 158 89600 Z12.9 -- had colonoscop y on Eligio Otis on 06/11/10-- pt has colonoscop y with Dr Martel in May 2014 Viral screening 34210337 4 Z11.59 -- Hepatitis C antibody was nonreactiv e on 11/20/16 Localized edema 34977983 4 R60.0 Thiamine deficiency 3993 02877 E51.9 [id number] Neil Higgins MD [facility] [address] [place] [address] 03/08/2017 18:51:37 03/08/2017 20:55:10 Chronic kidney disease stage 3 413969265 N18.3 -- followup w/ Dr Jorge Luis Camacho as directed by Dr Jorge Luis Camacho. -- d/c Allopurino l b/c of persistent right neck rash-- recheck labs around 05/12/17 Benign ess ential hypertension 9870702 I10 -- recheck labs around 05/12/17 Hyperlipidemia 46590183 E78.5 (LDL of 60 on 04/03/16) -- recheck labs around 05/12/17 Hypothyroidism 55047725 E03.9 -- recheck labs around 05/12/17 Acute bronchitis 6341378 2 J20.9 Screening for cancer 158 63217 Z12.9 -- had colonoscop y on Eligio Florez on 06/11/10-- pt has colonoscop y with Dr Martel in May 2014 CVA - cere brovascular accident due to cerebral artery occlusion 409430370 I63.50 Idiopathic peripheral neuropathy 90019100 G60.9 (legs/feet ) -- stable Restless legs 15618197 G 25.81 Gastroesop hageal reflux disease without esophagitis 551175896 K21.9 -- advised to go off Protonix b/c of risk of kidney failure and dementia;- - sx not controlled with Ranitidine 150 mg bid and pt has discuss issue w/ her Nephrologi st, and pt wants to stay on Protonix.- - refill of Protonix will be from Nephrologi st as such. Asthma 948237179 J45.90 9 Allergic rhinitis 786540 04 J30.9 Deficiency of vitamin D2 653131901 E55.9 -- recheck labs around 05/12/17 Thiamine deficiency 3993 96446 E51.9 Localized edema 67693425 4 R60.0 Insomnia 263514437 G47.0 0 Advance di rective discussed with patient 134746399 Z71.89 Depression screening 171 539085 Z13.89 -- negative Screening for osteoporosis 792668401 Z13.820 -- Last DEXA was done 10/13/16 Viral screening 32506839 4 Z11.59 -- Hepatitis C antibody was nonreactiv e on 11/20/16 Body mass index 30+ - obesity 183256338 Z68.39 -- advised weight loss; .pt gained 1 # since her last visit; -- pt's BMI today is 32.2 (ideal is between 20-25). [id number] Neil Higgins MD [place] [employer] [address] [place] [address] 04/14/2017 13:49:17 04/14/2017 16:09:51 Acute bronchitis 29333135 J20.9 -- resolved Chronic ki dney disease stage 3 016391934 N18.3 -- followup w/ Dr Jorge Luis Camacho as directed by Dr Jorge Luis Camacho. -- d/c Allopurino l b/c of persistent right neck rash-- recheck labs around 05/12/17 Benign ess ential hypertension 6648103 I10 -- recheck labs around 05/12/17 Hyperlipidemia 71082429 E78.5 (LDL of 60 on 04/03/16) -- recheck labs around 05/12/17 Hypothyroidism 81782464 E03.9 -- recheck labs around 05/12/17 Screening for cancer 158 99080 Z12.9 -- had colonoscop y on Eligio Gautam on 06/11/10-- pt has colonoscop y with Dr Martel in May 2014 CVA - cere brovascular accident due to cerebral artery occlusion 171254666 I63.50 (dx'd in 2000) -- pt hospitaliz ed x 4 days; and was using wheeled walker x 4 weeks-- Carotid Doppler shows less than 50% narrowing in bilateral carotid arteries on 03/17/17 ([facility]) Idiopathic peripheral neuropathy 18232875 G60.9 (legs/feet ) -- stable Restless legs 34809630 G 25.81 Gastroesop hageal reflux disease without esophagitis 861595858 K21.9 -- advised to go off Protonix b/c of risk of kidney failure and dementia;- - sx not controlled with Ranitidine 150 mg bid and pt has discuss issue w/ her Nephrologi st, and pt wants to stay on Protonix.- - refill of Protonix will be from Nephrologi st as such. Body mass index 30+ - obesity 535885047 Z68.39 -- advised weight loss; .pt gained 1 # since her last visit; -- pt's BMI today is 32.2 (ideal is between 20-25). Asthma 309099059 J45.90 9 Allergic rhinitis 916084 04 J30.9 Deficiency of vitamin D2 253326152 E55.9 -- recheck labs around 05/12/17 Thiamine deficiency 3993 53458 E51.9 Localized edema 85067435 4 R60.0 Insomnia 143643308 G47.0 0 Advance di rective discussed with patient 190709488 Z71.89 Depression screening 171 303496 Z13.89 -- negative Screening for osteoporosis 866971092 Z13.820 -- Last DEXA was done 10/13/16 Viral screening 40994853 4 Z11.59 -- Hepatitis C antibody was nonreactiv e on 11/20/16 Transient cerebral ischemia 641847076 G45.9 (headaches and mild left sided drooping; admitted on 03/16/17 & discharged on 03/18/17 from [facility]) -- sx lasted 5 hours and resolved completely -- pt has appt w/ Dr Dedra Sandoval on 03/31/17. Headache 34898624 R51 -- controlled w/ Topamax; w/ infrequent use of [place] [place] (60 tabs last 90 days) [id number] Neil Higgins MD [facility] [address] [place] [address] 06/08/2017 12:16:13 06/08/2017 14:01:49 Idiopathic peripheral neuropathy 84353145 G60.9 (legs/feet ) -- stable Transient cerebral ischemia 969514213 G45.9 (headaches and mild left sided drooping; admitted on 03/16/17 & discharged on 03/18/17 from [facility]) -- sx lasted 5 hours and resolved completely -- pt has appt w/ Dr Dedra Sandoval on 03/31/17. CVA - cere brovascular accident due to cerebral artery occlusion 803766433 I63.50 (dx'd in 2000) -- pt hospitaliz ed x 4 days; and was using wheeled walker x 4 weeks-- Carotid Doppler shows less than 50% narrowing in bilateral carotid arteries on 03/17/17 ([facility]) Chronic ki dney disease stage 3 655504166 N18.3 -- followup w/ Dr Jorge Luis Camacho as directed by Dr Jorge Luis Camacho. -- d/c Allopurino l b/c of persistent right neck rash-- recheck labs around 08/04/17 Benign ess ential hypertension 3596951 I10 -- recheck labs around 08/04/17 Hyperlipidemia 85036651 E78.5 (LDL of 60 on 04/03/16) -- recheck labs around 08/04/17 Hypothyroidism 84435170 E03.9 -- recheck labs around 05/12/17 Screening for cancer 158 80470 Z12.9 -- had colonoscop y on Eligio Otis on 06/11/10-- pt has colonoscop y with Dr Martel in May 2014 Restless legs 16551345 G 25.81 -- Patient no longer takes Requip Gastroesop hageal reflux disease without esophagitis 783600042 K21.9 -- advised to go off Protonix b/c of risk of kidney failure and dementia;- - sx not controlled with Ranitidine 150 mg bid and pt has discuss issue w/ her Nephrologi st, and pt wants to stay on Protonix.- - refill of Protonix will be from Nephrologi st as such. Body mass index 30+ - obesity 488884977 Z68.39 -- advised weight loss; .no weight change since her last visit; -- pt's BMI today is 32.2 (ideal is between 20-25). Asthma 734670585 J45.90 9 Allergic rhinitis 065039 04 J30.9 Deficiency of vitamin D2 502357493 E55.9 -- recheck labs around 08/04/17 Thiamine deficiency 3993 64523 E51.9 -- recheck labs around 08/04/17 Localized edema 47524814 4 R60.0 Insomnia 375539439 G47.0 0 -- doing well not taking Trazodone Advance di rective discussed with patient 813827337 Z71.89 Depression screening 171 193616 Z13.89 -- negative Screening for osteoporosis 107411803 Z13.820 -- Last DEXA was done 10/13/16 Viral screening 33721979 4 Z11.59 -- Hepatitis C antibody was nonreactiv e on 11/20/16 Headache 89262192 R51 -- controlled w/ Topamax; w/ infrequent use of [place] (60 tabs last 90 days) [id number] Neil Higgins MD [facility] [address] [place] [address] 09/08/2017 15:24:50 09/08/2017 16:53:52 Adult health examination 013655614 Z00.00 Idiopathic peripheral neuropathy 08867455 G60.9 (legs/feet ) -- stable CVA - cere brovascular accident due to cerebral artery occlusion 496488735 I63.50 (dx'd in 2000) -- pt hospitaliz ed x 4 days; and was using wheeled walker x 4 weeks-- Carotid Doppler shows less than 50% narrowing in bilateral carotid arteries on 03/17/17 ([facility])- - also had TIA (headaches and mild left sided drooping; admitted on 03/16/17 & discharged on 03/18/17 from [facility]) -- sx lasted 5 hours and resolved completely -- pt had appt w/ NeurologDr Dedra ordonez on 03/31/17. Chronic ki dney disease stage 3 599109237 N18.3 -- followup w/ Dr Jorge Luis Camacho as directed by Dr Jorge Luis Camacho. -- d/c Allopurino l b/c of persistent right neck rash-- renal us done on 06/14/17 -- recheck labs around 11/11/17 Benign ess ential hypertension 2807288 I10 -- recheck labs around 11/11/17 Hyperlipidemia 99245465 E78.5 (LDL of 60 on 04/03/16) -- recheck labs around 11/11/17 Hypothyroidism 57935605 E03.9 -- recheck labs around 11/11/17 Restless legs 28946837 G 25.81 -- Patient no longer takes Requip Gastroesop hageal reflux disease without esophagitis 275994636 K21.9 -- advised to go off Protonix b/c of risk of kidney failure and dementia;- - sx not controlled with Ranitidine 150 mg bid and pt has discuss issue w/ her Nephrologi st, and pt wants to stay on Protonix.- - refill of Protonix will be from Nephrologi st as such. Body mass index 30+ - obesity 068061572 Z68.39 -- advised weight loss; .pt gained 4 # since her last visit; -- pt's BMI today is 33.5 (ideal is between 20-25). Asthma 658787390 J45.90 9 -- last spirometry was done Allergic rhinitis 897221 04 J30.9 Deficiency of vitamin D2 470418676 E55.9 -- recheck labs around 11/11/17 Thiamine deficiency 3993 48126 E51.9 -- recheck labs around 11/11/17 Localized edema 91420680 4 R60.0 -- controlled w/ occ use of Furosemide Advance di rective discussed with patient 650867913 Z71.89 Depression screening 171 464117 Z13.89 -- negative Screening for osteoporosis 320539288 Z13.820 -- Last DEXA was done 10/13/16 Viral screening 45389063 4 Z11.59 -- Hepatitis C antibody was nonreactiv e on 11/20/16 Headache 08127799 R51 -- controlled w/ Topamax; w/ infrequent use of [place] (60 tabs last 90 days)-- see neurologis t Dr Stephanie Camacho Active or passive immunization 354224954 Z23 Screening for malignant neoplasm of colon 697837265 Z12.11 -- pt has colonoscop y with Dr Martel in 06/19/14 Screening for malignant neoplasm of breast 617510039 Z12.31 Screening for malignant neoplasm of cervix 129719708 Z12.4 Chronic constipation 236 609181 K59.09 [id number] Neil Higgins MD [facility] [address] [place] [address] 01/05/2018 14:41:05 01/05/2018 16:40:58 Acute sinusitis 16973310 J01.90 Cough 26460850 R05 (since Oct 2017) Idiopathic peripheral neuropathy 68181095 G60.9 (legs/feet ) -- stable CVA - cere brovascular accident due to cerebral artery occlusion 192148181 I63.50 (dx'd in 2000) -- pt hospitaliz ed x 4 days; and was using wheeled walker x 4 weeks-- Carotid Doppler shows less than 50% narrowing in bilateral carotid arteries on 03/17/17 ([facility])- - also had TIA (headaches and mild left sided drooping; admitted on 03/16/17 & discharged on 03/18/17 from [facility]) -- sx lasted 5 hours and resolved completely -- pt had appt w/ NeurologDr Dedra ordonez on 03/31/17. Chronic ki dney disease stage 3 089057461 N18.3 -- followup w/ Dr Jorge Luis Camacho as directed by Dr Jorge Luis Camacho. -- d/c Allopurino l b/c of persistent right neck rash-- renal us done on 06/14/17 -- recheck labs around 11/11/17 Benign ess ential hypertension 5110026 I10 -- recheck labs around 11/11/17 Hyperlipidemia 66495851 E78.5 (LDL of 60 on 04/03/16) -- recheck labs around 11/11/17 Hypothyroidism 69460586 E03.9 -- recheck labs around 11/11/17 Restless legs 16995391 G 25.81 -- Patient no longer takes Requip Gastroesop hageal reflux disease without esophagitis 152585749 K21.9 -- advised to go off Protonix b/c of risk of kidney failure and dementia;- - sx not controlled with Ranitidine 150 mg bid and pt has discuss issue w/ her Nephrologi st, and pt wants to stay on Protonix.- - refill of Protonix will be from Nephrologi st as such. Body mass index 30+ - obesity 361767255 Z68.39 -- advised weight loss; .pt gained 4 # since her last visit; -- pt's BMI today is 33.5 (ideal is between 20-25). Chronic constipation 236 437485 K59.09 Asthma 921686121 J45.90 9 -- last spirometry was done Allergic rhinitis 706635 04 J30.9 Deficiency of vitamin D2 079713284 E55.9 -- recheck labs around 11/11/17 Thiamine deficiency 3993 47205 E51.9 -- recheck labs around 11/11/17 Headache 91332888 R51 -- controlled w/ Topamax; w/ infrequent use of [place] (60 tabs last 90 days)-- see neurologis t Dr Stephanie Camacho Localized edema 15532361 4 R60.0 -- controlled w/ occ use of Furosemide Advance di rective discussed with patient 153932428 Z71.89 Depression screening 171 653227 Z13.89 -- negative Screening for osteoporosis 153997546 Z13.820 -- Last DEXA was done 10/13/16 Viral screening 75924817 4 Z11.59 -- Hepatitis C antibody was nonreactiv e on 11/20/16 Active or passive immunization 559174805 Z23 Screening for malignant neoplasm of colon 144075783 Z12.11 -- Stool globin negative for occult blood on 12/01/17-- pt has colonoscop y with Dr Martel in 06/19/14 Screening for malignant neoplasm of breast 297338515 Z12.31 -- Mammogram was last done on 04/08/17 Screening for malignant neoplasm of cervix 706856649 Z12.4 [id number] Neil Higgins MD [facility] [employer] [facility] [facility] [address] [place] [address] 04/14/2018 14:42:06 04/14/2018 16:23:38 Acute sinusitis 51472326 J01.90 -- resolved Cough 27773615 R05 (since Oct 2017) -- improved but persistent . Idiopathic peripheral neuropathy 19228737 G60.9 (legs/feet ) -- stable CVA - cere brovascular accident due to cerebral artery occlusion 699788875 I63.50 (dx'd in 2000) -- pt hospitaliz ed x 4 days; and was using wheeled walker x 4 weeks-- pt had appt w/ Neurologis t, Dr Colmenares on 03/31/17. -- Carotid Doppler shows less than 50% narrowing in bilateral carotid arteries on 03/17/17 ([facility]) but Dr Adamaris Snowden also did carotid doppler showed 85- 90% in February 2018; Pt went back to see Dr Zhou Vascular surgeon at [facility] did not agree w/ the findings and wants to repeat carotid doppler in Jul 2018 and then f/u w/ him after that. Chronic ki dney disease stage 3 500565865 N18.3 -- followup w/ Dr Jorge Luis Camacho as directed by Dr Jorge Luis Camacho. -- d/c Allopurino l b/c of persistent right neck rash-- renal us done on 06/14/17 -- recheck labs around 11/11/17 Benign ess ential hypertension 7669758 I10 -- recheck labs around 11/11/17 Hyperlipidemia 39955975 E78.5 (LDL of 60 on 04/03/16) -- recheck labs around 11/11/17 Hypothyroidism 53718993 E03.9 -- recheck labs around 11/11/17 Restless legs 24999770 G 25.81 -- Patient no longer takes Requip Gastroesop hageal reflux disease without esophagitis 258282643 K21.9 -- advised to go off Protonix b/c of risk of kidney failure and dementia;- - sx not controlled with Ranitidine 150 mg bid and pt has discuss issue w/ her Nephrologi st, and pt wants to stay on Protonix.- - refill of Protonix will be from Nephrologi st as such. Body mass index 30+ - obesity 680727729 Z68.39 -- advised weight loss; .pt gained 4 # since her last visit; -- pt's BMI today is 33.5 (ideal is between 20-25). Chronic constipation 236 521309 K59.09 -- controlled w/ Linzess 145 mg from [facility] [employer] Asthma 706115408 J45.90 9 -- last spirometry was done Allergic rhinitis 551305 04 J30.9 Deficiency of vitamin D2 734730992 E55.9 -- recheck labs around 11/11/17 Thiamine deficiency 3993 92540 E51.9 -- recheck labs around 11/11/17 Headache 52327316 R51 -- controlled w/ Topamax; w/ infrequent use of [place] (60 tabs last 90 days)-- see neurologis t Dr Stephanie Camacho Localized edema 92318047 4 R60.0 -- controlled w/ occ use of Furosemide Advance di rective discussed with patient 562872705 Z71.89 Depression screening 171 626958 Z13.89 -- negative Screening for osteoporosis 072085575 Z13.820 -- Last DEXA was done 10/13/16 Viral screening 09046779 4 Z11.59 -- Hepatitis C antibody was nonreactiv e on 11/20/16 Active or passive immunization 245097969 Z23 Screening for malignant neoplasm of colon 571925689 Z12.11 -- Stool globin negative for occult blood on 12/01/17-- pt has colonoscop y with Dr Martel in 06/19/14 Screening for malignant neoplasm of breast 218768355 Z12.31 -- Mammogram was last done on 04/08/17 Screening for malignant neoplasm of cervix 803564661 Z12.4 [id number] Neil Higgins MD [facility] [employer] [facility], [facility] [address] [place] [address] 07/20/2018 15:53:36 07/20/2018 18:09:54 Cough 85204712 R05 (since Oct 2017; CXR on 01/05/18 was unrevealin g) -- resolved.( b/c of hoarseness ) -- Patient has appointmen t with ENT Dr. Coates tomorrow 07/21/18 Idiopathic peripheral neuropathy 98561776 G60.9 (legs/feet ) -- stable CVA - cere brovascular accident due to cerebral artery occlusion 219841272 I63.50 (dx'd in 2000) -- pt hospitaliz ed x 4 days; and was using wheeled walker x 4 weeks-- pt had appt w/ Neurologis tDr Colmenares on 03/31/17. -- Carotid Doppler shows less than 50% narrowing in bilateral carotid arteries on 03/17/17 ([facility]) but Dr Adamaris Snowden also did carotid doppler showed 85- 90% in February 2018; Dr Snowden referred pt to see Dr Zhou (Vascular surgeon) at [facility] did not agree w/ the findings and wants to repeat carotid doppler in Jul 2018 and then f/u w/ him after that.-- appt w/ Dr Barroso is coming up on 08/08/18 Chronic ki dney disease stage 3 403979822 N18.3 -- followup w/ Dr Jorge Luis Camacho as directed by Dr Jorge Luis Camacho. -- d/c Allopurino l b/c of persistent right neck rash-- renal us done on 06/14/17 -- recheck labs around 01/12/19 Benign ess ential hypertension 5154488 I10 -- recheck labs around 01/12/19 Hyperlipidemia 92029402 E78.5 (LDL of 60 on 04/03/16) -- recheck labs around 01/12/19 Hypothyroidism 76499981 E03.9 -- recheck labs around 01/12/19 Restless legs 95013013 G 25.81 -- Patient no longer takes Requip Gastroesop hageal reflux disease without esophagitis 047786835 K21.9 -- on Protonix bc of GERD & Hoarseness Body mass index 30+ - obesity 038450391 Z68.39 -- advised weight loss; .pt gained 4 # since her last visit; -- pt's BMI today is 33.3 (ideal is between 20-25). Chronic constipation 236 098020 K59.09 -- controlled w/ Linzess 72 mg from [facility] [employer] Asthma 645087309 J45.90 9 (quiescent ) -- last spirometry was done-- Last spirometry was done on 09/08/17 Allergic rhinitis 088473 04 J30.9 Localized edema 20581817 4 R60.0 -- controlled w/ occ use of Furosemide Advance di rective discussed with patient 840331591 Z71.89 Depression screening 171 551536 Z13.89 -- negative Screening for osteoporosis 400548663 Z13.820 -- Last DEXA was done 10/13/16 Viral screening 81656415 4 Z11.59 -- Hepatitis C antibody was nonreactiv e on 11/20/16 Active or passive immunization 409449689 Z23 Screening for malignant neoplasm of breast 173101137 Z12.31 -- Mammogram was last done on 04/15/18 Screening for malignant neoplasm of cervix 641097352 Z12.4 Screening for malignant neoplasm of colon 766604343 Z12.11 -- Last stool globin testing was 12/01/17 (negative) .-- gastroente rologist Dr Martel recommends repeating colonoscop y in June 2024. Chronic hoarseness 41110 86614 105 R49.0 -- Normal flexible laryngosco py in 05/16 (by ENT Dr Coates)-- deemed to be from GERD and pt is to continue on Protonix. Hyperuricemia 64388133 E 79.0 Migraine 57802014 G43.90 9 -- will be starting on Amovig by Neurologis valente Camacho-- currently on Amitriptyl ine, topiramate & Botox shot. Parkinson's disease 4904 9000 G20 -- on Carbidopa [id number] Neil Higgins MD [facility] [employer] [facility] [facility] [address] [place] [address] 01/11/2019 15:41:35 01/11/2019 18:08:27 Chronic kidney disease stage 3 493518942 N18.3 -- followup w/ Dr Jorge Luis Camacho as directed by Dr Jorge Luis Camacho. -- d/c Allopurino l b/c of persistent right neck rash-- renal us done on 06/14/17 -- recheck labs around 04/11/19 Benign ess ential hypertension 7329199 I10 -- recheck labs around 04/11/19 Hyperlipidemia 18735330 E78.5 (LDL of 60 on 04/03/16) -- recheck labs around 04/11/19 Hypothyroidism 62501509 E03.9 -- recheck labs around 04/11/19 CVA - cere brovascular accident due to cerebral artery occlusion 410952062 I63.50 (dx'd in 2000) -- pt hospitaliz ed x 4 days; and was using wheeled walker x 4 weeks-- pt had appt w/ Dr Dedra Sandoval on 03/31/17. -- Carotid Doppler shows less than 50% narrowing in bilateral carotid arteries on 03/17/17 ([facility]) but Dr Adamaris Snowden also did carotid doppler showed 85- 90% in February 2018; Dr Snowden referred pt to see Dr Zhou (Vascular surgeon) at [facility] did not agree w/ the findings and wants to repeat carotid doppler in Jul 2018 and then f/u w/ him after that.-- appt w/ Dr Barroso is coming up on 08/08/18 Parkinson's disease 4904 9000 G20 -- on Carbidopa Idiopathic peripheral neuropathy 53772434 G60.9 (legs/feet ) -- stable Restless legs 82686420 G 25.81 -- Patient no longer takes Requip Migraine 88918674 G43.90 9 -- will be starting on Amovig by Neurologlaureen Camacho-- currently on Amitriptyl ine, topiramate & Botox shot. Gastroesop hageal reflux disease without esophagitis 578103882 K21.9 -- on Protonix bc of GERD & Hoarseness Asthma 322403183 J45.90 9 (quiescent ) -- last spirometry was done-- Last spirometry was done on 09/08/17 Cough 05651364 R05 (since Oct 2017; CXR on 01/05/18 was unrevealin g) -- resolved.( b/c of hoarseness ) -- Patient has appointmen t with ENT Dr. Coates tomorrow 07/21/18 Chronic hoarseness 58456 49687 105 R49.0 -- Normal flexible laryngosco py in 05/16 (by ENT Dr Coates)-- deemed to be from GERD and pt is to continue on Protonix. Body mass index 30+ - obesity 354436671 Z68.34 -- advised weight loss; .pt gained 8 # since her last visit; -- pt's BMI today is 34.8 (ideal is between 20-25). Chronic constipation 236 762803 K59.09 -- controlled w/ Linzess 72 mg from [facility] [employer] Allergic rhinitis 445375 04 J30.9 Localized edema 83682989 4 R60.0 -- controlled w/ occ use of Furosemide Hyperuricemia 52450338 E 79.0 Advance di rective discussed with patient 989228034 Z71.89 Depression screening 171 656410 Z13.89 -- negative Screening for osteoporosis 436669614 Z13.820 -- Last DEXA was done 10/13/16 Viral screening 11258054 4 Z11.59 -- Hepatitis C antibody was nonreactiv e on 11/20/16 Active or passive immunization 232903938 Z23 Screening for malignant neoplasm of colon 893934985 Z12.11 -- Last stool globin testing was 12/01/17 (negative) .-- gastroente rologist Dr Martel recommends repeating colonoscop y in June 2024. Screening for malignant neoplasm of breast 305570837 Z12.31 -- Mammogram was last done on 04/15/18 Screening for malignant neoplasm of cervix 234070421 Z12.4 Abdominal pain 33479837 R10.9 (right sided; since end of Oct 2018) -- check labs today 01/11/19 [id number] Neil Higgins MD [facility] [employer] [facility] [address] [place] [address] 04/10/2019 14:55:20 04/10/2019 15:42:11 Adult health examination 829127340 Z00.00 Abdominal pain 21234024 R10.9 (right sided; since end of Oct 2018) -- spontaneou sly resolved. Chronic ki dney disease stage 3 664688832 N18.3 -- followup w/ Dr Jorge Luis Camacho as directed by Dr Jorge Luis Camacho. -- d/c Allopurino l b/c of persistent right neck rash-- renal us done on 06/14/17 -- recheck labs around 07/06/19 Benign ess ential hypertension 6446408 I10 -- last EKG done on 01/11/19-- recheck labs around 07/06/19 Hyperlipidemia 83442783 E78.5 (LDL of 60 on 04/03/16) -- recheck labs around 07/06/19 Hypothyroidism 32474021 E03.9 -- recheck labs around 07/06/19 CVA - cere brovascular accident due to cerebral artery occlusion 259183966 I63.50 (dx'd in 2000) -- pt hospitaliz ed x 4 days; and was using wheeled walker x 4 weeks-- pt had appt w/ Neurologlaureen victor, Dr Colmenares on 03/31/17. -- Carotid Doppler shows less than 50% narrowing in bilateral carotid arteries on 03/17/17 ([facility]) but Dr Adamaris Snowden also did carotid doppler showed 85- 90% in February 2018; Dr Snowden referred pt to see Dr Zhou (Vascular surgeon) at [facility] did not agree w/ the findings and wants to repeat carotid doppler in Jul 2018 and then f/u w/ him after that.-- appt w/ Dr Barroso is coming up in Jul 2019 Parkinson's disease 4904 9000 G20 -- on Carbidopa Idiopathic peripheral neuropathy 81554879 G60.9 (legs/feet ) -- stable Migraine 81327141 G43.90 9 -- will be starting on Amovig by Neurologlaureen Camacho-- currently on Amitriptyl ine, topiramate & Botox shot. Gastroesop hageal reflux disease without esophagitis 548956297 K21.9 -- on Protonix bc of GERD & Hoarseness Asthma 354702115 J45.90 9 (quiescent ) -- Last spirometry was done on 09/08/17 Chronic hoarseness 01715 33135 105 R49.0 -- Normal flexible laryngosco py in 05/16 (by ENT Dr Coates)-- deemed to be from GERD and pt is to continue on Protonix. Body mass index 30+ - obesity 321762143 Z68.32 -- advised weight loss; .pt gained 8 # since her last visit; -- pt's BMI today is 32.9 (ideal is between 20-25). Chronic constipation 236 433771 K59.09 -- controlled inspite of being off Linzess Allergic rhinitis 155870 04 J30.9 Localized edema 00809789 4 R60.0 -- controlled w/ occ use of Furosemide Hyperuricemia 29611416 E 79.0 Advance di rective discussed with patient 264914798 Z71.89 Depression screening 171 473122 Z13.89 -- negative Screening for osteoporosis 096005667 Z13.820 -- Last DEXA was done 10/13/16 Viral screening 03842055 4 Z11.59 -- Hepatitis C antibody was nonreactiv e on 11/20/16 Active or passive immunization 873679283 Z23 Screening for malignant neoplasm of colon 497828119 Z12.11 -- Last stool globin testing was 12/01/17 (negative) .-- gastroente rologist Dr Martel recommends repeating colonoscop y in June 2024. Screening for malignant neoplasm of breast 077901006 Z12.31 -- Mammogram was last done on 04/15/18 Screening for malignant neoplasm of cervix 109595226 Z12.4 Cervical lymphadenopathy 237891586 R59.0 (left anterior cervical LN) -- see photo for location. [id number] Neil Higgins MD [facility] [facility] [address] [place] [address] 07/11/2019 15:13:16 07/11/2019 17:12:39 Anemia 085481122 D64.9 -- recheck lab(s) on 01/04/20 Cervical lymphadenopathy 906579305 R59.0 (left anterior cervical LN) -- see photo for location. US of neck was done and pt was referred to ENT Dr Coates.Pt saw Dr Coates on 07/03/2019 & was told her eval is fine. Chronic ki dney disease stage 3 206097278 N18.3 -- followup w/ Dr Jorge Luis [...] 64 floz daily Benign ess ential hypertension 2427317 I10 -- last EKG done on 01/11/19 with normal GEETHA on 07/06/2019-- recheck lab(s) on 01/04/20 Hyperlipidemia 39210777 E78.5 (LDL of 83, HDL of 35 [...] Alcohol. -- recheck lab(s) on 01/04/20 Hypothyroidism 32256367 E03.9 -- normal TFT 07/06/2019-- recheck lab(s) on 01/04/20 CVA - cere brovascular accident due to cerebral artery occlusion 855326844 I63.50 (dx'd in 2000) -- pt hospitaliz ed x 4 days; and was using wheeled walker x 4 weeks-- pt had appt w/ Dr Dedra Sandoval on 03/31/17. -- Carotid Doppler shows less than 50% narrowing in bilateral carotid arteries on 03/17/17 ([facility]) but Dr Adamaris Snowden also did carotid doppler showed 85- 90% in February 2018; Dr Snowden referred pt to see Dr Zhou (Vascular surgeon) at [facility] did not agree w/ the findings and wants to repeat carotid doppler in Jul 2018 and then f/u w/ him after that.-- appt w/ Dr Barroso is coming up in Jul 2019-- dr Snowden would like pt to stay on ASA and Plavix Parkinson's disease 4904 9000 G20 -- on Carbidopa. Following neurologis t Dr Stephanie Camacho Idiopathic peripheral neuropathy 26534981 G60.9 (legs/feet ) -- stable Migraine 16487802 G43.90 9 -- is on Amovig by Neurologis t Dr Stephanie Camacho but pt reports it did not make any difference -- currently on Amitriptyl ine, topiramate & Botox shot. Gastroesop hageal reflux disease without esophagitis 257764407 K21.9 -- on Protonix bc of GERD & Hoarseness . Asthma 344550933 J45.90 9 (quiescent ) -- Last spirometry was done at pulmonolog ist Chronic hoarseness 72527 82746 105 R49.0 -- Normal flexible laryngosco py in 05/16 (by ENT Dr Coates)-- deemed to be from GERD and pt is to continue on Protonix. Body mass index 30+ - obesity 403501082 Z68.32 -- advised weight loss; .pt gained 3 # since her last visit; -- pt's BMI today is 33.5 (ideal is between 20-25). Chronic constipation 236 441633 K59.09 -- controlled on Miralax Allergic rhinitis 998637 04 J30.9 Localized edema 67909024 4 R60.0 -- controlled w/ occ use of Furosemide Hyperuricemia 31662391 E 79.0 Advance di rective discussed with patient 364010421 Z71.89 Depression screening 171 877682 Z13.89 -- negative Screening for osteoporosis 364101804 Z13.820 -- Last DEXA was done 10/13/16 and it was normal Viral screening 73958354 4 Z11.59 -- Hepatitis C antibody was nonreactiv e on 11/20/16 Active or passive immunization 715319371 Z23 Screening for malignant neoplasm of colon 871537683 Z12.11 -- Last stool globin testing was 12/01/17 (negative) .-- gastroente rologist Dr Martel recommends repeating colonoscop y in June 2024. Screening for malignant neoplasm of breast 050579603 Z12.31 -- Mammogram was last done on 04/20/19 Screening for malignant neoplasm of cervix 655880953 Z12.4 -- pt declined [id number] Neil Higgins MD [facility] [employer] [facility] [address] [place] [address] 10/16/2019 17:19:36 10/16/2019 18:48:22 Benign essential hypertension 8936232 I10 -- last EKG done on 01/11/19 with normal GEETHA on 07/06/2019-- recheck lab(s) on 01/04/20 Hyperlipidemia 81581241 E78.5 (LDL of 83, HDL of 35 [...] 01/04/20 Chronic ki dney disease stage 3 316505963 N18.3 -- followup w/ Dr Jorge Luis [...] fluids to over 64 floz daily Hypothyroidism 86443834 E03.9 -- normal TFT 07/06/2019-- recheck lab(s) on 01/04/20 Anemia 580239458 D64.9 -- recheck lab(s) on 2/6/20 CVA - cere brovascular accident due to cerebral artery occlusion 916059108 I63.50 (dx'd in 2000) -- pt hospitaliz ed x 4 days; and was using wheeled walker x 4 weeks-- pt had appt w/ Neurologis t, Dr Camacho on 03/31/17. -- Carotid Doppler 08/25/19 shows less than 50% narrowing on Rt and 50-69% on Left, and pt/spouse was told by Dr Barroso's office to repeat carotid doppler in 1 year. Parkinson's disease 4904 9000 G20 -- on Carbidopa. Following neurologis t Dr Stephanie Camacho Idiopathic peripheral neuropathy 73839244 G60.9 (legs/feet ) -- stable Migraine 99804095 G43.90 9 -- is on Amovig by Neurologlaureen t Dr Stephanie Camacho but pt reports it did not make any difference -- currently on Amitriptyl ine, topiramate & Botox shot. Gastroesop hageal reflux disease without esophagitis 850768445 K21.9 -- on Protonix bc of GERD & Hoarseness . Asthma 876842426 J45.90 9 (quiescent ) -- Last spirometry was done at pulmonolog ist Chronic hoarseness 90791 46092 105 R49.0 -- Normal flexible laryngosco py in 05/16 (by ENT Dr Coates)-- deemed to be from GERD and pt is to continue on Protonix. Body mass index 30+ - obesity 133826393 Z68.32 -- advised weight loss; .pt gained 5 # since her last visit; -- pt's BMI today is 34.4 (ideal is between 20-25). Chronic constipation 236 495837 K59.09 -- controlled on Miralax Allergic rhinitis 941334 04 J30.9 Localized edema 20758314 4 R60.0 -- controlled w/ occ use of Furosemide Hyperuricemia 85849069 E 79.0 Advance di rective discussed with patient 191497119 Z71.89 Depression screening 171 692589 Z13.89 -- negative Screening for osteoporosis 547331214 Z13.820 -- Last DEXA was done 10/13/16 and it was normal Viral screening 99770584 4 Z11.59 -- Hepatitis C antibody was nonreactiv e on 12/23/16 Active or passive immunization 029668926 Z23 Screening for malignant neoplasm of colon 430044763 Z12.11 -- Last stool globin testing was 12/01/17 (negative) .-- gastroente rologist Dr Martel recommends repeating colonoscop y in June 2024. Screening for malignant neoplasm of breast 187720321 Z12.31 -- Mammogram was last done on 04/20/19 Screening for malignant neoplasm of cervix 604733435 Z12.4 -- pt declined Coronary arteriosclerosis 79286128 I25.10 (mild on May 2014) -- repeat cardiac cath by Dr Snowden was 10/11/19 showed no progressiv e CAD Pain of ri ght shoulder joint 5236308970 5542752 M25.511 [id number] Neil Higgins MD [facility] [employer], [facility] [address] [place] [address] 01/24/2020 12:40:16 01/24/2020 14:46:15 Abrasion 013104683 T14.8XXA (left elbow) Active or passive immunization 646646780 Z23 [id number] Neil Higgins MD [facility] [employer] [facility], [facility] [address] [place] [address] 02/28/2020 11:04:04 02/28/2020 12:40:44 Influenza-like illness 16436966 B34.9 -- diagnoses Diarrhea 12941269 R19.7 Serum crea tinine above reference range 578424236 R79.89 (increased from 1.3 --> 1.5) -- pt counseled on increasing fluids [id number] Neil Higgins MD [facility] [employer] [facility], [facility] [address] [place] [address] 04/23/2020 14:49:04 04/23/2020 16:43:06 Influenza-like illness 75862162 B34.9 -- resolved. Diarrhea 21591724 R19.7 -- resolved Serum crea tinine above reference range 829319532 R79.89 (increased from 1.3 --> 1.5) -- pt counseled on increasing fluids Benign ess ential hypertension 5060037 I10 -- last EKG done on 01/11/19 with normal GEETHA on 07/06/2019-- recheck lab(s) on 01/04/20 Pain of ri ght shoulder joint 6662809279 7974793 M25.511 -- xrays ordered but not done Hyperlipidemia 76397162 E78.5 (LDL of 83, HDL of 35 [...] 01/04/20 Chronic ki dney disease stage 3 737578620 N18.3 -- followup w/ Dr Jorge Luis [...] fluids to over 64 floz daily Hypothyroidism 51575342 E03.9 -- normal TFT 07/06/2019-- recheck lab(s) on 01/04/20 Anemia 640847485 D64.9 -- normalized on 02/22/20 CVA - cere brovascular accident due to cerebral artery occlusion 241009068 I63.50 (dx'd in 2000) -- pt hospitaliz ed x 4 days; and was using wheeled walker x 4 weeks-- pt had appt w/ NeurologDr Joseph ordonez on 03/31/17. -- Carotid Doppler 08/25/19 shows less than 50% narrowing on Rt and 50-69% on Left, and pt/spouse was told by Dr Barroso's office to repeat carotid doppler in 1 year. Parkinson's disease 4397 9000 G20 -- on Carbidopa. Following neurologis t Dr Stephanie Camacho Idiopathic peripheral neuropathy 24715309 G60.9 (legs/feet ) -- stable Migraine 50951264 G43.90 9 -- is on Amovig by Neurologis t Dr Stephanie Camacho but pt reports it did not make any difference -- currently on Amitriptyl ine, topiramate & Botox shot. Coronary arteriosclerosis 22270935 I25.10 (mild on May 2014) -- repeat cardiac cath by Dr Snowden was 10/11/19 showed no progressiv e CAD Gastroesop hageal reflux disease without esophagitis 959244155 K21.9 -- on Protonix bc of GERD & Hoarseness . Asthma 012498062 J45.90 9 (quiescent ) -- Last spirometry was done at pulmonolog ist Chronic hoarseness 95106 23202 105 R49.0 -- Normal flexible laryngosco py in 05/16 (by ENT Dr Coates)-- deemed to be from GERD and pt is to continue on Protonix. Body mass index 30+ - obesity 088437583 Z68.33 -- advised weight loss; .pt lost 6 # since her last visit; -- pt's BMI today is 33.1 (ideal is between 20-25). Allergic rhinitis 880051 04 J30.9 Localized edema 97668600 4 R60.0 -- controlled w/ occ use of Furosemide Hyperuricemia 70142358 E 79.0 Advance di rective discussed with patient 247882796 Z71.89 Depression screening 171 235119 Z13.89 -- negative Screening for osteoporosis 074227421 Z13.820 -- Last DEXA was done 10/13/16 and it was normal Viral screening 51119377 4 Z11.59 -- Hepatitis C antibody was nonreactiv e on 11/20/16 Active or passive immunization 416794449 Z23 Screening for malignant neoplasm of colon 231386452 Z12.11 -- Last stool globin testing was 12/01/17 (negative) .-- gastroente rologist Dr Martel recommends repeating colonoscop y in June 2024. Screening for malignant neoplasm of breast 309315004 Z12.31 -- Mammogram was last done on 04/20/19 Screening for malignant neoplasm of cervix 279734930 Z12.4 -- pt declined [id number] Neil Higgins MD [facility] [employer] [facility], [facility] [address] [facility] [place] [address] 06/06/2020 16:55:08 06/06/2020 18:55:00 Adult health examination 448793708 Z00.00 Ramakrishna hematuria 62078295 5 R31.0 Body mass index 30+ - obesity 860404235 Z68.33 -- advised weight loss; .pt lost 6 # since her last visit; -- pt's BMI today is 33.1 (ideal is between 20-25). Screening for malignant neoplasm of colon 340182377 Z12.11 -- Last stool globin testing was 12/01/17 (negative) .-- gastroente rologist Dr Martel recommends repeating colonoscop y in June 2024. Screening for malignant neoplasm of breast 231286455 Z12.31 -- Mammogram was last done on 04/20/19 Screening for malignant neoplasm of cervix 276098170 Z12.4 -- pt declined [id number] Neil Higgins MD [facility] [employer] [facility], [facility] [address] [place] [address] 08/20/2020 15:28:15 08/20/2020 17:00:59 Falling injury 132223915 W19.XXXA (slipped on kitchen leigh and fell backwards -- landed on her back w/ also sustained occipital impact)-- except for headaches, neck, back pain and bilateral post rib pain, no other sx. [id number] [facility] [address] [place] [address] 09/12/2020 15:39:23 09/18/2020 11:49:43 Essential hypertension 30955722 I10 -- last EKG done on 01/11/19 with normal GEETHA on 07/06/2019 -- recheck lab(s) on Hyperlipidemia 13935401 E78.5 (LDL of 83, HDL of 35 [...] Alcohol. -- recheck lab(s) on 01/04/20 Hypothyroidism 48398247 E03.9 -- normal TFT 07/06/2019-- recheck lab(s) on 01/04/20 Chronic ki dney disease stage 3 720052539 N18.30 -- Management as per Dr. Jorge Luis Camacho [id number] Neil Higgins MD [facility], [facility] [address] [place] [address] 12/19/2020 16:07:59 12/19/2020 17:57:18 Essential hypertension 62548234 I10 -- add metoprolol 25 mg 1 tab daily Hyperlipidemia 40669728 E78.5 Elevated Triglyceri daryn -1. Elevated Triglyceri [...] Alcohol. -- recheck lab(s) on 12/23/20 Hypothyroidism 58401858 E03.9 -- recheck lab(s) on 12/23/20 Chronic ki dney disease stage 3 866271902 N18.30 -- Management as per Dr. Jorge Luis Camacho Chest pain 53350436 R07. 9 -- w/ associated jaw and neck pain;-- pt saw Cardiologi st Dr Adamaris Snowden who ordered a new bottle of NTG which pt very well w/ resolution ; Dr Snowden also ordered EKG, and echodopple r -- both were unrevealin g.-- pt has cardiac cath scheduled tomorrow (12/20/20) w/ Dr Snowden . [id number] Neil Higgins MD [facility] [employer] [employer] [address] [place] [address] 02/24/2021 11:44:16 02/24/2021 13:06:26 Falling injury 165659361 W19.XXXA (in Jul 2020, pt slipped on [...] entering the kitchen. Unsteady when walking 22 988502 R26.89 [id number] Neil Higgins MD [facility] [employer] [address] [place] [address] 03/19/2021 15:53:04 03/19/2021 17:35:56 Low back pain 833343744 M54.5 Unsteady when walking 22 042187 R26.89 -- no more falling; pt declined PT Parkinson's disease 4904 9000 G20 -- on Carbidopa. Following shana Camacho CVA - cere brovascular accident due to cerebral artery occlusion 252822972 I63.50 (dx'd in 2000) -- pt hospitaliz ed x 4 days; and was using wheeled walker x 4 weeks -- pt had appt w/ Dr Joseph Sandoval on 03/31/17. -- Carotid Doppler 08/25/19 shows less than 50% narrowing on Rt and 50-69% on Left, and pt/spouse reported that Cardiologi st Dr Adamaris Snowden did carotid doppler on 08/16/20 Essential hypertension 12022349 I10 -- add metoprolol 25 mg 1 tab daily Hyperlipidemia 76982428 E78.5 Elevated Triglyceri daryn -1. Elevated Triglyceri [...] Alcohol. -- recheck lab(s) on 12/23/20 Hypothyroidism 30692493 E03.9 -- recheck lab(s) on 12/23/20 Chronic ki dney disease stage 3 901069760 N18.30 -- Management as per Dr. Jorge Luis Camacho [id number] Neil Higgins MD [facility] [address] [place] [address] 06/18/2021 14:48:26 06/18/2021 16:27:57 Adult health examination 864897654 Z00.00 Low back pain 988383307 M54.5 -- had disc disease and arthritis of spine; and T12 compressio n Fx Parkinson's disease 4904 9000 G20 -- on Carbidopa. Following neurologlaureen t Dr Stephanie Camacho CVA - cere brovascular accident due to cerebral artery occlusion 885998240 I63.50 (dx'd in 2000) -- pt hospitaliz ed x 4 days; and was using wheeled walker x 4 weeks -- pt had appt w/ Neurologis Dr Joseph victor on 03/31/17. -- Carotid Doppler 08/25/19 shows less than 50% narrowing on Rt and 50-69% on Left, and pt/spouse reported that Cardiologi st Dr Adamaris Snowden did carotid doppler on 08/16/20 Unsteady when walking 22 673925 R26.89 -- no more falling; pt declined PT Essential hypertension 49628884 I10 -- EKG done 12/11/20-- add metoprolol 25 mg 1 tab daily Hyperlipidemia 84225479 E78.5 -- you will need to limit [...] Alcohol. -- recheck lab(s) on 09/03/21 Hypothyroidism 91095354 E03.9 -- recheck lab(s) on 09/03/21 Chronic ki dney disease stage 3 525899920 N18.30 -- Management as per Dr. Jorge Luis Camacho Body mass index 30+ - obesity 805263130 Z68.32 -- advised weight loss; no weight since her last visit;-- pt's BMI today is 32.6 (ideal is between 20-25). Advance di rective discussed with patient 638945927 Z71.89 Hepatitis C screening 41 8341052 Z11.59 -- tested negative for Hep C on 11/20/16 Active or passive immunization 366060179 Z23 Screening for malignant neoplasm of colon 263701819 Z12.11 -- Last stool globin testing was 12/01/17 (negative) .-- gastroente rologist Dr Martel recommends repeating colonoscop y in June 2024. Screening for malignant neoplasm of breast 181543136 Z12.31 -- Mammogram done 08/20/21 Screening for malignant neoplasm of cervix 896769161 Z12.4 -- pt declined [id number] Neil Higgins MD [facility], [facility] [address] [place] [address] 09/03/2021 16:10:00 09/03/2021 18:35:53 Low back pain 132021586 M54.50 -- had disc disease and arthritis of spine; and T12 compressio n Fx-- improved 75% since Epidural injection Parkinson's disease 4907 9000 G20 -- on Carbidopa. Following neurologlaureen t Dr Stephanie Camacho CVA - cere brovascular accident due to cerebral artery occlusion 051534417 I63.50 (dx'd in 2000) -- pt hospitaliz ed x 4 days; and was using wheeled walker x 4 weeks -- pt had appt w/ Neurologis tDr Camacho on 03/31/17. -- Carotid Doppler 08/25/19 shows less than 50% narrowing on Rt and 50-69% on Left, and pt/spouse reported that Cardiologi st Dr Adamaris Snowden did carotid doppler on 08/16/20 Essential hypertension 83409438 I10 -- EKG done 12/11/20-- add metoprolol 25 mg 1 tab daily-- recheck lab(s) on 12/04/21 Hyperlipidemia 45505181 E78.5 -- you will need to limit [...] Alcohol. -- recheck lab(s) on 12/04/21 Hypothyroidism 31418164 E03.9 -- recheck lab(s) on 12/04/21 Chronic ki dney disease stage 3 014910681 N18.30 -- Management as per Dr. Jorge Luis Camacho- - Cr stable at 1.31 (09/02/21)- - recheck lab(s) on 12/04/21 Body mass index 30+ - obesity 353564240 Z68.31 -- advised weight loss; pt lost 8 # since her last visit;-- pt's BMI today is 31.1 (ideal is between 20-25). Advance di rective discussed with patient 657592340 Z71.89 Hepatitis C screening 41 9455114 Z11.59 -- tested negative for Hep C on 11/20/16 Active or passive immunization 764025658 Z23 Screening for malignant neoplasm of colon 153444675 Z12.11 -- Last stool globin testing was 12/01/17 (negative) .-- gastroente rologist Dr Martel recommends repeating colonoscop y in June 2024. Screening for malignant neoplasm of breast 747614475 Z12.31 -- Mammogram done 08/20/21 Screening for malignant neoplasm of cervix 229074245 Z12.4 -- pt declined Neil Higgins MD [facility] [address] [place] [address] 12/02/2021 15:25:13 12/02/2021 17:18:56 Low back pain 892466598 M54.50 -- had disc disease and arthritis [...] continue follow up with pain management at [place]-- check lab(s) om 12/30/[address] A/P done 10/2021Was developing very mild left hydronephr osis and mild asymmetric prominence of the proximal left ureter. Transition point adjacent to surgical clips in the left hemipelvis . No convincing obstructin g calculus identified . Retention of urine [address] A/P done 10/2021Min imal areas of bladder wall thickening may be secondary to incomplete distention . --> improved with UTI treatment Pt is following urologist Tita Welch and Dr Batista -- has appt on 12/07/21 Acute urin katy tract infection 382304841 N39.0 UA +LE, WBC, bloodImagi ng showed mild left hydronephr osisStarte d on rocephinfo llow urine cultures shows E Coli Anemia 710791639 D64.9 Hgb was 9.7 on 11/25/2021 -- check lab(s) om 12/30/21 Essential hypertension 75082677 I10 -- check lab(s) om 12/30/21 Chronic ki dney disease stage 3 197431619 N18.30 -- Management as per Nephrologi st Dr. 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 N13.5 -- cleared for cystoscopy left ureterosco py holmium laser lithotrips y/left urteral stent placement [id number] Neil Higgins MD [employer] [address] [place] [address] 03/24/2022 14:47:17 03/24/2022 16:24:37 Essential hypertension 20102794 I10 -- just saw Cardiologi st Dr Adamaris Snowden in February 2022 and she had a normal echo w/ EF of 60%-- EKG done on 12/24/21-- check lab(s) om 12/30/21 Stenosis of ureter 00988 003 N13.5 -- s/p cystoscopy left ureterosco py holmium laser lithotrips y/left urteral stent placement by Dr Frantz Batista 01/13/22 At low risk for fall 439 627962 Z91.81 -- no unsteady balance or gait problems-- have not fallen for over-- no fear of falling or falling tendency Body mass index 30+ - obesity 655384036 Z68.33 -- advised weight loss; pt gained 8 # since her last visit;-- pt's BMI today is 33.1 (ideal is between 20-25). Chronic ki dney disease stage 3 127377075 N18.30 -- Management as per Nephrologi st Dr. Jorge Luis Camacho- - Cr stable at 1.31-- check lab(s) om 12/30/21 Anemia 239101880 D64.9 Hgb was 9.7 on 11/25/2021 -- check lab(s) om 12/30/21 Otalgia of right ear 931 3463342 H92.01 Chronic hoarseness 34843 44959 105 R49.0 -- Normal flexible laryngosco py in 05/16 (by ENT Dr Coates)-- deemed to be from GERD and pt is to continue on Protonix. [id number] Neil Higgins MD [facility] [employer] [employer] [address] [place] [address] 07/08/2022 15:53:39 07/08/2022 17:59:45 Adult health examination 848383161 Z00.00 Otalgia of right ear 109 4507208 H92.01 -- saw ENT Dr Rick Coates who prescribed 2 weeks of ABx; her sinus CT showed extensive sinusitis &will be having sinus surgery on 07/31/22 Chronic hoarseness 23070 40090 105 R49.0 -- Normal flexible laryngosco py in 05/16 (by ENT Dr Coates)-- deemed to be from GERD and pt is to continue on Protonix. Essential hypertension 56950668 I10 -- just saw Cardiologi st Dr Adamaris Snowden in February 2022 and she had a normal echo w/ EF of 60%-- EKG done on 12/24/21-- check lab(s) within 7 days from 07/08/22 Stenosis of ureter 12192 003 N13.5 -- s/p cystoscopy left ureterosco py holmium laser lithotrips y/left urteral stent placement by Dr Frantz Batista 01/13/22 Chronic ki dney disease stage 3 929097750 N18.30 -- Management as per Nephrologi st Dr. Jorge Luis Camacho- - check lab(s) within 7 days from 07/08/22 Anemia 627808631 D64.9 -- check lab(s) within 7 days from 07/08/22 Body mass index 30+ - obesity 960943491 Z68.33 -- advised weight loss; pt lost 9 # since her last visit-- pt's BMI today is 31.5 (ideal is between 20-25). At low risk for fall 629 030876 Z91.81 -- no unsteady balance or gait problems-- have not fallen for over-- no fear of falling or falling tendency CVA - cere brovascular accident due to cerebral artery occlusion 190849358 I63.50 (dx'd in 2000) -- pt hospitaliz ed x 4 days; and was using wheeled walker x 4 weeks -- pt had appt w/ Neurologis Dr Joseph victor on 03/31/17. -- Carotid Doppler 08/25/19 shows less than 50% narrowing on Rt and 50-69% on Left, and pt/spouse reported that Cardiologi st Dr Adamaris Snowden did carotid doppler on 08/16/20 Hypothyroidism 00740759 E03.9 -- check lab(s) within 7 days from 07/08/22 Parkinson's disease 4904 9000 G20 -- on Carbidopa. Following neurologis valente Camacho Advance di rective discussed with patient 929990783 Z71.89 Screening for malignant neoplasm of colon 477352503 Z12.11 -- Last stool globin testing was 12/01/17 (negative) .-- gastroente rologist Dr Martel recommends repeating colonoscop y in June 2024. Screening for malignant neoplasm of breast 687038118 Z12.31 -- Mammogram done 08/20/21 Screening for malignant neoplasm of cervix 047265992 Z12.4 -- pt declined [id number] Neil Higgins MD [employer] [address] [place] [address] 12/22/2022 10:09:17 12/22/2022 11:49:44 Muscle spasm of cervical muscle of neck 1321278596 04 M62.838 -- started on Wednesday12/18/22-- pt has Robaxin 500 mg at home (from spouse)-- will add Medrolpak [id number] Neil Higgins MD [employer] [address] [place] [address] 03/23/2023 12:40:41 03/23/2023 15:02:56 Osteoarthritis of knee 481693662 M17.9 -- s/p Rt TKR on 01/01/23 at [facility] ; by Dr Steve Ferraro Essential hypertension 78510415 I10 -- just saw Cardiologi st Dr Adamaris Snowden in February 2022 and she had a normal echo w/ EF of 60%-- EKG done on 12/14/22-- BP controlled -- check lab(s) within 3 days from 12/14/22 CVA - cere brovascular accident due to cerebral artery occlusion 383216117 I63.50 (dx'd in 2000) -- pt hospitaliz [...] days prior to knee surgery (TKR) Hyperlipidemia 82901207 E78.5 -- you will need to limit [...] d) Body mass index 25-29 - overweight 273493627 Z68.29 -- pt lost 4 # since her Rt TKR-- pt's BMI today is 29.8 (ideal is between 20-25) Pain in both feet 716744 6060 0068404 M79.671 M79.672 [id number] Neil Higgins MD [facility] [address] [place] [address] 07/01/2023 15:39:34 07/01/2023 17:27:34 Osteoarthritis of knee 560086146 M17.9 -- s/p Rt TKR on 01/01/23 at [facility] ; by Dr Steve Ferraro Essential hypertension 29340927 I10 -- just saw Cardiologi st Dr Adamaris Snowden in February 2022 and she had a normal echo w/ EF of 60%-- EKG done on 12/14/22-- BP controlled -- check lab(s) within 3 days from 12/14/22 Hyperlipidemia 12728480 E78.5 -- you will need to limit [...] brovascular accident due to cerebral artery occlusion 845424015 I63.50 (dx'd in 2000) -- pt hospitaliz [...] knee surgery (TKR) Pain in both feet 280214 6260 7554407 M79.671 M79.672 Body mass index 25-29 - overweight 765545511 Z68.29 -- pt lost 4 # since her Rt TKR-- pt's BMI today is 29.8 (ideal is between 20-25) Upper resp iratory infection 77861201 J06.9 Chronic ki dney disease stage 3 782591919 N18.30 -- Management as per Nephrologi st Dr. Jorge Luis Camacho- - check lab(s) within 7 days from 07/08/22 At moderat e risk for fall 7542414010 97063668 Z91.89 [id number] Neil Higgins MD [facility] [address] [place] [address] 09/08/2023 15:25:58 09/08/2023 17:18:22 Essential hypertension 12370332 I10 -- saw Cardiologi st Dr Adamaris Snowden & had a normal echo w/ EF of 60%-- EKG done on 12/14/22-- BP controlled -- check lab(s) within 3 days from 12/14/22 Hyperlipidemia 88191591 E78.5 -- you will need to limit [...] brovascular accident due to cerebral artery occlusion 497956815 I63.50 (dx'd in 2000) -- pt hospitaliz [...] (TKR) Chronic ki dney disease stage 3 865144120 N18.30 -- Management as per Nephrologi st Dr. Jorge Luis Camacho- - check lab(s) within 7 days from 07/08/22 Osteoarthr itis of knee 555195307 M17.9 -- s/p Rt TKR on 01/01/23 at [facility] [phone]; by Dr Steve Ferraro Pain in both feet 063128 8313 1734446 M79.671 M79.672 Body mass index 25-29 - overweight 546918912 Z68.29 -- pt lost 4 # since her Rt TKR-- pt's BMI today is 29.8 (ideal is between 20-25) At moderat e risk for fall 6687942617 60264611 Z91.89 -- using cane-- will refer pt to PT for eval Proximal m uscle weakness 062684784 M62.81 (in Hips) [id number] [facility] [address] [place] [address] 01/24/2024 14:33:31 01/24/2024 16:52:21 Otalgia of right ear 8271160284 H92.01 -- 1st in [place] around 2009 (frontal sinus)-- 2nd sinus surgery around 2020 (Dr Coates) -- saw ENT Dr Rick Coates in the past but Dr Coates was out of town,-- pt was then seen at [facility] and was given Augmentin ABx around 12/10/23, sx did not improved; pt tried to make appt w/ Dr Coates again but Dr Ojeda was booked over 5 weeks out.-- pt then went to [facility] again and this time she was given Cefdinir and steroid and sx improved 30%. Upper resp iratory infection [id number] J06.9 -- respirator y pathogen PCR on 01/03/24 showed Adair Johnson Virus-- sx resolved but still feeling tired all the time. [id number] Neil Higgins MD [facility] [employer] [facility] [address] [place] [address] 04/25/2024 15:02:30 04/25/2024 17:12:35 Proximal muscle weakness [id number] M62.81 (in Hips) Essential hypertension 79117837 I10 -- saw Cardiologi st Dr Adamaris Snowden & had a normal echo w/ EF of 60%-- EKG done on 12/14/22-- BP controlled -- check lab(s) around 05/08/24 Hyperlipidemia 67374081 E78.5 -- you will need to limit [...] brovascular accident due to cerebral artery occlusion 403448727 I63.50 (dx'd in 2000) -- pt hospitaliz [...] (TKR) Chronic ki dney disease stage 3 580550180 N18.30 -- Management as per Nephrologi Dr. Jorge Luis Camacho- - check lab(s) around 05/08/24 Osteoarthr itis of knee 859071639 M17.9 -- s/p Rt TKR on 01/01/23 at [facility] [phone]; by Dr Steve Ferraro Pain in both feet 695365 2228 6997740 M79.671 M79.672 Body mass index 25-29 - overweight 114255983 Z68.29 -- pt lost 4 # since her Rt TKR-- pt's BMI today is 29.8 (ideal is between 20-25) At moderat e risk for fall [id number] 91119095 Z91.89 -- using cane-- will refer pt to PT for eval Adult heal th examination 443580042 Z00.00 [id number] Neil Higgins MD [facility] [employer] [employer] [facility] [address] [place] [address] 10/24/2024 14:28:09 10/24/2024 15:39:37 Proximal muscle weakness 299583620 M62.81 (in Hips) Essential hypertension 91496328 I10 -- saw Cardiologi st Dr Adamaris Snowden & had a normal echo w/ EF of 60%-- EKG done on 12/14/22-- BP controlled -- check lab(s) around 11/07/24 Hyperlipidemia 30590958 E78.5 -- you will need to limit [...] brovascular accident due to cerebral artery occlusion 694370421 I63.50 (dx'd in 2000) -- pt hospitaliz [...] (TKR) Chronic ki dney disease stage 3 731216375 N18.30 -- Management as per Nephrologi st Dr. Jorge Luis Camacho- - check lab(s) around 11/07/24 Osteoarthr itis of knee 864356649 M17.9 -- s/p Rt TKR on 01/01/23 at [facility] ; by Dr Steve Ferraro Pain in both feet 313786 9080 8338707 M79.671 M79.672 Body mass index 25-29 - overweight 952860518 Z68.29 -- pt lost 4 # since her Rt TKR-- pt's BMI today is 29.8 (ideal is between 20-25) At moderat e risk for fall 5204092952 45215476 Z91.89 -- using cane-- will refer pt to PT for eval Active or passive immunization 643954889 Z23 [id number] Neil Higgins MD [facility] [employer] [facility] [employer] [address] [place] [address] 04/24/2025 11:57:34 04/24/2025 13:49:53 General examination of patient 710155551 Z00.00 Proximal m uscle weakness 082679046 M62.81 (in Hips) Essential hypertension 64934191 I10 -- saw Cardiologi st Dr Adamaris Snowden & had a normal echo w/ EF of 60%-- EKG done on 12/14/22-- BP controlled -- check lab(s) around 06/05/25 Hyperlipidemia 44224854 E78.5 -- you will need to limit [...] brovascular accident due to cerebral artery occlusion 096827994 I63.50 (dx'd in 2000) -- pt hospitaliz ed x 4 days; and was using wheeled walker x 4 weeks -- pt had appt w/ Neurologis Dr Joseph victor on 03/31/17. -- Carotid Doppler 08/25/19 shows less than 50% narrowing on Rt and 50-69% on Left, and pt/spouse reported that Cardiologi Dr Adamaris Snowden did carotid doppler on 08/16/20-- stop Clopidogre l (aka Plavix) 10 days prior to knee surgery (TKR) Chronic ki dney disease stage 3 469178527 N18.30 -- Management as per Nephrologi Dr. Jorge Luis Camacho- - check lab(s) around 06/05/25 Pain in both feet 605356 1022 2730687 M79.671 M79.672 Osteoarthr itis of knee 364979060 M17.9 -- s/p Rt TKR on 01/01/23 at [facility] ; by Dr Steve Ferraro Body mass index 25-29 - overweight 824301544 Z68.29 -- pt lost 4 # since her Rt TKR-- pt's BMI today is 29.8 (ideal is between 20-25) At moderat e risk for fall 7502202534 27421400 Z91.89 -- using cane-- will refer pt to PT for eval Active or passive immunization 840800331 Z23 Screening for malignant neoplasm of colon 462070519 Z12.11 -- Last stool globin testing was 12/01/17 (negative) .-- gastroente rologist Dr Alix Florez recommends repeating colonoscop y 5 years from 11/04/23 Gynecologi c examination 55863130 Z01.419 Screening mammography 24 421135 Z12.31 -- Mammogram done 08/20/21 Health Concerns Section Related Observation LastModified by Organization Detai ls LastModified Time None Recorded Concern Status LastModified by Organization Details LastModified Time None Recorded Advance Directives Directive Y: Payers Insurance Date Sequence Insurance Name Policy Number Policy Santos Covered Member ID Santos Member ID Guarantor Name 06/24/2025 2 [employer] (INDEMNITY) [id number] Flako Ferguson [id number] Rubina Ferguson 06/24/2025 3 [employer] - FOR LIFE Rubina Ferguson [id number] Rubina Ferguson 08/20/2020 3 [employer] (PPO) [id number] Rubina Ferguson [id number] Rubina Ferguson 06/24/2025 1 [place] Rubina Ferguson [id number] Rubina Ferguson Notes Date Note Type Note Provider Name and Address Organization Details Recorded Time 4 text/htm l Pt started experiencing URI 3 weejs ago. She was seen at [facility] and given Mucinex. Sx did not improve and pt was seen at [facility] again, and was give Zpak and steroid. Rt ear pressure had begun to improved. Had fever 1 week ago; none since. Pt also has headaches (Rt frontal sinus area), dry cough, body aches, and loose stool. Pt has residual sniffles and occasional cough. Not Available Not Available Not Available 4 text/htm l Pt comes in for Rt ear ache [...] angina equivalent symptoms, etc. Neil Higgins MD [address] [place] [address] [address], [place], [address], [facility] 01/24/2024 16:49:37 4 text/htm l Medicare Annual Wellness VisitReported by PatientSocial/Behavioral HistoryFor diet and nutrition, patient reportshealthy diet,discussed vitamin and supplement use,discussed maintaining calcium balance, anddiscussed diet improvement. For fracture risk, patient reportsno history of fractures,no recent explained fracture,no sudden unexplained fractures, andno previous musculoskeletal injuries. For physical activity, patient reportsdiscussed weightbearing activitiesanddiscussed exercise habits.Mental Status:For depression risk, patient reportsnever feels sad, empty, or tearful,no loss of interest in activities,no significant changes in weight,no sleep disturbances or insomnia,no agitation,no loss of energy,no feelings of worthlessness or guilt,no thoughts of suicide,no history of depression, andno history of mood disorders. For orientation, patient reportsno disorientation to time,no disorientation to date, andno disorientation to place. For concentration and memory, patient reportsno decreased concentrating ability,no memory lapses or loss, anddoes not forget words. For speech/motor difficulties, patient reportsno speech difficulties,no difficulty expressing formulated concepts,no difficulty with fine manipulative tasks,no difficulty writing/copying,no slowed reaction time, anddoes not knock things over when trying to pick them up.Functional AbilityFor hearing, patient reportsloss of hearing: in both earsbut reportswears hearing aids ((bilaterally)). For activities of daily living, patient reportsunable to contol urination and bowelsbut reportsable to bathe with limited or no assistance,able to dress with limited or no assistance,able to feed self with limited or no assistance,able to get out of chair or bed with limited or no assistance,able to groom with limited or no assistance, andable to toilet with limited or no assistance. For falls risk assessment, patient reportsdizziness/vertigobu t reportsno frequent falls while walking,no fall in the past year, andno fall since last visit. For home safety, patient reportsfire armsbut reportsno unsafe rowena hazzards,no unsafe stairs,no unsafe gas appliances,working smoke/co detectors,use of seatbelts,no vision or hearing loss while driving,has hand bars in the bathroom/shower, andgood lighting in the home. For vision, patient reportsno vision problems. For instrumental activities of daily living, patient reportsable to do house work with limited or no assistance,able to grocery shop with limited or no assistance,able to manage medications with limited or no assistance,able to manage money with limited or no assistance,able to prepare meals with limited or no assistance, andable to use the phone with limited or no assistance. Pt comes in for CKD, Anemia, CKD, Aenmia, Hypothyroidism , and weight monitoring. Pt also due for her annual PE. Overall pt feels well and has c/o.Pt denies any headache/chest discomfort or pain/diaphoresis/breathing problems/nausea/vomiting/a ny angina equivalent symptoms/visual changes Neil Higgins MD [address] [facility] [address], [place], [address], [facility] 04/25/2024 17:11:56 4 text/htm l Pt comes in for HTN, HLD, CVD, [...] angina equivalent symptoms, etc. Neil Higgins MD [address] [place] [address], [place], [address], [facility] 10/24/2024 15:42:01 5 text/htm l Medicare Annual Wellness VisitReported by PatientSocial/Behavioral HistoryFor diet and nutrition, patient reportshealthy diet,discussed vitamin and supplement use,discussed portion control,discussed maintaining calcium balance, anddiscussed diet improvement. For fracture risk, patient reportsno history of fractures,no recent explained fracture,no sudden unexplained fractures, andno previous musculoskeletal injuries. For physical activity, patient reportsdiscussed weightbearing activitiesanddiscussed exercise habits.Mental Status:For depression risk, patient reportsnever feels sad, empty, or tearful,no loss of interest in activities,no significant changes in weight,no sleep disturbances or insomnia,no agitation,no loss of energy,no feelings of worthlessness or guilt,no thoughts of suicide,no history of depression, andno history of mood disorders. For orientation, patient reportsno disorientation to time,no disorientation to date, andno disorientation to place. For concentration and memory, patient reportsno decreased concentrating ability,no memory lapses or loss, anddoes not forget words. For speech/motor difficulties, patient reportsno speech difficulties,no difficulty expressing formulated concepts,no difficulty with fine manipulative tasks,no difficulty writing/copying,no slowed reaction time, anddoes not knock things over when trying to pick them up.Functional AbilityFor hearing, patient reportsloss of hearing: in both earsbut reportswears hearing aids ((bilaterally)). For activities of daily living, patient reportsunable to contol urination and bowels (rare stool incontinence due to diarrhea in the last 2 days)but reportsable to bathe with limited or no assistance,able to dress with limited or no assistance,able to feed self with limited or no assistance,able to get out of chair or bed with limited or no assistance,able to groom with limited or no assistance, andable to toilet with limited or no assistance. For falls risk assessment, patient reportsdizziness/vertigobu t reportsno frequent falls while walking,no fall in the past year, andno fall since last visit. For home safety, patient reportsfire armsbut reportsno unsafe rowena hazzards,no unsafe stairs,no unsafe gas appliances,working smoke/co detectors,use of seatbelts,no vision or hearing loss while driving,has hand bars in the bathroom/shower, andgood lighting in the home. For vision, patient reportsno vision problems. For instrumental activities of daily living, patient reportsable to do house work with limited or no assistance,able to grocery shop with limited or no assistance,able to manage medications with limited or no assistance,able to manage money with limited or no assistance,able to prepare meals with limited or no assistance, andable to use the phone with limited or no assistance. Pt comes in for CKD, Anemia, CKD, [...] equivalent symptoms, etc. Neil Higgins MD [address] [facility] [address], [place], [address], [facility] 04/24/2025 13:47:19 OBGyn Episode No OBEpisode recorded.
[2025-06-24 19:50] VITALS: BP 143/71; PULSE 72; RESP 22; O2SAT 99
--- OUTSIDE RECORDS SUMMARY | 2025-06-24 20:20 | XMS_ITS | Encounter Summary ---
Author Organization [facility] Care Team Providers Care Information Systems Security Officer Name Role Phone Neil Higgins MD Primary Care Provider [phone] Neil Higgins MD Primary Care Provider [phone] Edilberto Nance MD Unavailable [phone] Rick Coates MD Unavailable [phone] Encounter Details Date Type Department Care Team (Latest Contact Info) Description 06/24/2017 Orders Only [facility] ProviderSolo MD [address] [place] [address] Social History Tobacco Use Types Packs/Day Years Used Date Smoking Tobacco: Never Assessed Comments Unknown Sex and Gender Information Value Date Recorded Sex Assigned at Not on file Legal Sex Female 7:36 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 Gender Identity Female 08/25/2021 8:49 PM [...] on filedocumented in this encounter Care Teams Information Systems Security Officer Relationship Specialty Start Date End Date Neil Higgins MD [address] [place] [address] PCP - General 02/16/17 01/17/18 Neil Higgins MD [address] [facility] [address] [place] [address] PCP - General 01/18/18 Edilberto Nance MD [address] [facility] [address] [place] [address] Consulting Physician Cardiology 05/20/22 Rick Coates MD [address] [place] [address] Consulting Physician Otolaryngology 07/31/22 documented as of this encounter
--- OUTSIDE RECORDS SUMMARY | 2025-06-24 20:20 | XMS_ITS | Clinical Summary ---
Author Organization [facility] Address [address] [place] [address] Care Team Providers Care Chip Applying Machine Tender Name Role Phone Neil Higgins MD Primary Care Provider [phone] Edilberto Nance MD Unavailable [phone] Rick Coates MD Unavailable [phone] Allergies Active Allergy Reactions Criticality Noted Date [...] 11/10/2022 Assessment & Plan (11/10/2022 9:19 PM WHOLESALE AGRONOMIST): This has improved and gotten back to [...] is a risk of orbital injury and VALET PARKER injury which could result in blindness or double vision or brain damage. These risks are quite low. Some risk of permanent anosmia. I explained that this may not be the reason for the headache and she understands that. She has no questions. Assessment & Plan (11/10/2022 9:19 PM WHOLESALE AGRONOMIST): Seems improved. 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 09/27/2019 Overview (09/27/2019): Added automatically from request for surgery [id number] Parkinsonism 01/26/2018 Obesity with body mass index [...] Department Care Team Description 06/20/2025 Telephone [facility] Cardiology [address] [facility] [address] 8th [place] [address] [place] [address] Francine Draper 06/12/2025 1:40 PM CDT Procedure visit [facility] General Neurology [address] [facility] 6th [address] [place] [address] Francine Ruiz MD PhD Intractable chronic migraine without aura and without status migrainosus (Primary Dx) 05/30/2025 Telephone [facility] Otolaryngology [address] [place] [address] Irma Chavez LPN Sinus symptoms and results of CT sinus 05/29/2025 Imaging Exam [facility] Otolaryngology [address] [place] [address] Rick Coates MD Chronic pansinusitis (Primary Dx) 05/21/2025 1:30 PM CDT Office Visit [facility] Pulmonology [address] [facility] [address] [place] [address] Shoshana Seo MD Chronic bronchitis, simple (HCC) (Primary Dx); Chronic rhinitis 04/03/2025 2:15 PM CDT Office Visit [facility] Otolaryngology [address] [place] [address] Rick Coates MD Chronic cough (Primary Dx); Chronic pansinusitis 03/27/2025 Orders Only [facility] General Neurology [address] [facility] 6th [address] [place] [address] Clara Montaño Intractable chronic migraine [...] Right CARDIAC CATHETERIZATION 2018 and 12/20/2020 see [facility] for results CYSTOSCOPY INSERTION / REMOV AL [...] on file Legal Sex Female 7:36 AM WHOLESALE AGRONOMIST Gender Identity Female 08/25/2021 8:49 PM CDT [...] as needed Medical Devices Implanted Type Area Valet Parker Device Identifier Shelf Expiration Date Model / Serial / Lot Total Joint Replacement Bilateral : Knee Insurance MEDICARE Populis [facility] MEDICARE FOR LIFE MEDICARE FOR LIFE [facility] Advance Directives For more information, please contact: [phone] * Full Code (Latest Code Status on File) Date Activated Date Inactivated Comments 12/20/2020 7:11 AM 12/21/2020 4:39 AM Healthcare Agents on File Name Relationship Healthcare Agent [facility] p Communication Marcus Severiano Spouse Health Care Agent Care Teams Chip Applying Machine Tender Relationship Specialty Start Date End Date Neil Higgins MD [address] [facility] [address] [place] [address] PCP - General 01/18/18 Edilberto Nance MD [address] [facility] [address] [place] [address] Consulting Physician Cardiology 05/20/22 Rick Coates MD [address] [place] [address] Consulting Physician Otolaryngology 07/31/22
--- OUTSIDE RECORDS SUMMARY | 2025-06-24 20:20 | XMS_ITS | Encounter Summary ---
Author Organization [facility] Healthcare Address [address] [place] [address] Care Team Providers Care It Recruiter Name Role Phone Neil Higgins MD Primary Care Provider [phone] Edilberto Nance MD Unavailable [phone] Rick Coates MD Unavailable [phone] Reason for Visit * Reason Onset Date Comments PAIN CONFERENCE 03/25/2021 Encounter Details Date Type Department Care Team (Late st Contact Info) Description 03/25/2021 Telephone [facility] [address] [facility] [address] [place], [place] [id number] Teresa Orellaan MD PhD [address] [place], [place] [id number] PAIN CONFERENCE Social History Tobacco Use Types Packs/Day Years Used Date Smoking Tobacco: Never Smokeless Tobacco: Never Alcohol Use Standard Drinks/Week Comments Not Currently 0 (1 standard drink = 0.6 oz pur e alcohol) Comments No Sex and Gender Information Value Date Recorded Sex Assigned at Not on file Legal Sex Female 7:36 AM ADVANCED DEVELOPER Gender Identity Female 08/25/2021 8:49 PM CDT [...] on filedocumented in this encounter Care Teams It Recruiter Relationship Specialty Start Date End Date Neil Higgins MD [address] [facility] [address] [place] [address] PCP - General 01/18/18 Edilberto Nance MD [address] [facility] [address] [place] [address] Consulting Physician Cardiology 05/20/22 Rick Coates MD [address] [address] Consulting Physician Otolaryngology 07/31/22 documented as of this encounter
--- OUTSIDE RECORDS SUMMARY | 2025-06-24 20:20 | XMS_ITS | Encounter Summary ---
Author Organization [facility] Address [address] [place] [address] Phone Care Team Providers Care Java Portal Developer Name Role Phone Neil Higgins MD Primary Care Provider [phone] Edilberto Nance MD Unavailable [phone] Rick Coates MD Unavailable [phone] Encounter Details Date Type Department Care Team (Late st Contact Info) Description 01/31/2018 Orders Only [facility] ProviderSolo MD [address] [id number] Social History Tobacco Use Types Packs/Day Years Used Date Smoking Tobacco: Never Assessed Comments Unknown Sex and Gender Information Value Date Recorded Sex Assigned at Not on file Legal Sex Female 7:36 AM FRONT SIGHT ATTACHER Gender Identity Female 08/25/2021 8:49 PM CDT Sexual Orientation Straight 08/25/2021 8: 49 PM CDT documented as of this encounter Plan of Treatment Not on file documented as of this encounter Procedures Procedure Name Priority Date/Time Associated Diagnosis Comments VLWU CAROTID DUPLEX SCAN COMPLETE BILATERAL 01/31/2018 12:00 AM FRONT SIGHT ATTACHER documented in this encounter Results * VLWU CAROTID DUPLEX SCAN COMPLETE BILATERAL (01/31/2018 12:00 AM FRONT SIGHT ATTACHER) Anatomical Region Laterality Modality Vascular Bilateral Ultrasound Narrative 01/31/2018 12:00 AM FRONT SIGHT ATTACHER Ordered by an unspecified provider. Historical Provider CV VASCULAR PROCEDURES Fi nal Result documented in this encounter Visit Diagnoses Not on filedocumented in this encounter Care Teams Java Portal Developer Relationship Specialty Start Date End Date Neil Higgins MD [address] [place] [address] PCP - General 01/18/18 Edilberto Nance MD [address] [place] [address] Consulting Physician Cardiology 05/20/22 Rick Coates MD [address] [place] [address] Consulting Physician Otolaryngology 07/31/22 documented as of this encounter
--- OUTSIDE RECORDS SUMMARY | 2025-06-24 20:20 | XMS_ITS | Encounter Summary ---
Author Organization [facility] Healthcare Address [address] [place] [address] Care Team Providers Care Production Support Manager Name Role Phone Neil Higgins MD Primary Care Provider [phone] Edilberto Nance MD Unavailable [phone] Rick Coates MD Unavailable Encounter Details Date Type Department Care Team (Late st Contact Info) Description 04/03/2021 Telephone [facility] [address] [facility] [address] [place], [place] [phone] Teresa Orellana MD PhD [address] 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
--- OUTSIDE RECORDS SUMMARY | 2025-06-24 20:20 | XMS_ITS | Encounter Summary ---
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
--- OUTSIDE RECORDS SUMMARY | 2025-06-24 20:20 | XMS_ITS | Referral Summary ---
Author Organization [facility] Address [address] [place] [address] Care Team Providers Care Extractive Metallurgist Name Role Phone Neil Higgins MD Primary Care Provider Edilberto Nance MD Unavailable [phone] Rick Coates MD Unavailable Encounters Date Type Department Care Team Description 06/20/2025 Telephone [facility] Cardiology [address] [facility] [facility] [place] [address] 8th [place] [address] [place] [address] Francine Draper 06/12/2025 1:40 PM CDT Procedure visit [facility] General Neurology [address] 6th [address] [place] [address] Francine Ruiz MD PhD Intractable chronic migraine without aura and without status migrainosus (Primary Dx) 05/30/2025 Telephone [facility] Otolaryngology [address] [place] [address] Irma Chavez LPN Sinus symptoms and results of CT sinus 05/29/2025 Imaging Exam [facility] Otolaryngology [address] [place] [address] Rick Coates MD Chronic pansinusitis (Primary Dx) 05/21/2025 1:30 PM CDT Office Visit [facility] Pulmonology [address] [place] [address] Shoshana Seo MD Chronic bronchitis, simple (HCC) (Primary Dx); Chronic rhinitis 04/03/2025 2:15 PM CDT Office Visit [facility] Otolaryngology [address] [place] [address] Rick Coates MD Chronic cough (Primary Dx); Chronic pansinusitis 03/27/2025 Orders Only [facility] General Neurology [address] [place] [address] 6th [address] [place] [address] Sabra Clara Dolly Intractable chronic [...] 11/10/2022 Assessment & Plan (11/10/2022 9:19 PM BLOOM CONVEYOR OPERATOR): This has improved and gotten back [...] is a risk of orbital injury and XRAY TECH injury which could result in blindness or double vision or brain damage. These risks are quite low. Some risk of permanent anosmia. I explained that this may not be the reason for the headache and she understands that. She has no questions. Assessment & Plan (11/10/2022 9:19 PM BLOOM CONVEYOR OPERATOR): Seems improved. Endoscopically I do not [...] (05/20/2022): Added automatically from request for surgery [id number] Chronic ethmoidal sinusitis 05/20/2022 Overview (05/20/2022): Added automatically from request for surgery [id number] Acute post-traumatic headache, not intractable 1 Chest pain 09/27/2019 Overview (09/27/2019): Added automatically from request for surgery [id number] Coronary artery disease of n ative artery of [place] heart with stable angina pectoris 09/27/2019 Overview (09/27/2019): Added automatically from request for surgery [id number] Parkinsonism 01/26/2018 Obesity with body mass index [...] on file Legal Sex Female 7:36 AM BLOOM CONVEYOR OPERATOR Gender Identity Female 08/25/2021 8:49 PM [...] as needed Medical Devices Implanted Type Area Adaptive Physical Educator Device Identifier Shelf Expiration Date Model / Serial / Lot Total Joint Replacement Bilateral : Knee Insurance MEDICARE [facility] [place] MEDICARE [facility] PPO Intuit [facility] [place] MEDICARE FOR LIFE MEDICARE FOR LIFE ZA KHLOE Advance Directives For more information, please contact: [phone] * Full Code (Latest Code Status on File) Date Activated Date Inactivated Comments 12/20/2020 7:11 AM 12/21/2020 4:39 AM Healthcare Agents on File Name Relationship Healthcare Agent [facility] Communication Marcus Marty Spouse Health Care Agent Care Teams Extractive Metallurgist Relationship Specialty Start Date End Date Neil Higgins MD [address] [place] [address] PCP - General 01/18/18 Edilberto Nance MD [address] [place] [address] Consulting Physician Cardiology 05/20/22 [place] [address] Consulting Physician Otolaryngology 07/31/22
--- OUTSIDE RECORDS SUMMARY | 2025-06-24 20:20 | XMS_ITS | Clinical Summary ---
Author Organization [facility] Address [address] [place] [address] Care Team Providers Care In Flight Refueling Operator Name Role Phone Neil Higgins MD Primary Care Provider [phone] Allergies Active Allergy Reactions Criticality Noted Date [...] (10/05/2023): Added automatically from request for surgery [id number] Incomplete bladder emptying 11/02/2022 OAB (overactive bladder) 11/02/2022 UTI (urinary tract infection) 11/28/2021 Hyponatremia 11/28/2021 Coronary artery disease of n ative artery of [place] heart with stable angina pectoris 09/27/2019 Overview (06/27/2020): Overview: Added automatically from request for surgery [id number] Chest pain 09/27/2019 Overview (06/27/2020): Overview: Added automatically from request for surgery [id number] Parkinsonism ([facility]) 01/26/2018 Temporary cerebral vascular dysfunction 04/09/20 17 [...] Type Department Care Team Description 06/22/2025 Telephone [facility] - [facility] [address] [place] [phone] Ghazal Lassiter NP Reschedule 06/06/2025 Orders Only [facility] [address] [place] [phone] Kamila Cooper RN 06/06/2025 Telephone [facility] [address] [place] [phone] Ghazal Lassiter, MINH Medication 05/14/2025 10:31 AM CDT - 05/14/2025 11:56 AM CDT Hospital Encounter [facility] [address] [place] [address] Eric Waters PA URI Discharge Disposition: Home [...] Disease Brother 1 Heart Disease Brother 2 CO Brother 2 Colon Cancer Brother 3 Heart Disease Brother 3 Heart Disease Father Heart Disease Mother Stroke Mother Heart Disease Sister 1 CVA Sister 2 Heart Disease Sister 2 ckd Sister 2 Heart Disease Sister 3 CO Sister 3 Acute myelogenous leukemia Sister 4 [...] 64.9 kg (143 lb) 11/20/2024 3:53 PM RIVET HOLE MACHINE OPERATOR Height 154.9 cm (5' 1) 05/14/2025 10:36 AM CDT Body Mass Index 27.02 11/20/2024 3:53 PM RIVET HOLE MACHINE OPERATOR Plan of Treatment Upcoming Encounters Date Type Department Care Team (Latest Contact Info) Description 07/05/2025 9:23 AM CDT Hospital Encounter [facility] [place] [address] Robert Ha DPM [address] [place] [address] [place] [address] 07/05/2025 9:23 AM CDT - 07/05/2025 10:33 AM CDT Surgery [place] [address] [place] [address] Robert Ha DPM [address] [place] [address] [place] [phone] HAMMERTOE REPAIR RIGHT SECOND AND FIFTH TOES 11/13/2025 11:00 AM RIVET HOLE MACHINE OPERATOR Office Visit [facility] - [facility] [address] [place] [address] Ghazal Lassiter NP [address] [facility] [address] [place] [address] Scheduled Procedures Name Priority Associated Diagnoses Date/Ti [...] season) 2024 12/19/2021, 01/27/2021, 12/30/2020 PHQ-2 (Physician Koi) 11/29/2024 11/20/2024 DTaP, Tdap and Td Vaccines [...] this topic Medical Devices Implanted Type Area Medical Equipment Repairer Device Identifier Shelf Expiration Date Model / Serial / Lot Knee Components Knee Components Stent Ureteral [place] Sci Contour 6fr X 28cm - [id number] Implanted:Qty : 1 on 01/13/2022 by Frantz Batista MD at [facility] Stent Left: Ureter [employer] REYNA [id number] 09/08/2024 [id number] 240 / / [id number] Procedures Procedure Name Priority Date/Time Associated Diagnosis Comments XR CHEST PA+LAT STAT 05/14/2025 10:53 AM CDT STREP A RAPID STAT 05/14/2025 10:43 AM CDT COLONOSCOPY Routine 11/04/2023 9:58 AM RIVET HOLE MACHINE OPERATOR from Last 3 Months or Most Recently Relevant to Health Maintenance Results * XR CHEST PA+LAT (05/14/2025 10:53 AM CDT) Anatomical Region Laterality Modality Chest Radiographic Almita ging 05/14/2025 10:5 7 AM CDT Impressions 05/14/2025 11:01 AM CDT IMPRESSION: No acute pulmonary infiltrate or consolidation. Ordered By: ERIC WATERS Interpreted By: Gianfranco Wright, 05/14/2025 10:57 AM Narrative 05/14/2025 11:01 AM CDT [address] [address] IMAGING STUDIES: XR CHEST PA+LAT DATE: 05/14/2025 [...] Procedure Note Gianfranco Wright MD - 05/14/2025 [place] [id number] IMAGING STUDIES: XR CHEST PA+LATDATE: 05/14/2025 10:46 [...] SPECIMEN TYPE THROAT 05/14/2025 10:43 AM CDT [facility] RAPID STREP TEST NEGATIVE NEGATIVE 05/14/2025 10:57 AM CDT [facility] STRUCTURE OF ANTERIOR PORTION OF NECK / Unknown 05/14/2025 10:43 AM CDT us Eric RODRIGUEZ MICROBIOLOGY - GENERAL ORD ERABLES Final Result [address] [address], from Last 3 Months Insurance MEDICARE [facility] [employer] [facility] Advance Directives * Full Code (Latest Code Status on File) Date Activated Date Inactivated Comments 01/13/2022 1:00 PM 01/13/2022 5:16 PM * Full Code Date Activated Date Inactivated Comments 11/29/2021 2:30 PM 11/30/2021 6:41 PM Care Teams In Flight Refueling Operator Relationship Specialty Start Date End Date Neil Higgins MD [address] [facility] [address] [place] [address] PCP - General 11/07/16
[2025-06-24] MEDS: ACETAMINOPHEN 500 MG TABLET 1000 MG PO (20:23)
--- NOTE | 2025-06-24 20:31 | ED.HEATRA ---
HPI - Head Injury General Chief complaint: Head Injury Stated complaint: FALL-STRUCK HEAD-PLAVIX Time Seen by Provider: 06/24/25 19:52 History of Present Illness HPI Narrative: Patient was out strolling with her when she lost her balance and fell, hitting the back of her head; she has pain to her head, none elsewhere; no LOC, she was able to get up afterwards. Is on aspirin/plavix. Related Data Home Medications ?Medication ?Instructions ?Recorded ?Confirmed ?Last Taken ?Type allopurinol 100 mg tablet 100 mg PO DAILY 12/07/19 07/09/23 Unknown History amitriptyline 50 mg tablet 50 mg PO HS 12/07/19 07/09/23 Unknown History aspirin 81 mg tablet,delayed 81 mg PO DAILY 12/07/19 07/09/23 Unknown History release (Enteric Coated Aspirin) carboxymethylcellulose sodium 1 % 1 drp ophthalmic (eye) HS 12/07/19 07/09/23 Unknown History eye gel in a dropperette (Refresh Celluvisc) carvedilol 6.25 mg tablet 6.25 mg PO BID 12/07/19 07/09/23 Unknown History cetirizine 10 mg capsule 10 mg PO DAILY 12/07/19 07/09/23 Unknown History clopidogrel 75 mg tablet (Plavix) 75 mg PO DAILY 12/07/19 07/09/23 Unknown History duloxetine 60 mg capsule,delayed 60 mg PO DAILY 12/07/19 07/09/23 Unknown History release (Cymbalta) fluticasone 250 mcg-salmeterol 50 1 inh inhalation Q12H 12/07/19 07/09/23 Unknown History mcg/dose blistr powdr for inhalation (Advair Diskus) furosemide 20 mg tablet 20 mg PO DAILY 12/07/19 07/09/23 Unknown History levothyroxine 50 mcg tablet 50 mcg PO DAILY 12/07/19 07/09/23 Unknown History (Synthroid) lidocaine 5 % topical patch 1 patch topical DAILY 12/07/19 07/09/23 Unknown History (Lidoderm) linaclotide 145 mcg capsule 145 mcg PO DAILY 12/07/19 07/09/23 Unknown History omega-3 acid ethyl esters 1 gram 1 cap PO BID 12/07/19 07/09/23 Unknown History capsule (Lovaza) pantoprazole 40 mg tablet,delayed 40 mg PO BID 12/07/19 07/09/23 Unknown History release peg 400-propylene glycol 0.4 %-0.3 1 drp ophthalmic (eye) Q6H 12/07/19 07/09/23 Unknown History % eye drops (Systane (propylene glycol)) pregabalin 100 mg capsule (Lyrica) 100 mg PO BID 12/07/19 07/09/23 Unknown History rosuvastatin 10 mg tablet 10 mg PO DAILY 12/07/19 07/09/23 Unknown History topiramate 100 mg tablet (Topamax) 100 mg PO DAILY 12/07/19 07/09/23 Unknown History Allergies Allergy/AdvReac Type Severity Reaction Status Date / Time Sulfa (Sulfonamide AdvReac Mild Hives Verified 07/09/23 13:41 Antibiotics) Review of Systems Review of Systems: All systems reviewed & are unremarkable except as noted in HPI and below PMFSH Past Medical History Medical History (Updated 06/24/25 @ 20:16 by Ninfa Lemus MD) History of stroke High cholesterol History of high blood pressure Surgical History Surgical History (Updated 07/09/23 @ 19:19 by Melonie Purvis APRN) History of heart artery stent Exam Narrative: EXAMINATION OF ORGAN SYSTEMS/BODY AREAS: Constitutional: Vital signs per nursing GENERAL:[No acute distress, non-toxic appearing.] HEAD: Normal with no signs of head trauma. EYES: EOMI, conjunctiva normal ENT: Hearing grossly intact LUNGS: Nonlabored breathing. HEART: [Regular rate and rhythm] ABD: [Soft], [nontender to palpation] EXT: Normal range of motion SKIN: Hematoma to posterior scalp NEURO: [Alert and oriented x 3. No gross focal sensory or strength deficits.] PSYCH: Normal affect Course Vital Signs Vital signs: Vital Signs Temperature 97.6 F 06/24/25 19:05 Pulse Rate 70 06/24/25 19:05 Respiratory Rate 16 06/24/25 19:05 Blood Pressure 139/55 L 06/24/25 19:05 Pulse Oximetry 100 06/24/25 19:05 Oxygen Delivery Room Air 06/24/25 19:05 Temperature 97.6 F 06/24/25 19:05 Pulse Rate 72 06/24/25 19:50 Respiratory Rate 22 H 06/24/25 19:50 Blood Pressure 143/71 H 06/24/25 19:50 Pulse Oximetry 99 06/24/25 19:50 Oxygen Delivery Room Air 06/24/25 19:50 MDM - Head Injury MDM Narrative Medical decision making narrative: Patient presents here with fall and head injury, has a was here hematoma on exam but otherwise no signs of injury elsewhere, no tenderness to palpation to any extremity CT head/C-spine thankfully negative for acute abnormality. Discussed with patient and at bedside, they are happy to go home at this time, Tylenol given for pain and ice pack. Stable for discharge with return precautions follow-up to PCP. Discharge Plan Discharge Clinical Impression: Closed head injury, Contusion of scalp Patient Disposition: Home Condition: Stable Instructions: Head Injury (ED) Additional Instructions: You can take Tylenol at home, and make sure you are using ice on your head. Please follow-up with your doctor and you can always return to the emergency room for any further issues. Patient Language: Hungarian Prescriptions: No Action fluticasone propion-salmeterol [Advair Diskus] 250-50 mcg/dose Blister With Device 1 inh INHALATION Q12H carvedilol 6.25 mg Tablet 6.25 mg PO BID allopurinol 100 mg Tablet 100 mg PO DAILY aspirin [Enteric Coated Aspirin] 81 mg Tablet,Delayed Release (Dr/Ec) 81 mg PO DAILY amitriptyline 50 mg Tablet 50 mg PO HS carboxymethylcellulose sodium [Refresh Celluvisc] 1 % Dropperette,Gel 1 drp OPHTHALMIC (EYE) HS cetirizine 10 mg Capsule 10 mg PO DAILY clopidogrel [Plavix] 75 mg Tablet 75 mg PO DAILY lidocaine [Lidoderm] 5 % Adhesive Patch,Medicated 1 patch TOPICAL DAILY furosemide 20 mg Tablet 20 mg PO DAILY Systane (propylene glycol) 0.4-0.3 % Drops 1 drp OPHTHALMIC (EYE) Q6H duloxetine [Cymbalta] 60 mg Capsule,Delayed Release(Dr/Ec) 60 mg PO DAILY omega-3 acid ethyl esters [Lovaza] 1 gram Capsule 1 cap PO BID pregabalin [Lyrica] 100 mg Capsule 100 mg PO BID linaclotide 145 mcg Capsule 145 mcg PO DAILY pantoprazole 40 mg Tablet,Delayed Release (Dr/Ec) 40 mg PO BID levothyroxine [Synthroid] 50 mcg Tablet 50 mcg PO DAILY topiramate [Topamax] 100 mg Tablet 100 mg PO DAILY rosuvastatin 10 mg Tablet 10 mg PO DAILY Follow-up/Referrals: Ronaldo,MD Weeks ([place]) [Primary Care Provider] - 2 Days
== END 2025-06-24 20:30 | disposition home or self-care (01) ==
LOC: ANHED 20:18
PROVIDERS: Emergency Provider Emergency Medicine; PCP Internal Medicine
DX: S00.03XA Contusion of scalp, initial encounter (principal); I10 Essential (primary) hypertension; E78.00 Pure hypercholesterolemia, unspecified; Z95.5 Presence of coronary angioplasty implant and graft; Z86.73 Personal history of transient ischemic attack (TIA), and cerebral infarction without residual deficits; Z79.02 Long term (current) use of antithrombotics/antiplatelets; Z79.82 Long term (current) use of aspirin; Z79.899 Other long term (current) drug therapy; W18.39XA Other fall on same level, initial encounter
CPT/HCPCS: 70450; 72125; 99284; A9270